=== PATIENT | female | born 1955 | race African-American/Black ===

== ENCOUNTER 2017-09-05 11:50 | Emergency (ER) | payer OTHER ==
[2017-09-05] MEDS ORDERED: Lidocaine 1% PF 5 ML VIAL ONE ×2 (12:19→12:23)
[2017-09-05] MEDS ORDERED: Adacel (T-DAP) 0.5 ML VIAL ONE (12:19)
[2017-09-05] MEDS ORDERED: Bacitracin Zinc 1 Packet ONE (12:19)
== END 2017-09-05 13:15 | disposition home or self-care (01) ==
LOC: ERS 11:50
DX: S61.012A Laceration without foreign body of left thumb without damage to nail, initial encounter (principal); E66.9 Obesity, unspecified; I10 Essential (primary) hypertension; G43.909 Migraine, unspecified, not intractable, without status migrainosus; W26.0XXA Contact with knife, initial encounter
CPT/HCPCS: 64450; 90471; 90715; J2001

== ENCOUNTER 2017-09-09 00:12 | Observation (INO) | payer OTHER ==
[2017-09-09 00:48] LABS: #Basophils 0.1 thou/uL (0.0-0.2); #Eosinphils 0.2 thou/uL (0.0-0.7); #Lymphocytes 2.3 thou/uL (1.20-3.40); #Monocytes 0.4 thou/uL (0.11-0.59); %Basophils 0.7 % (0.0-1.0); %Lymphocytes 33.1 % (21.0-51.0); %Monocytes 5.2 % (0.0-10.0); Hematocrit 44.7 % (36.0-47.0); Mean Platelet Volume 7.9 fL (7.4-10.4); Red Blood Cell (RBC) Count 4.92 mill/uL (4.20-5.40); White Blood Cell (WBC) Count 6.9 thou/uL (4.8-10.8)
[2017-09-09 01:04] LABS: ALT (SGPT) 8 U/L (8-55); AST (SGOT) 12 U/L (5-34); Alkaline Phosphatase 81 U/L (40-150); Anion Gap 18 mmol/L (10-20); BUN (Urea Nitrogen) 15 mg/dL (9.8-20.1); Bilirubin, Total 0.4 mg/dL (0.2-1.2); CK (CPK) 93 U/L (29-168); Calc. Creatinine Clearance 0 mL/min (70-130); Calcium 9.6 mg/dL (7.8-10.44); Carbon Dioxide 23 mmol/L (23-31); Chloride 106 mmol/L (98-107); Estimated GFR-MDRD 77; Globulin 3.8 g/dL (2.4-3.5); Protein, Total 8.1 g/dL (6.0-8.3)
[2017-09-09 01:09] LABS: Troponin I Less than 0.010 ng/mL (< 0.028)
[2017-09-09] MEDS ORDERED: Ondansetron HCl/PF 4 MG/2 ML Vial ONE (02:00)
[2017-09-09 03:11] LABS: Bilirubin Negative (Negative); Blood, Urine Large (Negative); Glucose, Urine (Dipstick) Negative (Negative); Ketone, Urine Negative (Negative); Nitrite Negative (Negative); Protein, Urine (Dipstick) 30 mg/dL (Neg-Trace); Urobilinogen 0.2 mg/dL (0.2-1.0)
[2017-09-09 03:14] LABS: Bacteria/HPF 1+ HPF (None Seen); Hyaline Casts/LPF 0-3 HYALINE CAST LPF (0-3 Hyaline); WBC/HPF 0-3 HPF (0-3)
[2017-09-09 04:05] LABS: Troponin I 0.026 ng/mL (< 0.028)
[2017-09-09] MEDS ORDERED: HYDROcodone/Acetaminophen 5/325 mg Tablet PO PRN ×2 (06:04)
[2017-09-09] MEDS ORDERED: Acetaminophen 325 MG TAB PO PRN (06:04)
[2017-09-09] MEDS ORDERED: Ondansetron HCl/PF 4 MG/2 ML Vial IVP PRN (06:04)
[2017-09-09] MEDS ORDERED: Ondansetron ODT 4 MG TAB SL PRN (06:04)
[2017-09-09 07:12] LABS: Troponin I Less than 0.010 ng/mL (< 0.028)
[2017-09-09 07:18] VITALS: BMI 43.4
[2017-09-09] MEDS ORDERED: PROVENTIL INHALER 6.7 G (200 INHALATIONS) INH PRN (07:51)
[2017-09-09] MEDS ORDERED: Promethazine 25 MG TAB PO PRN (07:52)
[2017-09-09] MEDS ORDERED: hydrALAZINE 20 MG/ML VIAL SLOW IVP PRN (08:05)
[2017-09-09] MEDS: HYDROcodone/Acetaminophen 10/325 mg Tablet PO PRN ×2 (08:11→14:12)
[2017-09-09] MEDS: tiZANidine HCl 4 MG TAB PO SCH ×2 (08:12→14:12)
[2017-09-09] MEDS: ALPRAZolam 0.5 MG TAB PO SCH ×2 (08:12→14:12)
--- NOTE | 2017-09-09 08:39 | RAD ---
CHEST TWO VIEWS: History: Shortness of breath. Comparison: 08-02-13 FINDINGS: Two views chest. Normal cardiac silhouette. The pulmonary vessels and hilum are normal. Costophrenic angles are clear. No consolidation or mass. No pneumothorax or osseous abnormality. IMPRESSION: No acute cardiopulmonary process. POS: [facility]
[2017-09-09] MEDS ORDERED: Lisinopril 20 MG TAB PO SCH (12:30)
--- NOTE | 2017-09-09 13:50 | NM ---
CARDIAC SPECT: CLINICAL HISTORY: 62-year-old black female with chest pain and hypertension. TECHNIQUE: A stress-only myocardial perfusion scan was performed following the intravenous administration of 31 mCi technetium-99m sestamibi. Pharmacologic stress with Lexiscan was monitored and interpreted by Alda Walker. FINDINGS: Homogeneous tracer distribution is seen in the myocardial segments on the post stress images. GATED SPECT LVEF: 70%. WALL MOTION EXAM: Normal. IMPRESSION: Normal post stress myocardial perfusion scan. POS: [facility]
[2017-09-09 15:59] VITALS: BP 150/79; TEMP 98.6
[2017-09-09] MEDS ORDERED: Regadenoson 0.4 MG/5 ML SYRINGE ONE (15:59)
[2017-09-09] MEDS ORDERED: Temazepam 15 MG CAP PO SCH (21:00)
--- NOTE | 2017-09-10 06:15 | HP ---
DATE OF ADMISSION: 09/09/2017 REASON FOR ADMISSION AND CHIEF COMPLAINT: Chest pain. HISTORY OF PRESENT ILLNESS: Ms. Samaniego is a 62-year-old -Maldivian female with past medical hi story of hypertension and chronic pain who came because of chest pain. She states the pain initiall y started in the epigastrium, it goes into the chest, then radiates into the shoulder as well, assoc iated with some shortness of breath and nausea, but no vomiting, no diaphoresis, no dizziness. The patient says the pain was getting worse, so she decided to come to the hospital. In the ER, the pat ient was evaluated and found to have normal cardiac enzymes and EKG. In view of risk factors, the p atient is admitted to rule out myocardial infarction. PAST MEDICAL HISTORY: 1. Hypertension, not on medications. 2. History of small-bowel obstruction. 3. History of COPD. 4. Morbid obesity. PAST SURGICAL HISTORY: Nothing significant. CURRENT MEDICATIONS: Protonix 40 mg daily, Promethazine 25 mg q.6 hours p.r.n., temazepam 30 mg at bedtime p.r.n., Zanaflex 4 mg t.i.d. and Ventolin inhaler q.i.d. p.r.n. 2 puffs. FAMILY HISTORY: Nothing of interest. SOCIAL HISTORY: The patient lives alone. No history of smoking. No history of alcohol intake. REVIEW OF SYSTEMS: Unremarkable except for the chest pain. PHYSICAL EXAMINATION: GENERAL: The patient is alert, awake and oriented x3. VITAL SIGNS: Temperature 98, pulse 110, respirations 20 and blood pressure initially 200/120, came down to 140/100. HEENT: Head is normocephalic and atraumatic. Pupils are equal and reactive. Nasopharynx is pink a nd moist. NECK: Supple. No JVD. LUNGS: Bilateral air entry present. No rales, no rhonchi. HEART: S1 and S2 are regular. ABDOMEN: Soft. No distention, no tenderness. Bowel sounds are present. CENTRAL NERVOUS SYSTEM: No focal deficits. LABORATORY AND X-RAY FINDINGS: CBC shows WBC 6.9, hemoglobin 14, hematocrit 44 and platelets 266. Metabolic panel: Sodium 143, potassium 3.5, chloride 106, CO2 of 23, urea nitrogen 15, creatinine 0 .1, glucose 112, CK-MB 0.9 and troponin I less than 0.01. Chest x-ray negative. EKG shows sinus tachycardia, heart rate 115. No acute ST-T wave changes seen . ASSESSMENT: 1. Chest pain, rule out myocardial infarction. 2. Hypertension, uncontrolled. 3. Morbid obesity. 4. Hyperlipidemia. PLAN: 1. Vital signs q.4 hours. 2. Activity: As tolerated. 3. Allergies: No known drug allergies. 4. Hep-Lock. 5. Troponin I q.8 hours x2. 6. Stress test. 7. Lisinopril 20 mg daily. 8. Continue her home medications. 9. If stress test is negative, the patient will be discharged home.
[2017-09-10] MEDS ORDERED: LINZESS 145 MCG PO SCH (07:30)
[2017-09-10] MEDS ORDERED: Lisinopril 20 MG TAB PO SCH (09:00)
--- NOTE | 2017-09-11 10:16 | DIS ---
DATE OF ADMISSION: 09/09/2017 DATE OF DISCHARGE: 09/09/2017 ADMITTING DIAGNOSES: 1. Chest pain, rule out myocardial infarction. 2. Hypertension, uncontrolled. 3. Morbid obesity. 4. Hyperlipidemia. FINAL DIAGNOSES: 1. Chest pain, no evidence of acute myocardial infarction and negative stress test. 2. Hypertension, uncontrolled, improved. 3. Morbid obesity. 4. Hyperlipidemia. BRIEF SUMMARY OF HOSPITAL COURSE: Ms. Samaniego is a 62-year-old -[place] female admitted [facility] of chest pain and discomfort. The patient has risk factors, admitted to rule out myocardial infarc tion. Serial cardiac enzymes were within normal limits. Her blood pressure was elevated. The patie nt had not been taking her medications. She was restarted on lisinopril after which blood pressure c laura down. The patient underwent a stress test and it was reported as negative for ischemia. In view of improvement, the patient was discharged. PHYSICAL EXAMINATION: GENERAL: At the time of discharge, she was stable. VITAL SIGNS: Stable. LUNGS: Clear. CARDIAC: Heart sounds regular. ABDOMEN: Soft, nontender. Bowel sounds present. DISCHARGE MEDICATIONS: Include temazepam 30 mg at bedtime p.r.n., lisinopril 20 mg daily, also evangelista nue with Xanax t.i.d., Phenergan p.r.n., Protonix 40 mg daily, Ventolin inhaler 2 puffs q.i.d. p.r.n. FOLLOWUP: The patient will come for followup in 2 weeks.
--- NOTE | 2017-09-16 09:00 | STRESS ---
Acquisition Time: 2017-09-09 09:28:18 Total Exercise Time: 00:01:00 Test Indications: CHEST PAIN Medications: Protocol: LEXISCAN Max HR: 118 BPM 74% of Pred: 159 BPM Max BP: 180/096 mmHG Max Work Load: 1.0 METS RESTING ECG: SINUS TACHYCARDIA AT 110 BPM WITH POOR R-WAVE PROGRESSION SYMPTOMS: NONE NORMAL BP RESPONSE ECTOPY: NONE ECG STRESS: NO SIGNIFICANT CHANGES INTERPRETATION: NEGATIVE ECG/AWAIT NUCLEAR IMAGES FOR DEFINITIVE DIAGNOSIS Confirmed by NELA CONKLIN ([id number]) on 09/16/2017 8:59:59 AM Referred By: MD Jim HERNANDEZ Confirmed By:NELA CONKLIN
--- NOTE | 2017-10-25 12:41 | EKG ---
Test Reason : Blood Pressure : / mmHG Vent. Rate : 115 BPM Atrial Rate : 115 BPM P-R Int : 160 ms QRS Dur : 088 ms QT Int : 320 ms P-R-T Axes : 049 -18 062 degrees QTc Int : 442 ms Sinus tachycardia Biatrial enlargement Left ventricular hypertrophy No STEMI Abnormal ECG Confirmed by MARTIN SHRESTHA ([id number]), technical writer and editor DARÍO VALENZUELA ([id number]) on 10/25/2017 12:41:17 PM Referred By: Confirmed By:MARTIN SHRESTHA
== END 2017-09-09 19:12 | disposition home or self-care (01) ==
LOC: ERS 00:12 → 2SW 03:21
PROVIDERS: ADMIT Internal Medicine; ATTEND Internal Medicine
DX: R07.89 Other chest pain (principal); I10 Essential (primary) hypertension; J44.9 Chronic obstructive pulmonary disease, unspecified; E66.01 Morbid (severe) obesity due to excess calories; Z68.41 Body mass index [BMI] 40.0-44.9, adult; Z91.041 Radiographic dye allergy status; Z88.5 Allergy status to narcotic agent; Z88.8 Allergy status to other drugs, medicaments and biological substances; Z79.899 Other long term (current) drug therapy
CPT/HCPCS: 36415; 71020; 78452; 80053; 81003; 81015; 82553; 84484; 85025; 85379; 93005; 93017; 96361; 96374; 96375; A9500; G0378; J0360; J2405; J2785

== ENCOUNTER 2017-10-07 05:47 | Observation (INO) | payer OTHER ==
[2017-10-07] MEDS ORDERED: cloNIDine 0.1 MG TAB ONE ×2 (06:48→11:18)
[2017-10-07 06:55] LABS: #Eosinphils 0.1 thou/uL (0.0-0.7); #Monocytes 0.4 thou/uL (0.11-0.59); #Neutrophils 2.7 thou/uL (1.40-6.50); %Basophils 0.3 % (0.0-1.0); %Eosinophils 2.8 % (0.0-10.0); %Lymphocytes 38.4 % (21.0-51.0); %Monocytes 6.8 % (0.0-10.0); Hematocrit 44.4 % (36.0-47.0); Mean Platelet Volume 8.2 fL (7.4-10.4); Red Blood Cell (RBC) Count 4.92 mill/uL (4.20-5.40); White Blood Cell (WBC) Count 5.2 thou/uL (4.8-10.8)
[2017-10-07 07:13] LABS: ALT (SGPT) 11 U/L (8-55); AST (SGOT) 16 U/L (5-34); Alkaline Phosphatase 84 U/L (40-150); Anion Gap 16 mmol/L (10-20); BUN (Urea Nitrogen) 15 mg/dL (9.8-20.1); Bilirubin, Total 0.5 mg/dL (0.2-1.2); Calc. Creatinine Clearance 0 mL/min (70-130); Calcium 10.3 mg/dL (7.8-10.44); Carbon Dioxide 25 mmol/L (23-31); Chloride 104 mmol/L (98-107); Estimated GFR-MDRD 64; Globulin 4.2 g/dL (2.4-3.5); Protein, Total 8.8 g/dL (6.0-8.3)
[2017-10-07 07:17] LABS: Troponin I 0.011 ng/mL (< 0.028)
--- NOTE | 2017-10-07 07:50 | RAD ---
AP VIEW OF THE CHEST: INDICATION: Chest pain. COMPARISON: Prior exam dated 09/09/17. IMPRESSION: There are low lung volumes. Heart size accentuated by the poor inspiration. No definite confluent a irspace opacity, pleural effusion, or pneumothorax is evident. No acute osseous abnormality is evide nt. COMMENTS: He exam is compared to the prior dated 09/09/17. POS: [facility]
[2017-10-07] MEDS ORDERED: Water For Inject, Bacteriostat 30 ML ONE (08:34)
[2017-10-07] MEDS ORDERED: diphenhydrAMINE 50 MG/ML VIAL ONE (08:34)
[2017-10-07] MEDS ORDERED: methylPREDNISolone Sod Succ/PF 125 MG/2 ML VIAL ONE (08:34)
[2017-10-07] MEDS ORDERED: Mag-Al 1200 mg/1200 mg/30 ML UDCUP ONE (08:34)
[2017-10-07] MEDS ORDERED: Lidocaine Viscous Sol 2% 15 ml UD Cup ONE ×2 (08:34→08:35)
[2017-10-07] MEDS ORDERED: Lisinopril 10 MG TAB ONE (09:24)
--- NOTE | 2017-10-07 10:06 | CT ---
CT HEAD WITHOUT CONTRAST: Technique: Multiple axial tomograms were obtained through the head without IV enhancement. History: Headache. Pain. FINDINGS: The ventricles are of normal size and position. No evidence of hemorrhage or mass. No evidence of inf arct or edema. There may be mild chronic ischemic white matter change present. There is evidence of a n empty sella. Sinuses and mastoids are well aerated. IMPRESSION: No evidence of acute process. POS: [facility]
--- NOTE | 2017-10-07 10:52 | CT ---
CHEST CT ANGIOGRAM ABDOMEN CT ANGIOGRAM: Exams include 3D rendering. HISTORY: A 62-year-old female with chest pain and burning abdominal pain, chest pain, and burning abdominal pa in. Exam was performed with CTA aortic dissection protocol. FINDINGS: No evidence for thoracic aortic aneurysm or dissection. Proximal pulmonary arteries are free of thro mbus. There is evidence for a small hiatal hernia. No evidence of abdominal aortic aneurysm or dissection, there is some mild focal dilatation of the di stal abdominal aorta just above the level of the bifurcation up to 2.4 cm. Celiac, superior mesenter ic, and inferior mesenteric arteries are patent. No significant renal artery stenosis. IMPRESSION: No evidence for aortic aneurysm or dissection. Small hiatal hernia. No evidence for other significa nt acute process. POS: [facility]
[2017-10-07] MEDS ORDERED: Acetaminophen 500 MG TAB ONE ×2 (11:34→13:27)
[2017-10-07] MEDS ORDERED: Nitroglycerin 2% Ointment 1 INCH/1 GM Packet ONE (12:14)
[2017-10-07] MEDS ORDERED: ISOVUE-370 76%-LOCM 1 ML ONE (13:07)
[2017-10-07] MEDS ORDERED: Ondansetron HCl/PF 4 MG/2 ML Vial ONE (13:27)
[2017-10-07] MEDS ORDERED: Labetalol HCl 100 MG/20 ML VIAL ONE (13:27)
[2017-10-07] MEDS ORDERED: ALPRAZolam 0.25 MG TAB ONE (16:18)
[2017-10-07 17:13] LABS: Troponin I Less than 0.010 ng/mL (< 0.028)
[2017-10-07 17:21] VITALS: BMI 43.0
[2017-10-07] MEDS ORDERED: Ondansetron HCl/PF 4 MG/2 ML Vial IVP PRN (17:28)
[2017-10-07] MEDS ORDERED: Ondansetron ODT 4 MG TAB SL PRN (17:28)
[2017-10-07] MEDS ORDERED: hydrALAZINE 20 MG/ML VIAL SLOW IVP PRN (17:29)
[2017-10-07] MEDS ORDERED: Lisinopril 20 MG TAB PO SCH (19:15)
[2017-10-07] MEDS: hydrALAZINE 20 MG/ML VIAL SLOW IVP PRN ×2 (19:59→23:53)
[2017-10-07] MEDS: Promethazine 25 MG TAB PO PRN (19:59)
[2017-10-07 20:00] LABS: Troponin I Less than 0.010 ng/mL (< 0.028)
[2017-10-07] MEDS ORDERED: HYDROcodone/Acetaminophen 10/325 mg Tablet PO PRN ×4 (20:20→23:58)
[2017-10-07] MEDS ORDERED: Promethazine 25 MG TAB PO PRN (21:09)
[2017-10-07] MEDS ORDERED: PROVENTIL INHALER 6.7 G (200 INHALATIONS) INH PRN (21:12)
[2017-10-07] MEDS: ALPRAZolam 0.5 MG TAB PO SCH ×2 (22:04→22:13)
[2017-10-07] MEDS ORDERED: tiZANidine HCl 4 MG TAB PO SCH (23:59)
[2017-10-08] MEDS: HYDROcodone/Acetaminophen 10/325 mg Tablet PO PRN ×3 (00:01→15:24)
[2017-10-08] MEDS ORDERED: hydrALAZINE 20 MG/ML VIAL SLOW IVP PRN (00:06)
[2017-10-08 00:51] LABS: Troponin I Less than 0.010 ng/mL (< 0.028)
--- NOTE | 2017-10-08 01:42 | HP ---
DATE OF ADMISSION: 10/07/2017 REASON FOR ADMISSION AND CHIEF COMPLAINT: Chest pain, abdominal pain, nausea and elevated blood pres sure. HISTORY OF PRESENT ILLNESS: Ms. Samaniego is a 62-year-old -I[place]ic female with past medical his tory of hypertension, morbid obesity, COPD and chronic abdominal pain, came because of elevated blood pressure as well as abdominal pain, nausea as well as chest pain. The patient states it started a f ew days ago and nausea is still persisting. The patient has seen Dr. Edourad in the office and had GI w orkup done and it was normal, and patient states she has been taking Protonix as was prescribed. Esdras arently, the chest pain was sharp in nature, intermittent in the retrosternal area, nonradiating, ass ociated with some shortness of breath and nausea, no dizziness. The patient had a stress test done a month ago, which was unremarkable, so the patient came to the emergency room because of these sympto ms and found to have markedly elevated blood pressure. Her blood pressure was 225/138 in the ER, who was given clonidine couple of doses as well as was given nitro and labetalol as well. Her blood pre ssure still remained high, so she is being admitted for further evaluation and management. The patie nt also received GI cocktail. PAST MEDICAL HISTORY: 1. Hypertension. 2. Morbid obesity. 3. Chronic abdominal pain. 4. History of small-bowel obstruction. 5. COPD. PAST SURGICAL HISTORY: Nothing significant. CURRENT MEDICATIONS: The patient is on Xanax 0.5 mg b.i.d., [place] p.r.n. q.6 hours, Linzess daily, l isinopril 20 mg b.i.d., Protonix 40 mg daily, Phenergan p.r.n., temazepam 30 mg at bedtime p.r.n., ti zanidine 4 mg t.i.d. and Ventolin inhaler p.r.n. ALLERGIES: NKDA. FAMILY HISTORY: Nothing of interest. SOCIAL HISTORY: The patient lives alone. No history of smoking. No history of alcohol intake. REVIEW OF SYSTEMS: Unremarkable except for the above complaints. PHYSICAL EXAMINATION: GENERAL: The patient is alert, awake and oriented x3. VITAL SIGNS: Temperature 98, pulse 86, respirations 20 and blood pressure 180/110. HEENT: Head is normocephalic and atraumatic. Pupils are equal and reactive to light. Nasopharynx i s pale and dry. Hard and soft palate. No lesions seen. SKIN: Skin turgor decreased. NECK: Supple. No JVD. LUNGS: Bilateral air entry present. No rales, no rhonchi. HEART: S1 and S2 regular. ABDOMEN: Soft and mildly tender. No guarding, no rigidity. Bowel sounds are present. RECTAL: Deferred. CENTRAL NERVOUS SYSTEM: No focal deficits. LABORATORY AND X-RAY FINDINGS: CBC showed WBC of 5, hemoglobin 13, hematocrit 44 and platelets 278. Metabolic panel: Sodium 141, potassium 3.6, chloride 104, CO2 of 25, BUN 15, creatinine 1.09 and gl ucose 104. CK-MB 1, troponin I 0.011. Serum lipase 10. EKG shows normal sinus tachycardia with hea rt rate of 101, no acute ST-T wave changes seen. Chest x-ray negative. CT dissection protocol negat tevin. ASSESSMENT: 1. Hypertensive emergency and uncontrolled hypertension. 2. Chest pain, atypical, rule out myocardial infarction. 3. Abdominal pain and nausea. 4. Morbid obesity. 5. History of chronic obstructive pulmonary disease. PLAN: 1. Vital signs q.4 hours. 2. Activity: As tolerated. 3. Allergies: NKDA. 4. Hep-lock. 5. CK-MB and troponin I q.8 hours x2. 6. Diet: Cardiac. 7. Continue home medication. 8. Hydralazine 10 mg IVP q.6 hours p.r.n. for systolic more than 200. 9. Phenergan p.r.n. Most likely, we will add second medication for control of blood pressure.
[2017-10-08] MEDS ORDERED: Morphine 4 MG/ML VIAL ONE (06:23)
[2017-10-08 06:43] LABS: Troponin I Less than 0.010 ng/mL (< 0.028)
[2017-10-08] MEDS ORDERED: Morphine 4 MG/ML VIAL SLOW IVP SCH (06:45)
[2017-10-08] MEDS ORDERED: LINACLOTIDE 145 MCG PO SCH (07:30)
[2017-10-08] MEDS: ALPRAZolam 0.5 MG TAB PO SCH (08:43)
[2017-10-08] MEDS: tiZANidine HCl 4 MG TAB PO SCH ×2 (08:44→15:17)
[2017-10-08] MEDS: Promethazine 25 MG TAB PO PRN (08:44)
[2017-10-08] MEDS ORDERED: Lisinopril 20 MG TAB PO SCH ×2 (09:00)
[2017-10-08] MEDS ORDERED: tiZANidine HCl 4 MG TAB PO SCH (09:00)
[2017-10-08] MEDS ORDERED: NIFEdipine XL 60 MG TAB PO SCH (10:00)
[2017-10-08 11:57] VITALS: TEMP 98.8
[2017-10-08 15:22] VITALS: BP 138/98
[2017-10-08] MEDS ORDERED: Temazepam 15 MG CAP PO SCH (21:00)
[2017-10-09] MEDS ORDERED: NIFEdipine XL 60 MG TAB PO SCH (09:00)
--- NOTE | 2017-10-09 14:47 | DIS ---
DATE OF ADMISSION: 10/07/2017 DATE OF DISCHARGE 10/08/2017 ADMITTING DIAGNOSES: 1. Hypertensive emergency and uncontrolled hypertension and chest pain, atypical, rule out myocardia l infarction. 2. Abdominal pain and nausea. 3. Morbid obesity. FINAL DIAGNOSES: 1. Hypertensive emergency with uncontrolled hypertension, improved. 2. Chest pain. No evidence of acute myocardial infarction. 3. Abdominal pain and nausea, improved. 4. Morbid obesity. BRIEF SUMMARY OF HOSPITAL COURSE: Ms. Samaniego is a 62-year-old female admitted [facility] abdominal pain, nausea, and also the patient was found to have elevated blood pressure as well. The patient did have a sharp chest pain. Serial cardiac enzymes were within normal limits. Her blo od pressure initially was 180/90, but it came down with medications, Procardia-XL after which blood p ressure came down to 138/98. The patient was given Zofran, abdominal pain resolved, the nausea resol yamile with the medication. Patient was able to tolerate diet very well. The patient was discharged. At the time of discharge, she was stable. Lungs clear. Abdomen soft, nontender. Bowel sounds prese nt. DISCHARGE MEDICATIONS: Include tizanidine 4 mg t.i.d., [place] p.r.n., Protonix 40 mg daily, Prometha zine 25 mg q.6h. p.r.n., Xanax 0.5 mg b.i.d., temazepam 1 tablet at bedtime 30 mg, Linzess daily, [place] co p.r.n. Procardia-XL 60 mg daily, lisinopril 20 mg b.i.d. FOLLOWUP: The patient will come for followup in 2 weeks.
--- NOTE | 2017-10-24 13:12 | EKG ---
Test Reason : SOB Blood Pressure : / mmHG Vent. Rate : 101 BPM Atrial Rate : 101 BPM P-R Int : 136 ms QRS Dur : 088 ms QT Int : 338 ms P-R-T Axes : 040 -16 049 degrees QTc Int : 438 ms Sinus tachycardia Voltage criteria for left ventricular hypertrophy Abnormal ECG Confirmed by MARIBELL CHENEY ([id number]), brands editor DARÍO VALENZUELA ([id number]) on 10/24/2017 1:12:41 PM Referred By: PRIYA Confirmed By:MARIBELL CHENEY
== END 2017-10-08 18:28 | disposition home or self-care (01) ==
LOC: ERS 05:47 → 2SW 13:44
PROVIDERS: ADMIT Internal Medicine; ATTEND Internal Medicine
DX: I16.1 Hypertensive emergency (principal); I10 Essential (primary) hypertension; R07.89 Other chest pain; R10.9 Unspecified abdominal pain; R11.0 Nausea; E66.01 Morbid (severe) obesity due to excess calories; J44.9 Chronic obstructive pulmonary disease, unspecified; Z68.43 Body mass index [BMI] 50.0-59.9, adult; Z79.899 Other long term (current) drug therapy; Z88.5 Allergy status to narcotic agent; Z88.8 Allergy status to other drugs, medicaments and biological substances; Z88.6 Allergy status to analgesic agent; Z91.041 Radiographic dye allergy status; Z91.038 Other insect allergy status
CPT/HCPCS: 36415; 70450; 71010; 71275; 80053; 82553; 83690; 84484; 85025; 93005; 94760; 96374; 96375; 96376; A4216; G0378; J0360; J1200; J2270; J2405; J2930

== ENCOUNTER 2017-12-29 15:02 | Inpatient (IN) | payer OTHER ==
[2017-12-29 15:55] LABS: #Lymphocytes 1.5 thou/uL (1.20-3.40); #Monocytes 0.4 thou/uL (0.11-0.59); #Neutrophils 7.1 thou/uL (1.40-6.50); %Eosinophils 0.2 % (0.0-10.0); %Lymphocytes 16.7 % (21.0-51.0); %Monocytes 4.7 % (0.0-10.0); %Neutrophils 78.4 % (42.0-75.0); Hemoglobin 13.8 g/dL (12.0-16.0); Mean Corpuscular HGB CONC 32.1 g/dL (32.0-36.0); Mean Corpuscular Hemoglobin 28.2 pg (27.0-31.0); Mean Corpuscular Volume 87.9 fl (81.0-99.0); Mean Platelet Volume 7.5 fL (7.4-10.4); Platelet Count 314 thou/uL (130-400); RBC Distribution Width 13.3 % (11.5-14.5)
[2017-12-29 16:18] LABS: ALT (SGPT) 14 U/L (8-55); AST (SGOT) 16 U/L (5-34); Albumin 4.8 g/dL (3.4-4.8); Alkaline Phosphatase 81 U/L (40-150); Anion Gap 19 mmol/L (10-20); BUN (Urea Nitrogen) 15 mg/dL (9.8-20.1); Bilirubin, Total 0.4 mg/dL (0.2-1.2); CK (CPK) 92 U/L (29-168); Calc. Creatinine Clearance 0 mL/min (70-130); Calcium 10.6 mg/dL (7.8-10.44); Carbon Dioxide 20 mmol/L (23-31); Chloride 107 mmol/L (98-107); Estimated GFR-MDRD 57; Glucose 114 mg/dL (80-115); Lipase 10 U/L (8-78); Potassium 3.8 mmol/L (3.5-5.1); Protein, Total 8.8 g/dL (6.0-8.3); Sodium 142 mmol/L (136-145)
[2017-12-29 16:22] LABS: CKMB 1.5 ng/mL (0-6.6); Troponin I 0.021 ng/mL (< 0.028)
--- NOTE | 2017-12-29 16:50 | RAD ---
PORTABLE CHEST 1 VIEW: Date: 12/29/17 Time: 1601 hours HISTORY: Chest pain, shortness of breath, nausea, and vomiting. FINDINGS: Comparison made with exam of 10/07/17. The heart size is borderline. There is continued elevation of the right hemidiaphragm. The aorta is t ortuous. No lobar consolidation, pneumothoraces, kendrick pulmonary edema, or pleural effusions are seen . IMPRESSION: No radiographic evidence of acute cardiopulmonary process. POS: [facility]
--- NOTE | 2017-12-29 17:26 | NM ---
VQ SCAN: Indication: Dyspnea. FINDINGS: Ventilation portion of the exam reveals relatively homogeneous radiotracer distribution without signi ficant retention. Perfusion portion of the exam revealed no significant or large perfusion defects. IMPRESSION: Low probability VQ scan. POS: [facility]
[2017-12-29] MEDS ORDERED: HYDROcodone/Acetaminophen 10/325 mg Tablet ONE (17:34)
[2017-12-29] MEDS ORDERED: hydrALAZINE 20 MG/ML VIAL ONE (18:56)
[2017-12-29 19:07] LABS: Troponin I 0.029 ng/mL (< 0.028)
[2017-12-29] MEDS ORDERED: Ondansetron HCl/PF 4 MG/2 ML Vial IVP PRN (20:16)
[2017-12-29] MEDS ORDERED: Ondansetron ODT 4 MG TAB SL PRN (20:16)
[2017-12-29] MEDS ORDERED: PROVENTIL INHALER 6.7 G (200 INHALATIONS) INH PRN (21:29)
[2017-12-29] MEDS ORDERED: Zolpidem Tartrate 5 MG TAB PO SCH (21:30)
[2017-12-29] MEDS ORDERED: ALPRAZolam 1 MG TAB PO SCH (21:30)
[2017-12-29] MEDS ORDERED: hydrALAZINE 25 MG TAB PO SCH (21:30)
[2017-12-29] MEDS ORDERED: Lisinopril 20 MG TAB PO SCH (21:30)
[2017-12-29] MEDS ORDERED: Labetalol 100 MG/20 ML MDV SLOW IVP PRN (21:32)
[2017-12-29] MEDS ORDERED: Ketorolac Tromethamine 30 MG/ML VIAL IVP PRN (21:42)
[2017-12-29] MEDS: Promethazine 25 MG TAB PO PRN (22:06)
[2017-12-29 22:20] LABS: Troponin I 0.022 ng/mL (< 0.028)
[2017-12-29] MEDS: HYDROcodone/Acetaminophen 10/325 mg Tablet PO PRN (22:22)
[2017-12-29 22:59] VITALS: BMI 42.8
[2017-12-30] MEDS: HYDROcodone/Acetaminophen 10/325 mg Tablet PO PRN (05:05)
[2017-12-30] MEDS: Sodium Chloride 0.9% 1,000 ML IV SCH ×2 (05:13→21:09)
[2017-12-30] MEDS ORDERED: NIFEdipine XL 90 MG TAB PO SCH (09:00)
[2017-12-30] MEDS ORDERED: FLU VACC QS2017-18 36 mo. & older 0.5 ML SYRINGE IM ONE (09:00)
[2017-12-30] MEDS: tiZANidine HCl 4 MG TAB PO SCH ×3 (10:36→21:10)
[2017-12-30] MEDS: ALPRAZolam 1 MG TAB PO SCH ×2 (10:37→21:10)
[2017-12-30] MEDS: hydrALAZINE 25 MG TAB PO SCH ×2 (10:37→21:10)
[2017-12-30] MEDS: Lisinopril 20 MG TAB PO SCH ×2 (10:37→21:10)
[2017-12-30] MEDS ORDERED: Zolpidem Tartrate 5 MG TAB PO SCH (21:00)
--- NOTE | 2017-12-31 01:10 | CON ---
DATE OF CONSULTATION: 12/30/2017 GI INPATIENT CONSULTATION NOTE REQUESTING PHYSICIAN: Dr. Anderson. REASON FOR CONSULTATION: Nausea and vomiting. HISTORY OF PRESENT ILLNESS: Renae Samaniego is a very pleasant 62-year-old -[place] woman with a history of constipation, predominant irritable bowel syndrome as well as chronic recurrent na usea and vomiting. She has chronic back pain for which she takes opioid medications as well as migra ine headaches. She is morbidly obese. She sees my GI colleague, Dr. Wilber Edouard on an outpatient bas is. She has had some extensive gastrointestinal workup over the past year in 02/2017. She had a nor mal CT of the abdomen and pelvis with contrast in 04/2017. She had EGD and colonoscopy and this demo nstrated only a 3-cm hiatal hernia and mild sigmoid diverticulosis, but was otherwise normal. She is followed up in our clinic with regularity. She was last seen a couple of months ago by one of our p hymansician assistants. At that time, she was continuing to complain of intermittent episodic nausea, v omiting as well as constipation which is fairly well controlled. A gastric emptying study was ordere d but this has not happened yet. It is actually scheduled for next week. The patient was admitted t o the hospital yesterday with another episode of nausea and vomiting which were fairly acute in onset yesterday and associated with shortness of breath and pain in the chest. This is a fairly typical p resentation for her. She was admitted to rule out myocardial infarction. Troponins have been negati ve. She states that her bowel movements through this time have not changed. She takes Linzess more on a p.r.n. basis than anything and feels that this controlled her constipation well. She says that she has a couple of bad days nearly every month with nausea and vomiting, but really has no symptoms in between the times. Actually today, her symptoms seem to have resolved. She has eaten a hamburger , some chicken, some peppers, had crackers and also soda throughout the day today and has had no furt her nausea, vomiting, or abdominal pain. REVIEW OF SYSTEMS: Full review of systems including constitutional, head, eyes, ears, nose, throat, GI, , cardiovascular, respiratory, musculoskeletal, and neurologic systems is negative except as no shantanu in the HPI. PAST MEDICAL HISTORY: GERD, hiatal hernia, IBS with constipation predominance, osteoarthritis, chron ic back pain, chronic opioid use, hypertension, obesity, anxiety, migraine headaches, hysterectomy. SOCIAL HISTORY: No smoking, alcohol, or drug use. FAMILY HISTORY: Noncontributory. ALLERGIES: ALEVE, COMPAZINE, DARVOCET, GABAPENTIN, IBUPROFEN, IODINE, LYRICA, NAPROXEN, RITALIN, TOR ADOL, TRAMADOL, TRIPROLIDINE and TYLENOL. OUTPATIENT MEDICATIONS: Hydralazine, lisinopril, Procardia, pantoprazole, [place], Zanaflex, albuterol , Xanax and Lunesta. PHYSICAL EXAMINATION: VITAL SIGNS: Temperature 98.7, pulse 95, blood pressure 140/70, 96% oxygen saturation on room air. GENERAL: Morbidly obese, lying in bed comfortably in no distress. MENTAL: Alert and fully oriented, pleasant, conversational. SKIN: No jaundice, no rash visible or palpable. EYES: No scleral icterus. Extraocular movements are intact. ENT: Mucous membranes moist, no oral lesions. LYMPH: No submandibular, supraclavicular lymphadenopathy. THYROID: Nontender to palpation. HEART: Regular rate and rhythm. LUNGS: Clear to auscultation bilaterally. ABDOMEN: Obese, bowel sounds present, soft, nontender to palpation throughout. No masses or organom egaly appreciated. EXTREMITIES: No peripheral edema. VESSELS: Radial pulses 2+ bilaterally. NEUROLOGICAL: Cranial nerves II through XII intact bilaterally. No focal deficits. LABORATORY STUDIES: WBC 9.0, hemoglobin 13.8, platelets 314. Sodium 142, potassium 3.8, BUN 15, cre atinine 1.16. Troponin negative. BNP normal at 97.5. Lipase only 10. LFTs normal with total bilir ubin 0.4, alkaline phosphatase 81, AST 16, ALT 14, albumin 4.8. IMAGING STUDIES: Chest x-ray showed no acute processes. VQ scan showed low probability of pulmonary embolus. ASSESSMENT AND PLAN: 1. Nausea and vomiting, recurrent, resolved today. 2. Chest pain, recurrent, also resolved today. Thankfully, the patient has had great symptomatic improvement over the past day and has been able to tolerate her diet with no difficulties at all. She states this is in keeping with her normal pattern of having a couple of bad days every month. At this time, no further gastrointestinal workup is norma nned, except for the gastric emptying study which has already been set in motion. She will be [place] to get next week, and we will have her follow back up in the GI clinic with either Dr. Edouard or one of our Physician assistants in the next 2-3 weeks. Gastrointestinal will sign off at this time, but please call back with questions or concerns.
--- NOTE | 2017-12-31 06:32 | HP ---
DATE OF ADMISSION: 12/29/2017 CHIEF COMPLAINT: Nausea, vomiting, elevated blood pressure, and chest pain. HISTORY OF PRESENT ILLNESS: Ms. Samaniego is a 62-year-old female with past medical his tory of hypertension, migraine headaches, chronic pain came because of nausea and vomiting going on f or 3-4 days. The patient states she is unable to tolerate anything and unable to keep anything down. The patient says she tried Phenergan and Zofran without much help and came to the office. The pamella ent was found to have markedly elevated blood pressure, as well as intractable nausea and vomiting. In view of that, the patient was sent to the emergency room, where she was evaluated and found to hav e normal cardiac enzymes, but blood pressure was elevated. Her chest pain was sharp in nature in the retrosternal area, nonradiating, not associated with any dizziness. Her blood pressure initially wa s 200/120, so the patient received hydralazine IV and admitted for further evaluation and management. The patient already received aspirin and [place]. PAST MEDICAL HISTORY: 1. Hypertension. 2. Hyperlipidemia. 3. Morbid obesity. 4. History of migraine headaches. 5. History of anxiety disorder. 6. Chronic abdominal pain. 7. History of COPD. PAST SURGICAL HISTORY: Nothing significant. CURRENT MEDICATIONS: The patient is on Xanax 0.5 b.i.d., [place] p.r.n. q.6 hours, lisinopril 20 mg b. i.d., Protonix 40 mg daily, Phenergan p.r.n., Lunesta p.r.n., tizanidine 4 mg t.i.d., Ventolin inhale r p.r.n., hydralazine 50 b.i.d. ALLERGIES: DARVOCET, GABAPENTIN, IBUPROFEN, IODINE, LYRICA, NAPROXEN, RITALIN, TORADOL, TRAMADOL, TY LENOL, and COMPAZINE. FAMILY HISTORY: Nothing contributory. SOCIAL HISTORY: The patient lives alone. No history of smoking. No history of alcohol intake. REVIEW OF SYSTEMS: Cardiovascular: Sharp chest pain. No shortness of breath. Respiratory: No fev er or cough. Gastrointestinal: Had nausea, vomiting, abdominal pain. Genitourinary: No dysuria or hematuria. Central nervous system: Has headache. No dizziness. PHYSICAL EXAMINATION: GENERAL: The patient is alert, awake, oriented x3. VITAL SIGNS: Temperature 99, pulse 96, respiration 20, blood pressure 195/110. HEENT: Head is normocephalic, atraumatic. Pupils equal and reactive to light. Nasopharynx is pale and dry. NECK: Supple. No JVD. LUNGS: Bilateral air entry present. No rales, no rhonchi. HEART: S1, S2 regular. ABDOMEN: Soft, not tender. No distention, no organomegaly. Bowel sounds are present. RECTAL: Deferred. CENTRAL NERVOUS SYSTEM: No focal deficit. LABORATORY DATA AND X-RAY FINDINGS: CBC shows WBC 9, hemoglobin 13.8, hematocrit 43, platelets 314. Metabolic panel: Sodium 142, potassium 3.8, chloride 106, CO2 of 20, urea nitrogen 15, creatinine 0 .1, glucose 114. CK-MB 1.5, troponin 0.021. Chest x-ray was negative. EKG showed sinus tachycardia initially with 120 heart rate, no acute ST-T wave changes seen. V/Q scan low probability. ASSESSMENT: 1. Hypertensive emergency. 2. Chest pain, atypical, rule out myocardial infarction. 3. Intractable nausea, vomiting, and abdominal pain. 4. Morbid obesity. 5. History of migraine headaches. 6. History of anxiety disorder. PLAN: 1. Vital signs q.4 hours. 2. Activity: As tolerated. 3. Allergies: Multiple includes DARVOCET, GABAPENTIN, IBUPROFEN, IODINE, LYRICA, NAPROXEN, RITALIN, TORADOL, TRAMADOL, TYLENOL, and COMPAZINE. 4. Hep-Lock. 5. Labetalol 20 IVP q.6 hours p.r.n. for systolic more than 160. 6. Continue home medications. 7. Procardia XL 90 mg daily. 8. Phenergan p.r.n. 9. Troponin I q.8 hours x2. 10. GI consult.
[2017-12-31] MEDS: Promethazine 25 MG TAB PO PRN (09:58)
[2017-12-31] MEDS: hydrALAZINE 25 MG TAB PO SCH (09:58)
[2017-12-31] MEDS: tiZANidine HCl 4 MG TAB PO SCH (09:59)
[2017-12-31] MEDS: Lisinopril 20 MG TAB PO SCH (09:59)
[2017-12-31] MEDS ORDERED: NIFEdipine XL 60 MG TAB PO SCH (10:00)
[2017-12-31] MEDS: ALPRAZolam 1 MG TAB PO SCH (10:03)
[2017-12-31 15:08] VITALS: BP 132/78; TEMP 98
[2018-01-01] MEDS ORDERED: NIFEdipine XL 60 MG TAB PO SCH (09:00)
== END 2017-12-31 16:49 | disposition home or self-care (01) | DRG 305 ==
LOC: ERS 15:02 → 2NO 17:30
PROVIDERS: ADMIT Internal Medicine; ATTEND Internal Medicine
DX: I16.1 Hypertensive emergency (principal); E66.01 Morbid (severe) obesity due to excess calories; Z68.41 Body mass index [BMI] 40.0-44.9, adult; R07.9 Chest pain, unspecified; E78.5 Hyperlipidemia, unspecified; G43.909 Migraine, unspecified, not intractable, without status migrainosus; F41.9 Anxiety disorder, unspecified; J44.9 Chronic obstructive pulmonary disease, unspecified; R11.2 Nausea with vomiting, unspecified; K21.9 Gastro-esophageal reflux disease without esophagitis; M19.90 Unspecified osteoarthritis, unspecified site
CPT/HCPCS: 36415; 71045; 78582; 80053; 82550; 82553; 83690; 83880; 84484; 85025; 93005; A9540; A9558; J0360

== ENCOUNTER 2018-01-22 07:04 | Emergency (ER) | payer OTHER ==
[2018-01-22] MEDS ORDERED: Metoclopramide HCl 10 MG/2 ML VIAL ONE (07:54)
[2018-01-22] MEDS ORDERED: Metoprolol Tartrate 5 MG/5 ML VIAL ONE (07:54)
[2018-01-22 08:06] LABS: ALT (SGPT) 13 U/L (8-55); AST (SGOT) 14 U/L (5-34); Albumin 4.7 g/dL (3.4-4.8); Alkaline Phosphatase 88 U/L (40-150); Anion Gap 20 mmol/L (10-20); BUN (Urea Nitrogen) Less than 4 mg/dL (9.8-20.1); Bilirubin, Total 0.5 mg/dL (0.2-1.2); Calc. Creatinine Clearance 0 mL/min (70-130); Calcium 10.2 mg/dL (7.8-10.44); Carbon Dioxide 16 mmol/L (23-31); Chloride 107 mmol/L (98-107); Estimated GFR-MDRD 65; Globulin 4.1 g/dL (2.4-3.5); Glucose 107 mg/dL (80-115); Lipase 11 U/L (8-78); Potassium 3.7 mmol/L (3.5-5.1); Protein, Total 8.8 g/dL (6.0-8.3); Sodium 139 mmol/L (136-145)
[2018-01-22 08:21] LABS: #Eosinphils 0.2 thou/uL (0.0-0.7); #Lymphocytes 2.8 thou/uL (1.20-3.40); #Monocytes 0.5 thou/uL (0.11-0.59); #Neutrophils 3.7 thou/uL (1.40-6.50); %Basophils 0.1 % (0.0-1.0); %Eosinophils 2.1 % (0.0-10.0); %Lymphocytes 39.6 % (21.0-51.0); %Monocytes 6.5 % (0.0-10.0); %Neutrophils 51.7 % (42.0-75.0); Hemoglobin 14.5 g/dL (12.0-16.0); Mean Corpuscular Hemoglobin 27.5 pg (27.0-31.0); Mean Corpuscular Volume 88.6 fl (81.0-99.0); Mean Platelet Volume 7.7 fL (7.4-10.4); Platelet Count 337 thou/uL (130-400); RBC Distribution Width 13.2 % (11.5-14.5); Red Blood Cell (RBC) Count 5.27 mill/uL (4.20-5.40); White Blood Cell (WBC) Count 7.2 thou/uL (4.8-10.8)
[2018-01-22 08:33] LABS: CKMB 0.9 ng/mL (0-6.6); Troponin I Less than 0.010 ng/mL (< 0.028)
[2018-01-22] MEDS ORDERED: Morphine 4 MG/ML VIAL ONE (09:06)
[2018-01-22 09:35] LABS: Bilirubin Negative (Negative); Blood, Urine Moderate (Negative); Clarity CLEAR (Clear); Glucose, Urine (Dipstick) Negative (Negative); Leukocyte Negative (Negative); Nitrite Negative (Negative); Protein, Urine (Dipstick) Negative (Neg-Trace); Urobilinogen 0.2 mg/dL (0.2-1.0)
[2018-01-22 09:37] LABS: Bacteria/HPF None Seen HPF (None Seen); Hyaline Casts/LPF 0-3 HYALINE CAST LPF (0-3 Hyaline); Pathc Cast-AUWi Flag 0.14 (0-2.49); RBC/HPF 0-3 HPF (0-3); Squamous Epithelial 0-3 HPF (0-3); WBC/HPF None Seen HPF (0-3)
[2018-01-22] MEDS ORDERED: hydrALAZINE 20 MG/ML VIAL ONE (09:57)
[2018-01-22] MEDS ORDERED: Labetalol HCl 100 MG/20 ML VIAL ONE (10:30)
[2018-01-22] MEDS ORDERED: Promethazine HCl 25 MG/ML VIAL ONE (10:30)
--- NOTE | 2018-02-28 20:03 | EKG ---
Test Reason : VOMITING Blood Pressure : / mmHG Vent. Rate : 122 BPM Atrial Rate : 122 BPM P-R Int : 140 ms QRS Dur : 088 ms QT Int : 310 ms P-R-T Axes : 048 -22 079 degrees QTc Int : 441 ms Sinus tachycardia Right atrial enlargement Left ventricular hypertrophy with repolarization abnormality Abnormal ECG Confirmed by CHANDAN SALAMANCA ([id number]), editorial cartoonist DARÍO VALENZUELA ([id number]) on 02/28/2018 8:03:25 PM Referred By: Confirmed By:CHANDAN SALAMANCA
== END 2018-01-22 12:04 | disposition home or self-care (01) ==
LOC: ERS 07:04
DX: R11.2 Nausea with vomiting, unspecified (principal); R10.9 Unspecified abdominal pain; I10 Essential (primary) hypertension; G43.909 Migraine, unspecified, not intractable, without status migrainosus; E66.9 Obesity, unspecified; F41.9 Anxiety disorder, unspecified
CPT/HCPCS: 36415; 51701; 80053; 81003; 81015; 82553; 83690; 84484; 85025; 93005; 96361; 96365; 96375; A4353; J0360; J2270; J2550; J2765

== ENCOUNTER 2018-04-19 05:53 | Emergency (ER) | payer OTHER ==
--- NOTE | 2018-04-19 07:32 | RAD ---
SINGLE VIEW OF THE CHEST: COMPARISON: 12/29/17. HISTORY: Chest pain and shortness of breath. Dyspnea. FINDINGS: Single view of the chest shows a normal sized cardiomediastinal silhouette. There is no evidence of c onsolidation, mass, or pleural effusion. The bones are unremarkable. IMPRESSION: No evidence of acute cardiopulmonary disease. POS: [facility]
[2018-04-19 07:38] LABS: #Basophils 0.1 thou/uL (0.0-0.2); #Lymphocytes 1.9 thou/uL (1.20-3.40); #Monocytes 0.4 thou/uL (0.11-0.59); #Neutrophils 4.9 thou/uL (1.40-6.50); %Basophils 0.9 % (0.0-1.0); %Eosinophils 0.5 % (0.0-10.0); %Lymphocytes 26.1 % (21.0-51.0); %Monocytes 5.7 % (0.0-10.0); %Neutrophils 66.7 % (42.0-75.0); Hemoglobin 14.6 g/dL (12.0-16.0); Mean Corpuscular HGB CONC 32.5 g/dL (32.0-36.0); Mean Corpuscular Hemoglobin 28.7 pg (27.0-31.0); Mean Corpuscular Volume 88.5 fL (78.0-98.0); Mean Platelet Volume 7.8 fL (7.4-10.4); Platelet Count 333 thou/uL (130-400); RBC Distribution Width 13.6 % (11.5-14.5); Red Blood Cell (RBC) Count 5.07 mill/uL (4.20-5.40); White Blood Cell (WBC) Count 7.3 thou/uL (4.8-10.8)
[2018-04-19 07:48] LABS: ALT (SGPT) 11 U/L (8-55); AST (SGOT) 13 U/L (5-34); Alkaline Phosphatase 84 U/L (40-150); Anion Gap 22 mmol/L (10-20); BUN (Urea Nitrogen) 11 mg/dL (9.8-20.1); Bilirubin, Total 0.3 mg/dL (0.2-1.2); CK (CPK) 61 U/L (29-168); Calc. Creatinine Clearance 0 mL/min (70-130); Calcium 10.4 mg/dL (7.8-10.44); Carbon Dioxide 20 mmol/L (23-31); Chloride 107 mmol/L (98-107); Estimated GFR-MDRD 67; Globulin 4.3 g/dL (2.4-3.5); Glucose 115 mg/dL (80-115); Potassium 3.6 mmol/L (3.5-5.1); Protein, Total 9.3 g/dL (6.0-8.3); Sodium 145 mmol/L (136-145)
[2018-04-19 07:57] LABS: Troponin I Less than 0.010 ng/mL (< 0.028)
[2018-04-19] MEDS ORDERED: Promethazine 25 MG TAB ONE (08:51)
== END 2018-04-19 10:16 | disposition home or self-care (01) ==
LOC: ERS 05:53
DX: I26.99 Other pulmonary embolism without acute cor pulmonale (principal); I10 Essential (primary) hypertension; E66.9 Obesity, unspecified; F41.9 Anxiety disorder, unspecified; G43.909 Migraine, unspecified, not intractable, without status migrainosus; Z79.899 Other long term (current) drug therapy
CPT/HCPCS: 71045; 80053; 82553; 84484; 85025; 93005

== ENCOUNTER 2018-04-27 09:42 | Outpatient (CLI) | payer OTHER | END 2018-04-27 09:43 | disposition home or self-care (01) | LOC: BICRAD 09:42 | PROVIDERS: ATTEND Internal Medicine | DX: I10 Essential (primary) hypertension (principal); M25.9 Joint disorder, unspecified; Z98.890 Other specified postprocedural states ==

== ENCOUNTER 2018-05-01 17:11 | Inpatient (IN) | payer OTHER ==
[2018-05-01 17:56] LABS: #Lymphocytes 1.3 thou/uL (1.20-3.40); #Monocytes 0.4 thou/uL (0.11-0.59); #Neutrophils 5.6 thou/uL (1.40-6.50); %Basophils 0.3 % (0.0-1.0); %Eosinophils 0.3 % (0.0-10.0); %Lymphocytes 17.6 % (21.0-51.0); %Neutrophils 76.8 % (42.0-75.0); Hemoglobin 12.2 g/dL (12.0-16.0); Mean Corpuscular HGB CONC 31.6 g/dL (32.0-36.0); Mean Corpuscular Hemoglobin 28.2 pg (27.0-31.0); Mean Corpuscular Volume 89.4 fL (78.0-98.0); Mean Platelet Volume 7.3 fL (7.4-10.4); Platelet Count 401 thou/uL (130-400); RBC Distribution Width 13.3 % (11.5-14.5); Red Blood Cell (RBC) Count 4.33 mill/uL (4.20-5.40); White Blood Cell (WBC) Count 7.3 thou/uL (4.8-10.8)
[2018-05-01] MEDS ORDERED: Diazepam 5 MG TAB ONE ×2 (18:02→18:33)
[2018-05-01 18:20] LABS: PTT 26.2 SEC (22.9-36.1); Prothrombin Time 12.8 SEC (12.0-14.7)
[2018-05-01 18:23] LABS: Troponin I Less than 0.010 ng/mL (< 0.028)
[2018-05-01 18:23] LABS: ALT (SGPT) 8 U/L (8-55); AST (SGOT) 11 U/L (5-34); Albumin 4.6 g/dL (3.4-4.8); Alkaline Phosphatase 81 U/L (40-150); Anion Gap 17 mmol/L (10-20); BUN (Urea Nitrogen) 16 mg/dL (9.8-20.1); Bilirubin, Total 0.3 mg/dL (0.2-1.2); CK (CPK) 79 U/L (29-168); Calc. Creatinine Clearance 0 mL/min (70-130); Calcium 10.3 mg/dL (7.8-10.44); Carbon Dioxide 20 mmol/L (23-31); Chloride 105 mmol/L (98-107); Estimated GFR-MDRD 76; Globulin 3.6 g/dL (2.4-3.5); Glucose 141 mg/dL (80-115); Lipase 8 U/L (8-78); Magnesium 1.8 mg/dL (1.6-2.6); Potassium 3.9 mmol/L (3.5-5.1); Protein, Total 8.2 g/dL (6.0-8.3); Sodium 138 mmol/L (136-145)
--- NOTE | 2018-05-01 19:00 | RAD ---
SINGLE VIEW OF THE CHEST: 05/01/18 COMPARISON: 04/19/18 HISTORY: Left sided chest pain. FINDINGS: Single view of the chest shows a normal sized cardiomediastinal silhouette. There is no evidence of c onsolidation, mass, or pleural effusion. The bones are unremarkable. IMPRESSION: No evidence of acute cardiopulmonary disease. POS: [facility]
[2018-05-01 20:12] LABS: Bilirubin Negative (Negative); Blood, Urine Small (Negative); Clarity CLEAR (Clear); Glucose, Urine (Dipstick) Negative (Negative); Leukocyte Negative (Negative); Nitrite Negative (Negative); Protein, Urine (Dipstick) Negative (Neg-Trace); Specific Gravity, Urine 1.008 (1.002-1.036); Urobilinogen 0.2 mg/dL (0.2-1.0)
[2018-05-01 20:17] LABS: Bacteria/HPF Rare-Few HPF (None Seen); Hyaline Casts/LPF 0-3 HYALINE CAST LPF (0-3 Hyaline); Pathc Cast-AUWi Flag 0.14 (0-2.49); RBC/HPF 0-3 HPF (0-3); Squamous Epithelial 0-3 HPF (0-3); WBC/HPF 0-3 HPF (0-3)
[2018-05-01] MEDS ORDERED: diphenhydrAMINE 50 MG/ML VIAL ONE (20:19)
[2018-05-01] MEDS ORDERED: methylPREDNISolone Sod Succ/PF 125 MG/2 ML VIAL ONE (20:20)
[2018-05-01] MEDS ORDERED: Labetalol HCl 100 MG/20 ML VIAL ONE (22:06)
[2018-05-01] MEDS ORDERED: Enoxaparin Sodium 30 MG/0.3 ML SYRINGE ONE (22:52)
[2018-05-01] MEDS ORDERED: Nitroglycerin 2% Ointment 1 INCH/1 GM Packet ONE (22:52)
[2018-05-01] MEDS ORDERED: Enoxaparin Sodium 100 MG/ML SYRINGE ONE (22:52)
[2018-05-01 23:29] LABS: Troponin I 0.011 ng/mL (< 0.028)
[2018-05-01] MEDS ORDERED: Labetalol HCl 100 MG/20 ML VIAL SLOW IVP PRN (23:44)
[2018-05-01] MEDS ORDERED: Sodium Chloride 0.45% 1,000 ML IV SCH (23:45)
[2018-05-01] MEDS ORDERED: Ondansetron HCl/PF 4 MG/2 ML Vial IVP PRN (23:46)
[2018-05-01] MEDS ORDERED: Ondansetron ODT 4 MG TAB SL PRN (23:46)
[2018-05-01 23:49] VITALS: BMI 43.3
[2018-05-02] MEDS ORDERED: NIFEdipine XL 90 MG TAB PO SCH (01:30)
[2018-05-02] MEDS ORDERED: hydrALAZINE 25 MG TAB PO SCH (01:30)
[2018-05-02] MEDS ORDERED: Labetalol HCl 100 MG/20 ML VIAL SLOW IVP PRN (01:35)
[2018-05-02 02:04] LABS: Troponin I 0.015 ng/mL (< 0.028)
[2018-05-02] MEDS: HYDROcodone/Acetaminophen 10/325 mg Tablet PO PRN ×2 (04:53→15:57)
[2018-05-02] MEDS: tiZANidine HCl 4 MG TAB PO SCH ×3 (08:56→20:49)
[2018-05-02] MEDS: Metoclopramide HCl 10 MG TAB PO SCH ×3 (08:57→18:14)
[2018-05-02] MEDS: Lisinopril 20 MG TAB PO SCH (08:57)
[2018-05-02] MEDS: hydrALAZINE 25 MG TAB PO SCH ×2 (08:58→20:48)
[2018-05-02] MEDS: ALPRAZolam 0.5 MG TAB PO SCH ×2 (08:58→20:49)
[2018-05-02] MEDS: Apixaban 2.5 MG TAB PO SCH ×2 (08:59→20:47)
--- NOTE | 2018-05-02 18:02 | RAD ---
THREE VIEWS LEFT SHOULDER: 05/02/18 COMPARISON: Chest x-ray 05/01/18. HISTORY: Left shoulder pain. FINDINGS: Three views of the left shoulder shows no evidence of acute fracture or dislocation. No significant d egenerative changes are seen. The visualized left thorax is unremarkable. IMPRESSION: Unremarkable exam. POS: [facility]
[2018-05-02] MEDS ORDERED: Zolpidem Tartrate 5 MG TAB PO SCH (21:00)
--- NOTE | 2018-05-03 01:44 | HP ---
DATE OF ADMISSION: 05/01/2018 REASON FOR ADMISSION AND CHIEF COMPLAINT: Elevated blood pressure, left shoulder pain, chest wall pa in. HISTORY OF PRESENT ILLNESS: Ms. Samaniego is a 62-year-old female with past medical his tory of hypertension, recent pulmonary embolism, came because of the pain in the left shoulder area. Patient was sent in the office with left shoulder pain, had an x-ray done which was unremarkable. Gaby lilly continued to have a left shoulder pain and chest wall pain, came to the emergency room. She h as some nausea, vomiting and vomited a couple of times. In the ER, patient was found to have markedl y elevated blood pressure, it was 208/115. Patient received labetalol 20 IVP as well as morphine. Gaby lilly also received Valium for anxiety. She is admitted for further evaluation and management. PAST MEDICAL HISTORY: 1. Hypertension. 2. Hyperlipidemia. 3. History of migraine headaches. 4. Anxiety disorder. 5. Chronic abdominal pain. 6. History of chronic obstructive pulmonary disease. 7. History of pulmonary embolism, on Eliquis. PAST SURGICAL HISTORY: Nothing significant. CURRENT MEDICATIONS: Patient is on Xanax 0.5 b.i.d., [place] p.r.n., lisinopril 20 mg two tablets juanjose y, Protonix 40 mg daily, tizanidine 4 mg t.i.d., hydralazine 100 mg b.i.d., nifedipine ER 90 mg daily , Reglan 5 mg t.i.d., Ambien p.r.n. ALLERGIES: Multiple include DARVOCET, GABAPENTIN, IBUPROFEN, IODINE, LYRICA, NAPROXEN, RITALIN, ANDRE DOL, TRAMADOL, TYLENOL, COMPAZINE. FAMILY HISTORY: Nothing of interest. SOCIAL HISTORY: Patient lives alone. No history of smoking. No history of alcohol intake. REVIEW OF SYSTEMS: Cardiovascular: She has sharp chest pain and shortness of breath. Respiratory: No fever or cough. Gastrointestinal: Has nausea, vomiting, and abdominal discomfort. Central nervous system: Has headache, no dizziness. PHYSICAL EXAMINATION: GENERAL: The patient is alert, awake, oriented x3. VITAL SIGNS: Temperature 98, pulse 102, respirations 20, blood pressure 204/111. HEENT: Head is normocephalic, atraumatic. Pupils are equal and reactive to light. Nasopharynx is p milvia and dry. Hard and soft palate, no lesions seen. SKIN: Skin turgor decreased. NECK: Supple. No JVD. LUNGS: Bilateral air entry present. No rales, no rhonchi. CARDIAC: S1, S2 regular. ABDOMEN: Soft. No distention, no tenderness. Normal bowel sounds present. RECTAL: Deferred. CENTRAL NERVOUS SYSTEM: No focal deficit. Left shoulder area is tender. No swelling. Range of mov ements are decreased. LABORATORY AND X-RAY FINDINGS: CBC shows WBC 7.3, hemoglobin 12, hematocrit 38, platelets 401,000. Metabolic panel: Sodium 138, potassium 3.9, chloride 105, CO2 of 20, urea nitrogen 16, creatinine 0. 9, glucose 140. CK-MB 2, troponin I less than 0.010. Prothrombin time 12, INR 1. Urinalysis negati ve. Chest x-ray negative. EKG shows sinus tachycardia with heart rate of 120. No acute ST-T wave c hanges seen. ASSESSMENT: 1. Hypertensive emergency. 2. Chest wall pain and left shoulder pain. 3. Nausea and vomiting. 4. History of pulmonary embolism. 5. History of migraine headaches. 6. Anxiety disorder. 7. Chronic abdominal pain. PLAN: 1. Vital signs q.4 hours. 2. Activity: As tolerated. 3. Allergies: Multiple. 4. Hep-Lock 5. Diet: Cardiac. 6. Continue home medication. 7. Labetalol 20 IVP q.6 hours. 8. Troponin I q.8 hours x2. 9. Morphine p.r.n.
[2018-05-03] MEDS: HYDROcodone/Acetaminophen 10/325 mg Tablet PO PRN (03:47)
[2018-05-03] MEDS: Metoclopramide HCl 10 MG TAB PO SCH (08:15)
[2018-05-03] MEDS: Apixaban 2.5 MG TAB PO SCH (08:16)
[2018-05-03] MEDS: tiZANidine HCl 4 MG TAB PO SCH (08:16)
[2018-05-03] MEDS: Lisinopril 20 MG TAB PO SCH (08:16)
[2018-05-03] MEDS: ALPRAZolam 0.5 MG TAB PO SCH (08:17)
[2018-05-03] MEDS: hydrALAZINE 25 MG TAB PO SCH (08:17)
[2018-05-03 08:18] VITALS: BP 181/97
[2018-05-03] MEDS ORDERED: NIFEdipine XL 90 MG TAB PO SCH (09:00)
[2018-05-03 09:21] VITALS: TEMP 98
== END 2018-05-03 12:42 | disposition home or self-care (01) | DRG 305 ==
LOC: ERS 17:11 → 2NO 22:27
PROVIDERS: ADMIT Internal Medicine; ATTEND Internal Medicine
DX: I16.1 Hypertensive emergency (principal); Z68.41 Body mass index [BMI] 40.0-44.9, adult; I10 Essential (primary) hypertension; F41.9 Anxiety disorder, unspecified; E66.9 Obesity, unspecified; M25.512 Pain in left shoulder; E78.5 Hyperlipidemia, unspecified; J44.9 Chronic obstructive pulmonary disease, unspecified; G89.29 Other chronic pain; R10.9 Unspecified abdominal pain; R11.2 Nausea with vomiting, unspecified; Z87.39 Personal history of other diseases of the musculoskeletal system and connective tissue; Z86.69 Personal history of other diseases of the nervous system and sense organs; Z86.711 Personal history of pulmonary embolism; Z88.6 Allergy status to analgesic agent; Z91.041 Radiographic dye allergy status; Z88.5 Allergy status to narcotic agent; Z91.048 Other nonmedicinal substance allergy status; Z91.09 Other allergy status, other than to drugs and biological substances; Z90.710 Acquired absence of both cervix and uterus; Z79.899 Other long term (current) drug therapy; Z79.01 Long term (current) use of anticoagulants
CPT/HCPCS: 36415; 71045; 80053; 81003; 81015; 82553; 83690; 83735; 83880; 84484; 85025; 85379; 85610; 85730; 93005; 94760; 96361; 96372; 96374; 96375; J1200; J1650; J2270; J2405; J2930

== ENCOUNTER 2018-05-11 17:37 | Emergency (ER) | payer OTHER ==
[2018-05-11] MEDS ORDERED: Ondansetron HCl/PF 4 MG/2 ML Vial ONE (18:01)
[2018-05-11] MEDS ORDERED: Meropenem 1 GM in Sodium Chloride 0.9% 100 ML IVPB SCH (18:30)
[2018-05-11 18:43] LABS: #Lymphocytes 1.6 thou/uL (1.20-3.40); #Monocytes 0.5 thou/uL (0.11-0.59); #Neutrophils 5.9 thou/uL (1.40-6.50); %Basophils 0.4 % (0.0-1.0); %Eosinophils 0.4 % (0.0-10.0); %Lymphocytes 19.9 % (21.0-51.0); %Monocytes 6.1 % (0.0-10.0); %Neutrophils 73.2 % (42.0-75.0); Mean Corpuscular HGB CONC 32.9 g/dL (32.0-36.0); Mean Corpuscular Hemoglobin 29.1 pg (27.0-31.0); Mean Corpuscular Volume 88.2 fL (78.0-98.0); Mean Platelet Volume 7.3 fL (7.4-10.4); Platelet Count 364 thou/uL (130-400); RBC Distribution Width 13.8 % (11.5-14.5); Red Blood Cell (RBC) Count 4.48 mill/uL (4.20-5.40)
[2018-05-11 19:03] LABS: ALT (SGPT) 15 U/L (8-55); AST (SGOT) 16 U/L (5-34); Albumin 4.9 g/dL (3.4-4.8); Alkaline Phosphatase 84 U/L (40-150); Anion Gap 18 mmol/L (10-20); BUN (Urea Nitrogen) 16 mg/dL (9.8-20.1); Bilirubin, Total 0.4 mg/dL (0.2-1.2); Calc. Creatinine Clearance 0 mL/min (70-130); Calcium 10.7 mg/dL (7.8-10.44); Carbon Dioxide 21 mmol/L (23-31); Chloride 108 mmol/L (98-107); Estimated GFR-MDRD 59; Globulin 3.5 g/dL (2.4-3.5); Glucose 102 mg/dL (80-115); Potassium 4.2 mmol/L (3.5-5.1); Protein, Total 8.4 g/dL (6.0-8.3); Sodium 143 mmol/L (136-145)
[2018-05-11 19:07] LABS: Troponin I Less than 0.010 ng/mL (< 0.028)
[2018-05-11] MEDS ORDERED: diphenhydrAMINE 50 MG/ML VIAL ONE (19:33)
[2018-05-11] MEDS ORDERED: methylPREDNISolone Sod Succ/PF 125 MG/2 ML VIAL ONE (19:33)
--- NOTE | 2018-05-11 19:33 | RAD ---
PORTABLE AP CHEST X-RAY: 05/11/2018 HISTORY: Chest pain, tender to touch. Abdominal pain in all four quadrants. Left arm pain. COMPARISON: 05/01/2018 FINDINGS: The cardiac silhouette and pulmonary vasculature are within normal limits for the portable technique of the study. The thoracic aorta is ectatic and partially calcified. the lungs are clear. There saavedra s been no interval change from the prior exam. IMPRESSION: No acute cardiopulmonary process. POS: [facility]
[2018-05-11] MEDS ORDERED: Labetalol HCl 100 MG/20 ML VIAL ONE (19:34)
[2018-05-11] MEDS ORDERED: Famotidine 20 MG TAB PO SCH (20:00)
[2018-05-11] MEDS ORDERED: Famotidine/PF 20 mg/2ml Vial SLOW IVP SCH (20:00)
[2018-05-11 22:03] LABS: Bilirubin Negative (Negative); Blood, Urine Trace (Negative); Clarity CLEAR (Clear); Glucose, Urine (Dipstick) Negative (Negative); Leukocyte Negative (Negative); Nitrite Negative (Negative); Protein, Urine (Dipstick) Trace mg/dL (Neg-Trace); Specific Gravity, Urine 1.013 (1.002-1.036); Urobilinogen 0.2 mg/dL (0.2-1.0); pH, Urine 7.5 (5.0-9.0)
[2018-05-11 22:06] LABS: Bacteria/HPF None Seen HPF (None Seen); Hyaline Casts/LPF 0-3 HYALINE CAST LPF (0-3 Hyaline); Pathc Cast-AUWi Flag 0.58 (0-2.49); Squamous Epithelial 0-3 HPF (0-3); WBC/HPF None Seen HPF (0-3)
--- NOTE | 2018-05-11 22:47 | ULT ---
BILATERAL LOWER EXTREMITY VENOUS ULTRASOUND: COMPARISON: Bilateral lower extremity pain and edema. TECHNIQUE: Multiplanar gonzalez-scale and color Doppler images were obtained in a bilateral lower extremity venous u ltrasound. Spectral analysis of the Doppler waveforms was performed. FINDINGS: The bilateral common femoral veins, profunda femoral veins, superficial femoral veins, and popliteal veins are normal in appearance, without visible thrombus. These vessels demonstrate normal compressi on, flow, and augmentation. The posterior tibial veins and greater saphenous veins are also patent. IMPRESSION: No evidence of deep venous thrombosis. POS: [facility]
--- NOTE | 2018-05-11 23:18 | ULT ---
LEFT UPPER EXTREMITY VENOUS DOPPLER WITH SPECTRAL ANALYSIS AND COLOR-FLOW EVALUATION: 05/11/2018 HISTORY: Left upper extremity pain. FINDINGS: There is normal lumen compressibility and flow in the left internal jugular vein. There is normal fl ow in the left subclavian and left axillary veins. The left axillary vein is not well seen on gonzalez-s parmjit imaging. There is normal lumen compressibility and flow seen within the left brachial vein. No rmal flow is seen within the left radial vein. The left ulnar vein is not well seen, but there is no rmal flow in the left ulnar vein. There is normal lumen compressibility and flow seen within the left upper extremity basilic and cepha lic veins. IMPRESSION: No evidence of a deep venous thrombosis involving the visualized deep venous structures of the left u pper extremity; however, the left axillary vein is not well visualized on gonzalez-scale imaging, which d oes limit evaluation for nonocclusive deep venous thrombosis at this level, but there is normal flow present. POS: [facility]
[2018-05-11] MEDS ORDERED: cloNIDine 0.1 MG TAB ONE (23:59)
[2018-05-11] MEDS ORDERED: Promethazine HCl 25 MG SUPP ONE (23:59)
[2018-05-12] MEDS ORDERED: Promethazine HCl 25 MG/ML VIAL ONE
[2018-05-12] MEDS ORDERED: Morphine 4 MG/ML VIAL ONE (00:02)
== END 2018-05-12 01:46 | disposition home or self-care (01) ==
LOC: ERS 17:37
DX: G89.4 Chronic pain syndrome (principal); I10 Essential (primary) hypertension; G43.909 Migraine, unspecified, not intractable, without status migrainosus; E66.9 Obesity, unspecified; K21.9 Gastro-esophageal reflux disease without esophagitis; F41.9 Anxiety disorder, unspecified; Z79.899 Other long term (current) drug therapy; Z86.711 Personal history of pulmonary embolism
CPT/HCPCS: 36415; 71045; 71275; 80053; 81003; 81015; 83605; 83880; 84484; 85025; 87040; 93005; 93970; 96365; 96372; 96375; J1200; J2185; J2270; J2405; J2550; J2930; J7050; S0028

== ENCOUNTER 2018-07-01 08:54 | Emergency (ER) | payer OTHER ==
[2018-07-01] MEDS ORDERED: diphenhydrAMINE 50 MG/ML VIAL ONE (09:55)
[2018-07-01] MEDS ORDERED: Metoclopramide HCl 10 MG/2 ML VIAL ONE (09:55)
[2018-07-01] MEDS ORDERED: cloNIDine 0.1 MG TAB ONE (09:55)
[2018-07-01 10:22] LABS: #Lymphocytes 1.4 thou/uL (1.20-3.40); #Monocytes 0.5 thou/uL (0.11-0.59); #Neutrophils 5.9 thou/uL (1.40-6.50); %Basophils 0.3 % (0.0-1.0); %Eosinophils 0.6 % (0.0-10.0); %Monocytes 5.7 % (0.0-10.0); %Neutrophils 75.4 % (42.0-75.0); Mean Corpuscular HGB CONC 31.6 g/dL (32.0-36.0); Mean Corpuscular Hemoglobin 28.2 pg (27.0-31.0); Mean Corpuscular Volume 89.3 fL (78.0-98.0); Mean Platelet Volume 7.9 fL (7.4-10.4); Platelet Count 403 thou/uL (130-400); RBC Distribution Width 13.2 % (11.5-14.5); Red Blood Cell (RBC) Count 4.59 mill/uL (4.20-5.40); White Blood Cell (WBC) Count 7.9 thou/uL (4.8-10.8)
[2018-07-01 10:28] LABS: INR-International Normal Ratio 1.1; PTT 27.9 SEC (22.9-36.1); Prothrombin Time 14.2 SEC (12.0-14.7)
[2018-07-01 10:40] LABS: ALT (SGPT) 13 U/L (8-55); AST (SGOT) 14 U/L (5-34); Albumin 4.5 g/dL (3.4-4.8); Alkaline Phosphatase 89 U/L (40-150); Anion Gap 16 mmol/L (10-20); BUN (Urea Nitrogen) 17 mg/dL (9.8-20.1); Bilirubin, Total 0.2 mg/dL (0.2-1.2); Calc. Creatinine Clearance 0 mL/min (70-130); Calcium 9.9 mg/dL (7.8-10.44); Carbon Dioxide 23 mmol/L (23-31); Chloride 106 mmol/L (98-107); Estimated GFR-MDRD 68; Globulin 3.8 g/dL (2.4-3.5); Glucose 122 mg/dL (80-115); Potassium 3.9 mmol/L (3.5-5.1); Protein, Total 8.3 g/dL (6.0-8.3); Sodium 141 mmol/L (136-145)
--- NOTE | 2018-07-01 11:51 | CT ---
CT OF BRAIN PERFORMED WITHOUT CONTRAST ENHANCEMENT: Date: 07/01/18 HISTORY: Headache. FINDINGS: The ventricular and cisternal system is within normal limits. There is some decreased attenuation of the periventricular white matter. Changes are similar to the prior examination. They are more posteri moises oriented. More in the posterior frontoparietal region, but not in a typical appearance of an acu te hypertensive encephalopathy, and patient's demographics are not typical for PRESS, though I favor this as more likely on the basis of chronic white matter change. The mastoid air cells are clear. Vis ualized sinuses show minimal ethmoid air cell mucosal change. IMPRESSION: Some decreased attenuation of the periventricular white matter, slightly more posterior in location, but still felt to be on the basis of some chronic white matter age-related changes, less likely relat ed to a hypertensive encephalopathy. If there is any reason to suspect PRESS in this patient, MRI wou ld be helpful in assessment. POS: [facility]
[2018-07-01] MEDS ORDERED: Labetalol HCl 100 MG/20 ML VIAL ONE (12:45)
== END 2018-07-01 13:45 | disposition home or self-care (01) ==
LOC: ERS 08:54
DX: I16.9 Hypertensive crisis, unspecified (principal); M79.662 Pain in left lower leg; M79.661 Pain in right lower leg; G43.909 Migraine, unspecified, not intractable, without status migrainosus; K52.9 Noninfective gastroenteritis and colitis, unspecified; E78.5 Hyperlipidemia, unspecified; E66.01 Morbid (severe) obesity due to excess calories; F41.9 Anxiety disorder, unspecified; Z79.899 Other long term (current) drug therapy; Z86.711 Personal history of pulmonary embolism
CPT/HCPCS: 36415; 70450; 80053; 85025; 85610; 85730; 96361; 96374; 96375; J1200; J2765

== ENCOUNTER 2018-08-12 09:33 | Emergency (ER) | payer OTHER ==
[2018-08-12] MEDS ORDERED: cloNIDine 0.1 MG TAB ONE ×2 (10:32→11:46)
[2018-08-12] MEDS ORDERED: Nitroglycerin 0.4 MG TAB (25 Tab Bottle) ONE (10:32)
[2018-08-12] MEDS ORDERED: Ondansetron ODT 4 MG TAB ONE (10:32)
--- NOTE | 2018-08-12 10:59 | RAD ---
CHEST 1 VIEW: Date: 08/12/18 INDICATION: Chest pain. COMPARISON: Prior exam dated 05/11/18. FINDINGS: Lungs are clear. Cardiomediastinal silhouette is within normal limits. The examination does not appea r appreciably changed from the comparison study. IMPRESSION: No acute cardiopulmonary process. POS: [facility]
[2018-08-12 11:40] LABS: #Lymphocytes 1.4 thou/uL (1.20-3.40); #Monocytes 0.5 thou/uL (0.11-0.59); #Neutrophils 6.5 thou/uL (1.40-6.50); %Basophils 0.4 % (0.0-1.0); %Eosinophils 0.4 % (0.0-10.0); %Lymphocytes 16.7 % (21.0-51.0); %Monocytes 5.5 % (0.0-10.0); Hemoglobin 13.5 g/dL (12.0-16.0); Mean Corpuscular HGB CONC 30.4 g/dL (32.0-36.0); Mean Corpuscular Volume 88.6 fL (78.0-98.0); Mean Platelet Volume 7.6 fL (7.4-10.4); Platelet Count 383 thou/uL (130-400); RBC Distribution Width 13.6 % (11.5-14.5); Red Blood Cell (RBC) Count 5.02 mill/uL (4.20-5.40); White Blood Cell (WBC) Count 8.4 thou/uL (4.8-10.8)
[2018-08-12] MEDS ORDERED: Labetalol HCl 100 MG/20 ML VIAL ONE (11:40)
[2018-08-12 11:41] LABS: INR-International Normal Ratio 1.2; PTT 28.6 SEC (22.9-36.1); Prothrombin Time 15.5 SEC (12.0-14.7)
[2018-08-12] MEDS ORDERED: Ondansetron HCl/PF 4 MG/2 ML Vial ONE (11:58)
[2018-08-12 12:05] LABS: Troponin I Less than 0.010 ng/mL (< 0.028)
[2018-08-12 12:16] LABS: AST (SGOT) 28 U/L (5-34); Albumin 4.8 g/dL (3.4-4.8); BUN (Urea Nitrogen) 18 mg/dL (9.8-20.1); Bilirubin, Total 0.5 mg/dL (0.2-1.2); Calc. Creatinine Clearance 0 mL/min (70-130); Calcium 10.9 mg/dL (7.8-10.44); Carbon Dioxide 14 mmol/L (23-31); Estimated GFR-MDRD 60; Globulin 3.9 g/dL (2.4-3.5); Glucose 110 mg/dL (80-115); Protein, Total 8.7 g/dL (6.0-8.3)
[2018-08-12 12:29] LABS: ALT (SGPT) 16 U/L (8-55); Alkaline Phosphatase 88 U/L (40-150); Anion Gap 18 mmol/L (10-20); Chloride 108 mmol/L (98-107); Potassium 4.1 mmol/L (3.5-5.1); Sodium 142 mmol/L (136-145)
[2018-08-12] MEDS ORDERED: Morphine 4 MG/ML VIAL ONE (13:17)
[2018-08-12 15:02] LABS: Troponin I Less than 0.010 ng/mL (< 0.028)
== END 2018-08-12 15:40 | disposition home or self-care (01) ==
LOC: ERS 09:33
DX: R07.89 Other chest pain (principal); I10 Essential (primary) hypertension; K21.9 Gastro-esophageal reflux disease without esophagitis; G43.909 Migraine, unspecified, not intractable, without status migrainosus; F41.9 Anxiety disorder, unspecified; Z86.711 Personal history of pulmonary embolism; Z79.899 Other long term (current) drug therapy
CPT/HCPCS: 36415; 71045; 80053; 84484; 85025; 85610; 85730; 93005; 96374; 96375; J2270; J2405; Q0162

== ENCOUNTER 2018-12-16 14:29 | Emergency (ER) | payer OTHER ==
[2018-12-16 15:21] LABS: #Lymphocytes 1.2 thou/uL (1.20-3.40); #Monocytes 0.2 thou/uL (0.11-0.59); #Neutrophils 5.4 thou/uL (1.40-6.50); %Basophils 0.5 % (0.0-1.0); %Eosinophils 0.3 % (0.0-10.0); %Lymphocytes 17.5 % (21.0-51.0); %Monocytes 3.5 % (0.0-10.0); %Neutrophils 78.2 % (42.0-75.0); Hemoglobin 13.5 g/dL (12.0-16.0); Mean Corpuscular HGB CONC 30.7 g/dL (32.0-36.0); Mean Corpuscular Hemoglobin 28.2 pg (27.0-31.0); Mean Corpuscular Volume 92.1 fL (78.0-98.0); Mean Platelet Volume 7.9 fL (7.4-10.4); Platelet Count 463 thou/uL (130-400); Red Blood Cell (RBC) Count 4.76 mill/uL (4.20-5.40); White Blood Cell (WBC) Count 6.8 thou/uL (4.8-10.8)
--- NOTE | 2018-12-16 15:24 | RAD ---
PORTABLE CHEST: Date: 12-16-18 Provided Clinical History: Dyspnea. FINDINGS: Comparison 08-12-18. Evaluation is limited by patient body habitus. The lungs are hypoinflated, accentuated pulmonary bron chovascular markings. No definite evidence for lobar consolidation, large effusion or pneumothorax. IMPRESSION: Limited exam. POS: [facility]
[2018-12-16 15:44] LABS: ALT (SGPT) 9 U/L (8-55); AST (SGOT) 16 U/L (5-34); Albumin 4.5 g/dL (3.4-4.8); Alkaline Phosphatase 83 U/L (40-150); Anion Gap 21 mmol/L (10-20); BUN (Urea Nitrogen) 17 mg/dL (9.8-20.1); Bilirubin, Total 0.3 mg/dL (0.2-1.2); Calc. Creatinine Clearance 0 mL/min (70-130); Calcium 10.2 mg/dL (7.8-10.44); Carbon Dioxide 16 mmol/L (23-31); Chloride 103 mmol/L (98-107); Estimated GFR-MDRD 46; Globulin 3.9 g/dL (2.4-3.5); Glucose 124 mg/dL (80-115); Lipase 155 U/L (8-78); Potassium 4.2 mmol/L (3.5-5.1); Protein, Total 8.4 g/dL (6.0-8.3); Sodium 136 mmol/L (136-145)
--- NOTE | 2018-12-16 16:05 | CT ---
CT CHEST AND ABDOMEN AND PELVIS WITHOUT CONTRAST: 12/16/2018 PROVIDED CLINICAL HISTORY: Epigastric pain. FINDINGS: The heart, pericardium, and great vessels are suboptimally evaluated in the absence of IV contrast ma terial. Minimal vascular calcification, including coronary calcium, is seen. The lungs are free of significant opacity. There is no pleural fluid or pneumothorax apparent. The airway appears patent and of normal caliber. Evaluation for thoracic lymph node enlargement is limited in the absence of I V contrast material, without gross evidence for such. There is a mild hiatal hernia noted. There is a somewhat mass-like area of altered CT density presen t within the herniated portion of the stomach, cranial to the diaphragm. This could reflect redundan t mucosal folds but is incompletely characterized on the basis of this study. The solid abdominal organs are suboptimally evaluated in the absence of IV contrast material but demo nstrate an unremarkable unenhanced CT appearance. There is no evidence for bowel obstruction. There is no free fluid or free air apparent. No focal inflammatory fat stranding is seen. There is ectasia of the distal abdominal aorta. Scattered vascular calcifications are seen. The osseous structures demonstrate no concerning lytic or blastic lesions. IMPRESSION: 1. Hiatal hernia with an unusual appearance to the herniated portion of the stomach. Consideration correlation with esophagram. 2. Evaluation of the vasculature is limited due to lack of intravenous contrast material. Vascular calcifications are seen. POS: [facility]
== END 2018-12-16 16:10 | disposition home or self-care (01) ==
LOC: ERS 14:29
DX: K44.9 Diaphragmatic hernia without obstruction or gangrene (principal); K21.9 Gastro-esophageal reflux disease without esophagitis; Z86.711 Personal history of pulmonary embolism; I10 Essential (primary) hypertension; G43.909 Migraine, unspecified, not intractable, without status migrainosus; E66.9 Obesity, unspecified; F41.9 Anxiety disorder, unspecified; Z79.899 Other long term (current) drug therapy
CPT/HCPCS: 36415; 71045; 71250; 74177; 80053; 83690; 85025; 93005; 94760; J3490

== ENCOUNTER 2019-04-10 10:53 | Emergency (ER) | payer OTHER ==
[2019-04-10 12:11] LABS: #Basophils 0.1 thou/uL (0.0-0.2); #Eosinphils 0.1 thou/uL (0.0-0.7); #Lymphocytes 2.4 thou/uL (1.20-3.40); #Monocytes 0.4 thou/uL (0.11-0.59); #Neutrophils 1.9 thou/uL (1.40-6.50); %Basophils 1.3 % (0.0-1.0); %Lymphocytes 49.6 % (21.0-51.0); %Monocytes 7.3 % (0.0-10.0); %Neutrophils 39.8 % (42.0-75.0); Hemoglobin 12.8 g/dL (12.0-16.0); Mean Corpuscular HGB CONC 31.7 g/dL (32.0-36.0); Mean Corpuscular Hemoglobin 28.3 pg (27.0-31.0); Mean Corpuscular Volume 89.2 fL (78.0-98.0); Mean Platelet Volume 8.6 fL (7.4-10.4); Platelet Count 362 thou/uL (130-400); RBC Distribution Width 13.9 % (11.5-14.5); Red Blood Cell (RBC) Count 4.53 mill/uL (4.20-5.40); White Blood Cell (WBC) Count 4.8 thou/uL (4.8-10.8)
[2019-04-10 12:31] LABS: ALT (SGPT) 11 U/L (8-55); AST (SGOT) 13 U/L (5-34); Albumin 4.4 g/dL (3.4-4.8); Alkaline Phosphatase 77 U/L (40-150); Anion Gap 16 mmol/L (10-20); BUN (Urea Nitrogen) 16 mg/dL (9.8-20.1); Bilirubin, Total 0.4 mg/dL (0.2-1.2); Calc. Creatinine Clearance 0 mL/min (70-130); Calcium 10.2 mg/dL (7.8-10.44); Carbon Dioxide 19 mmol/L (23-31); Chloride 108 mmol/L (98-107); Estimated GFR-MDRD 53; Globulin 3.5 g/dL (2.4-3.5); Glucose 96 mg/dL (80-115); Potassium 3.3 mmol/L (3.5-5.1); Protein, Total 7.9 g/dL (6.0-8.3); Sodium 140 mmol/L (136-145)
--- NOTE | 2019-04-10 12:34 | RAD ---
PORTABLE CHEST 1 VIEW: DATE: 04/10/2019. TIME: 11:15 a.m. HISTORY: Nausea, vomiting, fever, UTI. FINDINGS: Comparison is made with the exam of 12/16/2018. The heart size is normal. The aorta is tortuous. No focal areas of consolidation, pneumothoraces, o r pleural effusions are seen. IMPRESSION: No radiographic evidence of acute cardiopulmonary process. POS: [facility]
[2019-04-10 13:04] LABS: Bilirubin Negative (Negative); Blood, Urine Negative (Negative); Clarity CLEAR (Clear); Glucose, Urine (Dipstick) Negative (Negative); Leukocyte Negative (Negative); Nitrite Negative (Negative); Protein, Urine (Dipstick) Negative (Neg-Trace); Specific Gravity, Urine 1.004 (1.002-1.036); Urobilinogen 0.2 mg/dL (0.2-1.0); pH, Urine 5.5 (5.0-9.0)
[2019-04-10] MEDS ORDERED: Ondansetron ODT 4 MG TAB ONE (13:36)
[2019-04-10] MEDS ORDERED: ALPRAZolam 0.5 MG TAB ONE (13:36)
== END 2019-04-10 15:33 | disposition home or self-care (01) ==
LOC: ERS 10:53
DX: R10.9 Unspecified abdominal pain (principal); R10.815 Periumbilic abdominal tenderness; K21.9 Gastro-esophageal reflux disease without esophagitis; G43.909 Migraine, unspecified, not intractable, without status migrainosus; E66.9 Obesity, unspecified; F41.9 Anxiety disorder, unspecified; Z79.891 Long term (current) use of opiate analgesic; Z79.899 Other long term (current) drug therapy; Z86.711 Personal history of pulmonary embolism
CPT/HCPCS: 36415; 51701; 71045; 80053; 81003; 83605; 85025; 87040; 87086; 93005; A4353; Q0162

== ENCOUNTER 2019-07-05 14:29 | Inpatient (IN) | payer OTHER ==
[~2019-07-05 14:29] MED LIST: ISOVUE-370 76%-LOCM 1 ML ONE
[2019-07-05] MEDS ORDERED: Morphine 4 MG/ML VIAL ONE ×3 (15:26→17:21)
[2019-07-05 15:33] LABS: #Basophils 0.1 thou/uL (0.0-0.2); #Lymphocytes 1.5 thou/uL (1.20-3.40); #Monocytes 0.3 thou/uL (0.11-0.59); #Neutrophils 4.9 thou/uL (1.40-6.50); %Basophils 0.8 % (0.0-1.0); %Eosinophils 0.1 % (0.0-10.0); %Lymphocytes 21.7 % (21.0-51.0); %Monocytes 4.1 % (0.0-10.0); %Neutrophils 73.2 % (42.0-75.0); Mean Corpuscular HGB CONC 32.8 g/dL (32.0-36.0); Mean Corpuscular Hemoglobin 28.6 pg (27.0-31.0); Mean Corpuscular Volume 87.2 fL (78.0-98.0); Mean Platelet Volume 8.8 fL (7.4-10.4); Platelet Count 314 thou/uL (130-400); RBC Distribution Width 13.7 % (11.5-14.5); Red Blood Cell (RBC) Count 4.91 mill/uL (4.20-5.40); White Blood Cell (WBC) Count 6.7 thou/uL (4.8-10.8)
[2019-07-05] MEDS ORDERED: diphenhydrAMINE 50 MG/ML VIAL ONE (15:54)
[2019-07-05] MEDS ORDERED: Famotidine/PF 20 mg/2ml Vial ONE (15:54)
[2019-07-05] MEDS ORDERED: methylPREDNISolone Sod Succ/PF 125 MG/2 ML VIAL ONE (15:54)
[2019-07-05 15:57] LABS: ALT (SGPT) 9 U/L (8-55); AST (SGOT) 12 U/L (5-34); Albumin 4.8 g/dL (3.4-4.8); Alkaline Phosphatase 91 U/L (40-150); Anion Gap 20 mmol/L (10-20); BUN (Urea Nitrogen) 12 mg/dL (9.8-20.1); Bilirubin, Total 0.4 mg/dL (0.2-1.2); Calc. Creatinine Clearance 0 mL/min (70-130); Calcium 10.5 mg/dL (7.8-10.44); Carbon Dioxide 18 mmol/L (23-31); Chloride 107 mmol/L (98-107); Estimated GFR-MDRD 52; Globulin 3.8 g/dL (2.4-3.5); Glucose 118 mg/dL (80-115); Potassium 3.7 mmol/L (3.5-5.1); Protein, Total 8.6 g/dL (6.0-8.3); Sodium 141 mmol/L (136-145)
[2019-07-05] MEDS ORDERED: Promethazine HCl 25 MG/ML VIAL ONE ×2 (16:23→17:21)
--- NOTE | 2019-07-05 16:51 | RAD ---
Exam: Chest one view HISTORY:Chest pain Comparison: 04/10/2019 FINDINGS: Cardiac silhouette: Normal Aorta: Unremarkable Pulmonary vessels: Normal Costophrenic angles: Clear LUNGS: Diminished lung volumes likely due to poor inspiratory effort. Patchy interstitial opacities l ikely representing areas of atelectasis. Pneumothorax: None Osseous abnormalities: None IMPRESSION: 1. Diminished lung volumes, likely due to poor inspiratory effort. Patchy interstitial opacities like ly representing atelectasis. 2. Recommend repeat 2 view chest radiograph with better inspiration.
--- NOTE | 2019-07-05 17:19 | CT ---
CT angiogram thorax with contrast CT angiogram abdomen with contrast: HISTORY: 63-year-old female with hypertension presents with upper abdominal pain, and unequal blood pressures between right and left arms. TECHNIQUE: IV injection of iodinated contrast. Arterial bolus chasing technique. Scan acquisition from top of aortic arch to iliac crests. 3-D MIP reconstructions. FINDINGS: There is no aortic aneurysm, dissection, or rupture. Ectasia of distal abdominal aorta to 2.3 cm. Ect aretha of ascending aorta. Thoracic and lumbar vertebral body heights are maintained. No pulmonary edema, consolidation, pleural effusion, or pneumothorax. No mediastinal or hilar lymphadenopathy. Her niation of 10-20% of the stomach into the thoracic cavity. Within the limitations of an arterial phase-only scan, no major pathology is identified involving johnathan er, pancreas, adrenals, spleen, or the visualized upper portions of the large intestine and small intestine. No hydronephrosis or pyelonephritis. 1.8 cm cyst at left renal upper pole. No hydronephros is bilaterally. No free fluid in the upper abdominal cavity. No retroperitoneal hematoma. IMPRESSION: 1. No aortic dissection, aneurysm, or rupture. 2. Small to moderate-sized hiatal hernia.
[2019-07-05] MEDS ORDERED: Labetalol HCl 100 MG/20 ML VIAL ONE (17:40)
[2019-07-05] MEDS ORDERED: Fentanyl 100 MCG/2 ML VIAL ONE (18:47)
[2019-07-05 19:07] LABS: Bacteria/HPF None Seen HPF (None Seen); Bilirubin Negative (Negative); Blood, Urine 1+ (Negative); Clarity Clear (Clear); Glucose, Urine (Dipstick) Normal (Negative); Leukocyte Negative Leu/uL (Negative); Nitrite Negative (Negative); Protein, Urine (Dipstick) 30 mg/dL (Neg-Trace); Squamous Epithelial 0-3 HPF (0-3); Urobilinogen Normal mg/dL (Less than 2); WBC/HPF 0-3 HPF (0-3)
--- NOTE | 2019-07-05 19:23 | ULT ---
GALLBLADDER ULTRASOUND: Date: 07/05/19 HISTORY: Right upper quadrant pain. COMPARISON: 10/03/13. TECHNIQUE: Utilizing a multihertz transducer, sonographic imaging of the right upper quadrant is performed in th e longitudinal and transverse plane. FINDINGS: Pancreas is obscured by bowel gas. Increased echogenicity of the liver may be due to hepatic steatosis or hepatocellular disease. Subseq uent evaluation for hepatic masses and intrahepatic biliary dilatation is limited. Right hepatic lobe measures 15.4 cm. No sonographic evidence of cholelithiasis, gallbladder wall thickening, or pericholecystic fluid. Neg ative Zhu's sign. Main portal vein is patent. Appropriate direction of flow. Common bile duct diameter is 0.4 cm. Right kidney: No hydronephrosis. Right kidney has a normal cortical echotexture measuring 9.0 cm in maximum dimension. IMPRESSION: 1. No sonographic evidence of cholelithiasis or cholecystitis. 2. Limited evaluation due to body habitus and bowel gas. 3. Increased echogenicity of liver may be due to hepatic steatosis or hepatocellular disease. Limite d evaluation for hepatic masses and intrahepatic biliary dilatation. Correlation made with CT dissect ion protocol dated 07/05/19 does not demonstrate any obvious hepatic masses. Refer to that separate r eport for further detail. POS: [facility]
--- NOTE | 2019-07-05 19:33 | CT ---
CT ABDOMEN WITHOUT CONTRAST: CT PELVIS WITHOUT CONTRAST: HISTORY: Evaluation for obstructive uropathy versus appendicitis. COMPARISON: None. CORRELATION: Dissection protocol CT from 07/05/2019. Gallbladder ultrasound from 07/05/2019. FINDINGS: ABDOMEN: The lung bases are clear. Normal heart size. A small hiatal hernia is noted. There is appropriate enhancement of the solid organs secondary to recent contrast administration. No gastrohepatic, retrocrural or periportal lymphadenopathy. No mesenteric mass, lymphadenopathy, free air or free fluid. Atherosclerosis of the aorta is noted. There is hypodensity in the left renal cortex, compatible with a cyst, measuring 1.4 cm. There is sy mmetric excretion into a decompressed intrarenal and extrarenal collecting system. No evidence of ob structive uropathy. Limited evaluation of the alimentary canal due to lack of oral contrast. Gastric mucosal and duodenu m are unremarkable. Multiple normal caliber small bowel loops. The ileocecal junction is unremarkab le. An appendix is not appreciated. [id number], no inflammation at the cecal apex. There does appear to be mild mucosal thickening involving the cecum and proximal ascending colon. The possibili ty of an early colitis cannot be excluded. The remainder of the colon is unremarkable. PELVIS: Contrast is noted in the dependent portion of the urinary bladder. No pelvic mass, lymphade nopathy, free air, or free fluid. No lytic or blastic lesion in the osseous structures. IMPRESSION: 1. Mild mucosal thickening involving the right hemicolon. Correlate for early colitis. No evidence of obstruction. 2. Appendix is not appreciated. [id number], no inflammatory changes at the apex of the cecum. 3. Bilaterally, no obstructive uropathy. POS: [facility]
[2019-07-05] MEDS ORDERED: Lorazepam 2 MG/ML VIAL ONE (20:03)
[2019-07-05] MEDS ORDERED: Piperacillin/Tazobactam 4.5 GM VIAL ONE (20:03)
[2019-07-05 20:30] LABS: Lactic Acid 2.1 mmol/L (0.5-2.2)
[2019-07-05] MEDS ORDERED: hydrALAZINE 20 MG/ML VIAL ONE ×2 (20:53→21:37)
[2019-07-05] MEDS ORDERED: Ondansetron PF 4 MG/2 ML Vial ONE (23:09)
[2019-07-05] MEDS ORDERED: Acetaminophen 1,000 MG in Premix Bag 1 BAG IVPB SCH (23:15)
[2019-07-06] MEDS ORDERED: hydrALAZINE 20 MG/ML VIAL SLOW IVP PRN ×2 (01:01→19:42)
[2019-07-06] MEDS ORDERED: Promethazine HCl 25 MG/ML VIAL SLOW IVP PRN (01:50)
[2019-07-06 03:24] VITALS: BMI 42.2
[2019-07-06] MEDS ORDERED: Morphine 4 MG/ML VIAL SLOW IVP SCH (04:15)
[2019-07-06] MEDS ORDERED: Labetalol HCl 100 MG/20 ML VIAL SLOW IVP PRN (08:45)
[2019-07-06] MEDS ORDERED: Acetaminophen/Codeine 30-300mg Tablet PO SCH (09:00)
[2019-07-06] MEDS ORDERED: Apixaban 5 MG TAB PO SCH (09:00)
[2019-07-06] MEDS ORDERED: hydrALAZINE 25 MG TAB PO SCH ×2 (09:00→17:30)
[2019-07-06] MEDS: tiZANidine HCl 4 MG TAB PO SCH ×3 (09:07→21:17)
[2019-07-06] MEDS: Lisinopril 20 MG TAB PO SCH (09:07)
[2019-07-06] MEDS: NIFEdipine XL 90 MG TAB PO SCH (09:07)
[2019-07-06] MEDS: Metoclopramide HCl 10 MG TAB PO SCH ×3 (09:13→21:17)
[2019-07-06] MEDS ORDERED: ALPRAZolam 0.5 MG TAB PO SCH (10:45)
[2019-07-06] MEDS: metroNIDAZOLE 500 MG in Premix Bag 1 BAG IVPB SCH ×2 (10:56→17:13)
[2019-07-06] MEDS: HYDROcodone/Acetaminophen 10/325 mg Tablet PO PRN ×2 (10:57→17:14)
[2019-07-06 11:58] LABS: Hemoglobin 11.2 g/dL (12.0-16.0); Platelet Count 238 thou/uL (130-400)
[2019-07-06] MEDS ORDERED: Zolpidem Tartrate 5 MG TAB PO SCH (21:00)
[2019-07-06] MEDS: ALPRAZolam 0.5 MG TAB PO SCH (21:17)
[2019-07-06] MEDS: Metoprolol Tartrate 50 MG TAB PO SCH (21:17)
[2019-07-06] MEDS: hydrALAZINE 25 MG TAB PO SCH (21:18)
[2019-07-07] MEDS: metroNIDAZOLE 500 MG in Premix Bag 1 BAG IVPB SCH ×3 (00:54→17:14)
--- NOTE | 2019-07-07 07:35 | HP ---
CHIEF COMPLAINT: Abdominal pain. HISTORY OF PRESENT ILLNESS: Ms. Samaniego is a 63-year-old female with past medical history of hypertension, chronic abdominal pain, anxiety disorder, came because of abdominal pain, was getting worse. The patient is followed with GI and also the surgeons. The patient states that the pain is mainly in the upper abdomen, also in the lower abdomen as well. She has some nausea and vomited few times. No fever. The patient claimed she has been taking all her medications and called the EMS, who found her blood pressure was very high around 260/150. The pain has diffuse abdominal pain, sharp in nature. No fever. The patient was evaluated in the ER, found to have possible colitis. The patient received a dose of Zosyn. The patient was found to have markedly elevated blood pressure of 220/160. The patient received labetalol as well as hydralazine, given morphine for the pain, received Zofran as well. The patient is admitted for further evaluation and management. PAST MEDICAL HISTORY: 1. Hypertension. 2. Morbid obesity. 3. Chronic abdominal pain. 4. History of pulmonary embolism, was on Eliquis. 5. Anxiety disorder. 6. History of migraine headaches. 7. Hyperlipidemia. 8. COPD. PAST SURGICAL HISTORY: Nothing significant. CURRENT MEDICATIONS: The patient is on, 1. Xanax 0.5 mg b.i.d. 2. Ambien 10 mg at bedtime. 3. Protonix 40 mg daily. 4. Hydralazine 50 b.i.d. 5. Reglan 5 mg t.i.d. The patient is not taking her nifedipine ER. She says somebody told her to stop that. ALLERGIES: MULTIPLE INCLUDE DARVOCET, GABAPENTIN, IBUPROFEN, IODINE, LYRICA, NAPROXEN, RITALIN, TORADOL, TRAMADOL, TYLENOL, COMPAZINE. FAMILY HISTORY: Nothing contributory. SOCIAL HISTORY: The patient lives alone. No history of smoking. No history of alcohol. REVIEW OF SYSTEMS: CARDIOVASCULAR: No chest pain. No shortness of breath. RESPIRATORY: No fever or cough. GASTROINTESTINAL: She has abdominal pain, nausea, vomiting. CENTRAL NERVOUS SYSTEM: She has headache. No dizziness. PHYSICAL EXAMINATION: GENERAL: The patient is alert, awake, oriented x3. VITAL SIGNS: Temperature 98, pulse 108, respiratory rate 20, and blood pressure 180/100. HEENT: Head is normocephalic and atraumatic. Pupils are equal and reactive. Nasopharynx is pale and dry. Hard and soft palate, no lesions. SKIN: Turgor decreased. NECK: Supple. No JVD. LUNGS: Bilateral air entry. No rales, no rhonchi. HEART: S1 and S2, regular. ABDOMEN: Soft, diffusely tender. No guarding. No rigidity. Bowel sounds present. RECTAL: Deferred. CENTRAL NERVOUS SYSTEM: No focal deficit. LABORATORY DATA: CBC shows WBC 6.7, hemoglobin 14, hematocrit 42, and platelets 314. Metabolic panel; sodium 141, potassium 3.7, chloride 107, CO2 of 18, BUN 12, creatinine 1.2, and glucose 118. Lactic acid level 3.8. Urinalysis negative. CT of the abdomen revealed possible mild colitis in the cecum as well as ascending colon. Abdominal ultrasound; no cholelithiasis, no cholecystitis. CT dissection protocol showed no aortic dissection, showed mild hiatal hernia. EKG showed sinus tachycardia, no acute ST-T changes seen. Chest x-ray negative. ASSESSMENT: 1. Hypertensive emergency. 2. Abdominal pain with nausea and vomiting. 3. Possible colitis. 4. Chronic pain. 5. Anxiety disorder. 6. Headaches, migraine. 7. Morbid obesity. PLAN: 1. Vital signs q.4 hours. 2. Activity as tolerated. 3. Allergies, multiple. 4. Diet, heart healthy. 5. Hep-Lock. 6. Levaquin 750 IV piggyback daily, Flagyl 500 mg IV piggyback q.8 hours, hydralazine 10 mg IVP q.6 p.r.n. for the systolic more than 180. 7. We will start all her home medications. We home medications. 8. GI consult. Job ID: [id number]
[2019-07-07] MEDS: ALPRAZolam 0.5 MG TAB PO SCH ×2 (08:51→20:17)
[2019-07-07] MEDS: HYDROcodone/Acetaminophen 10/325 mg Tablet PO PRN ×2 (08:51→18:27)
[2019-07-07] MEDS: NIFEdipine XL 90 MG TAB PO SCH (08:52)
[2019-07-07] MEDS: tiZANidine HCl 4 MG TAB PO SCH ×3 (08:52→20:18)
[2019-07-07] MEDS: Metoclopramide HCl 10 MG TAB PO SCH ×3 (08:53→20:18)
[2019-07-07] MEDS: Lisinopril 20 MG TAB PO SCH (08:53)
[2019-07-07] MEDS: Metoprolol Tartrate 50 MG TAB PO SCH ×2 (08:54→20:18)
[2019-07-07] MEDS: hydrALAZINE 25 MG TAB PO SCH ×4 (08:57→20:17)
--- NOTE | 2019-07-07 09:26 | CON ---
DATE OF CONSULTATION: 07/06/2019 REASON FOR CONSULT: Chronic abdominal pain, some abnormalities on the colon on the left side on the CAT scan from ER. HISTORY OF PRESENT ILLNESS: Ms. Samaniego is a 63-year-old female, who came to the emergency room secondary to hypertensive urgency. She has also had chronic abdominal pain for years and had a CAT scan without contrast in the ER that showed some possible thickening of the descending colon. Previously, she has seen Dr. Edouard for several years through our office. Upper and lower endoscopies and imaging studies over the years. It seems that she has been diagnosed with functional bowel disorder. She does have history of reflux with previous fundoplication. She has a lot of gas and bloating by her report. Her last upper and lower endoscopy were in 2016, which showed mild peptic duodenitis. No evidence of celiac disease. Her EGD and colonoscopy were normal that was in April of 2017. After that she was seen by me in the hospital at [facility] in 2018 with nausea, vomiting, abdominal pain. She had a gastric emptying scan at that admission, which was normal. More recently, she was seen at our office in November of this year for abdominal pain and hiatal hernia, was placed on dicyclomine and Linzess for chronic constipation, abdominal pain, and functional disorder. Presently, she states her stomach feels about the same as it always does. She states she again confirms that she came to the hospital secondary to high blood pressure. She has had no melena, hematochezia, or hematemesis. She states that she does not eat well and she feels like she gets full early. Her weight here is 302 pounds in our office when she was last seen 317 on 12/22/2018 and 306 on 03/2017. Reviewing her records, she has had CAT scans here and ultrasounds almost every year. CAT scans of the abdomen and pelvis on 11/2014, 04/2015, 06/2015, 02/2017, 09/2017, 11/2018, which were notable for hiatal hernia and this admission 07/05/2019 which was notable for 1.4 cm cyst in the left renal cortex. Mild mucosal thickening involving the cecum and proximal ascending colon "possibility of an early colitis cannot be excluded." The patient has had no diarrhea, hematemesis, melena, or hematochezia. In reviewing on the phone with her, it does not seem she came to the hospital for abdominal pain and actually in reviewing the ER note, it confirms that she called EMS with blood pressure that was elevated and they left. She refused transfer to the ER. She called them back as her blood pressure was 260/151, so subsequently she has been admitted for hypertension. REVIEW OF SYSTEMS: Negative for fever, chills, rashes, myalgias, or arthralgias. Denies starting new medication. Denies any drug use. PAST HISTORY: Reflux, hiatal hernia with previous fundoplication, IBS, constipation osteoarthritis, chronic back pain, chronic opioid use, hypertension, obesity, anxiety, migraine headaches, hysterectomy. SOCIAL HISTORY: No smoking, alcohol, drugs, or tobacco. FAMILY HISTORY: Noncontributory. ALLERGIES: ALEVE, COMPAZINE, DARVOCET, GABAPENTIN, IBUPROFEN, IODINE, LYRICA, NAPROXEN, RITALIN, TORADOL, TRAMADOL, , AND TYLENOL. OUTPATIENT MEDICATIONS: 1. Hydralazine. 2. Lisinopril. 3. Proscar. 4. Pantopraxole. 5. Jarales. 6. Zanaflex. 7. Albuterol. 8. Xanax. 9. Lunesta and more recently she tried some Bentyl without much help in symptoms. PRESENT MEDICATIONS: 1. Xanax. 2. Hydralazine. 3. Labetalol. 4. Levofloxacin. 5. Metoclopramide p.r.n. 6. Flagyl. 7. Protonix. 8. Zolpidem. PHYSICAL EXAMINATION: VITAL SIGNS: Temperature 98, pulse 98-107, blood pressure 193/91. LUNGS: Clear. HEART: Regular rate and rhythm without clicks or murmurs. ABDOMEN: Soft and nontender without hepatosplenomegaly. There is no rebound. There is no guarding. EXTREMITIES: Reveal no clubbing, cyanosis, or edema. LABORATORY STUDIES: White count 6.7, hemoglobin was 14 on admission with hydration 12. Her baseline hemoglobin in the 12-13. Platelets are 314. Differential normal, metabolic profile normal with BUN of 12, creatinine 1.27. Liver function test normal. Troponin is normal. Lipase normal. Urinalysis normal. Drug screen not done. ASSESSMENT: 1. Admitted for hypertensive urgency. This seems to be improved. 2. Chronic abdominal pain, irritable bowel syndrome. This can be managed in the outpatient setting with Linzess or other laxative based irritable bowel syndrome medications. 3. Vague changes on CAT scan that the radiologist says could indicate "possible mild early colitis unconvincing." She has no symptoms of colitis. No pain specifically in that area and no evidence of elevated inflammatory markers. I would not treat her with antibiotics based only on vague CT appearance. We will follow along with you. Job ID: [id number]
--- NOTE | 2019-07-07 19:43 | PRG ---
DATE OF SERVICE: 07/07/2019 SUBJECTIVE: Ms. Samaniego is without pain today. She feels much better. Her blood pressure has been running much better. OBJECTIVE: VITAL SIGNS: Temperature 97, pulse 75, and blood pressure 121/63. LUNGS: Clear. HEART: Regular rate and rhythm without clicks or murmurs. ABDOMEN: Soft and nontender. There is no rebound. There is no guarding. LABORATORY DATA: Hemoglobin is 11.2 down from 14. There are no signs of bleeding. ASSESSMENT: 1. Long history of irritable bowel syndrome, improved. 2. Admitted with hypertensive urgency, improved. 3. CAT scan with the radiologist indicating there was very mild thickening in the ascending colon. This could represent "possible mild early colitis." The patient has had no symptoms of colitis; however, I do not think they ever had colitis. RECOMMENDATIONS: 1. The patient will be discharged home to follow up with us in a couple of weeks ago with regard to IBS. 2. Agree with change in management of blood pressure medicines. 3. If the patient re-presented in short-term with hypertensive urgency, again I would recommend getting a urine drug screen in the emergency room. Job ID: [id number]
[2019-07-08] MEDS: metroNIDAZOLE 500 MG in Premix Bag 1 BAG IVPB SCH (01:46)
[2019-07-08] MEDS: HYDROcodone/Acetaminophen 10/325 mg Tablet PO PRN (03:39)
[2019-07-08] MEDS ORDERED: HYDROcodone/Acetaminophen 10/325 mg Tablet PO PRN (07:00)
[2019-07-08 07:05] VITALS: BP 137/88; TEMP 98.2
[2019-07-08] MEDS: hydrALAZINE 25 MG TAB PO SCH (08:35)
[2019-07-08] MEDS: Metoprolol Tartrate 50 MG TAB PO SCH (08:35)
[2019-07-08] MEDS: Metoclopramide HCl 10 MG TAB PO SCH (08:35)
[2019-07-08] MEDS: tiZANidine HCl 4 MG TAB PO SCH (08:35)
[2019-07-08] MEDS: ALPRAZolam 0.5 MG TAB PO SCH (08:35)
[2019-07-08] MEDS: NIFEdipine XL 90 MG TAB PO SCH (08:35)
[2019-07-08] MEDS ORDERED: diphenhydrAMINE 25 MG CAP PO SCH (09:00)
[2019-07-08 09:33] LABS: Hemoglobin 13.1 g/dL (12.0-16.0); Platelet Count 292 thou/uL (130-400)
== END 2019-07-08 11:03 | disposition home or self-care (01) | DRG 305 ==
LOC: ERS 14:29 → 2NO 07-06 00:54
PROVIDERS: ADMIT Internal Medicine; ATTEND Internal Medicine
DX: I16.1 Hypertensive emergency (principal); E87.2 Acidosis; Z68.41 Body mass index [BMI] 40.0-44.9, adult; I10 Essential (primary) hypertension; F41.9 Anxiety disorder, unspecified; E66.01 Morbid (severe) obesity due to excess calories; Z86.711 Personal history of pulmonary embolism; E78.5 Hyperlipidemia, unspecified; J44.9 Chronic obstructive pulmonary disease, unspecified; G89.29 Other chronic pain; G43.909 Migraine, unspecified, not intractable, without status migrainosus; K58.9 Irritable bowel syndrome, unspecified; K21.9 Gastro-esophageal reflux disease without esophagitis; M19.90 Unspecified osteoarthritis, unspecified site; M54.9 Dorsalgia, unspecified; F11.90 Opioid use, unspecified, uncomplicated; Z86.718 Personal history of other venous thrombosis and embolism; Z91.81 History of falling
CPT/HCPCS: 36415; 51701; 71045; 74176; 76705; 80053; 81003; 81015; 83605; 83690; 84484; 85014; 85018; 85025; 85049; 86850; 86900; 86901; 93005; 96361; 96365; 96375; 96376; J0131; J0360; J1200; J1956; J2060; J2270; J2405; J2543; J2550; J2930; J3010; J8597; Q0163; Q9966; S0028

== ENCOUNTER 2019-07-20 21:08 | Emergency (ER) | payer OTHER ==
--- NOTE | 2019-07-20 23:07 | RAD ---
Exam:3 views left foot HISTORY: Pain. COMPARISON: None FINDINGS: Lisfranc alignment is maintained. Mild degenerative change of the first metatarsal phalange al joint space. No fracture. No cortical irregularity. No periosteal reaction Mild degenerative change in the talonavicular space. IMPRESSION: 1. No fracture. 2. Mild degenerative changes as described above.
== END 2019-07-20 23:24 | disposition home or self-care (01) ==
LOC: ERS 21:08
DX: M79.672 Pain in left foot (principal); I10 Essential (primary) hypertension; F41.9 Anxiety disorder, unspecified; Z79.899 Other long term (current) drug therapy

== ENCOUNTER 2019-07-26 23:35 | Emergency (ER) | payer OTHER ==
[2019-07-27] MEDS ORDERED: diphenhydrAMINE 50 MG/ML VIAL ONE (00:06)
[2019-07-27] MEDS ORDERED: Metoclopramide HCl 10 MG/2 ML VIAL ONE (00:06)
[2019-07-27 00:24] LABS: #Eosinphils 0.2 thou/uL (0.0-0.7); #Lymphocytes 1.9 thou/uL (1.20-3.40); #Monocytes 0.5 thou/uL (0.11-0.59); #Neutrophils 6.4 thou/uL (1.40-6.50); %Basophils 0.4 % (0.0-1.0); %Eosinophils 2.7 % (0.0-10.0); %Neutrophils 70.9 % (42.0-75.0); Hemoglobin 13.3 g/dL (12.0-16.0); Mean Corpuscular HGB CONC 32.3 g/dL (32.0-36.0); Mean Corpuscular Hemoglobin 28.3 pg (27.0-31.0); Mean Corpuscular Volume 87.7 fL (78.0-98.0); Mean Platelet Volume 7.9 fL (7.4-10.4); Platelet Count 358 thou/uL (130-400); RBC Distribution Width 13.5 % (11.5-14.5); Red Blood Cell (RBC) Count 4.69 mill/uL (4.20-5.40)
[2019-07-27 00:48] LABS: ALT (SGPT) 9 U/L (8-55); AST (SGOT) 19 U/L (5-34); Albumin 4.5 g/dL (3.4-4.8); Alkaline Phosphatase 90 U/L (40-110); Anion Gap 18 mmol/L (10-20); BUN (Urea Nitrogen) 8 mg/dL (9.8-20.1); Bilirubin, Total 0.2 mg/dL (0.2-1.2); Calc. Creatinine Clearance 0 mL/min (70-130); Calcium 10.2 mg/dL (7.8-10.44); Carbon Dioxide 23 mmol/L (23-31); Chloride 103 mmol/L (98-107); Estimated GFR-MDRD 70; Globulin 4.2 g/dL (2.4-3.5); Glucose 120 mg/dL (80-115); Potassium 4.5 mmol/L (3.5-5.1); Protein, Total 8.7 g/dL (6.0-8.3); Sodium 139 mmol/L (136-145)
[2019-07-27] MEDS ORDERED: Magnesium 2 GM/50 ML BAG (IN WATER) ONE (01:24)
[2019-07-27 02:11] LABS: Bacteria/HPF None Seen HPF (None Seen); Bilirubin Negative (Negative); Blood, Urine 1+ (Negative); Clarity Clear (Clear); Glucose, Urine (Dipstick) Normal (Negative); Leukocyte Negative Leu/uL (Negative); Nitrite Negative (Negative); Protein, Urine (Dipstick) 10 mg/dL (Neg-Trace); Squamous Epithelial 0-3 HPF (0-3); Urobilinogen Normal mg/dL (Less than 2); WBC/HPF 0-3 HPF (0-3)
== END 2019-07-27 02:51 | disposition home or self-care (01) ==
LOC: ERS 23:35
DX: G43.909 Migraine, unspecified, not intractable, without status migrainosus (principal); K21.9 Gastro-esophageal reflux disease without esophagitis; Z86.711 Personal history of pulmonary embolism; I10 Essential (primary) hypertension; E66.9 Obesity, unspecified; F41.9 Anxiety disorder, unspecified; Z79.899 Other long term (current) drug therapy
CPT/HCPCS: 80053; 81003; 81015; 85025; 96365; 96367; 96375; J1200; J2765; J3475

== ENCOUNTER 2019-08-12 01:11 | Emergency (ER) | payer OTHER ==
[2019-08-12] MEDS ORDERED: Morphine 10 MG/ML VIAL ONE (01:40)
[2019-08-12] MEDS ORDERED: Lorazepam 1 MG TAB ONE (01:40)
[2019-08-12] MEDS ORDERED: Ondansetron ODT 8 MG TAB ONE (01:47)
[2019-08-12 03:18] LABS: #Basophils 0.1 thou/uL (0.0-0.2); #Lymphocytes 2.1 thou/uL (1.20-3.40); #Monocytes 0.5 thou/uL (0.11-0.59); #Neutrophils 6.7 thou/uL (1.40-6.50); %Basophils 0.9 % (0.0-1.0); %Eosinophils 0.5 % (0.0-10.0); %Lymphocytes 21.9 % (21.0-51.0); %Monocytes 5.6 % (0.0-10.0); %Neutrophils 71.2 % (42.0-75.0); Mean Corpuscular HGB CONC 32.6 g/dL (32.0-36.0); Mean Corpuscular Hemoglobin 28.4 pg (27.0-31.0); Mean Platelet Volume 8.1 fL (7.4-10.4); Platelet Count 398 thou/uL (130-400); RBC Distribution Width 13.9 % (11.5-14.5); Red Blood Cell (RBC) Count 4.94 mill/uL (4.20-5.40); White Blood Cell (WBC) Count 9.4 thou/uL (4.8-10.8)
[2019-08-12 03:44] LABS: ALT (SGPT) 8 U/L (8-55); AST (SGOT) 12 U/L (5-34); Albumin 4.9 g/dL (3.4-4.8); Alkaline Phosphatase 97 U/L (40-110); Anion Gap 20 mmol/L (10-20); BUN (Urea Nitrogen) 12 mg/dL (9.8-20.1); Bilirubin, Total 0.4 mg/dL (0.2-1.2); Calc. Creatinine Clearance 0 mL/min (70-130); Calcium 10.8 mg/dL (7.8-10.44); Carbon Dioxide 19 mmol/L (23-31); Chloride 104 mmol/L (98-107); Estimated GFR-MDRD 53; Globulin 4.1 g/dL (2.4-3.5); Glucose 109 mg/dL (80-115); Potassium 3.6 mmol/L (3.5-5.1); Sodium 139 mmol/L (136-145)
== END 2019-08-12 04:31 | disposition home or self-care (01) ==
LOC: ERS 01:11
DX: R10.31 Right lower quadrant pain (principal); K21.9 Gastro-esophageal reflux disease without esophagitis; I10 Essential (primary) hypertension; F41.9 Anxiety disorder, unspecified; G43.909 Migraine, unspecified, not intractable, without status migrainosus; E66.9 Obesity, unspecified; Z86.711 Personal history of pulmonary embolism; Z79.891 Long term (current) use of opiate analgesic; Z79.899 Other long term (current) drug therapy; W01.198A Fall on same level from slipping, tripping and stumbling with subsequent striking against other object, initial encounter
CPT/HCPCS: 80053; 85025; 96372; 99284; J2270

== ENCOUNTER 2019-09-28 10:01 | Inpatient (IN) | payer OTHER ==
[2019-09-28 10:54] LABS: #Eosinphils 0.1 thou/uL (0.0-0.7); #Lymphocytes 1.4 thou/uL (1.20-3.40); #Monocytes 0.5 thou/uL (0.11-0.59); #Neutrophils 7.8 thou/uL (1.40-6.50); %Basophils 0.1 % (0.0-1.0); %Eosinophils 0.6 % (0.0-10.0); %Lymphocytes 14.6 % (21.0-51.0); %Monocytes 5.3 % (0.0-10.0); %Neutrophils 79.4 % (42.0-75.0); Hemoglobin 12.3 g/dL (12.0-16.0); Mean Corpuscular Hemoglobin 26.9 pg (27.0-31.0); Mean Corpuscular Volume 86.9 fL (78.0-98.0); Mean Platelet Volume 8.4 fL (7.4-10.4); Platelet Count 323 thou/uL (130-400); RBC Distribution Width 13.9 % (11.5-14.5); Red Blood Cell (RBC) Count 4.55 mill/uL (4.20-5.40); White Blood Cell (WBC) Count 9.9 thou/uL (4.8-10.8)
[2019-09-28 11:17] LABS: ALT (SGPT) 11 U/L (8-55); AST (SGOT) 19 U/L (5-34); Albumin 4.1 g/dL (3.4-4.8); Alkaline Phosphatase 95 U/L (40-110); Anion Gap 16 mmol/L (10-20); BUN (Urea Nitrogen) 14 mg/dL (9.8-20.1); Bilirubin, Total 0.3 mg/dL (0.2-1.2); Calc. Creatinine Clearance 0 mL/min (70-130); Carbon Dioxide 21 mmol/L (23-31); Chloride 108 mmol/L (98-107); Estimated GFR-MDRD 55; Globulin 3.8 g/dL (2.4-3.5); Glucose 137 mg/dL (80-115); Lipase 8 U/L (8-78); Potassium 4.8 mmol/L (3.5-5.1); Protein, Total 7.9 g/dL (6.0-8.3); Sodium 140 mmol/L (136-145)
[2019-09-28] MEDS ORDERED: Morphine 4 MG/ML VIAL ONE ×3 (11:31→12:31)
--- NOTE | 2019-09-28 12:59 | CT ---
CT Stone Protocol: 09/28/2019 12:27 PM HISTORY: Back pain and right lower quadrant abdominal pain. Painful urination. COMPARISON: 05/10/2015 TECHNIQUE: Multiple contiguous axial images were obtained and a CT of the abdomen and pelvis without IV contrast . Coronal and sagittal reformats were performed. FINDINGS: This examination is limited for the evaluation of solid organs and vascular structures due to the lac k of intravenous contrast. This exam is also limited secondary to streak artifact from the patient's right side touching the CT gantry. Lower Chest: within normal limits. Abdomen: Liver: within normal limits. Bile Ducts: Normal caliber. Gallbladder: No calcified gallstones. Normal caliber wall. Pancreas: within normal limits. Spleen: within normal limits. Adrenals: within normal limits. Kidneys: within normal limits. Pelvis: Reproductive Organs: Status post hysterectomy. Ureters: within normal limits. Bladder: within normal limits. Bowel: Normal caliber. A few scattered diverticula are seen in the colon. Mesenteric Lymph Nodes: No enlarged mesenteric lymph nodes. Peritoneum: No ascites or free air, no fluid collection. Vessels: Normal caliber aorta with atherosclerotic calcifications seen. Retroperitoneum: within normal limits. Abdominal Wall: within normal limits. Bones: Degenerative changes in the spine. IMPRESSION: 1. No evidence of acute intraabdominal or pelvic abnormality. 2. Diverticulosis
[2019-09-28] MEDS ORDERED: HYDROmorphone 0.5 MG/0.5 ML SYRINGE ONE ×2 (14:33→15:02)
[2019-09-28] MEDS ORDERED: cefTRIAXone\\ROCEPHIN 2 GM VIAL ONE (15:11)
[2019-09-28 15:55] LABS: Bacteria/HPF None Seen HPF (None Seen); Bilirubin Negative (Negative); Blood, Urine 2+ (Negative); Clarity Clear (Clear); Glucose, Urine (Dipstick) Normal (Negative); Leukocyte Negative Leu/uL (Negative); Nitrite Negative (Negative); Protein, Urine (Dipstick) 50 mg/dL (Neg-Trace); Squamous Epithelial 0-3 HPF (0-3); WBC/HPF 0-3 HPF (0-3)
[2019-09-28] MEDS ORDERED: Diazepam 10 MG/2 ML SYRINGE ONE (16:32)
[2019-09-28] MEDS ORDERED: Labetalol HCl 100 MG/20 ML VIAL ONE (17:12)
[2019-09-28] MEDS ORDERED: hydrALAZINE 20 MG/ML VIAL ONE (17:57)
[2019-09-28] MEDS ORDERED: NIFEdipine XL 30 MG TAB ONE (18:12)
[2019-09-28] MEDS ORDERED: hydrALAZINE 20 MG/ML VIAL SLOW IVP PRN (18:25)
[2019-09-28] MEDS ORDERED: ALPRAZolam 0.5 MG TAB PO PRN (18:26)
[2019-09-28] MEDS ORDERED: NIFEdipine XL 90 MG TAB PO SCH (18:30)
[2019-09-28 18:33] LABS: Amphetamine Not Detected (NotDetected); Barbiturates Screen Not Detected (NotDetected); Benzodiazepine Screen Detected (NotDetected); Cocaine Metabolite Screen Not Detected (NotDetected); Medtox Control Line Valid? VALID (VALID); Medtox Reader # READER 4; Methadone Not Detected (NotDetected); Methamphetamine Not Detected (NotDetected); Opiate Screen Detected (NotDetected); Oxycodone Screen Not Detected (NotDetected); Phencyclidine (PCP) Not Detected (NotDetected); THC/Cannabinoid Screen Not Detected (NotDetected); Tricyclic Screen Not Detected (NotDetected)
[2019-09-28] MEDS: tiZANidine HCl 4 MG TAB PO SCH (20:43)
[2019-09-28] MEDS: Sodium Chloride 0.45% 1,000 ML IV SCH (20:44)
[2019-09-28] MEDS: hydrALAZINE 25 MG TAB PO SCH (20:44)
[2019-09-28] MEDS: Metoprolol Tartrate 50 MG TAB PO SCH (20:45)
[2019-09-28] MEDS: Metoclopramide HCl 10 MG TAB PO SCH (20:45)
[2019-09-28 21:16] LABS: Lactic Acid 3.1 mmol/L (0.5-2.2)
[2019-09-28] MEDS: Morphine 4 MG/ML VIAL SLOW IVP PRN (21:53)
[2019-09-28 22:09] VITALS: BMI 43.9
[2019-09-29] MEDS: Morphine 4 MG/ML VIAL SLOW IVP PRN (02:19)
[2019-09-29] MEDS: Pantoprazole 40 MG VIAL IVP SCH ×2 (09:55→13:00)
[2019-09-29] MEDS: tiZANidine HCl 4 MG TAB PO SCH ×4 (09:55→21:16)
[2019-09-29] MEDS: NIFEdipine XL 90 MG TAB PO SCH ×2 (09:55→12:59)
[2019-09-29] MEDS: Metoprolol Tartrate 50 MG TAB PO SCH ×3 (09:55→21:17)
[2019-09-29] MEDS: Metoclopramide HCl 10 MG TAB PO SCH ×4 (09:55→21:17)
[2019-09-29] MEDS: hydrALAZINE 25 MG TAB PO SCH ×4 (09:55→21:16)
[2019-09-29] MEDS: Sodium Chloride 0.45% 1,000 ML IV SCH ×4 (11:15→21:38)
--- NOTE | 2019-09-29 11:41 | HP ---
CHIEF COMPLAINT: Abdominal pain. HISTORY OF PRESENT ILLNESS: Ms. Samaniego is a 64-year-old female with past medical history of morbid obesity, hypertension, chronic pain, anxiety disorder, came because of abdominal pain started about 2 days ago. The patient states the pain is all over the abdomen, pain initially starts in the right flank and goes to the left flank. Severity of pain is 10/10. Does not have any nausea or vomiting. No fever. No chest pain. No shortness of breath. The patient came to the ER because of the unresolving abdominal pain. In the ER, the patient was evaluated and found to have acute and severe abdominal pain. Underwent CT scan of the abdomen which was unremarkable. The patient was also found to have markedly elevated blood pressure. The initial blood pressure was more than 200 systolic, like 238/120. The patient received a lot of medications in the ER. She was given morphine initially 4 mg followed by another 4 and then 8 mg because of persistent pain. Then, the patient also received Dilaudid 1 mg because of pain not relieved after 2 hours. She received labetalol 20 mg ivp and received Valium also. Received a liter of bolus of half-normal saline. The patient is still in the abdominal pain right now. PAST MEDICAL HISTORY: 1. Chronic abdominal pain, evaluated by Gastroenterology in the past multiple times. 2. Hypertension. 3. Morbid obesity. 4. Anxiety disorder. 5. Insomnia. 6. History of migraine headaches. 7. Hyperlipidemia. 8. COPD. PAST SURGICAL HISTORY: Nothing significant. CURRENT MEDICATIONS: The patient possibly takin. Metoprolol 50 b.i.d. 2. Procardia XL 90 mg daily. 3. Hydralazine 50 b.i.d. 4. Penfield 10/325 q.i.d. 5. Xanax 0.5 b.i.d. 6. Ambien 10 mg at bedtime p.r.n. 7. Tizanidine 4 mg t.i.d. p.r.n. 8. Reglan 5 mg t.i.d. ALLERGIES: MULTIPLE, WHICH INCLUDE ASPIRIN, COMPAZINE, DARVOCET, GABAPENTIN, IBUPROFEN, IODINE CONTAINING DRINKS, LYRICA, RITALIN, NAPROXEN, TORADOL, TRAMADOL, TRAZODONE, FAMILY HISTORY: Nothing contributory. SOCIAL HISTORY: The patient lives alone. No history of smoking. No history of alcohol. REVIEW OF SYSTEMS: CARDIOVASCULAR: No chest pain or shortness of breath. RESPIRATORY: No fever or cough. GASTROINTESTINAL: Abdominal pain, nausea, vomiting. CENTRAL NERVOUS SYSTEM: No headache. No dizziness. PHYSICAL EXAMINATION: GENERAL: The patient is alert, awake, and oriented x2. VITAL SIGNS: Temperature 98, pulse 90, respiratory rate 20, blood pressure stable around 200/110. HEENT: Head is normocephalic, atraumatic. Pupils are equal and reactive. Nasopharynx is pale and dry. NECK: Supple. No JVD. LUNGS: Bilateral air entry present. No rales, no rhonchi. HEART: S1 and S2 regular. ABDOMEN: Obese, diffusely tender. No guarding. No rigidity. Bowel sounds present. RECTAL: Deferred. CENTRAL NERVOUS SYSTEM: No focal deficits. LABORATORY DATA: CBC shows WBC 10.8, hemoglobin 12, and hematocrit 37, and platelets 323. Metabolic panel; sodium 140, potassium 4.8, chloride 108, CO2 of 21, BUN 14, creatinine 1.1, glucose 137. Serum lipase 8. Amylase not done. Urinalysis negative. CT scan of the abdomen and pelvis reported as no evidence of acute abdominal or pelvic abnormality; showed some diverticulosis. EKG shows sinus tachycardia with heart rate of 126. No acute ST-T changes seen. ASSESSMENT: 1. Severe abdominal pain. 2. Hypertensive emergency. 3. Morbid obesity. 4. Chronic abdominal pain. 5. Anxiety disorder. 6. Chronic pain. 7. Insomnia. 8. History of migraine headaches. PLAN: 1. Vital signs q.4 hours. 2. Activity as tolerated. 3. Allergies, multiple. 4. IV fluids, half normal at 80 mL/h. 5. Hydralazine 25 mg IVP q.6 hours p.r.n. 6. Continue home medications. 7. Morphine 4 mg IVP q.6 hours. 8. Protonix 40 mg IV piggyback daily. 9. GI consult. 10. we will give nifedipine ER, which is her home medication 90 mg p.o. now and we will keep the diet n.p.o. except medications. We will obtain an x-ray tomorrow. Job ID: [id number] [facility]
[2019-09-29 15:47] LABS: Base Excess (BEa) 1.5 mEq/L (-2.0 to +3.0); CO2 Tension 40.6 mmHg (35.0-45.0); Calcium, Ionized 1.19 mmol/L (1.12-1.30); Carboxyhemoglobin (COHb) 1.1 gm% (0.0-3.0); Hemoglobin (Hb) 11.3 g/dL (12.0-16.0); O2 Tension (PaO2) 67.2 mmHg (> 80.0); Potassium - ABG Lab 3.84 mmol/L (3.70-5.30); pH, Arterial 7.43 (7.35-7.45)
[2019-09-29 15:48] LABS: Puncture Site LRA
[2019-09-29 20:00] VITALS: BP 124/63; TEMP 98.2
--- NOTE | 2019-09-30 02:49 | CON ---
DATE OF CONSULTATION: 09/29/2019 REASON FOR CONSULTATION: Abdominal pain. HISTORY OF PRESENT ILLNESS: Ms. Samaniego is a 64-year-old female, who is well known to me. She has had chronic recurrent abdominal pain that deemed to be functional in nature as extensive prior evaluation was all unremarkable. She has had multiple imaging studies including CTs and ultrasounds, all of which were unremarkable. Last year, she had an unremarkable nuclear gastric emptying scan at [facility]. The patient presented to the hospital yesterday with a 3-day history of progressive abdominal pain that favors more on the right than the left. The pain is described as sharp and stabbing and unrelenting. She did not have any nausea or vomiting. She denies having any fever or chills. She does have fairly regular bowel movement on Linzess. There is no reported hematochezia, rectal bleeding, or melena. The pain became unbearable, which prompted ER evaluation. Abdominal pelvic CT performed was unremarkable. All the lab parameters were normal. She was admitted because of the pain and elevated blood pressure. She has been receiving morphine overnight. Currently, she denies having any pain at all. PAST MEDICAL HISTORY: 1. Hypertension. 2. Hyperlipidemia. 3. Chronic obstructive pulmonary disease. 4. Irritable bowel syndrome. 5. Chronic abdominal pain with negative GI evaluation. 6. Anxiety disorder. 7. Obesity. 8. GE reflux disease. 9. History of fundoplication. 10. Status post hysterectomy. ALLERGIES: MULTIPLE, SEE CHART. MEDICATIONS: At home include; 1. Tizanidine. 2. Alprazolam. 3. Hydralazine. 4. Pantoprazole. 5. Nifedipine. 6. Metoprolol. 7. Metoclopramide. 8. Ambien. 9. Linzess. SOCIAL HISTORY: The patient has no tobacco and denies any alcohol usage. FAMILY HISTORY: Negative for any known GI problem, liver disease, or GI malignancy. REVIEW OF SYSTEMS: Ten-point review of systems did not show any other symptoms or complaints. No other pertinent positives or negatives. PHYSICAL EXAMINATION: VITAL SIGNS: Temperature is 98.2, blood pressure 124/63, pulse of 69. GENERAL: She is alert, lying in bed without any distress. HEENT: Exam shows anicteric sclerae. Oropharynx clear. NECK: Supple. CV: Exam shows normal S1, S2. Regular rate and rhythm. CHEST: Shows breath sounds. ABDOMEN: Very protuberant, but soft. No distention. No tympany. Organomegaly are difficult to assess secondary to size. SKIN: Inspection of skin front and back did not show any rash or changes of shingles. EXTREMITIES: Shows no edema. LABORATORY DATA: WBCs 9.9, hemoglobin 12.3, and platelet count 323. Electrolytes within normal range. Creatinine 1.19. Lactic acid 4.1. LFTs are normal. Lipase of 8. Abdominal pelvic CT performed yesterday showed normal liver, gallbladder, pancreas, spleen, and kidneys, and normal CT appearance of small bowel and colon. ASSESSMENT: Chronic recurrent abdominal pain of unknown etiology. She has had multiple CTs and ultrasounds in the past. This year alone, she has had three CTs of the abdomen and pelvis. Functional bowel disease is suspected. Her current pain is localized more to the right, which raises outside possibility for acalculous gallbladder disease, which has never been fully evaluated before. RECOMMENDATIONS: 1. HIDA scan with CCK stimulation. 2. Hold off morphine as the patient is pain-free at the present time. 3. We will follow, further recommendation to follow pending above findings. Job ID: [id number]
--- NOTE | 2019-09-30 12:29 | PQF ---
CLINICAL DOCUMENTATION IMPROVEMENT CLARIFICATION FORM: ICD-10 Updated PLEASE DO AN ADDENDUM TO THE PROGRESS NOTE WITH ANY DOCUMENTATION UPDATES OR ADDITIONS AND CARRY THROUGH TO DC SUMMARY. THANK YOU. DATE: 09/30/19 ATTN: DR. HERNANDEZ Please exercise your independent, professional judgment in responding to the clarification form. Clinical indicators are provided on the bottom of this form for your review Please check appropriate box(es): [ ] Sepsis due to: (Pna, UTI, gangrenous gall bladder, etc.) [ ] SIRS due to non-infectious process (please specify etiology) [ ] with organ dysfunction [ ] without organ dysfunction [ ] Localized infection without sepsis [ y] Other diagnosis abdominal pain [ ] Unable to determine In addition, please specify: Present on Admission (POA): [ y ] Yes [ ] No [ ] Unable to determine For continuity of documentation, please document condition throughout progress notes and discharge summary. Thank You. 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 All Rights Reserved DENYS [email or web address] Office: [phone] [facility]ITAL[facility]
== END 2019-09-29 22:49 | disposition left against medical advice (07) | DRG 392 ==
LOC: ERS 10:01 → 2NO 20:15
PROVIDERS: ADMIT Internal Medicine; ATTEND Internal Medicine
DX: R10.9 Unspecified abdominal pain (principal); I16.1 Hypertensive emergency; Z68.41 Body mass index [BMI] 40.0-44.9, adult; E66.01 Morbid (severe) obesity due to excess calories; I10 Essential (primary) hypertension; G89.29 Other chronic pain; F32.9 Major depressive disorder, single episode, unspecified; G47.00 Insomnia, unspecified; G43.909 Migraine, unspecified, not intractable, without status migrainosus; E78.5 Hyperlipidemia, unspecified; J44.9 Chronic obstructive pulmonary disease, unspecified; F41.9 Anxiety disorder, unspecified; K58.9 Irritable bowel syndrome, unspecified; K21.9 Gastro-esophageal reflux disease without esophagitis; Z79.899 Other long term (current) drug therapy; Z88.8 Allergy status to other drugs, medicaments and biological substances; Z88.5 Allergy status to narcotic agent; Z90.710 Acquired absence of both cervix and uterus; Z86.711 Personal history of pulmonary embolism; Z53.29 Procedure and treatment not carried out because of patient's decision for other reasons; Z88.6 Allergy status to analgesic agent
CPT/HCPCS: 36415; 36416; 51701; 74176; 80053; 80306; 81003; 81015; 82805; 83605; 83690; 85025; 87040; 87086; 93005; 96361; 96365; 96366; 96367; 96372; 96375; A4353; C9113; J0360; J0696; J1170; J2270; J3360; J3370

== ENCOUNTER 2020-03-10 14:48 | Emergency (ER) | payer OTHER ==
--- NOTE | 2020-03-10 15:52 | RAD ---
LEFT ELBOW: 03/10/20 Four views. HISTORY: Pain and swelling. No evidence of fracture identified. There is no obvious joint effusion. I cannot exclude slight elev ation of the anterior fat pad. There is soft tissue prominence seen posteriorly over the olecranon to suggest olecranon bursitis. IMPRESSION: No acute osseous abnormality identified. Soft tissue prominence over the olecranon suggests olecranon bursitis. POS: CARYW
== END 2020-03-10 16:23 | disposition home or self-care (01) ==
LOC: ERS 14:48
DX: M70.22 Olecranon bursitis, left elbow (principal); K21.9 Gastro-esophageal reflux disease without esophagitis; G43.909 Migraine, unspecified, not intractable, without status migrainosus; E66.9 Obesity, unspecified; F41.9 Anxiety disorder, unspecified; Z86.711 Personal history of pulmonary embolism; Z79.899 Other long term (current) drug therapy

== ENCOUNTER 2020-05-05 09:18 | Inpatient (IN) | payer OTHER ==
[2020-05-05] MEDS ORDERED: Morphine 4 MG/ML VIAL ONE ×3 (09:39→14:44)
[2020-05-05] MEDS ORDERED: Metoclopramide HCl 10 MG/2 ML VIAL ONE (09:42)
[2020-05-05] MEDS ORDERED: Cefepime 2 GM VIAL ONE (09:42)
[2020-05-05 09:58] LABS: #Lymphocytes 1.2 thou/uL (1.20-3.40); #Monocytes 0.4 thou/uL (0.11-0.59); #Neutrophils 7.7 thou/uL (1.40-6.50); %Basophils 0.2 % (0.0-1.0); %Eosinophils 0.1 % (0.0-10.0); %Lymphocytes 12.4 % (21.0-51.0); %Monocytes 4.1 % (0.0-10.0); %Neutrophils 83.3 % (42.0-75.0); Hemoglobin 13.4 g/dL (12.0-16.0); Mean Corpuscular HGB CONC 31.9 g/dL (32.0-36.0); Mean Corpuscular Hemoglobin 28.7 pg (27.0-31.0); Mean Corpuscular Volume 89.8 fL (78.0-98.0); Mean Platelet Volume 8.2 fL (7.4-10.4); Platelet Count 400 thou/uL (130-400); RBC Distribution Width 13.8 % (11.5-14.5); Red Blood Cell (RBC) Count 4.68 mill/uL (4.20-5.40); White Blood Cell (WBC) Count 9.3 thou/uL (4.8-10.8)
--- NOTE | 2020-05-05 10:01 | RAD ---
RADIOGRAPH CHEST 1 VIEW: DATE: 05/05/2020 HISTORY: 64-year-old female with right-sided chest pain FINDINGS: Limited study because of shallow inspiration. There is no consolidation, pulmonary edema, or pneumoth orax. The lateral costophrenic angles are not effaced. IMPRESSION: No acute pulmonary findings.
[2020-05-05 10:02] LABS: BHCG - Serum Negative (NEGATIVE); Pregs Control Background? CLEAR/WHITE (CLR/WHITE); Pregs Control Bar Appear? YES (CONTROL BAR)
[2020-05-05 10:21] LABS: ALT (SGPT) 13 U/L (8-55); AST (SGOT) 12 U/L (5-34); Albumin 4.7 g/dL (3.4-4.8); Alkaline Phosphatase 96 U/L (40-110); Anion Gap 19 mmol/L (10-20); BUN (Urea Nitrogen) 8 mg/dL (9.8-20.1); Bilirubin, Total 0.4 mg/dL (0.2-1.2); Calc. Creatinine Clearance 0 mL/min (70-130); Calcium 10.5 mg/dL (7.8-10.44); Carbon Dioxide 23 mmol/L (23-31); Chloride 105 mmol/L (98-107); Estimated GFR-MDRD 50; Globulin 3.9 g/dL (2.4-3.5); Glucose 126 mg/dL (80-115); Potassium 3.3 mmol/L (3.5-5.1); Protein, Total 8.6 g/dL (6.0-8.3); Sodium 144 mmol/L (136-145)
[2020-05-05] MEDS ORDERED: Labetalol HCl 100 MG/20 ML VIAL ONE ×2 (10:35→11:01)
[2020-05-05] MEDS ORDERED: Nitroglycerin 2% Ointment 1 INCH/1 GM Packet ONE (10:36)
[2020-05-05 10:42] LABS: CKMB 1.7 ng/mL (0-6.6)
[2020-05-05 10:54] LABS: Bilirubin 1+ (Negative); Blood, Urine 2+ (Negative); Clarity Turbid (Clear); Glucose, Urine (Dipstick) Normal (Negative); Ketone, Urine 40 mg/dL (Negative); Leukocyte Negative Leu/uL (Negative); Nitrite Negative (Negative); Protein, Urine (Dipstick) 200 mg/dL (Neg-Trace); Specific Gravity, Urine 1.035 (1.002-1.036); Squamous Epithelial 0-3 HPF (0-3); Urobilinogen 3 mg/dL (Less than 2); WBC/HPF 0-3 HPF (0-3); pH, Urine 5.5 (5.0-9.0)
[2020-05-05 11:10] LABS: Bacteria/HPF None Seen HPF (None Seen)
--- NOTE | 2020-05-05 11:34 | CT ---
CT ABDOMEN AND PELVIS WITHOUT IV CONTRAST: Date: 05/05/2020 INDICATION: Right lower quadrant abdominal pain. Surgical history includes appendectomy and hysterectomy. Comparison made to CT abdomen and pelvis dated 09/28/2019. FINDINGS: Lung bases clear. Liver, spleen, and pancreas are unremarkable. There is a moderate sized fixed sliding diaphragmatic hernia. Adrenal glands appear normal. Kidneys unremarkable. Small cystic lesion in the anterior left renal cortex is stable. No hydronephro sis or urinary calculus. Small bowel loops are normal caliber. Colon unremarkable by CT. Aorta normal caliber. There is an abnormal soft tissue in the periaortic region to the left of the aorta in the upper abdom en just inferior to the left renal vein which measures approximately 2.0 cm AP dimension x 4.0 cm cradle slide maker niocaudal dimension. This soft tissue mass density has enlarged slightly since 09/28/2019. No other evidence of mass or adenopathy. Images through the pelvis are unremarkable. Urinary bladder is contracted. The osseous structures are unremarkable. Degenerative changes in the lumbar spine, prominent at L5-S1 . IMPRESSION: Soft tissue mass density in the retroperitoneum to the left of the aorta suggesting adenopathy. This is not amenable to CT directed biopsy. Recommend clinical correlation and close follow-up. MRI and/or PET scanning may be of benefit to further assess this lesion. POS: CALEB
[2020-05-05] MEDS ORDERED: Lorazepam 2 MG/ML VIAL ONE (12:06)
[2020-05-05] MEDS ORDERED: Potassium Chloride 20 MEQ TAB ONE (12:49)
[2020-05-05 13:12] LABS: Lactic Acid 2.1 mmol/L (0.5-2.2)
[2020-05-05] MEDS ORDERED: niCARdipine 20MG In NaCl 20 MG/200 ML BAG ONE ×2 (13:19→15:26)
[2020-05-05 14:12] LABS: Troponin I 0.027 ng/mL (< 0.028)
[2020-05-05] MEDS ORDERED: Morphine 4 MG/ML VIAL SLOW IVP SCH (16:00)
[2020-05-05 17:57] VITALS: BMI 36.5
[2020-05-05] MEDS ORDERED: Ondansetron PF 4 MG/2 ML Vial IVP PRN ×2 (18:21→18:31)
[2020-05-05] MEDS ORDERED: Acetaminophen 325 MG TAB PO PRN (18:21)
[2020-05-05] MEDS ORDERED: Sodium Chloride 0.9% 1,000 ML IV SCH (18:21)
[2020-05-05] MEDS ORDERED: Ondansetron ODT 4 MG TAB SL PRN (18:21)
[2020-05-05] MEDS ORDERED: Ondansetron ODT 4 MG TAB PO PRN (18:31)
[2020-05-05] MEDS ORDERED: Metoprolol Tartrate 5 MG/5 ML VIAL IVP PRN (18:31)
[2020-05-05] MEDS ORDERED: Acetaminophen 500 MG TAB PO PRN (18:31)
[2020-05-05] MEDS ORDERED: cloNIDine 0.1 MG TAB PO PRN (18:31)
[2020-05-05] MEDS ORDERED: Electrolyte Replacement Protoc 1 EACH EACH FS ONE (18:33)
[2020-05-05 18:51] LABS: Troponin I 0.029 ng/mL (< 0.028)
[2020-05-05] MEDS ORDERED: cloNIDine 0.3mg/24 Hour PATCH TD SCH (19:00)
[2020-05-05] MEDS ORDERED: Electrolyte Replacement Protocol FS PRN (19:00)
[2020-05-05] MEDS: niCARdipine 25 MG in Sodium Chloride 0.9% 250 ML 240 ML IVPB SCH ×2 (19:19→22:00)
[2020-05-05] MEDS ORDERED: Potassium Chloride 20 MEQ TAB PO SCH (19:45)
[2020-05-05] MEDS: Sodium Chloride 0.9% 1,000 ML IV SCH (20:22)
[2020-05-05] MEDS: hydrALAZINE 25 MG TAB PO SCH (20:23)
[2020-05-05] MEDS: cefTRIAXone\\ROCEPHIN 2 GM in Sodium Chloride 0.9% 100 ML IVPB SCH (20:23)
[2020-05-05] MEDS: Metoprolol Tartrate 50 MG TAB PO SCH (20:26)
[2020-05-05] MEDS: tiZANidine HCl 4 MG TAB PO SCH (20:26)
[2020-05-05] MEDS: Morphine 4 MG/ML VIAL SLOW IVP PRN (20:26)
[2020-05-05] MEDS: ALPRAZolam 0.5 MG TAB PO SCH (20:26)
[2020-05-05] MEDS ORDERED: Cefepime 2 GM in Sodium Chloride 0.9% 100 ML IVPB SCH (21:00)
[2020-05-05] MEDS ORDERED: Famotidine 20 MG TAB PO SCH (21:00)
--- NOTE | 2020-05-05 22:55 | HP ---
[facility] [place] [place]. CHIEF COMPLAINT: Abdominal pain with nausea. HISTORY OF PRESENT ILLNESS: This is a 64-year-old female, who presents to [facility] Emergency Department with a 3 to 4 day history of increasing right upper and right lower quadrant abdominal pain with associated nausea, as well as dysuria. The patient states the symptoms began approximately 3 days prior to this evaluation with cramping in her lower abdomen with radiation into the back and pelvic area. The patient admits to frequency of urination with burning sensation and discoloration to the urine. The patient admits to prior history of urinary tract infection, but no recurrent or frequent urinary tract infections. The patient initially complained of 10/10 abdominal pain in the emergency room but denied direct trauma injury, diarrhea or constipation. The patient denied any travel history, family members with similar symptoms or direct trauma or surgical intervention. The patient states she continued to take her prescription pain medication including Tylenol No.4 without relief of her symptoms. In the emergency room, the patient underwent general evaluation and was noted with hypertensive urgency with blood pressures in the 218/140s. The patient was given multiple antihypertensives including initiation of a Cardene infusion with IV labetalol and transdermal nitroglycerin. The patient was also meeting sepsis criteria with elevated lactic acid level and tachycardia. The patient received general sepsis protocol including IV fluid administration in addition to vancomycin 2 g IV piggyback with cefepime 2 g x1 dose. The patient also received morphine sulfate, Reglan, and lorazepam. The patient was transferred to the Critical Care Unit for further evaluation. PAST MEDICAL HISTORY: 1. Hypertension with history of hypertensive urgency/emergency. 2. Gastroesophageal reflux disease. 3. History of pulmonary embolus. 4. Radiculopathy due to disk herniation. 5. Hypertension. 6. Migraine headaches. 7. Morbid obesity. PAST SURGICAL HISTORY: 1. Status post appendectomy. 2. Status post bone spur removal of bilateral feet and ankles. 3. Status post left shoulder repair. 4. Status post excision of lipoma. 5. Status post right shoulder repair. CURRENT MEDICATIONS: 1. Alprazolam 0.5 mg p.o. b.i.d. 2. Hydralazine 50 mg p.o. t.i.d. 3. Protonix 40 mg p.o. daily. 4. Tizanidine 4 mg p.o. t.i.d. 5. Metoprolol tartrate 50 mg p.o. b.i.d. 6. Nifedipine extended release 90 mg p.o. daily. ALLERGIES: 1. IODINE, PROCHLORPERAZINE. 2. NAPROXEN. 3. ASPIRIN. 4. GABAPENTIN. 5. METHYLPHENIDATE. 6. TORADOL. 7. TRAMADOL. 8. TRAZODONE. FAMILY HISTORY: Positive for hypertension and diabetes mellitus. SOCIAL HISTORY: [facility] in the [facility]. No current alcohol, tobacco, or illicit drug use. REVIEW OF SYSTEMS: CONSTITUTIONAL: Negative for weight loss or gain, ability to conduct usual activities. SKIN: Negative for rash, itching. EYES: Negative for double vision, pain. ENT/MOUTH: Negative for nose bleeding, neck stiffness, pain, tenderness. CARDIOVASCULAR: Negative for palpitations, dyspnea on exertion, orthopnea. RESPIRATORY: Negative for shortness of breath, wheezing, cough, hemoptysis, fever or night sweats. GASTROINTESTINAL: Negative for poor appetite, abdominal pain, heartburn, nausea, vomiting, constipation, or diarrhea. GENITOURINARY: Negative for urgency, frequency, dysuria, nocturia. MUSCULOSKELETAL: Negative for pain, swelling. NEUROLOGIC/PSYCHIATRIC: Negative for anxiety, depression. ALLERGY/IMMUNOLOGIC: Negative for skin rash, bleeding tendency. Otherwise negative except as stated per HPI. PHYSICAL EXAMINATION: VITAL SIGNS: Blood pressure 188/140, pulse 106, respiratory rate 18, temperature 98.3 degrees Fahrenheit, O2 saturation 94% on room air. GENERAL APPEARANCE: This is a 64-year-old female, agitated, in moderate distress. HEENT: Pupils are equal, round, reactive to light and accommodation. Extraocular muscles are intact. Bilateral conjunctival injection. Nares are patent. OP is clear. Teeth in fair repair. NECK: Supple. No cervical adenopathy. No thyromegaly. No carotid bruits. No JVD appreciated. Cervical spine with full active and passive range of motion. No meningeal signs noted. CHEST: Diminished breath sounds in the bases bilaterally. CARDIOVASCULAR: S1, S2 with tachycardia. No murmur, rub, or gallop appreciated. ABDOMEN: Obese with mild tenderness to palpation in the right upper and right lower quadrant. Positive suprapubic tenderness appreciated. Bowel sounds positive in all 4 quadrants. No palpable mass. No rebound or guarding appreciated. Positive CVA tenderness bilaterally. EXTREMITIES: Warm and dry with fair turgor. No clubbing, cyanosis, or asymmetric edema appreciated. Pulses palpable distally at the dorsalis pedis, posterior tibial, and popliteal arteries bilaterally. Capillary refill less than 2 seconds. NEUROLOGIC: Cranial nerves 2 through 12 are grossly intact. No focal or lateralizing signs appreciated. PERTINENT LABORATORY AND X-RAY FINDINGS: Sodium 144, potassium 3.3, chloride 105, CO2 of 23, BUN 8, creatinine 1.30, estimated GFR 50, glucose 126, lactic acid level ranged between 2.1 to 3.1, calcium 10.5. LFTs within normal limits. Troponin I ranged between 0.027 to 0.038. Serum beta-hCG negative, 05/05/2020. CBC showed a white blood cell count of 9.3, hemoglobin 13.4, hematocrit 42, platelet count 400 with 83% neutrophils. Urinalysis positive for protein, ketones, blood with 7 to 10 rbc's per high-power field and 0 to 3 wbc's per high-powered field. 2+ amorphous crystals with 11 to [address] of the abdomen and pelvis dated 05/05/2020, showed soft tissue mass density in the retroperitoneal region of the left near the aorta suggestive of adenopathy. Portable chest x-ray dated 05/05/2020, showed no acute cardiopulmonary process. Telemetry monitoring shows sinus tachycardia with heart rates in the 110s. ASSESSMENT AND PLAN: 1. Hypertensive urgency. The patient will be admitted to the Critical Care Unit. We will continue Cardene infusion, titrating to clinical response. Add clonidine 0.3 mg transdermally q.7 days. Add metoprolol 5 mg IV push q.4 hours p.r.n. systolic over 170. Confirm home blood pressure regimen. Consider echocardiogram evaluation. The patient's presentation consistent with noncompliance. 2. Severe sepsis secondary to urinary tract infection. We will continue general sepsis protocol. Continue IV fluids with normal saline. Continue Rocephin 2 g IV daily with additional vancomycin 1 g IV q.12 hours. Blood and urine cultures pending. Continue to monitor for clinical response. Serial lactic acid level per protocol. 3. Acute kidney injury on chronic kidney disease stage 2 to 3. Avoid nephrotoxic agents and limit contrast exposure. Repeat creatinine in the a.m. 4. Hypokalemia. We will provide potassium supplementation with CCU, electrolyte replacement protocol. 5. Urinary tract infection. We will continue Rocephin 2 g IV q.24 hours with additional vancomycin 1 g IV q.12 hours. Await final urine culture results. 6. Anxiety disorder. Resume alprazolam 0.5 mg p.o. b.i.d. 7. Prophylaxis. SCDs while in bed. Pepcid 20 mg p.o. b.i.d. 8. Code status is full. Surrogate medical decision maker is Regina Joiner. Job ID: [id number]
[2020-05-05] MEDS: Labetalol HCl 100 MG/20 ML VIAL SLOW IVP PRN (23:35)
[2020-05-06] MEDS: Morphine 4 MG/ML VIAL SLOW IVP PRN ×5 (00:55→20:58)
[2020-05-06 03:57] LABS: Anion Gap 14 mmol/L (10-20); BUN (Urea Nitrogen) 7 mg/dL (9.8-20.1); Calc. Creatinine Clearance 121 mL/min (70-130); Calcium 9.4 mg/dL (7.8-10.44); Carbon Dioxide 25 mmol/L (23-31); Chloride 106 mmol/L (98-107); Estimated GFR-MDRD 78; Glucose 123 mg/dL (80-115); Sodium 141 mmol/L (136-145)
[2020-05-06] MEDS: Labetalol HCl 100 MG/20 ML VIAL SLOW IVP PRN (04:00)
[2020-05-06 04:02] LABS: Band 6 % (5-11); Eosinophils 1 % (0-10); Hemoglobin 12.3 g/dL (12.0-16.0); Lymphocytes 13 % (21-51); MDiff Complete? YES; Mean Corpuscular HGB CONC 32.3 g/dL (32.0-36.0); Mean Corpuscular Hemoglobin 29.1 pg (27.0-31.0); Mean Corpuscular Volume 90.2 fL (78.0-98.0); Monocytes 5 % (0-10); Neutrophil 75 % (42-75); Platelet Count 333 thou/uL (130-400); Platelet Morphology Comment Appears Adequate; Red Blood Cell (RBC) Count 4.22 mill/uL (4.20-5.40); White Blood Cell (WBC) Count 10.2 thou/uL (4.8-10.8)
[2020-05-06] MEDS ORDERED: niCARdipine 25 MG in Sodium Chloride 0.9% 250 ML 240 ML IVPB SCH (05:15)
[2020-05-06] MEDS: NIFEdipine XL 90 MG TAB PO SCH (07:46)
[2020-05-06] MEDS: hydrALAZINE 25 MG TAB PO SCH ×3 (07:47→20:53)
[2020-05-06] MEDS: Metoprolol Tartrate 50 MG TAB PO SCH ×2 (07:47→22:38)
[2020-05-06] MEDS: tiZANidine HCl 4 MG TAB PO SCH ×3 (07:47→20:55)
[2020-05-06] MEDS: ALPRAZolam 0.5 MG TAB PO SCH ×2 (07:48→20:52)
--- NOTE | 2020-05-06 12:16 | PDOC.HOSPP ---
- Subjective Encounter Date: 05/06/20 Encounter Time: 10:30 Subjective: pt doing well. she is off the cardene gtt. home BP meds doses uptitrated. Cr better. monitor w.. SBP in 90s. - Objective Vital Signs & Weight: Vital Signs (12 hours) Temp Pulse Resp BP Pulse Ox 05/06/20 11:00 98.3 F 05/06/20 10:00 98.3 F 05/06/20 09:00 98.3 F 05/06/20 08:00 98.3 F 05/06/20 07:47 89 189/99 H 05/06/20 07:46 98 189/99 H 05/06/20 07:13 96 05/06/20 07:00 98.3 F 67 21 H 92 L 05/06/20 04:00 98.5 F 110 H 191/101 H 05/06/20 03:12 97 Weight Weight 262 lb 2.074 oz Most Recent Monitor Data Heart Rate from ECG 68 NIBP 108/68 NIBP BP-Mean 81 Respiration from ECG 24 SpO2 91 I&O: 05/05/20 05/06/20 05/07/20 06:59 06:59 06:59 Intake Total 1890 Output Total 1300 Balance 590 Result Diagrams: 05/06/20 02:20 05/06/20 02:20 Hospitalist ROS - Medication Medications: Active Medications Generic Name Dose Route Start Last Admin Trade Name Freq PRN Reason Stop Dose Admin Acetaminophen 1,000 mg 05/05/20 18:31 05/06/20 03:56 Tylenol PO 1,000 mg Q6H PRN Administration Mild Pain (1-3) Alprazolam 0.5 mg 05/05/20 21:00 05/06/20 07:48 Xanax PO 0.5 mg BID ERI Administration Ceftriaxone Sodium 2 gm/ 100 mls @ 200 mls/hr 05/05/20 20:00 05/05/20 20:23 Sodium Chloride IVPB 100 mls 2000 ERI Administration Sodium Chloride 1,000 mls @ 50 mls/hr 05/05/20 18:31 05/05/20 20:22 Normal Saline 0.9% IV 1,000 mls .Q20H ERI Administration Nicardipine HCl 25 mg/ Sodium 250 mls @ 0 mls/hr 05/06/20 05:15 05/06/20 06: 31 Chloride IVPB 250 mls INF ERI Administration Protocol Titrate Labetalol HCl 20 mg 05/05/20 18:31 05/06/20 04:00 Normodyne SLOW IVP 20 mg Q4H PRN Administration SBP > 180 and HR >/= 70 Metoprolol Tartrate 5 mg 05/05/20 18:31 05/06/20 06:00 Lopressor IVP 5 mg Q4H PRN Administration SBP Greater Than 170 Morphine Sulfate 4 mg 05/05/20 15:48 05/06/20 11:04 Morphine SLOW IVP 4 mg Q4H PRN Administration Moderate to Severe Pain (6-10) Nifedipine 90 mg 05/06/20 09:00 05/06/20 07:46 Procardia Xl PO 90 mg DAILY ERI Administration Pantoprazole Sodium 40 mg 05/06/20 09:00 05/06/20 07:47 Protonix PO 40 mg DAILY ERI Administration Sodium Chloride 10 ml 05/06/20 09:00 05/06/20 08:03 Flush - Normal Saline IVF 10 ml Q12HR ERI Administration Tizanidine HCl 4 mg 05/05/20 21:00 05/06/20 07:47 Zanaflex PO 4 mg TID ERI Administration - Exam General Appearance: NAD, awake alert Eye: PERRL ENT: normocephalic atraumatic Neck: supple Heart: RRR, normal peripheral pulses Respiratory: CTAB, normal chest expansion Gastrointestinal: soft, normal bowel sounds Neurological: no focal deficits Psychiatric: A&O x 3 Hosp A/P - Plan HTN urgency -off cardene gtt -up titrated hydralazine and coreg sepsis w.. UTI -bl and urine carla - neg so far - on vanc + ctx - willw keven off IV abx if carla neg x 48hrs abn troponin, due to demand ischemic -no aggressive cardiac intervention MARIZOL on cKd2 --improved. ok to transfer to [facility] bed on , if she is stable. Lovenox Full code.
--- NOTE | 2020-05-06 12:18 | CON ---
DATE OF CONSULTATION: 05/06/2020 REASON FOR CONSULTATION: Hypertensive emergency. HISTORY OF PRESENT ILLNESS: A 64-year-old who presented with abdominal pain and dysuria yesterday. She was found to have a grossly elevated blood pressure. She was started on nicardipine drip, which has been weaned off this morning. She says her abdominal pain is better but she still feels nauseated. PAST MEDICAL HISTORY: 1. Hypertension. 2. Gastroesophageal reflux. 3. Pulmonary embolism. 4. Radiculopathy. 5. Hypertension. 6. Migraine headaches. 7. Obesity. PAST SURGICAL HISTORY: Appendectomy, bilateral feet and ankle surgery, shoulder repair, lipoma excision, and right shoulder surgery. MEDICATIONS: Prior to admission, 1. Alprazolam. 2. Hydralazine. 3. Protonix. 4. Tizanidine. 5. Metoprolol. 6. Nifedipine. ALLERGIES: IODINE, NAPROXEN, ASPIRIN, GABAPENTIN, METHYLPHENIDATE, TORADOL, TRAMADOL, TRAZODONE. FAMILY MEDICAL HISTORY: Remarkable for hypertension and diabetes. SOCIAL HISTORY: Nonsmoker. Does not consume alcohol. Does not use illicit drugs. REVIEW OF SYSTEMS: Remarkable for nausea, some vomiting, dysuria. No fever, chills, shortness of breath, or chest pain. PHYSICAL EXAMINATION: VITAL SIGNS: Her temperature is 98.3, pulse 87, blood pressure 194/149, and O2 saturation 97%. GENERAL: This patient is awake, alert, and in no acute distress. HEENT: Unremarkable. NECK: No adenopathy or JVD or bruits. LUNGS: Clear without wheezing or rhonchi. CARDIAC: S1 and S2 regular. ABDOMEN: Obese, soft, nontender to palpation. EXTREMITIES: No clubbing, cyanosis, or edema. LABORATORY DATA: Sodium 141, potassium 4, chloride 106, CO2 of 25, BUN 7, creatinine 0.8, glucose 123. White blood count 10, hematocrit 38, and platelet count 333, 76% neutrophils, 6% bands. Urinalysis today showed some casts, but white blood cell count was not appreciably high. IMAGING STUDIES: Chest x-ray, no mass, effusion, or infiltrate. Abdominal CT has some abdominal adenopathy with recommended further workup by the radiologist. ASSESSMENT: 1. Hypertensive emergency, which seems to have improved to the point where the patient has been weaned off the drip. 2. Question of urinary tract infection. PLAN: The patient can probably be moved out to the floor since she has been weaned off nicardipine drip. Treatment urinary tract infection per Internal Medicine. No further recs at this time. Job ID: [id number]
[2020-05-06] MEDS: Vancomycin HCl 1.75 GM in Sodium Chloride 0.9% 500 ML IVPB SCH (12:28)
[2020-05-06] MEDS: Sodium Chloride 0.9% 1,000 ML IV SCH (18:32)
[2020-05-06] MEDS: cefTRIAXone\\ROCEPHIN 2 GM in Sodium Chloride 0.9% 100 ML IVPB SCH (20:52)
[2020-05-06] MEDS: Enoxaparin Sodium 40 MG/0.4 ML SYRINGE SC SCH (20:54)
[2020-05-06] MEDS ORDERED: Vancomycin 1 GM in Premix Bag 1 BAG IVPB SCH (21:00)
[2020-05-07] MEDS: Vancomycin HCl 1.75 GM in Sodium Chloride 0.9% 500 ML IVPB SCH ×2 (01:00→11:42)
[2020-05-07] MEDS: Morphine 4 MG/ML VIAL SLOW IVP PRN ×4 (03:31→22:46)
[2020-05-07] MEDS: ALPRAZolam 0.5 MG TAB PO SCH (08:06)
[2020-05-07] MEDS: hydrALAZINE 25 MG TAB PO SCH ×4 (08:07→20:45)
[2020-05-07] MEDS: Metoprolol Tartrate 50 MG TAB PO SCH (08:09)
[2020-05-07] MEDS: tiZANidine HCl 4 MG TAB PO SCH ×3 (08:10→20:45)
[2020-05-07] MEDS: NIFEdipine XL 90 MG TAB PO SCH (08:10)
[2020-05-07] MEDS ORDERED: Magnesium 2 GM/50 ML 2 GM in Premix Bag 1 BAG IVPB SCH (12:15)
--- NOTE | 2020-05-07 13:31 | ULT ---
ULTRASOUND ABDOMEN LIMITED: (RIGHT UPPER QUADRANT) DATE: 05/07/2020 HISTORY: 64-year-old female with right upper quadrant abdominal pain FINDINGS: Gallbladder:Normal wall thickness. No excessive luminal distention, gallstones, sludge, or pericholec ystic fluid. Common duct: 8 mm. Liver:Normal size and echogenicity Pancreas:Left two thirds obscured by shadowing from bowel gas. Right kidney:No hydronephrosis. IMPRESSION: Common duct apparently dilated to 8 mm caliber.
--- NOTE | 2020-05-07 13:51 | PDOC.HOSPP ---
- Subjective Encounter Date: 05/07/20 Encounter Time: 09:50 Subjective: pt looks quite lethargic, says that she will try to eat more. BP on the low side. Ct abd reviewed. - Objective Vital Signs & Weight: Vital Signs (12 hours) Temp Pulse Resp BP BP BP Pulse Ox 05/07/20 11:24 97.6 F 64 16 101/57 L 94 L 05/07/20 09:53 68 98/63 05/07/20 08:10 103 H 125/82 05/07/20 08:07 103 H 125/82 05/07/20 08:02 98.3 F 103 H 16 125/82 94 L 05/07/20 08:00 99 05/07/20 03:49 97.5 F L 82 18 126/82 96 Weight Admit Weight 262 lb Weight 262 lb 2.074 oz Most Recent Monitor Data Heart Rate from ECG 85 NIBP 134/85 NIBP BP-Mean 101 Respiration from ECG 22 SpO2 92 I&O: 05/06/20 05/07/20 05/08/20 06:59 06:59 06:59 Intake Total 1890 1500 Output Total 1300 300 Balance 590 1200 Result Diagrams: 05/06/20 02:20 05/06/20 02:20 Hospitalist ROS - Medication Medications: Active Medications Generic Name Dose Route Start Last Admin Trade Name Freq PRN Reason Stop Dose Admin Acetaminophen 1,000 mg 05/05/20 18:31 05/06/20 03:56 Tylenol PO 1,000 mg Q6H PRN Administration Mild Pain (1-3) Alprazolam 0.5 mg 05/05/20 21:00 05/07/20 08:06 Xanax PO 0.5 mg BID ERI Administration Enoxaparin Sodium 40 mg 05/06/20 21:00 05/06/20 20:54 Lovenox SC 40 mg 2100 ERI Administration Hydralazine HCl 75 mg 05/06/20 15:00 05/07/20 08:07 Apresoline PO 75 mg TID ERI Administration Ceftriaxone Sodium 2 gm/ 100 mls @ 200 mls/hr 05/05/20 20:00 05/06/20 20:52 Sodium Chloride IVPB 100 mls 2000 ERI Administration Sodium Chloride 1,000 mls @ 50 mls/hr 05/05/20 18:31 05/06/20 18:32 Normal Saline 0.9% IV 1,000 mls .Q20H ERI Administration Nicardipine HCl 25 mg/ Sodium 250 mls @ 0 mls/hr 05/06/20 05:15 05/06/20 06: 31 Chloride IVPB 250 mls INF ERI Administration Protocol Titrate Vancomycin HCl 1.75 gm/ Sodium 500 mls @ 250 mls/hr 05/06/20 12:00 05/07/20 11:42 Chloride IVPB 500 mls 1200,2359 ERI Administration Labetalol HCl 20 mg 05/05/20 18:31 05/06/20 04:00 Normodyne SLOW IVP 20 mg Q4H PRN Administration SBP > 180 and HR >/= 70 Metoprolol Tartrate 5 mg 05/05/20 18:31 05/06/20 06:00 Lopressor IVP 5 mg Q4H PRN Administration SBP Greater Than 170 Metoprolol Tartrate 75 mg 05/06/20 21:00 05/07/20 08:09 Lopressor PO 75 mg BID ERI Administration Morphine Sulfate 4 mg 05/05/20 15:48 05/07/20 08:11 Morphine SLOW IVP 4 mg Q4H PRN Administration Moderate to Severe Pain (6-10) Nifedipine 90 mg 05/06/20 09:00 05/07/20 08:10 Procardia Xl PO 90 mg DAILY ERI Administration Pantoprazole Sodium 40 mg 05/06/20 09:00 05/07/20 08:10 Protonix PO 40 mg DAILY ERI Administration Sodium Chloride 10 ml 05/06/20 09:00 05/07/20 08:11 Flush - Normal Saline IVF 10 ml Q12HR ERI Administration Tizanidine HCl 4 mg 05/05/20 21:00 05/07/20 08:10 Zanaflex PO 4 mg TID ERI Administration - Exam General Appearance: ill appearing Eye: PERRL ENT: normocephalic atraumatic Neck: supple Heart: RRR Respiratory: CTAB, normal chest expansion Gastrointestinal: soft, normal bowel sounds Neurological: no focal deficits Psychiatric: A&O x 3 Hosp A/P - Plan HTN urgency -off cardene gtt -up titrated hydralazine and coreg---------------> now BP on the low side. sepsis w.. UTI -bl and urine carla - neg so far - on vanc + ctx - will w keven off IV abx if carla neg x 48hrs abn troponin, due to demand ischemic -no aggressive cardiac intervention MARIZOL on cKd2 --improved. Lovenox Full code. 12th -downtitrate xanax - down titrated BP meds except procardia Infra-renal periaortic soft tissue mass --getting MRI tomorrow [ordered] - Gen Sux will evaluate her after MRI reviewed RUQ discomfort - US neg for abn.. opther than CBD dilation of 8mm.
[2020-05-07] MEDS: Sodium Chloride 0.9% 1,000 ML IV SCH ×2 (13:54→20:42)
[2020-05-07] MEDS: cefTRIAXone\\ROCEPHIN 2 GM in Sodium Chloride 0.9% 100 ML IVPB SCH (20:44)
[2020-05-07] MEDS: Enoxaparin Sodium 40 MG/0.4 ML SYRINGE SC SCH (20:45)
[2020-05-07] MEDS: Metoprolol Tartrate 25 MG TAB PO SCH (20:48)
[2020-05-07] MEDS: ALPRAZolam 0.5 MG TAB PO PRN (20:55)
[2020-05-08 00:22] LABS: Vancomycin, Trough 53.4 ug/mL
[2020-05-08] MEDS: Vancomycin HCl 1.75 GM in Sodium Chloride 0.9% 500 ML IVPB SCH (02:14)
[2020-05-08] MEDS: Morphine 4 MG/ML VIAL SLOW IVP PRN ×4 (05:33→19:14)
[2020-05-08] MEDS: tiZANidine HCl 4 MG TAB PO SCH ×3 (09:02→21:09)
[2020-05-08] MEDS: NIFEdipine XL 90 MG TAB PO SCH (09:02)
[2020-05-08] MEDS: hydrALAZINE 25 MG TAB PO SCH ×3 (09:03→21:09)
[2020-05-08] MEDS: Metoprolol Tartrate 25 MG TAB PO SCH ×2 (09:03→21:09)
[2020-05-08] MEDS: ALPRAZolam 0.5 MG TAB PO PRN ×2 (09:05→21:12)
--- NOTE | 2020-05-08 12:02 | MRI ---
MRI ABDOMEN WITH AND WITHOUT CONTRAST: Date: 05/08/2020 HISTORY: Concern for soft tissue mass along the left retroperitoneum. COMPARISON: Reference made to CT exam dated 05/05/[address] FINDINGS: No significant pleural effusion. No marrow infiltrative process. No intrahepatic or extrahepatic bili brenda dilatation. There is no cholelithiasis appreciated. No dilated loops of bowel in the abdomen. Corresponding to the area of abnormality in the recent CT e xam is a partially collapsed loop of bowel. No left-sided retroperitoneal mass. Simple cyst superior pole left kidney. There is abnormal filling defect within the inferior vena cava throughout all phases of postcontrast imaging extending from the renal veins to the right common aury ac vein, highly suggestive of a nonocclusive thrombus. Of note, this exam was centered on the region of interest around the left kidney and not a typical ex am which covers the upper abdomen. The visualized hepatic parenchyma is normal. IMPRESSION: 1. Corresponding to the abnormality seen on the recent CT exam is a collapsed loop of bowel which gi ves the appearance of a mass, although there is no left retroperitoneal mass. 2. Filling defect in inferior vena cava from the renal veins through the right common iliac vein out of field of view, a nonocclusive thrombus. 3. Simple cyst of the left kidney. 4. No intrahepatic or extrahepatic biliary dilatation. Nurse Dupont was notified of findings via telephone at 1025 hours. CODE CR. POS: [facility]
--- NOTE | 2020-05-08 12:27 | PDOC.GSPN ---
Surgery Progress Note: Subj - Subjective Narrative: Patient with a periaortic mass which has increased in size since September 2019. Due to its location near the left renal vein and the aorta this would require advanced laparoscopic skills to biopsy. An open biopsy would require a large laparotomy and medial visceral rotation which would be very morbid in this morbidly obese woman. If biopsy is indeed necessary we would recommend referral to a tertiary care center to a laparoscopic specialist. Signing off. Surgery Progress Note: Obj - Vital signs Vital signs: Vital Signs - Most Recent Temp Pulse Resp BP Pulse Ox 97.8 F 65 16 139/73 96 05/08/20 11:58 05/08/20 11:58 05/08/20 11:58 05/08/20 11:58 05/08/20 11:58 Surgery Progress Note: Results - Labs Result Diagrams: 05/06/20 02:20 05/06/20 02:20
--- NOTE | 2020-05-08 12:37 | PDOC.HOSPP ---
- Subjective Encounter Date: 05/08/20 Encounter Time: 10:20 Subjective: pt sitting in the bed. no issues. explained US and MRI findings. - Objective Vital Signs & Weight: Vital Signs (12 hours) Temp Pulse Resp BP Pulse Ox 05/08/20 11:58 97.8 F 65 16 139/73 96 05/08/20 09:03 99 05/08/20 09:02 99 05/08/20 04:02 98.4 F 99 23 H 170/101 H 96 05/08/20 03:41 94 L Weight Admit Weight 262 lb Weight 262 lb 2.074 oz Most Recent Monitor Data Heart Rate from ECG 85 NIBP 134/85 NIBP BP-Mean 101 Respiration from ECG 22 SpO2 92 I&O: 05/07/20 05/08/20 05/09/20 06:59 06:59 06:59 Intake Total 1500 1320 Output Total 300 550 Balance 1200 770 Result Diagrams: 05/06/20 02:20 05/06/20 02:20 Hospitalist ROS - Medication Medications: Active Medications Generic Name Dose Route Start Last Admin Trade Name Freq PRN Reason Stop Dose Admin Acetaminophen 1,000 mg 05/05/20 18:31 05/06/20 03:56 Tylenol PO 1,000 mg Q6H PRN Administration Mild Pain (1-3) Alprazolam 0.25 mg 05/07/20 13:54 05/08/20 09:05 Xanax PO 0.25 mg BID PRN Administration Anxiety Enoxaparin Sodium 40 mg 05/06/20 21:00 05/07/20 20:45 Lovenox SC 40 mg 2100 ERI Administration Hydralazine HCl 25 mg 05/07/20 15:00 05/08/20 09:03 Apresoline PO 25 mg TID ERI Administration Ceftriaxone Sodium 2 gm/ 100 mls @ 200 mls/hr 05/05/20 20:00 05/07/20 20:44 Sodium Chloride IVPB 100 mls 2000 ERI Administration Sodium Chloride 1,000 mls @ 50 mls/hr 05/05/20 18:31 05/07/20 20:42 Normal Saline 0.9% IV 1,000 mls .Q20H ERI Administration Labetalol HCl 20 mg 05/05/20 18:31 05/06/20 04:00 Normodyne SLOW IVP 20 mg Q4H PRN Administration SBP > 180 and HR >/= 70 Metoprolol Tartrate 5 mg 05/05/20 18:31 05/06/20 06:00 Lopressor IVP 5 mg Q4H PRN Administration SBP Greater Than 170 Metoprolol Tartrate 25 mg 05/07/20 21:00 05/08/20 09:03 Lopressor PO 25 mg BID ERI Administration Morphine Sulfate 4 mg 05/05/20 15:48 05/08/20 10:15 Morphine SLOW IVP 4 mg Q4H PRN Administration Moderate to Severe Pain (6-10) Nifedipine 90 mg 05/08/20 09:00 05/08/20 09:02 Procardia Xl PO 90 mg DAILY ERI Administration Pantoprazole Sodium 40 mg 05/06/20 09:00 05/08/20 09:02 Protonix PO 40 mg DAILY ERI Administration Sodium Chloride 10 ml 05/06/20 09:00 05/08/20 09:17 Flush - Normal Saline IVF Not Given Q12HR ERI Tizanidine HCl 4 mg 05/05/20 21:00 05/08/20 09:02 Zanaflex PO 4 mg TID ERI Administration - Exam General Appearance: NAD, awake alert Eye: PERRL ENT: normocephalic atraumatic Neck: supple Heart: RRR Respiratory: CTAB, normal chest expansion Gastrointestinal: soft, normal bowel sounds Neurological: no focal deficits Psychiatric: A&O x 3 Hosp A/P - Plan HTN urgency -off cardene gtt -up titrated hydralazine and coreg---------------> now BP on the low side. sepsis w.. UTI -bl and urine carla - neg so far - on vanc + ctx - will w keven off IV abx if carla neg x 48hrs abn troponin, due to demand ischemic -no aggressive cardiac intervention MARIZOL on cKd2 --improved. Lovenox Full code. 12th -downtitrate xanax - down titrated BP meds except procardia Infra-renal periaortic soft tissue mass --getting MRI tomorrow [ordered] - Gen Sux will evaluate her after MRI reviewed RUQ discomfort - US neg for abn.. opther than CBD dilation of 8mm. 13th Talk to Gen sux and initially thought was this infra renal mass needs to be looked into by high level care at [facility] by laporascopic specialist. MRI states that it is just a bowel loop and no retroperitoneal mass. --can be pursed by [facility] as outpt Non-occulusive thrombus in IVC --for now i started full dose lovenox --will get input from haem. UTI - now PO keflex - carla neg.
[2020-05-08] MEDS ORDERED: Magnevist 469MG/ML 20 ML VIAL ONE (15:12)
--- NOTE | 2020-05-08 17:51 | CON ---
DATE OF CONSULTATION: REASON FOR CONSULT: Nonocclusive thrombus. HISTORY OF PRESENT ILLNESS: Ms. Samaniego is a 64-year-old, morbidly obese female, who presented to the emergency room with right upper and right lower quadrant abdominal pain. She was having nausea and dysuria. She was found to be in hypertensive urgency with blood pressures in the 200s/140s. She was started on a Cardene drip and over the next 24 hours, her blood pressure improved. She continued to have abdominal discomfort and underwent an abdominal and pelvis CT, which showed abnormal soft tissue in the periaortic region to the left of the aorta in the upper abdomen, measures 2.4 cm. She underwent an abdominal ultrasound, which is essentially normal. She then underwent an abdominal MRI. It showed that the soft tissue mass was actually collapsed loop of bowel. However, there was a filling deficit in the inferior vena cava from the renal veins through the right common iliac vein and it was nonocclusive. The patient has a history of pulmonary emboli in 2018, diagnosed at the [facility]. She took Eliquis for a year. She denies any hypercoagulable workup. No family history of thrombus. She has had a hysterectomy in the past with no issues. She is resting comfortably at this time. PAST MEDICAL HISTORY: 1. Hypertension with hypertensive urgency. 2. History of pulmonary embolism, unprovoked. 3. Gastroesophageal reflux disease. 4. Migraines. 5. Morbid obesity. 6. Chronic back pain. PAST SURGICAL HISTORY: 1. Appendectomy. 2. Bone spur removal. 3. Shoulder repair. 4. Lipoma removal. ALLERGIES: TO IODINE, COMPAZINE, ASPIRIN, GABAPENTIN, METHYLPHENIDATE, TORADOL, TRAMADOL, TRAZODONE. HOME MEDICATIONS: 1. Alprazolam. 2. Hydralazine. 3. Protonix. 4. Zanaflex. 5. Lopressor. 6. Nifedipine ER. FAMILY HISTORY: No family history of clotting. SOCIAL HISTORY: , lives with her in [place]. No alcohol, tobacco , or illicit drug use. Uses a wheelchair for ambulation. REVIEW OF SYSTEMS: A 10-point review of systems is negative. PHYSICAL EXAMINATION: VITAL SIGNS: Temperature is 97.8, pulse is 65, respiratory rate 16, BP is 139/ 73. She is 96% on room air. GENERAL: Morbidly obese female, in no acute distress. HEENT: Normocephalic and atraumatic. Pupils are equal and reactive to light. NECK: Supple. CV: Regular rate and rhythm. LUNGS: Clear anterior. ABDOMEN: Obese, nontender. EXTREMITIES: No clubbing or cyanosis. PERTINENT LABORATORY DATA AND X-RAY: WBC is 10.2, hemoglobin 12.3, hematocrit 38.1, platelet count is 333, 75% neutrophils, 13% lymphocytes. PT is 15.5, INR is 1.2 , and PTT is 28.6. Sodium 141, potassium 4, chloride is 106, CO2 is 25, BUN is 7, creatinine 0.89, calcium is 9.4, bilirubin is 0.4, AST is 12, ALT is 13, alkaline phosphatase is 98, serum total protein is 8.6, albumin 4.2, globulin 3.9. Radiology per HPI. ASSESSMENT: 1. 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 2. Morbid obesity. DISCUSSION: The patient has had an unprovoked pulmonary emboli in the past with no additional workup. She did take Eliquis for one year with no issues. She now has a nonocclusive thrombus of the inferior vena cava, though she has had no instrumentation, no recent illness, she is morbidly obese with a sedentary lifestyle. We will run a hypercoagulation panel prior to her discharge. Recommend resuming Eliquis. I did explain to her that she would be on this long-term if not lifelong, given her that this is her second unprovoked thrombus. I did update her sister, Regina, and I have discussed this with Dr. Meng. We will follow up with her in the office regarding her hypercoagulable panel. Thank you for the consult. Job ID: [id number] [facility]
[2020-05-08] MEDS ORDERED: Enoxaparin Sodium 120 MG/0.8 ML SYRINGE SC SCH (21:00)
[2020-05-08] MEDS: Cephalexin 250 MG CAP PO SCH (21:08)
[2020-05-08 22:34] LABS: Prothrombin Time 12.8 sec (12.0-14.7)
[2020-05-08 22:35] LABS: PTT 26.5 sec (22.9-36.1)
[2020-05-08 22:37] LABS: D-Dimer Test 1.03 *mcg/mL (0.27-0.43)
[2020-05-08 22:41] LABS: Vancomycin, Random 37.5 ug/mL (See Comment)
[2020-05-08] MEDS ORDERED: Vancomycin 1 GM in Premix Bag 1 BAG IVPB SCH (23:59)
[2020-05-09] MEDS: Sodium Chloride 0.9% 1,000 ML IV SCH (02:31)
[2020-05-09] MEDS: NIFEdipine XL 90 MG TAB PO SCH (08:14)
[2020-05-09] MEDS: Cephalexin 250 MG CAP PO SCH (08:14)
[2020-05-09] MEDS: Metoprolol Tartrate 25 MG TAB PO SCH (08:14)
[2020-05-09] MEDS: tiZANidine HCl 4 MG TAB PO SCH (08:14)
[2020-05-09] MEDS: hydrALAZINE 25 MG TAB PO SCH (08:14)
[2020-05-09] MEDS: ALPRAZolam 0.5 MG TAB PO PRN (08:18)
[2020-05-09 11:30] VITALS: BP 134/79; TEMP 98.5
--- NOTE | 2020-05-09 13:49 | DIS ---
DATE OF ADMISSION: 05/05/2020 DATE OF DISCHARGE: 05/09/2020 DISCHARGE DIAGNOSES: 1. Hypertensive urgency. 2. Sepsis with urinary tract infection and cultures are negative. 3. Abnormal troponin due to demand ischemia with type 2 metabolic mismatch, acute kidney injury with on chronic kidney disease, stage 2, improved. 4. Infrarenal periaortic soft tissue mass, which is questionable and MRI ruled out, stating this is probably bowel mass. 5. New diagnosis of inferior vena cava nonocclusive thrombus. 6. History of pulmonary embolism in 2018 and completed anticoagulant course with Eliquis for one year. 7. Migraine headache. 8. Morbid obesity. 9. Gastroesophageal reflux disease. 10. Radiculopathy due to disk herniation. DISCHARGE MEDICATIONS: 1. Eliquis 5 mg twice a day. 2. Keflex 500 mg twice a day for four more days to complete it. Other medications are her previous home regimen including; 1. Nifedipine 90 mg daily. 2. Lopressor 50 mg twice a day. 3. Hydralazine 50 mg three times a day. 4. Tizanidine 4 mg three times a day. 5. Protonix 40 mg daily. PHYSICAL EXAMINATION: VITAL SIGNS: On the day of discharge; temperature 98.5, pulse 88, blood pressure 134/79, saturating 98% on room air. GENERAL: The patient is alert, oriented, sitting in the chair. She is very calm, anxious to go home. I have explained about the retroperitoneal mass and then if needed, further need to follow with PCP in including CT scan in 3 to 6 months' time. The patient expressed her understanding. I also talked to Oncology, Dr. Sainz and it appears that they will also follow up in the clinic during her next followup appointment. CARDIOVASCULAR: Regular rate and rhythm without murmurs, rubs, or gallops. LUNGS: Clear to auscultation bilaterally without wheezing, rales, or rhonchi. ABDOMEN: Soft, nontender, nondistended. Good bowel sounds. EXTREMITIES: Without pitting edema. CONSULTS: Oncology consult with Dr. Sainz as well as Amy, and Neurology consult. HOSPITAL COURSE: This is a 64-year-old obese female, admitted with hypertensive urgency in the critical care unit and started on Cardene drip and resumed home blood pressure medications. Her pressure improved. She had sepsis secondary to urinary tract infection. Followed the sepsis protocol. Cultures negative. Switched to Keflex, to complete the course for 7 days. She had acute kidney injury probably related to dehydration/sepsis and that is resolved with hydration. Her electrolytes replaced. Because of her right upper quadrant discomfort, we did the scan, ultrasound is negative other than 8 mm common bile duct dilation. Followed the CT of abdomen and pelvis which was done during the ER evaluation and it showed left infrarenal mass that was concerning for adenopathy and occult malignancy. So, the General Surgery consulted. Dr. Cesar mentioned that this needs to be evaluated at high level care. This mass seems to be increased in size since September 2019. Due to its location near the left renal vein and aorta, this needs advanced laparoscopy skills to biopsy, including large laparotomy, which could be very complicated given morbid obesity. So she recommended referral to tertiary center for laparoscopic specialist. We did abdominal MRI to further delineate this mass and this happen to be partially collapsed loops of bowel in that location without any retroperitoneal mass per MRI. I addressed this with oncologist and they will follow up in the clinic. Coincidentally, we also found a nonocclusive thrombus in the IVC from the renal vein through the right common iliac vein. The patient does have a history of pulmonary embolism diagnosed in 2018. It is unfortunate she stopped her Eliquis a year ago. It needs to be restarted and I emphasized to the patient that she needs to be an anticoagulant for rest of the life. The patient expressed her understanding and she will follow up with Dr. Sainz in the clinic in 2 to 3 weeks' time. The patient is stable to be discharged home. DISCHARGE INSTRUCTIONS: Activity as tolerated. Regular diet. Follow up with PCP in 1 week. Follow up with Dr. Sainz in 2 to 3 weeks. Request per primary care physician regarding the left infrarenal periaortic mass. It seems to have a conflict information based on the imaging studies of CT as well as MRI. It has been decided that this may not be a mass, but bowel loops in the adjacent area. However, I recommend that followup CT scan in three months and necessary action if needed at that time. I also request Dr. Sainz to address this matter. They will look into it during the clinic visit. Discharge time took over 35 minutes. Job ID: [id number] [facility]
[2020-05-10 12:41] LABS: Protein C Activity 123 % (78-152)
[2020-05-10 13:00] LABS: HEX PHOS LA Tube 1 40.6 SEC; HEX PHOS LA Tube 2 37.6 SEC
[2020-05-10 16:42] LABS: Cardiolipin IgA Ab 1.4 APL-U/mL (<14 Negative); Cardiolipin IgG Ab Less than 0.5 GPL-U/mL (<10 Negative); Cardiolipin IgM Ab 8.5 MPL-U/mL (<10 Negative); EliA APS New Method **** NEW METHOD ****
[2020-05-12] MEDS ORDERED: cloNIDine 0.3mg/24 Hour PATCH TD SCH (09:00)
== END 2020-05-09 12:19 | disposition home or self-care (01) | DRG 871 ==
LOC: ERS 09:18 → ERHOLD 13:49 → CCU 17:31 → 2NO 05-06 17:16
PROVIDERS: ADMIT Family Medicine; ATTEND Family Medicine
DX: A41.9 Sepsis, unspecified organism (principal); I82.220 Acute embolism and thrombosis of inferior vena cava; N39.0 Urinary tract infection, site not specified; I24.8 Other forms of acute ischemic heart disease; N17.9 Acute kidney failure, unspecified; Z68.41 Body mass index [BMI] 40.0-44.9, adult; N18.2 Chronic kidney disease, stage 2 (mild); K63.89 Other specified diseases of intestine; G43.909 Migraine, unspecified, not intractable, without status migrainosus; E66.01 Morbid (severe) obesity due to excess calories; K21.9 Gastro-esophageal reflux disease without esophagitis; I16.0 Hypertensive urgency; E86.0 Dehydration; R65.20 Severe sepsis without septic shock; I12.9 Hypertensive chronic kidney disease with stage 1 through stage 4 chronic kidney disease, or unspecified chronic kidney disease; M51.9 Unspecified thoracic, thoracolumbar and lumbosacral intervertebral disc disorder; F41.9 Anxiety disorder, unspecified; E87.6 Hypokalemia; Z86.711 Personal history of pulmonary embolism; Z88.8 Allergy status to other drugs, medicaments and biological substances; Z90.49 Acquired absence of other specified parts of digestive tract; Z79.899 Other long term (current) drug therapy; Z88.5 Allergy status to narcotic agent; Z88.6 Allergy status to analgesic agent; Z91.041 Radiographic dye allergy status
CPT/HCPCS: 36415; 71045; 74176; 74183; 76705; 80048; 80053; 80202; 81003; 81015; 81240; 81241; 82553; 83090; 83605; 83735; 84443; 84484; 84703; 85007; 85025; 85027; 85240; 85300; 85303; 85305; 85307; 85379; 85598; 85610; 85730; 86147; 87040; 87086; 93005; A9579; J0692; J0696; J1650; J2060; J2270; J2765; J3370; J3475; J3490; J7030; J7050

== ENCOUNTER 2020-07-03 10:46 | Observation (INO) | payer OTHER ==
[2020-07-03] MEDS ORDERED: Fentanyl 100 MCG/2 ML VIAL ONE (11:10)
[2020-07-03] MEDS ORDERED: Mag-Al 1200 mg/1200 mg/30 ML UDCUP ONE (11:11)
[2020-07-03] MEDS ORDERED: Aspirin Chewable 81 MG TAB ONE (11:11)
[2020-07-03] MEDS ORDERED: Lidocaine Viscous Sol 2% 15 ml UD Cup ONE (11:11)
--- NOTE | 2020-07-03 11:17 | RAD ---
XR Chest 1 View Portable HISTORY: Chest pain COMPARISON: 06/03/2020 FINDINGS: The heart size is normal. The lungs are without focal areas of consolidation, pneumothorax or pleural effusions. IMPRESSION: No radiographic evidence of acute cardiopulmonary process.
[2020-07-03 11:18] LABS: #Lymphocytes 1.7 thou/uL (1.20-3.40); #Monocytes 0.2 thou/uL (0.11-0.59); #Neutrophils 5.7 thou/uL (1.40-6.50); %Basophils 0.3 % (0.0-1.0); %Eosinophils 0.4 % (0.0-10.0); %Monocytes 2.9 % (0.0-10.0); %Neutrophils 74.4 % (42.0-75.0); Hemoglobin 12.3 g/dL (12.0-16.0); Mean Corpuscular HGB CONC 31.6 g/dL (32.0-36.0); Mean Corpuscular Volume 91.8 fL (78.0-98.0); Mean Platelet Volume 8.5 fL (7.4-10.4); Platelet Count 415 thou/uL (130-400); RBC Distribution Width 13.6 % (11.5-14.5); Red Blood Cell (RBC) Count 4.25 mill/uL (4.20-5.40); White Blood Cell (WBC) Count 7.6 thou/uL (4.8-10.8)
[2020-07-03 11:39] LABS: ALT (SGPT) 9 U/L (8-55); AST (SGOT) 12 U/L (5-34); Albumin 4.5 g/dL (3.4-4.8); Alkaline Phosphatase 75 U/L (40-110); Anion Gap 22 mmol/L (10-20); BUN (Urea Nitrogen) 13 mg/dL (9.8-20.1); Bilirubin, Total 0.4 mg/dL (0.2-1.2); Calc. Creatinine Clearance 0 mL/min (70-130); Calcium 10.1 mg/dL (7.8-10.44); Carbon Dioxide 19 mmol/L (23-31); Chloride 106 mmol/L (98-107); Estimated GFR-MDRD 49; Globulin 3.6 g/dL (2.4-3.5); Glucose 147 mg/dL (80-115); Lipase 13 U/L (8-78); Potassium 3.5 mmol/L (3.5-5.1); Protein, Total 8.1 g/dL (6.0-8.3); Sodium 143 mmol/L (136-145)
[2020-07-03] MEDS ORDERED: Lorazepam 2 MG/ML VIAL ONE (11:45)
[2020-07-03] MEDS ORDERED: methylPREDNISolone Sod Succ/PF 125 MG/2 ML VIAL ONE (12:03)
[2020-07-03] MEDS ORDERED: Famotidine/PF 20 mg/2ml Vial ONE (12:03)
[2020-07-03] MEDS ORDERED: diphenhydrAMINE 50 MG/ML VIAL ONE (12:03)
--- NOTE | 2020-07-03 13:11 | CT ---
CTA CHEST WITH IV CONTRAST AND 3D POSTPROCESSING CTA ABDOMEN WITH IV CONTRAST AND 3D POSTPROCESSING: HISTORY: Chest pain radiating to the abdomen. COMPARISON: 06/03/2020. FINDINGS: There is good opacification of the thoracoabdominal aorta without evidence of aneurysmal dissection. No pleural or pericardial effusions are seen. No pneumothoraces, lobar consolidation, lung masses, o r nodules are seen. The 2 cm left renal cyst is stable. The liver, spleen, pancreas, adrenal glands, and right kidney ar e unremarkable. No calcified gallstones are seen. No free air, free fluid, or lymphadenopathy is se en in the abdomen. The small bowel loops are not abnormally dilated. A hiatal hernia is again seen. There are degenerative changes in the spine. IMPRESSION: Stable exam since 07/05/2019. No CT evidence of aortic dissection. POS: OFF
[2020-07-03] MEDS ORDERED: Pantoprazole 40 MG VIAL ONE (13:45)
[2020-07-03] MEDS ORDERED: Nitroglycerin 0.4 MG TAB (25 Tab Bottle) PO PRN (14:25)
[2020-07-03] MEDS ORDERED: Iopamidol 370 76% 100 ML VIAL ONE (14:31)
--- NOTE | 2020-07-03 14:32 | PDOC.HHP ---
Hospitalist HPI - History of Present Illness Chest pain History of Present Illness: Patient is a pleasant 64-year-old lady who was seen in the emergency room on July 03, 2020. She reports that she started having chest pain since last night. She describes it as retrosternal, radiating to her abdomen, sharp, currently 8 out of 10, not accompanied by shortness of breath, cough or fever. She is unable to recall any aggravating or relieving factors. She denies any nausea. She denies any vomiting. In the emergency room, she was also found to be in hypertensive urgency. Her blood pressure improved after administration of nitroglycerin and Nitropaste. She refused aspirin because of allergy to aspirin. CT aortogram was unremarkable. She has been referred to hospitalist service for admission to the hospital to evaluate for cardiac etiology of chest pain. ED Course: BP: 192/108, Pulse: 80, Resp: 22 CRY, O2 sat: 99 on (Room Air), Time: 07/03/2020 13:54. Hospitalist ROS - Review of Systems Constitutional: denies: fever, chills, sweats, weakness, malaise Respiratory: denies: cough, shortness of breath, SOB with excertion, pleuritic pain Cardiovascular: reports: chest pain. denies: palpitations, orthopnea, paroxysmal noc. dyspnea, edema, light headedness Gastrointestinal: reports: abdominal pain. denies: nausea, vomiting, diarrhea, constipation, melena, hematochezia Skin: denies: rash, lesions, jl, bruising Neurological: denies: weakness, numbness, incoordination, change in speech, confusion, seizures All other systems reviewed; all pertinent +/- noted in HPI/Subj - Medication Medications: Allergies: Aleve, Aspirin (Tartrazine Only), Compazine, Darvocet-N 100, gabapentin, ibuprofen, Iodine Containing Drugs, Latuda, Lyrica, metoprolol tartrate, naproxen, NIFEdipine, Ritalin, Toradol, traMADol, traZODone, Triprolidine-C Cuurent medications: NIFEdipine capsule : Strength - 10 mg : ORAL Patient Dose: 60 mg.unknown dose. metoprolol tartrate oral TABLET : Strength - 25 mg : ORAL Patient Dose: 50 2 times a day (before meals). hydrALAZINE injection solution : Strength - 20 mg/mL : INJECTION Patient Dose: 100 mg 2 times a day (before meals).unknown dose. Eliquis tablet : Strength - 5 mg : ORAL Patient Dose: 5 mg Oral once a day. acetaminophen-codeine 300 mg-30 mg : Strength - TABLET : ORAL Patient Dose: 1-2 tab(s) Oral every 8 hours PRN. dicyclomine oral 10 mg : Strength - capsule : ORAL Patient Dose: 1 tab(s) Oral every 6 hours PRN. Hospitalist History - Past Medical History Source: patient, old records Cardiac: reports: HTN Pulmonary: reports: pulmonary embolism [employer]: reports: Migraine Gastrointestinal: reports: GERD - Past Surgical History Past Surgical History: reports: Appendectomy, Hysterectomy, Other (Bilateral foot surgery, left shoulder surgery x2, fatty tumor removal from the back, right shoulder surgery) - Family History Family History: reports: cardiac disorder - Social History Smoking Status: Never smoker Alcohol: reports: None Drugs: reports: none - Exam General - other findings: Obese Eye: anicteric sclera ENT: moist mucosa Neck: supple, symmetric, no thyromegaly, no lymphadenopathy Heart: RRR, no gallops, no rubs, normal peripheral pulses Respiratory: CTAB, no wheezes, no rales, no ronchi Gastrointestinal: soft, non-tender, normal bowel sounds, distended Neurological: cranial nerve grossly intact, normal sensation to touch, no weakness, no focal deficits Musculoskeletal: no muscle wasting Psychiatric: normal affect, normal behavior, A&O x 3 Hospitalist Results - Labs Result Diagrams: 07/03/20 10:50 07/03/20 10:50 Lab results: WBC 7.6 thou/uL (4.8-10.8) 07/03/20 10:50 Hgb 12.3 g/dL (12.0-16.0) 07/03/20 10:50 Hct 39.0 % (36.0-47.0) 07/03/20 10:50 MCV 91.8 fL (78.0-98.0) 07/03/20 10:50 Plt Count 415 thou/uL (130-400) H 07/03/20 10:50 Neutrophils % 74.4 % (42.0-75.0) 07/03/20 10:50 Sodium 143 mmol/L (136-145) 07/03/20 10:50 Potassium 3.5 mmol/L (3.5-5.1) 07/03/20 10:50 Chloride 106 mmol/L (98-107) 07/03/20 10:50 Carbon Dioxide 19 mmol/L (23-31) L 07/03/20 10:50 BUN 13 mg/dL (9.8-20.1) 07/03/20 10:50 Creatinine 1.32 mg/dL (0.6-1.1) H 07/03/20 10:50 Glucose 147 mg/dL (80-115) H 07/03/20 10:50 Calcium 10.1 mg/dL (7.8-10.44) 07/03/20 10:50 Total Bilirubin 0.4 mg/dL (0.2-1.2) 07/03/20 10:50 AST 12 U/L (5-34) 07/03/20 10:50 ALT 9 U/L (8-55) 07/03/20 10:50 Alkaline Phosphatase 75 U/L (40-110) 07/03/20 10:50 Troponin I 0.021 ng/mL (< 0.028) 07/03/20 10:50 Serum Total Protein 8.1 g/dL (6.0-8.3) 07/03/20 10:50 Albumin 4.5 g/dL (3.4-4.8) 07/03/20 10:50 Lipase 13 U/L (8-78) 07/03/20 10:50 - EKG Interpretation EKG: EKG was reviewed by me and shows normal sinus rhythm, no ST changes to suggest an acute coronary syndrome - Radiology Interpretation Chest x-ray Status: image reviewed by me Additional Comment: XR Chest 1 View Portable HISTORY: Chest pain COMPARISON: 06/03/2020 FINDINGS: The heart size is normal. The lungs are without focal areas of consolidation, pneumothorax or pleural effusions. IMPRESSION: No radiographic evidence of acute cardiopulmonary process. Other Additional Comment: CTA CHEST WITH IV CONTRAST AND 3D POSTPROCESSING CTA ABDOMEN WITH IV CONTRAST AND 3D POSTPROCESSING: HISTORY: Chest pain radiating to the abdomen. COMPARISON: 06/03/2020. FINDINGS: There is good opacification of the thoracoabdominal aorta without evidence of aneurysmal dissection. No pleural or pericardial effusions are seen. No pneumothoraces, lobar consolidation, lung masses, o r nodules are seen. The 2 cm left renal cyst is stable. The liver, spleen, pancreas, adrenal glands , and right kidney ar e unremarkable. No calcified gallstones are seen. No free air, free fluid, or lymphadenopathy is se en in the abdomen. The small bowel loops are not abnormally dilated. A hiatal hernia is again seen. There are degenerative changes in the spine. IMPRESSION: Stable exam since 07/05/2019. No CT evidence of aortic dissection. Hospitalist H&P A/P - Problem (1) Chest pain Code(s): R07.9 - CHEST PAIN, UNSPECIFIED Status: Acute (2) Hypertensive urgency Code(s): I16.0 - HYPERTENSIVE URGENCY Status: Acute (3) Gastroesophageal reflux disease Code(s): K21.9 - GASTRO-ESOPHAGEAL REFLUX DISEASE WITHOUT ESOPHAGITIS Status: Chronic (4) Hypertension Code(s): I10 - ESSENTIAL (PRIMARY) HYPERTENSION Status: Chronic (5) Pulmonary embolism Code(s): I26.99 - OTHER PULMONARY EMBOLISM WITHOUT ACUTE COR PULMONALE Status : Chronic - Plan Plan: Monitor on telemetry, trend troponin. Check stress test. Trial GI cocktail. Add PRN IV hydralazine, monitor vital signs and titrate antihypertensives as needed. Estimated length of stay: 1 midnight Level of risk: High Level of complexity: High Primary care provider: Barbara barriga in [place]
[2020-07-03] MEDS ORDERED: Lidocaine 2% Viscous Solution 10 ML, Aluminum & Magnesium Hydroxide 30 ML SSW SCH (14:45)
[2020-07-03] MEDS ORDERED: Ondansetron PF 4 MG/2 ML Vial ONE (14:50)
[2020-07-03] MEDS ORDERED: Nitroglycerin 2% Ointment 1 INCH/1 GM Packet ONE (15:36)
[2020-07-03 15:54] LABS: Troponin I 0.027 ng/mL (< 0.028)
[2020-07-03] MEDS: hydrALAZINE 20 MG/ML VIAL SLOW IVP PRN (17:13)
[2020-07-03 17:16] VITALS: BMI 38.9
[2020-07-03] MEDS: Acetaminophen/Codeine 30-300mg Tablet PO PRN (17:50)
[2020-07-03 20:09] LABS: Troponin I 0.018 ng/mL (< 0.028)
[2020-07-03] MEDS: Metoprolol Tartrate 50 MG TAB PO SCH (21:19)
[2020-07-03] MEDS: Apixaban 5 MG TAB PO SCH (21:19)
[2020-07-03] MEDS ORDERED: tiZANidine HCl 4 MG TAB PO SCH (21:45)
[2020-07-03] MEDS ORDERED: ALPRAZolam 0.5 MG TAB PO SCH (21:45)
[2020-07-04] MEDS: Acetaminophen/Codeine 30-300mg Tablet PO PRN (03:18)
[2020-07-04] MEDS: hydrALAZINE 20 MG/ML VIAL SLOW IVP PRN (05:10)
[2020-07-04] MEDS: Apixaban 5 MG TAB PO SCH (08:06)
[2020-07-04] MEDS: Metoprolol Tartrate 50 MG TAB PO SCH (08:52)
[2020-07-04] MEDS ORDERED: tiZANidine HCl 4 MG TAB PO SCH (09:00)
[2020-07-04] MEDS ORDERED: ALPRAZolam 0.5 MG TAB PO SCH (09:00)
[2020-07-04] MEDS ORDERED: NIFEdipine XL 90 MG TAB PO SCH (09:00)
[2020-07-04 11:24] VITALS: BP 202/93; TEMP 98.1
[2020-07-04 11:47] LABS: SARS-CoV-2 MS2 Positive; SARS-CoV-2 N Gene Negative; SARS-CoV-2 S Gene Negative; SARS-CoV-2 by NAA Not Detected (NotDetected); SARS-CoV-2 orf1ab Negative
[2020-07-04] MEDS ORDERED: hydrALAZINE 25 MG TAB PO SCH ×2 (12:00→21:00)
--- NOTE | 2020-07-05 02:10 | DIS ---
DATE OF ADMISSION: 07/03/2020 DATE OF DISCHARGE: 07/04/2020 PRIMARY CARE PROVIDER: Fernando Fishman in [place]. The patient left against medical advice on July 04, 2020. HOSPITAL COURSE: Ms. Samaniego is a pleasant 64-year-old lady, who was admitted to [facility] on July 03, 2020 for chest pain. Please refer to my hospitalist's history and physical note dated July 03, 2020 for further details. She was supposed to have a stress test to risk stratify for coronary artery disease. However, the patient did not wish to have the stress test and she left against medical advice on July 04, 2020. Job ID: [id number]
== END 2020-07-04 13:29 | disposition left against medical advice (07) ==
LOC: ERS 10:46 → 2SW 14:38
PROVIDERS: ADMIT Internal Medicine; ATTEND Internal Medicine
DX: I16.0 Hypertensive urgency (principal); K21.9 Gastro-esophageal reflux disease without esophagitis; I26.99 Other pulmonary embolism without acute cor pulmonale; E66.9 Obesity, unspecified; Z68.38 Body mass index [BMI] 38.0-38.9, adult; Z53.29 Procedure and treatment not carried out because of patient's decision for other reasons; Z79.01 Long term (current) use of anticoagulants; Z79.82 Long term (current) use of aspirin; Z79.899 Other long term (current) drug therapy; Z88.5 Allergy status to narcotic agent; Z88.6 Allergy status to analgesic agent; Z88.8 Allergy status to other drugs, medicaments and biological substances; Z91.041 Radiographic dye allergy status; Z20.828 Contact with and (suspected) exposure to other viral communicable diseases
CPT/HCPCS: 36415; 71045; 71275; 72191; 74175; 80053; 83690; 84484; 85025; 87635; 93005; 94760; 96374; 96375; 99406; C9113; G0378; J0360; J1200; J2060; J2405; J2930; J3010; Q9967; S0028; U0003

== ENCOUNTER 2020-07-16 09:59 | Emergency (ER) | payer OTHER ==
[2020-07-16] MEDS ORDERED: Morphine 4 MG/ML VIAL ONE (12:57)
== END 2020-07-16 13:59 | disposition home or self-care (01) ==
LOC: ERS 09:59
DX: M79.7 Fibromyalgia (principal); I10 Essential (primary) hypertension; K21.9 Gastro-esophageal reflux disease without esophagitis; G43.909 Migraine, unspecified, not intractable, without status migrainosus; E66.9 Obesity, unspecified; Z79.01 Long term (current) use of anticoagulants; Z79.899 Other long term (current) drug therapy
CPT/HCPCS: 96372; 99283; J2270

== ENCOUNTER 2020-09-26 15:58 | Emergency (ER) | payer OTHER | END 2020-09-26 18:43 | disposition left against medical advice (07) | LOC: ERS 15:58 | DX: Z53.21 Procedure and treatment not carried out due to patient leaving prior to being seen by health care provider (principal) ==

== ENCOUNTER 2020-10-02 17:11 | Emergency (ER) | payer OTHER ==
[2020-10-02 18:18] LABS: #Lymphocytes 1.4 thou/uL (1.20-3.40); #Monocytes 0.6 thou/uL (0.11-0.59); #Neutrophils 6.6 thou/uL (1.40-6.50); %Basophils 0.2 % (0.0-1.0); %Eosinophils 0.2 % (0.0-10.0); %Lymphocytes 15.9 % (21.0-51.0); %Neutrophils 76.7 % (42.0-75.0); Hemoglobin 12.6 g/dL (12.0-16.0); Mean Corpuscular HGB CONC 30.8 g/dL (32.0-36.0); Mean Corpuscular Hemoglobin 26.9 pg (27.0-31.0); Mean Corpuscular Volume 87.2 fL (78.0-98.0); Mean Platelet Volume 8.3 fL (7.4-10.4); Platelet Count 342 thou/uL (130-400); RBC Distribution Width 13.4 % (11.5-14.5); Red Blood Cell (RBC) Count 4.67 mill/uL (4.20-5.40); White Blood Cell (WBC) Count 8.6 thou/uL (4.8-10.8)
[2020-10-02 18:41] LABS: ALT (SGPT) 8 U/L (8-55); AST (SGOT) 11 U/L (5-34); Albumin 4.3 g/dL (3.4-4.8); Alkaline Phosphatase 65 U/L (40-110); Anion Gap 17 mmol/L (10-20); BUN (Urea Nitrogen) 16 mg/dL (9.8-20.1); Bilirubin, Total 0.3 mg/dL (0.2-1.2); Calc. Creatinine Clearance 0 mL/min (70-130); Carbon Dioxide 24 mmol/L (23-31); Chloride 108 mmol/L (98-107); Globulin 3.6 g/dL (2.4-3.5); Glucose 126 mg/dL (80-115); Lipase 16 U/L (8-78); Potassium 3.1 mmol/L (3.5-5.1); Protein, Total 7.9 g/dL (6.0-8.3); Sodium 146 mmol/L (136-145)
[2020-10-02] MEDS ORDERED: hydrALAZINE 25 MG TAB ONE (19:29)
[2020-10-02] MEDS ORDERED: Potassium Chloride 20 MEQ TAB ONE (19:29)
[2020-10-02] MEDS ORDERED: Metoprolol Tartrate 50 MG TAB ONE (19:29)
[2020-10-02 20:22] LABS: Squamous Epithelial 0-3 HPF (0-3)
[2020-10-02 20:24] LABS: Bilirubin Small (Negative); Blood, Urine Moderate (Negative); Glucose, Urine (Dipstick) Negative (Negative); Ketone, Urine Trace mg/dL (Negative); Leukocyte Negative (Negative); Nitrite Negative (Negative); Protein, Urine (Dipstick) 100 mg/dL (Neg-Trace); Urobilinogen 0.2 mg/dL (Less than 2); pH, Urine 5.5 (5.0-9.0)
[2020-10-02 20:25] LABS: Clarity Clear (Clear)
[2020-10-02 20:26] LABS: Bacteria/HPF 1+ HPF (None Seen)
--- NOTE | 2020-10-02 21:06 | CT ---
CT Stone Protocol History: Abdominal pain Comparison: CT June 2020 Findings: Lung bases are clear. No nephroureterolithiasis or hydroureteronephrosis. No secondary evid ence of a recently passed stone. Hypodensity superior pole left kidney has not grown. Mild pancreatic atrophy. Noncontrast evaluation of the liver, spleen, gallbladder are unremarkable. N o dilated loops of large or small bowel. No free intraperitoneal gas or fluid. There is debris within a second portion duodenum diverticulum. 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 Impression: 1. No nephroureterolithiasis or hydroureteronephrosis. No secondary evidence of a recently passed sto ne. 2. Moderate paraesophageal hernia. 3. No acute inflammatory process within the abdomen or pelvis.
== END 2020-10-02 21:38 | disposition home or self-care (01) ==
LOC: ERS 17:11
DX: R10.31 Right lower quadrant pain (principal); I10 Essential (primary) hypertension; E78.00 Pure hypercholesterolemia, unspecified; Z79.01 Long term (current) use of anticoagulants; Z79.899 Other long term (current) drug therapy
CPT/HCPCS: 36415; 51701; 74176; 80053; 81003; 81015; 83690; 85025

== ENCOUNTER 2020-10-23 02:20 | Observation (INO) | payer OTHER ==
[2020-10-23] MEDS ORDERED: Ondansetron PF 4 MG/2 ML Vial ONE ×2 (03:35→11:52)
[2020-10-23] MEDS ORDERED: Morphine 4 MG/ML VIAL ONE ×2 (03:35→06:34)
[2020-10-23 03:43] LABS: #Lymphocytes 1.2 thou/uL (1.20-3.40); #Monocytes 0.5 thou/uL (0.11-0.59); #Neutrophils 9.3 thou/uL (1.40-6.50); %Basophils 0.1 % (0.0-1.0); %Eosinophils 0.1 % (0.0-10.0); %Lymphocytes 10.5 % (21.0-51.0); %Monocytes 4.6 % (0.0-10.0); %Neutrophils 84.7 % (42.0-75.0); Hemoglobin 12.6 g/dL (12.0-16.0); Mean Corpuscular HGB CONC 31.7 g/dL (32.0-36.0); Mean Corpuscular Hemoglobin 27.3 pg (27.0-31.0); Mean Corpuscular Volume 86.1 fL (78.0-98.0); Mean Platelet Volume 8.9 fL (7.4-10.4); Platelet Count 358 thou/uL (130-400); RBC Distribution Width 14.2 % (11.5-14.5); Red Blood Cell (RBC) Count 4.61 mill/uL (4.20-5.40); White Blood Cell (WBC) Count 10.9 thou/uL (4.8-10.8)
[2020-10-23 04:05] LABS: ALT (SGPT) 26 U/L (8-55); AST (SGOT) 19 U/L (5-34); Albumin 4.3 g/dL (3.4-4.8); Alkaline Phosphatase 91 U/L (40-110); Anion Gap 19 mmol/L (10-20); BUN (Urea Nitrogen) 12 mg/dL (9.8-20.1); Bilirubin, Total 0.4 mg/dL (0.2-1.2); Calc. Creatinine Clearance 0 mL/min (70-130); Calcium 9.7 mg/dL (7.8-10.44); Carbon Dioxide 22 mmol/L (23-31); Chloride 105 mmol/L (98-107); Globulin 3.8 g/dL (2.4-3.5); Glucose 128 mg/dL (80-115); Lipase 8 U/L (8-78); Potassium 3.5 mmol/L (3.5-5.1); Protein, Total 8.1 g/dL (6.0-8.3); Sodium 142 mmol/L (136-145)
[2020-10-23 04:26] LABS: CKMB 1.3 ng/mL (0-6.6)
[2020-10-23] MEDS ORDERED: hydrALAZINE 20 MG/ML VIAL ONE ×2 (04:28→11:52)
[2020-10-23] MEDS ORDERED: Lorazepam 2 MG/ML VIAL ONE ×3 (04:28→12:14)
[2020-10-23 05:49] LABS: Bilirubin Negative (Negative); Blood, Urine Small (Negative); Glucose, Urine (Dipstick) Negative (Negative); Ketone, Urine 15 mg/dL (Negative); Leukocyte Negative (Negative); Nitrite Negative (Negative); Protein, Urine (Dipstick) 100 mg/dL (Neg-Trace); Urobilinogen 0.2 mg/dL (Less than 2); pH, Urine 7.5 (5.0-9.0)
[2020-10-23 06:07] LABS: Clarity Clear (Clear)
[2020-10-23 06:13] LABS: Bacteria/HPF None Seen HPF (None Seen); Squamous Epithelial 0-3 HPF (0-3); WBC/HPF 0-3 HPF (0-3)
--- NOTE | 2020-10-23 07:46 | RAD ---
EXAM: Single view of the chest HISTORY: Hypertension and abdominal pain COMPARISON: 07/03/2020 FINDINGS: Single view of the chest shows a mildly enlarged but stable cardiomediastinal silhouette. S ubtle opacities in the lung bases may represent atelectasis or infiltrates. No acute osseous abnormality. IMPRESSION: Bibasilar atelectasis versus infiltrates.
[2020-10-23] MEDS ORDERED: Metoclopramide HCl 10 MG/2 ML VIAL IVP SCH (08:00)
--- NOTE | 2020-10-23 08:42 | RAD ---
Abdomen one view HISTORY: Abdomen pain. COMPARISON: 10/02/2020. FINDINGS: Stomach is distended with gas. Gas is present throughout the small and large bowel and with in the colon. Normal distribution. IMPRESSION : Gaseous distention of the stomach. No evidence of bowel obstruction.
[2020-10-23 08:46] LABS: Troponin I 0.031 ng/mL (< 0.028)
[2020-10-23 09:20] LABS: Cocaine Metabolite Screen Not Detected (NotDetected); Medtox Reader # READER 1; Phencyclidine (PCP) Not Detected (NotDetected); THC/Cannabinoid Screen Not Detected (NotDetected)
[2020-10-23 09:21] LABS: Amphetamine Not Detected (NotDetected); Barbiturates Screen Not Detected (NotDetected); Benzodiazepine Screen Not Detected (NotDetected); Medtox Control Line Valid? VALID (VALID); Methadone Not Detected (NotDetected); Methamphetamine Not Detected (NotDetected); Opiate Screen Detected (NotDetected); Oxycodone Screen Not Detected (NotDetected); Tricyclic Screen Not Detected (NotDetected)
[2020-10-23] MEDS ORDERED: Nitroglycerin 0.4 MG TAB (25 Tab Bottle) SL SCH (10:15)
[2020-10-23] MEDS ORDERED: Nitroglycerin 0.4 MG TAB 1 EACH ONE (10:29)
[2020-10-23] MEDS ORDERED: Simethicone Chewable 80 MG TAB PO SCH (10:30)
[2020-10-23] MEDS ORDERED: ALPRAZolam 0.25 MG TAB ONE (11:23)
[2020-10-23] MEDS ORDERED: Metoprolol Tartrate 50 MG TAB ONE (11:24)
[2020-10-23] MEDS ORDERED: Metoclopramide HCl 10 MG/2 ML VIAL ONE (11:24)
[2020-10-23] MEDS ORDERED: Pantoprazole 40 MG VIAL ONE (11:24)
[2020-10-23] MEDS ORDERED: hydrALAZINE 25 MG TAB ONE (11:24)
[2020-10-23] MEDS ORDERED: Morphine 2 MG/ML VIAL ONE (11:51)
[2020-10-23] MEDS ORDERED: Lorazepam 2 MG/ML VIAL SLOW IVP SCH (12:00)
[2020-10-23] MEDS ORDERED: Ondansetron PF 4 MG/2 ML Vial IVP PRN (12:01)
[2020-10-23] MEDS: Metoprolol Tartrate 50 MG TAB PO SCH ×2 (12:01→21:26)
[2020-10-23] MEDS: NIFEdipine XL 90 MG TAB PO SCH (12:01)
[2020-10-23] MEDS: Pantoprazole 40 MG VIAL IVP SCH (12:01)
[2020-10-23] MEDS: Apixaban 5 MG TAB PO SCH ×2 (12:01→21:26)
[2020-10-23] MEDS: hydrALAZINE 25 MG TAB PO SCH ×2 (12:06→21:27)
[2020-10-23] MEDS: ALPRAZolam 0.5 MG TAB PO SCH ×2 (12:06→21:26)
[2020-10-23] MEDS: Sodium Chloride 0.9% 1,000 ML IV SCH (12:11)
[2020-10-23] MEDS ORDERED: Promethazine HCl 12.5 MG in Sodium Chloride 0.9% 50 ML IVPB SCH (12:15)
[2020-10-23] MEDS ORDERED: hydrALAZINE 20 MG/ML VIAL SLOW IVP SCH (12:45)
[2020-10-23 13:07] LABS: Troponin I 0.026 ng/mL (< 0.028)
[2020-10-23] MEDS ORDERED: cloNIDine 0.1 MG TAB ONE (13:55)
[2020-10-23] MEDS: cloNIDine 0.1 MG TAB PO PRN ×2 (13:58→17:19)
[2020-10-23 14:03] LABS: SARS-CoV-2 MS2 Positive; SARS-CoV-2 N Gene Negative; SARS-CoV-2 S Gene Negative; SARS-CoV-2 by NAA Not Detected (NotDetected); SARS-CoV-2 orf1ab Negative
[2020-10-23 15:49] VITALS: BMI 40.3
[2020-10-23] MEDS: Metoclopramide HCl 10 MG/2 ML VIAL IVP SCH ×2 (16:03→22:00)
--- NOTE | 2020-10-23 18:40 | HP ---
CHIEF COMPLAINT: Abdominal pain, nausea, and vomiting. HISTORY OF PRESENT ILLNESS: The patient is a 65-year-old female with a past medical history of fibromyalgia and hypercholesterolemia, who comes into the hospital with complaints of abdominal pain, nausea, and vomiting starting Friday. The patient actually stated that she fell. She had a mechanical fall on Friday night, started having abdominal pain and left-sided lower extremity and back pain. She states that she has been throwing up for the past few days; however, then when I talked with her more in detail, she says that she has been throwing up for months and months. She states that she initially was 320 pounds and now she is 280 pounds. She states that she did not seek any help. Denies any fevers or chills or any night sweats. The patient has been in the ER multiple times. Her last CT was done on 10/02/2020, which just indicated paraesophageal hernia. The patient denies any chest tightness. She just states that she has pain from her belly all the way up to around her vaginal area. She denies any diarrhea. She states that she has not been able to take her medications. PAST MEDICAL HISTORY: She has a history of hypercholesterolemia. She has a history of PE. She has a history of hypertension, migraines, GERD, and fibromyalgia. PAST SURGICAL HISTORY: She has had appendectomy, hysterectomy, bilateral foot surgery, left shoulder surgery, fatty tumor removed in the back, and right shoulder surgery. FAMILY HISTORY: History of heart disease. SOCIAL HISTORY: Denies any alcohol use, drug use, or smoking history. She is a full code. REVIEW OF SYSTEMS: All negative except for the ones mentioned in the HPI. ALLERGIES: SHE IS ALLERGIC TO SEVERAL MEDICATIONS INCLUDING ALEVE, ASPIRIN, COMPAZINE, DARVOCET, GABAPENTIN, IBUPROFEN, IODINE CONTAINING DRUGS, LATUDA, LYRICA, METOPROLOL, NAPROXEN, NIFEDIPINE, RITALIN, TORADOL, TRAMADOL, TRAZODONE, AND TRIPROLIDINE-C. MEDICATIONS: She is on; 1. Nifedipine 60 mg daily. 2. Metoprolol 50 mg twice a day. 3. Hydralazine 200 mg twice a day. 4. Eliquis 5 mg twice a day. 5. Tylenol No. 4 as needed. 6. Xanax as needed. PHYSICAL EXAMINATION: VITAL SIGNS: As of the following; temperature of 98.8, heart rate of 86, oxygen saturations 95% on room air, respirations 18, and blood pressure 188/87. GENERAL: She is awake, alert, and oriented x3. Appear in distress for her abdomen area. CV: S1 and S2 present. No murmurs, rubs, or gallops. LUNGS: Clear to auscultation. No rhonchi or wheezes noted. ABDOMEN: Soft. Bowel sounds are present x2. The pain upon palpation all over the abdominal area on light touch and deep touch. LOWER EXTREMITIES: 1 to 2+ lower extremity edema. NEUROLOGIC: Neurovascular, no focal deficits noted. SKIN: No cuts, lesions, or bruises noted. LABORATORY DATA: WBCs of 10.9, hemoglobin of 12.6, hematocrit of 39.7, and platelets of 358. Chemistry; sodium of 142, potassium of 3.5, BUN of 12, and creatinine of 1.09. Troponin is mildly elevated at 0.030 and 0.031 and then the next one was 0.026, and CK-MB was 1.3. The patient had an abdominal x-ray, which indicated significant gas noted in her stomach. No evidence of bowel obstruction. ASSESSMENT AND PLAN: The patient is a 65-year-old female, who presents to the hospital with abdominal pain, nausea, and vomiting. 1. Abdominal pain, nausea, and vomiting. Unclear etiology at this time. She has significant gas in her abdomen. She has been belching. I will start her on some Reglan. She does not appear to be a diabetic; however, we will check a hemoglobin A1c. She did not run out of her medications. Last time she has been here, she did run out of her medications. However, she states that she tried to take her medications; however, she threw them up. I will also start her on a PPI. Most likely, she will require an esophagogastroduodenoscopy, but that could be done as an outpatient. Nothing urgent or emergent. We will start her on some gentle fluids, clear liquid diet, and advance as tolerated. Her abdominal pain could also be from the fall that she had. We will check a CK on her. 2. Mildly elevated troponin. This could be secondary from the nausea and vomiting. She has not had a stress test. We will get maybe an echocardiogram in the morning. She denies any chest pain or chest pressure. We will continue her home medications. 3. History of pulmonary embolism. We will continue her home medications. 4. Deep venous thrombosis prophylaxis. The patient is already on Eliquis. We will continue that. Job ID: [id number]
[2020-10-23] MEDS ORDERED: Sodium Chloride 0.9% 10 ML ONE (21:14)
[2020-10-24] MEDS: Sodium Chloride 0.9% 1,000 ML IV SCH ×2 (04:53→08:29)
[2020-10-24] MEDS ORDERED: Acetaminophen 325 MG TAB PO PRN (05:09)
[2020-10-24] MEDS: cloNIDine 0.1 MG TAB PO PRN (05:31)
[2020-10-24 05:49] LABS: #Lymphocytes 1.9 thou/uL (1.20-3.40); #Monocytes 1.2 thou/uL (0.11-0.59); #Neutrophils 7.4 thou/uL (1.40-6.50); %Basophils 0.1 % (0.0-1.0); %Eosinophils 0.4 % (0.0-10.0); %Lymphocytes 18.1 % (21.0-51.0); %Monocytes 11.2 % (0.0-10.0); %Neutrophils 70.2 % (42.0-75.0); Hemoglobin 13.8 g/dL (12.0-16.0); Mean Corpuscular Hemoglobin 28.1 pg (27.0-31.0); Mean Corpuscular Volume 87.7 fL (78.0-98.0); Mean Platelet Volume 8.6 fL (7.4-10.4); Platelet Count 256 thou/uL (130-400); RBC Distribution Width 14.4 % (11.5-14.5); Red Blood Cell (RBC) Count 4.94 mill/uL (4.20-5.40); White Blood Cell (WBC) Count 10.5 thou/uL (4.8-10.8)
[2020-10-24 06:03] LABS: ALT (SGPT) 16 U/L (8-55); AST (SGOT) 18 U/L (5-34); Albumin 3.9 g/dL (3.4-4.8); Alkaline Phosphatase 83 U/L (40-110); Anion Gap 17 mmol/L (10-20); BUN (Urea Nitrogen) 16 mg/dL (9.8-20.1); Bilirubin, Total 0.5 mg/dL (0.2-1.2); CK (CPK) 99 U/L (29-168); Calc. Creatinine Clearance 87 mL/min (70-130); Calcium 9.2 mg/dL (7.8-10.44); Carbon Dioxide 21 mmol/L (23-31); Chloride 105 mmol/L (98-107); Globulin 3.5 g/dL (2.4-3.5); Glucose 116 mg/dL (80-115); Magnesium 1.9 mg/dL (1.6-2.6); Potassium 3.6 mmol/L (3.5-5.1); Protein, Total 7.4 g/dL (6.0-8.3); Sodium 139 mmol/L (136-145)
[2020-10-24] MEDS: Metoclopramide HCl 10 MG/2 ML VIAL IVP SCH (07:37)
[2020-10-24] MEDS: ALPRAZolam 0.5 MG TAB PO SCH (08:28)
[2020-10-24] MEDS: hydrALAZINE 25 MG TAB PO SCH (08:28)
[2020-10-24] MEDS: NIFEdipine XL 90 MG TAB PO SCH (08:29)
[2020-10-24] MEDS: Apixaban 5 MG TAB PO SCH (08:29)
[2020-10-24] MEDS: Metoprolol Tartrate 50 MG TAB PO SCH (08:29)
[2020-10-24] MEDS: Pantoprazole 40 MG VIAL IVP SCH (08:29)
[2020-10-24 09:38] VITALS: BP 177/88; TEMP 98.9
--- NOTE | 2020-10-24 13:20 | DIS ---
DATE OF ADMISSION: 10/23/2020 DATE OF DISCHARGE: 10/24/2020 PRIMARY CARE PHYSICIAN: Fernando Fishman. REASON FOR ADMISSION: Abdominal pain, nausea and vomiting. DIAGNOSES AT DISCHARGE: 1. Abdominal pain with nausea and vomiting, improved. 2. Mildly elevated troponin. 3. History of pulmonary embolism, on Eliquis. 4. Hypercholesterolemia. 5. Hypertension. 6. Migraines. 7. Gastroesophageal reflux disease. 8. Fibromyalgia. PROCEDURES: None. CONSULTATIONS: None. SUMMARY OF HOSPITAL COURSE: See H and P for details of admission. The patient was feeling better on the second hospital day before the doctor was able to get there. She demanded to go against medical advice. On-call doctor was informed and stated that the patient should be warned that she could have a major medical issue or even if she leaves without seeing the doctor. The patient demanded to leave anyway and so her central line was removed and she left after signing the AMA paperwork. Job ID: [id number]
--- NOTE | 2020-10-28 14:16 | EKG ---
Test Reason : Blood Pressure : / mmHG Vent. Rate : 074 BPM Atrial Rate : 074 BPM P-R Int : 146 ms QRS Dur : 090 ms QT Int : 420 ms P-R-T Axes : 038 -17 043 degrees QTc Int : 466 ms Normal sinus rhythm Possible Left atrial enlargement Left ventricular hypertrophy with repolarization abnormality Abnormal ECG Confirmed by CHANDAN SALAMANCA ([id number]), loan expeditor LAZARUS MATHEWS ([id number]) on 10/28/2020 2:16:30 PM Referred By: Confirmed By:CHANDAN SALAMANCA
== END 2020-10-24 11:30 | disposition left against medical advice (07) ==
LOC: ERS 02:20 → ERHOLD 05:41 → 2NO 15:16
PROVIDERS: ADMIT Internal Medicine; ATTEND Internal Medicine
DX: R10.9 Unspecified abdominal pain (principal); R11.2 Nausea with vomiting, unspecified; R77.8 Other specified abnormalities of plasma proteins; E78.00 Pure hypercholesterolemia, unspecified; I10 Essential (primary) hypertension; G43.909 Migraine, unspecified, not intractable, without status migrainosus; K21.9 Gastro-esophageal reflux disease without esophagitis; M79.7 Fibromyalgia; K44.9 Diaphragmatic hernia without obstruction or gangrene; Z53.29 Procedure and treatment not carried out because of patient's decision for other reasons; Z79.01 Long term (current) use of anticoagulants; Z79.899 Other long term (current) drug therapy; Z86.711 Personal history of pulmonary embolism; Z88.5 Allergy status to narcotic agent; Z88.6 Allergy status to analgesic agent; Z88.8 Allergy status to other drugs, medicaments and biological substances; Z20.828 Contact with and (suspected) exposure to other viral communicable diseases
CPT/HCPCS: 36415; 36556; 71045; 74018; 80053; 80306; 81003; 81015; 82550; 82553; 83690; 83735; 84484; 85025; 87635; 93005; 94760; 96372; 96374; 96375; 96376; C9113; G0378; J0360; J0500; J2060; J2270; J2405; J2765; U0003

== ENCOUNTER 2020-12-17 15:16 | Inpatient (IN) | payer OTHER ==
[~2020-12-17 15:16] MED LIST changes: -ISOVUE-370 76%-LOCM 1 ML ONE; +Iopamidol-370 76% 500 ML 1 ML ONE
[2020-12-17 15:54] LABS: #Lymphocytes 0.9 thou/uL (1.20-3.40); #Monocytes 0.2 thou/uL (0.11-0.59); #Neutrophils 8.1 thou/uL (1.40-6.50); %Basophils 0.1 % (0.0-1.0); %Eosinophils 0.2 % (0.0-10.0); %Lymphocytes 9.7 % (21.0-51.0); %Monocytes 2.3 % (0.0-10.0); %Neutrophils 87.7 % (42.0-75.0); Hemoglobin 13.3 g/dL (12.0-16.0); Mean Corpuscular HGB CONC 30.7 g/dL (32.0-36.0); Mean Corpuscular Hemoglobin 26.6 pg (27.0-31.0); Mean Corpuscular Volume 86.8 fL (78.0-98.0); Platelet Count 252 thou/uL (130-400); RBC Distribution Width 14.4 % (11.5-14.5); Red Blood Cell (RBC) Count 4.99 mill/uL (4.20-5.40); White Blood Cell (WBC) Count 9.2 thou/uL (4.8-10.8)
[2020-12-17] MEDS ORDERED: Morphine 4 MG/ML VIAL ONE ×2 (15:56→17:01)
[2020-12-17] MEDS ORDERED: Ondansetron PF 4 MG/2 ML Vial ONE (15:57)
[2020-12-17 16:29] LABS: CKMB 2.8 ng/mL (0-6.6)
[2020-12-17] MEDS ORDERED: Famotidine/PF 20 mg/2ml Vial ONE ×2 (17:01→19:39)
[2020-12-17 17:35] LABS: ALT (SGPT) 7 U/L (8-55); AST (SGOT) 13 U/L (5-34); Albumin 4.7 g/dL (3.4-4.8); Alkaline Phosphatase 73 U/L (40-110); Anion Gap 27 mmol/L (10-20); BUN (Urea Nitrogen) 15 mg/dL (9.8-20.1); Bilirubin, Total 0.3 mg/dL (0.2-1.2); Calc. Creatinine Clearance 0 mL/min (70-130); Calcium 10.1 mg/dL (7.8-10.44); Carbon Dioxide 14 mmol/L (23-31); Chloride 110 mmol/L (98-107); Globulin 3.9 g/dL (2.4-3.5); Glucose 158 mg/dL (80-115); Lipase 23 U/L (8-78); Potassium 3.7 mmol/L (3.5-5.1); Protein, Total 8.6 g/dL (5.8-8.1); Sodium 147 mmol/L (136-145)
[2020-12-17 19:03] LABS: Acetaminophen Less than 6.0 mcg/mL (10.0-30.0); Alcohol Less than 10 mg/dL (Less than 10); Salicylate Less than 8.0 mg/dL (15.0-30.0)
[2020-12-17] MEDS ORDERED: Cefepime 2 GM VIAL ONE (19:39)
[2020-12-17] MEDS ORDERED: methylPREDNISolone Sod Succ/PF 125 MG/2 ML VIAL ONE (19:39)
[2020-12-17] MEDS ORDERED: diphenhydrAMINE 50 MG/ML VIAL ONE (19:39)
[2020-12-17] MEDS ORDERED: Vancomycin 1.5 GRAM/300 ML BAG 1.5 GM in Premix Bag 1 BAG IVPB SCH (20:45)
[2020-12-17 21:37] LABS: Lactic Acid 3.5 mmol/L (0.5-2.2)
--- NOTE | 2020-12-17 21:49 | CT ---
CT angiogram chest: 12/17/2020 COMPARISON: None HISTORY: Chest pain TECHNIQUE: Axial CT imaging at 2.5 mm intervals through the chest with IV contrast using CT angiogram protocol. Coronal and sagittal 3-D reformatted imaging obtained. FINDINGS: No lymphadenopathy seen in the chest. There is a small/moderate sized hiatal hernia. Imaged upper abdomen demonstrates stranding of the fat adjacent to bilateral adrenal glands and the u pper poles of bilateral kidneys, better assessed on dedicated CT of the abdomen and pelvis. No pleural, pericardial, or mediastinal fluid. Motion artifact, body habitus, and timing of the contr ast bolus limited assessment for pulmonary arterial embolism. No obvious central pulmonary arterial embolism is seen involving the pulmonary arterial trunk or either main pulmonary artery. Distal pulmo nary arterial branches are suboptimally assessed. There is no pneumothorax evident on either side. The lung parenchyma demonstrates no acute abnormalit y. No endobronchial lesion is seen. There is no acute osseous abnormality. IMPRESSION: No evidence for central pulmonary arterial embolism.
--- NOTE | 2020-12-17 21:56 | CT ---
CT abdomen and pelvis: 12/17/2020 COMPARISON: 07/03/2020 HISTORY: Pain all over TECHNIQUE: Axial CT imaging at 5 mm intervals from the lung bases through the pubic symphysis with IV contrast. Coronal and sagittal reformatted imaging obtained. FINDINGS: The imaged lung bases demonstrate no acute findings. No free intraperitoneal air is seen. The gallbladder is mildly distended, a stable finding. The liver and spleen appear grossly unremarkab le. There is a small/moderate fluid-filled hiatal hernia with a configuration suggesting possible prior Donald fundoplication. Clinical correlation required. There is mild stranding of the fat superior to the upper pole of the left kidney and adjacent to the left adrenal gland. There is also stranding of the fat adjacent to the right adrenal gland and superior pole of the right kidney. This stranding is nonspecific and new when compared to the prior e xam. There is no discrete pancreatic abnormality appreciated. There is a cyst in the upper pole of the left kidney. Limited assessment of the bowel demonstrates no evidence for obstruction. The stomach is moderately d istended and filled with gas and small volume fluid. The vascular structures of the abdomen/pelvis appear patent. There is no evidence for aneurysm or dis section of the abdominal aorta. The abdominal aorta appears stable when compared to the prior examination. No pelvic, retroperitoneal, or mesenteric lymphadenopathy is noted. Review of the osseous structures demonstrates multilevel lower lumbar spine facet hypertrophy. There is no worrisome lytic or blastic bone lesion. Prominent degenerative changes are noted at the L5-S1 level. IMPRESSION: Nonspecific mild fat stranding adjacent to bilateral adrenal glands and the upper pole of bilateral kidneys. Findings may signify nonspecific inflammatory change. Laboratory assessment is advised with regard to the kidneys, adrenal glands and the pancreas to exclude inflammatory change in volving these organs.. No evidence for small bowel obstruction, free intraperitoneal air, or abscess formation. Multiple chronic findings as detailed above.
[2020-12-17] MEDS ORDERED: Lorazepam 2 MG/ML VIAL ONE (23:10)
[2020-12-17] MEDS ORDERED: hydrALAZINE 20 MG/ML VIAL ONE (23:12)
[2020-12-17 23:49] LABS: Troponin I 0.118 ng/mL (< 0.028)
[2020-12-18] MEDS ORDERED: hydrALAZINE 20 MG/ML VIAL SLOW IVP PRN ×2 (00:14→02:42)
--- NOTE | 2020-12-18 00:14 | PDOC.EVN ---
Event Note - Event Note Event Note: Initially received checkout from Dr. Jung for admission. Upon further review pt is seen by [facility] in [place] and most recently discharged from hospital in 2019. I discussed with [facility], Dr. Li. Will place hydralazine order to help with HTN urgency - this was discussed with Dr. Li.
[2020-12-18] MEDS ORDERED: hydrALAZINE 20 MG/ML VIAL SLOW IVP SCH (00:15)
[2020-12-18] MEDS ORDERED: Metoclopramide HCl 10 MG/2 ML VIAL ONE (01:43)
[2020-12-18] MEDS ORDERED: HYDROmorphone 0.5 MG/0.5 ML SYRINGE ONE (02:07)
[2020-12-18] MEDS ORDERED: Pantoprazole 40 MG VIAL ONE (02:08)
[2020-12-18] MEDS ORDERED: Labetalol HCl 100 MG/20 ML VIAL ONE (02:08)
[2020-12-18] MEDS ORDERED: Acetaminophen 325 MG TAB PO PRN (02:45)
--- NOTE | 2020-12-18 02:51 | PDOC.HHP ---
Hospitalist HPI Abdominal pain History of Present Illness: 65-year-old female with past medical history of morbid obesity, hypertension, hyperlipidemia, GERD, fibromyalgia, pulmonary embolism on chronic anticoagulation with Eliquis, recurrent poorly controlled blood pressure despite 3 medications presented because of abdominal pain onset since 1 day pain is more around the epigastric area radiating towards the back. She is also complaining of generalized body aches. She admits to bilateral flank pain also. She admits to headache with intermittent nausea and vomiting at home. On arrival in the ED patient continued to escalate to 10 out of 10 and no relief significantly by IV morphine. CT abdomen scan of the abdomen shows bilateral stranding of superior pole of the kidneys as well as adrenal glands. 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 She denies any fever or chills. She denies any dysuria or polyuria. She she has stated to be in severe pain during interview limiting her response to questions. She was also noted with marked elevated blood pressure with systolic of 216/146. Allergies/Adverse Reactions: Allergy/AdvReac Type Severity Reaction Status Date / Time iodine Allergy Intermediate Hives Verified 01/14/20 13:31 prochlorperazine edisylate Allergy Intermediate Rash Verified 01/14/20 13:31 [From Compazine] naproxen sodium [From Aleve] Allergy Mild Verified 01/14/20 13:31 aspirin Allergy STOMACH Verified 01/14/20 13:31 DISTRESS gabapentin Allergy Verified 01/14/20 13:31 ketorolac [From Toradol] Allergy Hives Verified 01/14/20 13:31 methylphenidate Allergy Verified 01/14/20 13:31 [From Ritalin] prochlorperazine Allergy Verified 01/14/20 13:31 tramadol Allergy Verified 01/14/20 13:31 prochlorperazine maleate AdvReac Severe Rash Verified 01/14/20 13:31 [From Compazine] propoxyphene napsylate AdvReac Intermediate Emesis Verified 01/14/20 13:31 [From Darvocet-N 100] pregabalin [From Lyrica] AdvReac Unknown Verified 01/14/20 13:31 IPV DYE Allergy Severe Hives Uncoded 01/14/20 13:31 Home Medications: Medication Instructions Recorded Confirmed Type tiZANidine HCl [Zanaflex] 4 mg PO TID 05/15/13 10/23/20 History Pantoprazole [Protonix] 40 mg PO DAILY 07/19/15 10/23/20 History ALPRAZolam 0.5 tab PO BID 05/14/17 10/23/20 History hydrALAZINE HCl [Hydralazine HCl] 200 mg PO BID 12/29/17 10/23/20 History Apixaban [Eliquis] 5 mg PO BID 30 Days #60 tablet 05/09/20 10/23/20 Rx Acetaminophen With Codeine 1 tab PO Q8HR 10/23/20 10/23/20 History [Tylenol with Codeine #3] Metoprolol Tartrate 100 mg PO BID 10/23/20 10/23/20 History Past History: PMHx: Hypertension Fibromyalgia GERD Hyperlipidemia PSHx: Bilateral shoulder surgeries Appendectomy Hysterectomy Foot surgery FHx: No history of CAD or CVA Social: Lifelong non-smoker, no history of alcohol or illicit drug use Hospitalist HPI ROS All other systems reviewed; all pertinent +/- noted in HPI/Subj Hospitalist Exam Vitals: Vital Signs (12 hours) Pulse BP 12/18/20 00:40 105 H 195/121 H General Appearance: NAD, awake alert General - other findings: In moderate pain distress, obese middle-aged female Eye: PERRL, anicteric sclera ENT: normocephalic atraumatic, no oropharyngeal lesions, dry oral mucosa Neck: supple, symmetric, no JVD Heart: RRR, no murmur Respiratory: CTAB, no wheezes, no rales Gastrointestinal: soft, no palpable masses, no guarding, tender to palpation (More over epigastric region but appears to be generalized) Extremities: no cyanosis, no clubbing Skin: normal turgor, no lesions Neurological: cranial nerve grossly intact, no focal deficits, no new deficit Musculoskeletal: normal tone, normal strength Psychiatric: normal affect, normal behavior, A&O x 3 Hospitalist Results Result Diagrams: 12/17/20 15:43 12/17/20 15:43 Lab results: Laboratory Last Values WBC 9.2 thou/uL (4.8-10.8) 12/17/20 15:43 RBC 4.99 mill/uL (4.20-5.40) 12/17/20 15:43 Hgb 13.3 g/dL (12.0-16.0) 12/17/20 15:43 Hct 43.3 % (36.0-47.0) 12/17/20 15:43 MCV 86.8 fL (78.0-98.0) 12/17/20 15:43 MCH 26.6 pg (27.0-31.0) L 12/17/20 15:43 MCHC 30.7 g/dL (32.0-36.0) L 12/17/20 15:43 RDW 14.4 % (11.5-14.5) 12/17/20 15:43 Plt Count 252 thou/uL (130-400) 12/17/20 15:43 MPV 9.0 fL (7.4-10.4) 12/17/20 15:43 Neutrophils % 87.7 % (42.0-75.0) H 12/17/20 15:43 Lymphocytes % 9.7 % (21.0-51.0) L 12/17/20 15:43 Monocytes % 2.3 % (0.0-10.0) 12/17/20 15:43 Eosinophils % 0.2 % (0.0-10.0) 12/17/20 15:43 Basophils % 0.1 % (0.0-1.0) 12/17/20 15:43 Neutrophils # 8.1 thou/uL (1.40-6.50) H 12/17/20 15:43 Lymphocytes # 0.9 thou/uL (1.20-3.40) L 12/17/20 15:43 Monocytes # 0.2 thou/uL (0.11-0.59) 12/17/20 15:43 Eosinophils # 0.0 thou/uL (0.0-0.7) 12/17/20 15:43 Basophils # 0.0 thou/uL (0.0-0.2) 12/17/20 15:43 Sodium 147 mmol/L (136-145) H 12/17/20 15:43 Potassium 3.7 mmol/L (3.5-5.1) 12/17/20 15:43 Chloride 110 mmol/L (98-107) H 12/17/20 15:43 Carbon Dioxide 14 mmol/L (23-31) L 12/17/20 15:43 Anion Gap 27 mmol/L (10-20) H 12/17/20 15:43 BUN 15 mg/dL (9.8-20.1) 12/17/20 15:43 Creatinine 1.15 mg/dL (0.6-1.1) H 12/17/20 15:43 Estimated GFR (MDRD) 57 12/17/20 15:43 Glucose 158 mg/dL (80-115) H 12/17/20 15:43 Lactic Acid 3.5 mmol/L (0.5-2.2) H 12/17/20 21:11 Calcium 10.1 mg/dL (7.8-10.44) 12/17/20 15:43 Total Bilirubin 0.3 mg/dL (0.2-1.2) 12/17/20 15:43 AST 13 U/L (5-34) 12/17/20 15:43 ALT 7 U/L (8-55) L 12/17/20 15:43 Alkaline Phosphatase 73 U/L (40-110) 12/17/20 15:43 CK-MB (CK-2) 2.8 ng/mL (0-6.6) 12/17/20 15:43 Troponin I 0.118 ng/mL (< 0.028) H 12/17/20 23:15 Serum Total Protein 8.6 g/dL (5.8-8.1) H 12/17/20 15:43 Albumin 4.7 g/dL (3.4-4.8) 12/17/20 15:43 Globulin 3.9 g/dL (2.4-3.5) H 12/17/20 15:43 Albumin/Globulin Ratio 1.2 g/dL (1.2-2.2) 12/17/20 15:43 Lipase 23 U/L (8-78) 12/17/20 15:43 Salicylates Less than 8.0 mg/dL (15.0-30.0) L 12/17/20 18:36 Acetaminophen Less than 6.0 mcg/mL (10.0-30.0) L 12/17/20 18:36 Plasma Alcohol Less than 10 mg/dL (Less than 10) 12/17/20 18:36 B-Hydroxybutyrate 0.48 mmol/L (0.02-0.27) H 12/17/20 18:36 CT scan - abdomen Additional Comments: CT images reviewedbilateral superior pole perinephric stranding involving ad renal glands Hospitalist H&P A/P (1) Abdominal pain Code(s): R10.9 - UNSPECIFIED ABDOMINAL PAIN Status: Acute (2) Hypertensive urgency Code(s): I16.0 - HYPERTENSIVE URGENCY Status: Acute (3) Gastroesophageal reflux disease Code(s): K21.9 - GASTRO-ESOPHAGEAL REFLUX DISEASE WITHOUT ESOPHAGITIS Status: Chronic (4) Hypertension Code(s): I10 - ESSENTIAL (PRIMARY) HYPERTENSION Status: Chronic (5) Pulmonary embolism Code(s): I26.99 - OTHER PULMONARY EMBOLISM WITHOUT ACUTE COR PULMONALE Status: Chronic Plan: #Abdominal pain with nausea and vomitingmay be due to bilateral pyelonephritis versus gastroenteritis Absence of diarrhea noted We will start empiric antibiotics with IV Levaquin Obtain urinalysis as well as urine culture Obtain blood culture x2 Start adequate pain regimen next Gentle IV fluid #Hypernatremiahypotonic fluid advised, follow with lactated Ringer's #Acute kidney injurymild elevation of creatinine to 1.15 with severe metabolic acidosis Start lactated Ringer's and follow Monitor potassium level Obtain renal consult #Metabolic acidosisincreasing lactic acid noted Reduce sodium bicarb and start p.o. bicarb twice daily now May be due to GI etiology #Hypertensive urgencywith dose labetalol since elevated heart rate Start labetalol 200 3 times daily since poorly controlled home blood pressure meds Hold metoprolol Continue nifedipine/hydralazine If persistent nausea vomiting, continue clonidine patch Follow with renal evaluation DVT prophylaxison Jagjit Advance directivefull code
[2020-12-18 02:53] LABS: Bilirubin Negative (Negative); Blood, Urine 2+ (Negative); Clarity Clear (Clear); Glucose, Urine (Dipstick) 30 mg/dL (Negative); Ketone, Urine Trace mg/dL (Negative); Leukocyte Negative Leu/uL (Negative); Nitrite Negative (Negative); Protein, Urine (Dipstick) 100 mg/dL (Neg-Trace); Specific Gravity, Urine 1.048 (1.002-1.036); Squamous Epithelial 0-3 HPF (0-3); Urobilinogen Normal mg/dL (Less than 2); WBC/HPF None Seen HPF (0-3); pH, Urine 5.5 (5.0-9.0)
[2020-12-18 02:54] LABS: Bacteria/HPF 1+ HPF (None Seen)
[2020-12-18] MEDS ORDERED: NIFEdipine XL 60 MG TAB PO SCH (03:00)
[2020-12-18] MEDS ORDERED: HYDROmorphone 0.5 MG/0.5 ML SYRINGE SLOW IVP SCH (03:00)
[2020-12-18] MEDS ORDERED: Labetalol HCl 100 MG/20 ML VIAL SLOW IVP SCH (03:00)
[2020-12-18 03:08] LABS: Amphetamine Not Detected (NotDetected); Barbiturates Screen Not Detected (NotDetected); Benzodiazepine Screen Detected (NotDetected); Cocaine Metabolite Screen Not Detected (NotDetected); Medtox Control Line Valid? VALID (VALID); Medtox Reader # READER 4; Methadone Not Detected (NotDetected); Methamphetamine Not Detected (NotDetected); Opiate Screen Detected (NotDetected); Oxycodone Screen Not Detected (NotDetected); Phencyclidine (PCP) Not Detected (NotDetected); THC/Cannabinoid Screen Not Detected (NotDetected); Tricyclic Screen Not Detected (NotDetected)
[2020-12-18 03:08] LABS: Troponin I 0.128 ng/mL (< 0.028)
[2020-12-18 03:15] LABS: ALT (SGPT) 7 U/L (8-55); AST (SGOT) 21 U/L (5-34); Albumin 4.5 g/dL (3.4-4.8); Alkaline Phosphatase 70 U/L (40-110); Anion Gap 20 mmol/L (10-20); BUN (Urea Nitrogen) 16 mg/dL (9.8-20.1); Bilirubin, Total 0.3 mg/dL (0.2-1.2); CRP (Inflammatory) Less than 0.50 mg/dL (= or < 0.5); Calc. Creatinine Clearance 0 mL/min (70-130); Calcium 9.8 mg/dL (7.8-10.44); Carbon Dioxide 16 mmol/L (23-31); Chloride 110 mmol/L (98-107); Globulin 3.8 g/dL (2.4-3.5); Glucose 183 mg/dL (80-115); Potassium 3.9 mmol/L (3.5-5.1); Protein, Total 8.3 g/dL (5.8-8.1); Sodium 142 mmol/L (136-145)
[2020-12-18] MEDS ORDERED: Sodium Bicarbonate 75 MEQ in Dextrose 5% in Water 1,000 ML IV SCH (03:30)
[2020-12-18 03:41] LABS: Hemoglobin 12.9 g/dL (12.0-16.0); Lymphocytes 4 % (21-51); MDiff Complete? YES; Mean Corpuscular HGB CONC 31.5 g/dL (32.0-36.0); Mean Corpuscular Volume 85.8 fL (78.0-98.0); Mean Platelet Volume 8.3 fL (7.4-10.4); Neutrophil 96 % (42-75); Platelet Count 363 thou/uL (130-400); Platelet Morphology Comment Appears Adequate; RBC Distribution Width 14.6 % (11.5-14.5); White Blood Cell (WBC) Count 9.8 thou/uL (4.8-10.8)
[2020-12-18] MEDS ORDERED: Levofloxacin 500 mg/D5W 100 ml Premix Bag ONE (03:46)
[2020-12-18 05:08] LABS: SARS-CoV-2 PCR by NAA Not Detected (NotDetected)
[2020-12-18] MEDS: HYDROcodone/Acetaminophen 10/325 mg Tablet PO PRN ×3 (06:10→20:58)
[2020-12-18] MEDS ORDERED: hydrALAZINE 20 MG/ML VIAL ONE (06:12)
[2020-12-18] MEDS ORDERED: HYDROcodone/Acetaminophen 10/325 mg Tablet ONE ×3 (06:12→21:00)
[2020-12-18] MEDS: hydrALAZINE 25 MG TAB PO SCH ×2 (09:42→20:55)
[2020-12-18] MEDS: Labetalol 100 MG TAB PO SCH ×3 (09:43→20:56)
[2020-12-18] MEDS: Apixaban 5 MG TAB PO SCH ×2 (09:50→20:55)
[2020-12-18] MEDS: Sodium Bicarbonate Tab 325 MG TAB PO SCH ×3 (09:51→20:57)
[2020-12-18] MEDS ORDERED: Labetalol HCl 100 MG/20 ML VIAL SLOW IVP PRN (09:56)
[2020-12-18] MEDS ORDERED: Minoxidil 10 MG TAB PO SCH (10:00)
[2020-12-18] MEDS ORDERED: ALPRAZolam 0.25 MG TAB ONE ×2 (10:37→21:00)
[2020-12-18] MEDS ORDERED: Famotidine 20 MG TAB ONE ×2 (10:38→21:00)
[2020-12-18] MEDS ORDERED: Vancomycin 1 GM/200 ML BAG ONE ×2 (10:38→21:00)
[2020-12-18] MEDS: Famotidine 20 MG TAB PO SCH ×2 (10:39→20:59)
[2020-12-18] MEDS: ALPRAZolam 0.5 MG TAB PO SCH ×2 (10:39→20:58)
[2020-12-18] MEDS: Vancomycin 1 GM in Premix Bag 1 BAG IVPB SCH ×2 (10:40→20:59)
--- NOTE | 2020-12-18 11:30 | CON ---
DATE OF CONSULTATION: CONSULTING PHYSICIAN: Gabby Camarena MD REQUESTING PHYSICIAN: Sandra Li MD REASON FOR CONSULTATION: Hypertensive urgency. IMPRESSION: 1. Hypertensive urgency/multidrug-resistant hypertension. 2. Obesity. 3. Abdominal pain, varicose, somewhat concerning for aortic dissection. 4. Nonspecific adrenal inflammatory changes. PLAN: 1. We will aim to streamline this patient's antihypertensive medications. The patient already on multiple, up to 3, antihypertensive regimens without much of any control. At this point, the patient will benefit from diuretics to augment antihypertensive effect of blood pressure medications. Having been exposed to contrast, we will hold off on diuretics until the next 24 hours. 2. The presentation of the abdominal pain with the patient describing the pain running along the mid abdomen and going down to the leg, somewhat concerning for dissecting lower abdominal aortic aneurysm. 3. Renally dose all medications. 4. We will strongly recommend discontinuation of IV fluid after current contrast prophylaxis. 5. Metabolic sodium bicarbonate supplementation for metabolic acidosis. 6. We will monitor the urinalysis that showed evidence of hematuria or proteinuria. This may be in keeping with kidney disease versus other potential nephritis. 7. Further management will be dependent on the clinical course. HISTORY OF PRESENT ILLNESS: This 65-year-old female patient with a history of hypertension, on three antihypertensive medications but still not optimally controlled, presented here with abdominal pain which she describes as in the middle of the abdomen and seems to be going down to the thigh. The patient did undergo CT angio of the chest, abdomen and pelvis with no clear-cut significant finding except some nonspecific inflammatory changes around the adrenal area. The patient on presentation was noted with a systolic blood pressure of 216 and diastolic of 146. As a result of this, decision has been taken to involve Renal in the management of this case. PAST MEDICAL HISTORY: Significant for morbid obesity, hypertension, dyslipidemia, reflux, fibromyalgia, pulmonary embolism on chronic anticoagulation. MEDICATIONS: Reviewed and as documented on [email or web address]. ALLERGIES: IODINE, PROCHLORPERAZINE, NAPROXEN, ASPIRIN, NEURONTIN, TORADOL, RITALIN, TRAMADOL, AND LYRICA. FAMILY HISTORY: No family history of kidney disease. SOCIAL HISTORY: No alcohol. No tobacco. No illicit drug use. REVIEW OF SYSTEMS: As documented in the body of the history. PHYSICAL EXAMINATION: GENERAL: The patient is noted in physical distress coming from abdominal pain. VITAL SIGNS: Systolic blood pressure of about 229, heart rate of 103. HEENT: Unremarkable. CARDIOVASCULAR SYSTEM: First and second heart sounds were heard. RESPIRATORY SYSTEM: Clear to auscultation. DIGESTIVE SYSTEM: Tender abdomen. EXTREMITIES: No peripheral edema. SKIN: No new gross rash. LYMPHATICS: No peripheral lymphadenopathy. LABORATORY DATA: Laboratory investigation showed a creatinine of 1.14 with bicarb of 14, BUN of 15. In summary, 65-year-old female patient with severe abdominal pain, hypertensive urgency somewhat concerning the integrity of the abdominal aorta. Thank you for this consultation. We will follow with you. Job ID: [id number]
--- NOTE | 2020-12-18 16:32 | PDOC.EVN ---
Event Note - Event Note Event Note: Patient seen and examined in the emergency room. Patient does remain in some amount of discomfort. Uncertain how much of this is her chronic fibromyalgia since a lot of it is in her back and legs which is typical for her, however, she reports the abdominal pain is new. CT scans reviewed and no evidence for aortic dissection or other acute process. Patient did have something of a acidosis in her blood work which may be causing some of her symptoms. Currently on antibiotics though no evidence of significant infection thus far. Appreciate Dr. Pierre's help with this patient. If abdominal symptoms persist may need to ask GI for assistance.
[2020-12-19] MEDS ORDERED: tiZANidine HCl 4 MG TAB PO SCH (02:30)
[2020-12-19 07:56] VITALS: BMI 40.1
--- NOTE | 2020-12-19 08:53 | PDOC.HOSPP ---
- Subjective Encounter Date: 12/19/20 Encounter Time: 11:30 Subjective: Patient reports that her abdominal pain is much improved today. However, after getting her blood pressure medicines this morning her blood pressure started to drop. He was 140 systolic and now it is down in the 70s to 80s systolic. Patient felt a little bit weak and lightheaded earlier but is feeling better right now. Nursing is currently trying to get an IV line and to give a fluid bolus. Patient denies any chest pain or trouble breathing. No confusion. No other symptoms besides her chronic back and lower extremity pain. - Objective Vital Signs & Weight: Vital Signs (12 hours) Temp Pulse Resp BP BP Pulse Ox 12/19/20 07:50 98.1 F 82 18 145/88 H 97 12/19/20 03:40 98.2 F 87 20 148/98 H 95 12/19/20 01:55 98.7 F 95 18 164/98 H 96 12/18/20 20:56 88 170/124 H 12/18/20 20:55 80 170/124 H Weight Weight 288 lb Result Diagrams: 12/18/20 03:09 12/19/20 11:32 Hospitalist ROS - Review of Systems Constitutional: reports: weakness. denies: fever, chills Respiratory: denies: cough, shortness of breath Cardiovascular: denies: chest pain, palpitations Gastrointestinal: denies: nausea, vomiting, abdominal pain Musculoskeletal: reports: back pain, leg pain Neurological: denies: change in speech, confusion, seizures - Medication Medications: Active Medications Generic Name Dose Route Start Last Admin Trade Name Freq PRN Reason Stop Dose Admin Hydrocodone Bitart/Acetaminophen 1 tab 12/18/20 02:45 12/18/20 20:58 Hydrocodone/Acetaminophen 10/325 Mg Tablet PO 1 tab Q4H PRN Administration Moderate Pain (4-6) Alprazolam 0.25 mg 12/18/20 09:00 12/18/20 20:58 Alprazolam 0.5 Mg Tab PO 0.25 mg BID ERI Administration Apixaban 5 mg 12/18/20 09:00 12/18/20 20:55 Apixaban 5 Mg Tab PO 5 mg BID ERI Administration Famotidine 20 mg 12/18/20 09:00 12/18/20 20:59 Famotidine 20 Mg Tab PO 20 mg BID ERI Administration Hydralazine HCl 10 mg 12/18/20 02:42 12/18/20 06:11 Hydralazine 20 Mg/Ml Vial SLOW IVP 10 mg Q4H PRN Administration Blood Pressure Hydralazine HCl 200 mg 12/18/20 09:00 12/18/20 20:55 Hydralazine 25 Mg Tab PO 200 mg BID ERI Administration Levofloxacin 500 mg/ Device 100 mls @ 100 mls/hr 12/18/20 03:00 12/19/20 03:36 IVPB 100 mls Q24HR ERI Administration Vancomycin HCl 1 gm/ Device 200 mls @ 200 mls/hr 12/18/20 09:00 12/18/20 20:59 IVPB 200 mls Q12HR ERI Administration Labetalol HCl 200 mg 12/18/20 09:00 12/18/20 20:56 Labetalol 100 Mg Tab PO 200 mg TID ERI Administration Pantoprazole Sodium 40 mg 12/18/20 09:00 12/18/20 10:39 Pantoprazole 40 Mg Tab PO 40 mg DAILY ERI Administration Sodium Bicarbonate 650 mg 12/18/20 09:00 12/18/20 20:57 Sodium Bicarbonate Tab 325 Mg Tab PO 650 mg TID ERI Administration Hospitalist Exam Vitals: Vital Signs (12 hours) Temp Pulse Resp BP BP Pulse Ox 12/19/20 07:50 98.1 F 82 18 145/88 H 97 12/19/20 03:40 98.2 F 87 20 148/98 H 95 12/19/20 01:55 98.7 F 95 18 164/98 H 96 12/18/20 20:56 88 170/124 H 12/18/20 20:55 80 170/124 H Weight Weight 288 lb General Appearance: NAD, awake alert General - other findings: Obese ENT: moist mucosa Heart: RRR, no murmur, no gallops, no rubs Heart - other findings: Radial pulses are palpable although a little weak Respiratory: CTAB, no wheezes, no rales, no ronchi Gastrointestinal: soft, non-tender, non-distended, normal bowel sounds Extremities: no edema Psychiatric: normal affect, normal behavior, A&O x 3 Hosp A/P - Plan #Abdominal pain with nausea and vomiting UA negative for UTI. CTA abd negative for aortic dissection Absence of diarrhea noted Can d/c antibiotics once her blood pressure normalizes again. Gentle IV fluid Appears to be improving so may not need to get GI involved after all. #Hypotension Likely secondary to overmedication with labetalol. Will discontinue labetalol. Will hold other blood pressure medications for now. We will have an IV put in and give 1 L normal saline bolus. If they are unable to get an IV then I will asked Dr. Perez to put in a central line. I suspect once her blood pressure medicines get out of her system that this will resolve and she will be hypertensive again. Then will need to slowly reintroduce blood pressure medications. #Hypernatremiahypotonic fluid advised, follow with lactated Ringer's, rechecking this AM #Acute kidney injurymild elevation of creatinine to 1.15 with severe metabolic acidosis Start lactated Ringer's and follow Monitor potassium level Appreciate Dr. Pierre's assistance #Metabolic acidosisincreasing lactic acid noted Reduce sodium bicarb and start p.o. bicarb twice daily now Uncertain etiology of the lactic acidosis. #Hypertensive urgency Markedly improved with medication adjustment, now hypotensive from overcorrection #GERD PPI #Hx Pulmonary Embolism Continuing Eliquis DVT prophylaxison Eliquis
[2020-12-19] MEDS ORDERED: NIFEdipine XL 60 MG TAB PO SCH (09:00)
[2020-12-19] MEDS ORDERED: Minoxidil 10 MG TAB PO SCH (09:00)
[2020-12-19] MEDS ORDERED: FLU VACC QS2020-21(6MOS UP)/PF 60 MCG/0.5 ML SYRINGE IM ONE (09:00)
[2020-12-19] MEDS: ALPRAZolam 0.5 MG TAB PO SCH ×2 (09:32→22:22)
[2020-12-19] MEDS: Apixaban 5 MG TAB PO SCH ×2 (09:33→22:22)
[2020-12-19] MEDS: hydrALAZINE 25 MG TAB PO SCH (09:33)
[2020-12-19] MEDS: Labetalol 100 MG TAB PO SCH (09:33)
[2020-12-19] MEDS: Vancomycin 1 GM in Premix Bag 1 BAG IVPB SCH ×2 (09:34→22:26)
[2020-12-19] MEDS: Sodium Bicarbonate Tab 325 MG TAB PO SCH ×3 (09:34→22:21)
[2020-12-19] MEDS: HYDROcodone/Acetaminophen 10/325 mg Tablet PO PRN (10:14)
[2020-12-19] MEDS: Ondansetron PF 4 MG/2 ML Vial IVP PRN (11:00)
[2020-12-19] MEDS ORDERED: Sodium Chloride 0.9% 1,000 ML IV SCH ×2 (11:45→15:30)
[2020-12-19 11:58] LABS: Lactic Acid 2.6 mmol/L (0.5-2.2)
[2020-12-19 12:00] LABS: Vancomycin, Trough 28.4 ug/mL
[2020-12-19 14:16] LABS: Anion Gap 15 mmol/L (10-20); BUN (Urea Nitrogen) 27 mg/dL (9.8-20.1); Calc. Creatinine Clearance 46 mL/min (70-130); Calcium 9.1 mg/dL (7.8-10.44); Carbon Dioxide 21 mmol/L (23-31); Chloride 105 mmol/L (98-107); Glucose 143 mg/dL (80-115); Potassium 3.8 mmol/L (3.5-5.1); Sodium 137 mmol/L (136-145)
--- NOTE | 2020-12-19 15:19 | RAD ---
Exam: Chest one view HISTORY:Central line placement Comparison: 10/23/2020 FINDINGS: Lines and tubes: Left-sided subclavian vascular catheter with the distal projecting over the expected region of the superior vena cava. Cardiac silhouette: Normal Aorta: Unremarkable Pulmonary vessels: Normal Costophrenic angles: Clear LUNGS: No masses or consolidation. Pneumothorax: None Osseous abnormalities: None IMPRESSION: Left-sided vascular catheter as above. No pneumothorax.
[2020-12-19] MEDS: Sodium Chloride 0.9% 1,000 ML IV SCH (16:54)
[2020-12-19] MEDS ORDERED: Calcium Carbonate 500 MG ChewTAB PO PRN (17:00)
--- NOTE | 2020-12-19 17:21 | PRG ---
DATE OF SERVICE: 12/19/2020 SUBJECTIVE: The patient was seen and examined, noted with the following vital signs. OBJECTIVE: VITAL SIGNS: Afebrile, temperature 98.1, pulse of 82 to 103 with blood pressure . HEENT: Unremarkable. CARDIOVASCULAR SYSTEM: First and second heart sounds were heard. RESPIRATORY SYSTEM: Clear to auscultation. DIGESTIVE SYSTEM: Revealed a benign abdomen. EXTREMITIES: No peripheral edema. SKIN: No new gross rash. LABORATORY INVESTIGATION: Showed a creatinine of up to 2.53, with BUN of 27, lactic acid of 2.6. IMPRESSION: 1. Acute on chronic kidney disease. This is possibly related to contrast exposure. However, with improvement in the hemodynamics of this patient as evidenced by lower blood pressure, could account for this elevation in creatinine. 2. Metabolic acidosis, improved. 3. Hypertensive urgency. The huge response to antihypertensive medication raises the question of medication compliance. PLAN: 1. We will aggressively deescalate antihypertensive medication in this patient as the introduction on minoxidil may have drastically improved the hemodynamics of this patient. Therefore, we will cut the minoxidil down to 5 mg. Discontinue nifedipine, discontinue hydralazine. I will retain this patient on a much lower dose of labetalol to simplify this patient's antihypertensive medications so as to increase the compliance possibility in this patient. 2. Continue to monitor the renal function for potential worsening of contrast nephropathy. 3. Further management to be dependent on the clinical course. Job ID: [id number]
[2020-12-20] MEDS: Labetalol 100 MG TAB PO SCH ×2 (00:20→09:54)
[2020-12-20] MEDS ORDERED: traZODone HCl 50 MG TAB PO SCH (03:15)
[2020-12-20] MEDS ORDERED: Acetaminophen 500 MG TAB PO SCH (03:15)
[2020-12-20] MEDS: Sodium Chloride 0.9% 1,000 ML IV SCH ×3 (03:39→21:37)
[2020-12-20 04:50] LABS: #Monocytes 0.6 thou/uL (0.11-0.59); %Basophils 0.1 % (0.0-1.0); %Eosinophils 0.2 % (0.0-10.0); %Monocytes 7.3 % (0.0-10.0); %Neutrophils 80.4 % (42.0-75.0); Hemoglobin 9.9 g/dL (12.0-16.0); Mean Corpuscular HGB CONC 32.5 g/dL (32.0-36.0); Mean Corpuscular Hemoglobin 27.7 pg (27.0-31.0); Mean Corpuscular Volume 85.3 fL (78.0-98.0); Mean Platelet Volume 8.2 fL (7.4-10.4); Platelet Count 266 thou/uL (130-400); RBC Distribution Width 14.5 % (11.5-14.5); Red Blood Cell (RBC) Count 3.56 mill/uL (4.20-5.40); White Blood Cell (WBC) Count 8.7 thou/uL (4.8-10.8)
[2020-12-20 05:05] LABS: Anion Gap 14 mmol/L (10-20); BUN (Urea Nitrogen) 31 mg/dL (9.8-20.1); Calc. Creatinine Clearance 45 mL/min (70-130); Calcium 8.5 mg/dL (7.8-10.44); Carbon Dioxide 22 mmol/L (23-31); Chloride 103 mmol/L (98-107); Glucose 111 mg/dL (80-115); Potassium 3.6 mmol/L (3.5-5.1); Sodium 135 mmol/L (136-145)
[2020-12-20] MEDS ORDERED: Hyoscyamine Sulfate 0.125 MG/5 ML UDCUP PO PRN (07:20)
[2020-12-20] MEDS ORDERED: Lidocaine 2% Viscous Solution 10 ML, Aluminum & Magnesium Hydroxide 30 ML SSW SCH (07:30)
[2020-12-20] MEDS: ALPRAZolam 0.5 MG TAB PO SCH ×2 (07:49→21:29)
[2020-12-20] MEDS: Sodium Bicarbonate Tab 325 MG TAB PO SCH ×3 (07:49→21:28)
--- NOTE | 2020-12-20 08:23 | PDOC.HOSPP ---
- Subjective Encounter Date: 12/20/20 Encounter Time: 09:30 Subjective: Patient with severe lower abdominal cramping pain radiating down into her especially right thigh. She reports no bowel movements but has not really been eating since coming to the hospital. She does report that she had a normal bowel movement 2 days ago at home. No evidence of bleeding from her bottom or her bladder. No nausea or vomiting this morning. Her blood pressure is low normal this morning without having given any blood pressure medicines. She has been given a GI cocktail and a dose of Levsin without improvement in her pain. Currently is getting a dose of morphine. - Objective Vital Signs & Weight: Vital Signs (12 hours) Temp Pulse Resp BP Pulse Ox 12/20/20 07:45 99.5 F 121 H 16 108/52 L 95 12/20/20 04:00 98.3 F 102 H 20 98/69 97 12/20/20 00:20 112 H 12/20/20 00:00 97.8 F 110 H 20 99/64 96 Weight Weight 288 lb Result Diagrams: 12/20/20 04:21 12/20/20 04:21 Additional Labs: Accuchecks 12/19/20 11:38 POC Glucose 140 H Hospitalist ROS - Review of Systems Constitutional: denies: fever, chills Respiratory: denies: cough, shortness of breath Cardiovascular: denies: chest pain, palpitations Gastrointestinal: reports: abdominal pain. denies: nausea, vomiting, diarrhea, constipation Genitourinary: denies: dysuria, hematuria - Medication Medications: Active Medications Generic Name Dose Route Start Last Admin Trade Name Freq PRN Reason Stop Dose Admin Hydrocodone Bitart/Acetaminophen 1 tab 12/18/20 02:45 12/19/20 10:14 Hydrocodone/Acetaminophen 10/325 Mg Tablet PO 1 tab Q4H PRN Administration Moderate Pain (4-6) Alprazolam 0.25 mg 12/18/20 09:00 12/20/20 07:49 Alprazolam 0.5 Mg Tab PO 0.25 mg BID ERI Administration Apixaban 5 mg 12/18/20 09:00 12/19/20 22:22 Apixaban 5 Mg Tab PO 5 mg BID ERI Administration Calcium Carbonate 1,000 mg 12/19/20 17:00 12/19/20 17:36 Calcium Carbonate 500 Mg Chewtab PO 1,000 mg DAILYPRN PRN Administration Heartburn or Indigestion Hydralazine HCl 10 mg 12/18/20 02:42 12/18/20 06:11 Hydralazine 20 Mg/Ml Vial SLOW IVP 10 mg Q4H PRN Administration Blood Pressure Vancomycin HCl 1 gm/ Device 200 mls @ 200 mls/hr 12/18/20 09:00 12/19/20 22:26 IVPB 200 mls Q12HR ERI Administration Sodium Chloride 1,000 mls @ 100 mls/hr 12/19/20 16:45 12/20/20 03:39 Normal Saline 0.9% IV 1,000 mls .Q10H ERI Administration Labetalol HCl 100 mg 12/19/20 21:00 12/20/20 00:20 Labetalol 100 Mg Tab PO Not Given BID ERI Ondansetron HCl 4 mg 12/18/20 02:45 12/19/20 11:00 Ondansetron Pf 4 Mg/2 Ml Vial IVP 4 mg Q6H PRN Administration Nausea/Vomiting Pantoprazole Sodium 40 mg 12/19/20 21:00 12/20/20 07:49 Pantoprazole 40 Mg Tab PO 40 mg BID ERI Administration Sodium Bicarbonate 650 mg 12/18/20 09:00 12/20/20 07:49 Sodium Bicarbonate Tab 325 Mg Tab PO 650 mg TID ERI Administration Sodium Chloride 10 ml 12/20/20 09:00 12/20/20 07:50 Flush - Normal Saline 10 Ml Syringe IVF 10 ml Q12HR ERI Administration Hospitalist Exam Vitals: Vital Signs (12 hours) Temp Pulse Resp BP Pulse Ox 12/20/20 07:45 99.5 F 121 H 16 108/52 L 95 12/20/20 04:00 98.3 F 102 H 20 98/69 97 12/20/20 00:20 112 H 12/20/20 00:00 97.8 F 110 H 20 99/64 96 Weight Weight 288 lb General Appearance: awake alert General - other findings: In moderate distress from pain ENT: moist mucosa Heart: RRR, no murmur, no gallops, no rubs Respiratory: CTAB, no wheezes, no rales, no ronchi Gastrointestinal: soft (Obese), non-distended, normal bowel sounds, no palpable masses, no hepatomegaly, no splenomegaly, no guarding, no rigidity, tender to palpation (Especially in the suprapubic area) Extremities: no edema Musculoskeletal: normal tone, normal strength, no muscle wasting Psychiatric: normal affect, normal behavior, A&O x 3 Hosp A/P - Plan #Abdominal pain with nausea and vomiting UA negative for UTI. CTA abd negative for aortic dissection Absence of diarrhea noted Can d/c antibiotics once her blood pressure normalizes again. Gentle IV fluid Pain severely worse overnight, more lower abdomen now. Will ask GI to see. #Hypotension Likely secondary to overmedication with labetalol. Will discontinue labetalol. Will hold other blood pressure medications for now. Improved this AM. Dr. Pierre adjusting meds. Hopefully renal function will improve with better blood pressure. #Hypernatremiaresolved #Acute kidney injurymild elevation of creatinine to 1.15 with severe metabolic acidosis Start lactated Ringer's and follow Monitor potassium level Appreciate Dr. Pierre's assistance #Metabolic acidosisincreasing lactic acid noted Improving with bicarbonate. #Hypertensive urgency Markedly improved with medication adjustment, now hypotensive from overcorrection, suspicious about patient's medication compliance at home. #GERD PPI #Hx Pulmonary Embolism Continuing Eliquis DVT prophylaxison Eliquis, did have a drop in hemoglobin but was bolused 2 L of fluid yesterday. Will monitor H&H closely for any further drops.
--- NOTE | 2020-12-20 08:31 | OP ---
DATE OF PROCEDURE: 12/19/2020 PREOPERATIVE DIAGNOSES: Poor IV access; morbid obesity, 40 BMI; abdominal pain; gastroesophageal reflux disease; pulmonary embolism, on anticoagulation. POSTOPERATIVE DIAGNOSES: Poor IV access; morbid obesity, 40 BMI; abdominal pain; gastroesophageal reflux disease; pulmonary embolism, on anticoagulation. PROCEDURE PERFORMED: Left subclavian vein triple-lumen catheter. ANESTHESIA: 1% Xylocaine. DESCRIPTION OF PROCEDURE: With the patient at bedside, left paraclavicular area was prepared with ChloraPrep and draped in routine fashion. Local anesthetic 1% Xylocaine was infiltrated in the skin and subcutaneous tissue about the operative site. Infraclavicular approach used to cannulate the subclavian vein. J-wire threaded, trocar catheter removed. Seldinger technique used to place the triple-lumen catheter. The J-wire removed. Catheter secured with 3-0 silk suture and each port aspirated blood, flushed with saline solution. Sterile dressing applied. Job ID: [id number]
[2020-12-20 09:43] LABS: Vancomycin, Trough 35.3 ug/mL
[2020-12-20] MEDS: Morphine 2 MG/ML VIAL SLOW IVP PRN ×2 (09:48→13:37)
[2020-12-20] MEDS: Apixaban 5 MG TAB PO SCH ×2 (09:53→21:29)
[2020-12-20] MEDS: Vancomycin 1 GM in Premix Bag 1 BAG IVPB SCH (09:55)
[2020-12-20] MEDS: Minoxidil 2.5 MG TAB PO SCH (09:55)
[2020-12-20] MEDS ORDERED: Vancomycin 1 GM in Premix Bag 1 BAG IVPB SCH (10:00)
[2020-12-20 12:11] LABS: Hemoglobin 9.8 g/dL (12.0-16.0)
--- NOTE | 2020-12-20 15:16 | PRG ---
DATE OF SERVICE: 12/20/2020 SUBJECTIVE: The patient noted with the following vital signs. OBJECTIVE: VITAL SIGNS: Afebrile, temperature 99.5, pulse 108, respiratory rate of 17, O2 saturations of 94%, blood pressure 110/52. HEENT: Unremarkable. CARDIOVASCULAR SYSTEM: First and second heart sounds were heard. RESPIRATORY SYSTEM: Clear to auscultation. DIGESTIVE SYSTEM: Revealed some abdominal cramping. LABORATORY INVESTIGATION: Showed a creatinine of 2.6, BUN of 31. Hemoglobin 9.9. IMPRESSION: 1. Acute kidney injury, likely hemodynamically mediated plus or minus contrast nephropathy. 2. Hypertensive urgency, now much improved, tending towards hypotension. 3. Abdominal pain, query cause. PLAN: 1. The patient's blood pressure has been significantly deescalated and we will be holding the main blood pressure medication until she hemodynamically improves very well. 2. Gentle hydration. Job ID: [id number]
[2020-12-20] MEDS ORDERED: Mineral Oil ENEMA PR SCH (16:45)
[2020-12-20] MEDS ORDERED: tiZANidine HCl 4 MG TAB PO SCH (21:00)
[2020-12-20] MEDS: Polyethylene Glycol 3350 17 GM Packet PO SCH (21:29)
--- NOTE | 2020-12-21 01:28 | CON ---
DATE OF CONSULTATION: 12/20/2020 REASON FOR CONSULTATION: Right lower quadrant abdominal pain. CONSULTING PROVIDER: Arcadio Castaneda MD HISTORY OF PRESENT ILLNESS: The patient is a 65-year-old female with past medical history of morbid obesity, hypertension, hyperlipidemia, GERD, fibromyalgia, and pulmonary embolism, currently on Eliquis, presenting with complaints of abdominal pain. Upon conferring with the patient, she states that she has been having this right lower quadrant abdominal pain that has been present since September of 2020, located in the suprapubic/right lower quadrant characterized as a cramping type sensation, will radiate to the right upper and lower extremity and reach a severity of 10/10. The pain is worse with twisting movements, standing for prolonged periods of time, ambulation, and eating greasy food; better with administration of Zanaflex, Xanax, and pain medications during this hospitalization. Prior to being admitted to the hospital, she states that she would have approximately one solid to semi-solid bowel movement 2-3 times per week, characterized as a [place] 2-4 stool consistency with no significant difficulty with defecation, although she endorsed increased pain with initiation of defecation. With this pain going on since September of last year, she states that it acutely worsened over the weekend that prompted her to seek healthcare assistance at the [facility], for which she was ultimately admitted to the hospital. Since that time, she has been noted to have a mild lactic acidosis with no clear etiology at this time. She did endorse some increased nausea and vomiting with the sudden increase of abdominal pain, but has not experienced any nausea or vomiting over the last few days. Currently, she denies any fevers, chills, hematemesis, melena, hematochezia, dysphagia, odynophagia, or diarrhea. REVIEW OF SYSTEMS: A 10-category review of systems was obtained with all responses negative except for the pertinent positives as listed in HPI. PAST MEDICAL HISTORY: As per HPI. PAST SURGICAL HISTORY: Bilateral shoulder surgeries, appendectomy, hysterectomy, and foot surgery. FAMILY HISTORY: Denies any GI malignancies. SOCIAL HISTORY: Denies any tobacco, alcohol, or illicit drug use. OUTPATIENT MEDICATIONS: Reviewed. ALLERGIES: NUMEROUS ALLERGIES INCLUDING IODINE, PROCHLORPERAZINE, NAPROXEN, ASPIRIN, GABAPENTIN, KETOROLAC, METHYLPHENIDATE, TRAMADOL, PROPOXYPHENE, PREGABALIN, AND CONTRAST DYE. PHYSICAL EXAMINATION: VITAL SIGNS: Temperature 99.2, pulse 107, blood pressure 115/57, respiratory rate 22, and saturating 94% on room air. GENERAL: The patient was lying in bed, in no acute distress. Alert and oriented x4. HEENT: Normocephalic and atraumatic. NECK: Supple. No JVD or scleral icterus noted. CARDIOVASCULAR: Tachycardic rate, but regular rhythm. A 3/6 systolic murmur was best heard at the left lower sternal border. RESPIRATORY: Clear to auscultation bilaterally. ABDOMEN: Hypoactive bowel sounds. Soft, protuberant abdomen secondary to morbid obesity. Tenderness to palpation in the right upper quadrant, periumbilical, and right lower quadrant. EXTREMITIES: Palpation of the right groin, right thigh, and right gasca exhibited increased pain that was not present on the left lower extremity. No cyanosis, clubbing, or edema. LABORATORY DATA: CBC with a white blood cell count of 8.7, hemoglobin 9.9, hematocrit 30.4, platelets 266. Chemistry with a sodium of 135, potassium 3.6, chloride 103, CO2 of 22, BUN 31, creatinine 2.6, glucose 111, lipase 23. Urinalysis yielded increased blood with 1+ bacteria. IMAGING DATA: A CT scan of the abdomen/pelvis was obtained on December 17, 2020, which showed a small hiatal hernia in addition to surgical change consistent with a possible Donald fundoplication. Fat stranding was seen in the upper pole of the left kidney, right kidney, and right adrenal gland, concerning for possible infection. Limited assessment of the bowel demonstrated no evidence of obstruction. There was no evidence of pelvic, retroperitoneal, or mesenteric lymphadenopathy nor was any evidence of free intraperitoneal air or abscess formation. ASSESSMENT AND PLAN: The patient is a 65-year-old female with past medical history of morbid obesity, hypertension, hyperlipidemia, GERD, fibromyalgia, and pulmonary embolism, currently on anticoagulation with Eliquis, presenting with right lower quadrant abdominal pain and right lower extremity pain. Right lower quadrant abdominal pain: The patient is presenting with chronic history of right lower quadrant abdominal pain characterized primarily as a cramping type sensation that has been present since September 2020, but exhibiting worsening over the last 4-5 days. Upon review of the patient, she states that this pain is worse with twisting movements, standing, and walking and when coupled with increased pain with manipulation of the right lower extremity, lends itself more to a musculoskeletal etiology. However, she has very infrequent bowel movements and given the character of the pain and worsening of the pain with eating greasy foods, chronic constipation could be potentially generating this pain as well. However, upon review of the patient's labs on admission, she did have a significant left shift with PMN predominance, concerning for an inflammatory versus infectious process as well as an elevated lactic acid, concerning for an intraabdominal process. However, imaging at this time is not consistent with any particular abnormality and the patient's labs have been improving since admission with only conservative management. At this time, the etiology of her right lower quadrant pain is unclear with the differential including chronic constipation, musculoskeletal origin with referral of pain into the right lower extremity, impingement of a spinal nerve with radiation into the right lower abdomen and right lower extremity. Infectious etiology (unlikely to be GI in origin and no evidence of stranding or abscess on CT). RECOMMENDATIONS: 1. Would place the patient on an aggressive bowel regimen to assist with her constipation in order to alleviate her abdominal pain including a mineral oil enema tonight in addition to MiraLAX b.i.d. Would consider administration of magnesium citrate if not experiencing bowel movement within the next 24 hours. 2. Pain control per primary team, but would attempt to avoid narcotics as they can worsen constipation. 3. Would consider a musculoskeletal origin of her abdominal pain. Would even consider an MRI for further evaluation if the patient's body habitus is minimal to being placed in the scanner. 4. With an increased creatinine, would consider possible nephrolithiasis as an origin of her abdominal pain. We will continue to follow peripherally. Please call with any questions. Job ID: [id number]
[2020-12-21 04:25] LABS: #Lymphocytes 1.2 thou/uL (1.20-3.40); #Monocytes 0.6 thou/uL (0.11-0.59); %Basophils 0.3 % (0.0-1.0); %Eosinophils 0.5 % (0.0-10.0); %Lymphocytes 17.9 % (21.0-51.0); %Monocytes 8.9 % (0.0-10.0); %Neutrophils 72.4 % (42.0-75.0); Hemoglobin 10.3 g/dL (12.0-16.0); Mean Corpuscular HGB CONC 31.3 g/dL (32.0-36.0); Mean Corpuscular Volume 86.4 fL (78.0-98.0); Mean Platelet Volume 8.2 fL (7.4-10.4); Platelet Count 271 thou/uL (130-400); RBC Distribution Width 14.4 % (11.5-14.5); Red Blood Cell (RBC) Count 3.82 mill/uL (4.20-5.40); White Blood Cell (WBC) Count 6.8 thou/uL (4.8-10.8)
[2020-12-21 05:06] LABS: Anion Gap 13 mmol/L (10-20); BUN (Urea Nitrogen) 24 mg/dL (9.8-20.1); Calc. Creatinine Clearance 92 mL/min (70-130); Calcium 8.8 mg/dL (7.8-10.44); Carbon Dioxide 23 mmol/L (23-31); Chloride 108 mmol/L (98-107); Glucose 99 mg/dL (80-115); Potassium 3.6 mmol/L (3.5-5.1); Sodium 140 mmol/L (136-145)
--- NOTE | 2020-12-21 08:30 | PDOC.HOSPP ---
- Subjective Encounter Date: 12/21/20 Encounter Time: 10:50 Subjective: Patient feeling remarkably better today. All of her abdominal pain has resolved since she restarted Zanaflex last night. Thinking back patient remembers stopping her Zanaflex a few days before she got sick. She did not think about that that that might be the cause. She had been on it for some time. Patient would like to go home today. She has been ambulating with a walker as normal at home. - Objective Vital Signs & Weight: Vital Signs (12 hours) Temp Pulse Resp BP Pulse Ox 12/21/20 07:38 97.2 F L 71 14 137/68 96 12/21/20 04:00 98.5 F 98 20 149/76 H 95 12/21/20 00:00 97.9 F 76 20 116/63 97 Weight Weight 288 lb I&O: 12/20/20 12/21/20 12/22/20 06:59 06:59 06:59 Intake Total 2580 Output Total 1500 Balance 1080 Result Diagrams: 12/21/20 04:17 12/21/20 04:17 Hospitalist ROS - Review of Systems Constitutional: denies: fever, chills Respiratory: denies: cough, shortness of breath Cardiovascular: denies: chest pain, palpitations Gastrointestinal: denies: nausea, vomiting, abdominal pain, diarrhea, constipation - Medication Medications: Active Medications Generic Name Dose Route Start Last Admin Trade Name Freq PRN Reason Stop Dose Admin Hydrocodone Bitart/Acetaminophen 1 tab 12/18/20 02:45 12/19/20 10:14 Hydrocodone/Acetaminophen 10/325 Mg Tablet PO 1 tab Q4H PRN Administration Moderate Pain (4-6) Alprazolam 0.25 mg 12/18/20 09:00 12/20/20 21:29 Alprazolam 0.5 Mg Tab PO 0.25 mg BID ERI Administration Apixaban 5 mg 12/18/20 09:00 12/20/20 21:29 Apixaban 5 Mg Tab PO 5 mg BID ERI Administration Calcium Carbonate 1,000 mg 12/19/20 17:00 12/19/20 17:36 Calcium Carbonate 500 Mg Chewtab PO 1,000 mg DAILYPRN PRN Administration Heartburn or Indigestion Hydralazine HCl 10 mg 12/18/20 02:42 12/18/20 06:11 Hydralazine 20 Mg/Ml Vial SLOW IVP 10 mg Q4H PRN Administration Blood Pressure Hyoscyamine Sulfate 0.125 mg 12/20/20 07:20 12/20/20 09:25 Hyoscyamine Sulfate 0.125 Mg/5 Ml Udcup PO 0.125 mg Q4H PRN Administration Abdominal pain Sodium Chloride 1,000 mls @ 100 mls/hr 12/19/20 16:45 12/20/20 21:37 Normal Saline 0.9% IV 1,000 mls .Q10H ERI Administration Minoxidil 5 mg 12/20/20 09:00 12/20/20 09:55 Minoxidil 2.5 Mg Tab PO Not Given DAILY ERI Morphine Sulfate 2 mg 12/18/20 02:47 12/20/20 13:37 Morphine 2 Mg/Ml Vial SLOW IVP 2 mg Q4H PRN Administration Pain Ondansetron HCl 4 mg 12/18/20 02:45 12/19/20 11:00 Ondansetron Pf 4 Mg/2 Ml Vial IVP 4 mg Q6H PRN Administration Nausea/Vomiting Pantoprazole Sodium 40 mg 12/19/20 21:00 12/20/20 21:29 Pantoprazole 40 Mg Tab PO 40 mg BID ERI Administration Polyethylene Glycol 17 gm 12/20/20 21:00 12/20/20 21:29 Polyethylene Glycol 3350 17 Gm Packet PO 17 gm BID ERI Administration Sodium Bicarbonate 650 mg 12/18/20 09:00 12/20/20 21:28 Sodium Bicarbonate Tab 325 Mg Tab PO 650 mg TID ERI Administration Sodium Chloride 10 ml 12/20/20 09:00 12/20/20 21:40 Flush - Normal Saline 10 Ml Syringe IVF 10 ml Q12HR ERI Administration Hospitalist Exam Vitals: Vital Signs (12 hours) Temp Pulse Resp BP Pulse Ox 12/21/20 07:38 97.2 F L 71 14 137/68 96 12/21/20 04:00 98.5 F 98 20 149/76 H 95 12/21/20 00:00 97.9 F 76 20 116/63 97 Weight Weight 288 lb General Appearance: NAD, awake alert ENT: moist mucosa Heart: RRR, no murmur, no gallops, no rubs Respiratory: CTAB, no wheezes, no rales, no ronchi Gastrointestinal: soft, non-tender, non-distended, normal bowel sounds Psychiatric: normal affect, normal behavior, A&O x 3 Hosp A/P - Plan #Abdominal pain with nausea and vomiting Completely resolved with resumption of Zanaflex. I believe that she was actually having a withdrawal syndrome from Zanaflex. #Hypotension Resolved. #Hypernatremiaresolved #Acute kidney injury normalizing again after bump from hypotension Appreciate Dr. Pierre's assistance #Metabolic acidosisincreasing lactic acid noted Improving with bicarbonate. #Hypertensive urgency Blood pressure now completely controlled with just a single dose of minoxidil 5 mg daily. I did discuss this with Dr. Pierre and given her blood pressure lability previously and good response to this currently we will just keep her on minoxidil and stop her other blood pressure medicines. He will see her in his clinic in 2 to 3 weeks and and discuss continuation of this medicine versus switching to another 1. #GERD PPI #Hx Pulmonary Embolism Continuing Eliquis DVT prophylaxison Eliquis, H/H stable after dilution from fluids. Disposition: Home with home health for physical therapy.
[2020-12-21] MEDS: Ondansetron PF 4 MG/2 ML Vial IVP PRN (08:38)
[2020-12-21] MEDS: ALPRAZolam 0.5 MG TAB PO SCH (08:39)
[2020-12-21] MEDS: Minoxidil 2.5 MG TAB PO SCH (08:39)
[2020-12-21] MEDS: Apixaban 5 MG TAB PO SCH (08:40)
[2020-12-21] MEDS: Polyethylene Glycol 3350 17 GM Packet PO SCH (08:51)
[2020-12-21] MEDS ORDERED: tiZANidine HCl 4 MG TAB PO SCH (09:00)
[2020-12-21 10:53] LABS: Vancomycin, Random 18.7 ug/mL (See Comment)
--- NOTE | 2020-12-21 11:05 | PDOC.DS.DS ---
Provider Date of Admission: 12/18/20 02:45 Date of Discharge: 12/21/20 Admitting Provider: Cathy Saxena MD Consultations: Gastroentrology (Dr. Ramirez), Nephrology (Dr. Pierre) Primary Care Physician: [facility] Course Hospital Course: This is a 65-year-old -[place] female with a history of chronic pain who came in with worsening abdominal pain some nausea and vomiting and labile blood pressures with severe hypertensive emergency. She also had some elevation of her creatinine. Patient had negative CTs in the ER for aortic dissection or other intra-abdominal abnormalities. She had blood pressure medications and antibiotics started. Her cultures came back negative and so inbox were discontinued. With introduction of blood pressure medications her blood pressure came abnormal and then dropped hypotensive. This caused an increase in her creatinine as well. Patient had of a central venous line placed and to liquid given to get her blood pressure up and all blood pressure medicines were stopped. Eventually Dr. Pierre gave only minoxidil 5 mg daily and her blood pressures were well controlled. Patient had continued severe abdominal pain moving down to the lower abdomen during her hospitalization. She had had some mildly elevated lactic acid as well and so Dr. Ramirez with GI was consulted. He determined that she was unlikely to have ischemic colitis or other etiology but did start her on some laxatives for constipation. During her hospitalization patient remembered that she used to be on Zanaflex which she had stopped 2 to 3 days before her symptoms began. We reintroduced her Zanaflex and all of her new abdominal symptoms stopped. It is likely that she was having withdrawal syndrome. Patient was doing well without abdominal pain, nausea, vomiting and was ambulating well with a walker which she uses at home the day of discharge. She was eager to be go home and we are discharging her home to follow-up with Dr. Pierre as an outpatient. Pertinent Studies: CT abdomen and pelvis: 12/17/2020 COMPARISON: 07/03/2020 HISTORY: Pain all over TECHNIQUE: Axial CT imaging at 5 mm intervals from the lung bases through the pubic symphysis with IV contrast. Coronal and sagittal reformatted imaging obtained. FINDINGS: The imaged lung bases demonstrate no acute findings. No free intraperitoneal air is seen. The gallbladder is mildly distended, a stable finding. The liver and spleen appear grossly unremarkable. There is a small/moderate fluid-filled hiatal hernia with a configuration suggesting possible prior Donald fundoplication. Clinical correlation required. There is mild stranding of the fat superior to the upper pole of the left kidney and adjacent to the left adrenal gland. There is also stranding of the fat adjacent to the right adrenal gland and superior pole of the right kidney. This stranding is nonspecific and new when compared to the prior exam. There is no discrete pancreatic abnormality appreciated. There is a cyst in the upper pole of the left kidney. Limited assessment of the bowel demonstrates no evidence for obstruction. The stomach is moderately distended and filled with gas and small volume fluid. The vascular structures of the abdomen/pelvis appear patent. There is no evidence for aneurysm or dissection of the abdominal aorta. The abdominal aorta appears stable when compared to the prior examination. No pelvic, retroperitoneal, or mesenteric lymphadenopathy is noted. Review of the osseous structures demonstrates multilevel lower lumbar spine facet hypertrophy. There is no worrisome lytic or blastic bone lesion. Prominent degenerative changes are noted at the L5-S1 level. IMPRESSION: Nonspecific mild fat stranding adjacent to bilateral adrenal glands and the upper pole of bilateral kidneys. Findings may signify nonspecific inflammatory change. Laboratory assessment is advised with regard to the kidneys, adrenal glands and the pancreas to exclude inflammatory change involving these organs.. No evidence for small bowel obstruction, free intraperitoneal air, or abscess formation. Multiple chronic findings as detailed above. CT angiogram chest: 12/17/2020 COMPARISON: None HISTORY: Chest pain TECHNIQUE: Axial CT imaging at 2.5 mm intervals through the chest with IV contrast using CT angiogram protocol. Coronal and sagittal 3-D reformatted imaging obtained. FINDINGS: No lymphadenopathy seen in the chest. There is a small/moderate sized hiatal hernia. Imaged upper abdomen demonstrates stranding of the fat adjacent to bilateral adrenal glands and the upper poles of bilateral kidneys, better assessed on dedicated CT of the abdomen and pelvis. No pleural, pericardial, or mediastinal fluid. Motion artifact, body habitus, and timing of the contrast bolus limited assessment for pulmonary arterial embolism. No obvious central pulmonary arterial embolism is seen involving the pulmonary arterial trunk or either main pulmonary artery. Distal pulmonary arterial branches are suboptimally assessed. There is no pneumothorax evident on either side. The lung parenchyma demonstrates no acute abnormality. No endobronchial lesion is seen. There is no acute osseous abnormality. IMPRESSION: No evidence for central pulmonary arterial embolism. Procedures: Left subclavian triple-lumen catheter placed by Dr. Perez Resuscitation Status: 12/18/20 02:45 Resuscitation Status Routine Resuscitation Status: FULL: Full Resuscitation Lab Results: 12/21/20 04:17 12/21/20 04:17 Abnormal Lab Results - Last 48 hrs 12/19/20 11:32: Carbon Dioxide 21 L, BUN 27 H, Creatinine 2.53 H 12/19/20 11:32: Lactic Acid 2.6 H 12/20/20 04:21: Sodium 135 L, Carbon Dioxide 22 L, BUN 31 H, Creatinine 2.60 H 12/20/20 04:21: RBC 3.56 L, Hgb 9.9 L, Hct 30.4 L, Neutrophils % 80.4 H, Lymphocytes % 12.0 L, Neutrophils # 7.0 H, Lymphocytes # 1.0 L, Monocytes # 0.6 H 12/20/20 08:26: Vancomycin Trough 35.3 H* 12/20/20 11:47: Hgb 9.8 L, Hct 31.3 L 12/21/20 04:17: Chloride 108 H, BUN 24 H, Creatinine 1.28 H 12/21/20 04:17: RBC 3.82 L, Hgb 10.3 L, Hct 33.0 L, MCHC 31.3 L, Lymphocytes % 17.9 L, Monocytes # 0.6 H Microbiology - Entire Visit 12/18/20 03:09 Venous blood - Left Hand Blood Culture - Preliminary NO GROWTH AT 48 HOURS 12/18/20 03:09 Venous blood - Right Hand Blood Culture - Preliminary NO GROWTH AT 48 HOURS Vitals: Vital Signs (12 hours) Temp Pulse Resp BP Pulse Ox 12/21/20 07:38 97.2 F L 71 14 137/68 96 12/21/20 04:00 98.5 F 98 20 149/76 H 95 12/21/20 00:00 97.9 F 76 20 116/63 97 Weight Weight 288 lb Physical Exam: The patient was seen and examined on the day of discharge. Problem Assessment: #Abdominal pain with nausea and vomiting due to Zanaflex withdrawal. #Hypotension Resolved. #Hypernatremia Resolved. #Acute kidney injury #Metabolic acidosis I #Hypertensive urgency resolved #GERD #Hx Pulmonary Embolism Plan of Treatment: Patient will be discharged on just minoxidil and to continue her Zanaflex at home. She is to follow-up with Dr. Pierre in 2 to 3 weeks. Time Spent in discharge related activities (mins): 32 Plan Prescriptions: Minoxidil 5 mg PO DAILY #60 tab Home Medications: Medication Instructions Recorded Confirmed Type tiZANidine HCl [Zanaflex] 8 mg PO TID 05/15/13 12/19/20 History ALPRAZolam 0.5 tab PO BID 05/14/17 12/18/20 History Apixaban [Eliquis] 5 mg PO BID 30 Days #60 tablet 05/09/20 12/18/20 Rx Acetaminophen With Codeine 1 tab PO Q6HR 12/18/20 12/18/20 History [Acetaminophen/Codeine #4] Minoxidil 5 mg PO DAILY #60 tab 12/21/20 Rx Allergies: iodine Allergy (Intermediate, Verified 12/19/20 02:51) Hives prochlorperazine edisylate [From Compazine] Allergy (Intermediate, Verified 01/14/20 13:31) Rash breaks her out and makes her sick naproxen sodium [From Aleve] Allergy (Mild, Verified 01/14/20 13:31) makes her heart beat too fast aspirin Allergy (Verified 01/14/20 13:31) STOMACH DISTRESS gabapentin Allergy (Verified 01/14/20 13:31) ketorolac [From Toradol] Allergy (Verified 01/14/20 13:31) Hives methylphenidate [From Ritalin] Allergy (Verified 01/14/20 13:31) prochlorperazine Allergy (Verified 01/14/20 13:31) tramadol Allergy (Verified 01/14/20 13:31) prochlorperazine maleate [From Compazine] Adverse Reaction (Severe, Verified 01/14/20 13:31) Rash breaks her out and makes her sick propoxyphene napsylate [From Darvocet-N 100] Adverse Reaction (Intermediate, Verified 01/14/20 13:31) Emesis makes her vomit pregabalin [From Lyrica] Adverse Reaction (Unknown, Verified 01/14/20 13:31) it makes her see things IPV DYE Allergy (Severe, Uncoded 01/14/20 13:31) Hives makes her vomit and gives her hives Activity:: Activity as Tolerated Nourishment:: Heart Healthy Diet, Low Sodium Diet Therapies:: Home Health, Physical Therapy Equipment/Supplies:: Walker (Has a rolling walker at home) IV Therapy:: Not Applicable Referrals: [facility] [Primary Care Provider] - Gabby Camarena MD [Active] - 2-3 Weeks Disposition: HOME HEALTH Quality CORE MEASURES:: N/A
[2020-12-21] MEDS: Sodium Chloride 0.9% 1,000 ML IV SCH (11:22)
[2020-12-21 11:42] VITALS: BP 136/71; TEMP 98.3
== END 2020-12-21 13:09 | disposition home or self-care (01) | DRG 897 ==
LOC: ERS 15:16 → ERHOLD 23:13 → OBSVTOIN 12-18 02:45 → 2NO 12-19 01:58
PROVIDERS: ADMIT Student in an Organized Health Care Education/Training Program; ATTEND Emergency Medicine
PROC: 02HV33Z Insertion of Infusion Device into Superior Vena Cava, Percutaneous Approach (ICD-10-PCS; principal; 2020-12-19)
DX: F19.239 Other psychoactive substance dependence with withdrawal, unspecified (principal); E87.0 Hyperosmolality and hypernatremia; N17.9 Acute kidney failure, unspecified; E87.2 Acidosis; Z68.41 Body mass index [BMI] 40.0-44.9, adult; I27.82 Chronic pulmonary embolism; I16.0 Hypertensive urgency; E66.01 Morbid (severe) obesity due to excess calories; E78.5 Hyperlipidemia, unspecified; K21.9 Gastro-esophageal reflux disease without esophagitis; I95.2 Hypotension due to drugs; T44.8X5A Adverse effect of centrally-acting and adrenergic-neuron-blocking agents, initial encounter; Y92.239 Unspecified place in hospital as the place of occurrence of the external cause; I10 Essential (primary) hypertension; M79.7 Fibromyalgia; E78.00 Pure hypercholesterolemia, unspecified; Z90.710 Acquired absence of both cervix and uterus; Z98.890 Other specified postprocedural states; Z88.8 Allergy status to other drugs, medicaments and biological substances; Z88.6 Allergy status to analgesic agent; Z91.041 Radiographic dye allergy status; Z90.49 Acquired absence of other specified parts of digestive tract; Z79.899 Other long term (current) drug therapy; Z79.01 Long term (current) use of anticoagulants; Z20.822 Contact with and (suspected) exposure to COVID-19
CPT/HCPCS: 36415; 36416; 71045; 71275; 74177; 80048; 80053; 80202; 80306; 80307; 81003; 81015; 82010; 82553; 83605; 83690; 84484; 85007; 85025; 85027; 86140; 87040; 87635; 93005; 94760; 96365; 96366; 96367; 96372; 96375; 96376; C9113; G0378; J0360; J0500; J0692; J1170; J1200; J1956; J2060; J2270; J2405; J2765; J2930; J3370; J7070; Q9967; S0028; U0003; U0005

== ENCOUNTER 2021-01-15 23:51 | Emergency (ER) | payer OTHER ==
[2021-01-16] MEDS ORDERED: Morphine 10 MG/ML VIAL ONE (01:51)
== END 2021-01-16 01:55 | disposition home or self-care (01) ==
LOC: ERS 23:51
DX: M79.7 Fibromyalgia (principal); G89.29 Other chronic pain; I10 Essential (primary) hypertension; E78.00 Pure hypercholesterolemia, unspecified
CPT/HCPCS: 96372; 99283; J2270

== ENCOUNTER 2021-02-17 04:08 | Emergency (ER) | payer OTHER ==
[2021-02-17] MEDS ORDERED: Ondansetron PF 4 MG/2 ML Vial ONE (04:24)
[2021-02-17] MEDS ORDERED: Ondansetron ODT 4 MG TAB ONE (04:47)
[2021-02-17] MEDS ORDERED: Haloperidol Lactate 5 MG/ML VIAL ONE (05:40)
[2021-02-17 05:43] LABS: #Eosinphils 0.1 thou/uL (0.0-0.7); #Lymphocytes 1.3 thou/uL (1.20-3.40); #Monocytes 0.7 thou/uL (0.11-0.59); #Neutrophils 4.7 thou/uL (1.40-6.50); %Basophils 0.4 % (0.0-1.0); %Eosinophils 1.1 % (0.0-10.0); %Lymphocytes 18.6 % (21.0-51.0); %Monocytes 10.3 % (0.0-10.0); %Neutrophils 69.6 % (42.0-75.0); Hemoglobin 11.9 g/dL (12.0-16.0); Mean Corpuscular HGB CONC 32.1 g/dL (32.0-36.0); Mean Corpuscular Hemoglobin 26.9 pg (27.0-31.0); Mean Corpuscular Volume 83.8 fL (78.0-98.0); Mean Platelet Volume 9.6 fL (7.4-10.4); Platelet Count 280 thou/uL (130-400); RBC Distribution Width 15.2 % (11.5-14.5); White Blood Cell (WBC) Count 6.8 thou/uL (4.8-10.8)
[2021-02-17 05:57] LABS: ALT (SGPT) 12 U/L (8-55); AST (SGOT) 21 U/L (5-34); Albumin 4.2 g/dL (3.4-4.8); Alkaline Phosphatase 82 U/L (40-110); Anion Gap 17 mmol/L (10-20); BUN (Urea Nitrogen) 14 mg/dL (9.8-20.1); Bilirubin, Total 0.4 mg/dL (0.2-1.2); Calc. Creatinine Clearance 0 mL/min (70-130); Calcium 10.1 mg/dL (7.8-10.44); Carbon Dioxide 19 mmol/L (23-31); Chloride 110 mmol/L (98-107); Globulin 3.5 g/dL (2.4-3.5); Glucose 133 mg/dL (80-115); Lipase 9 U/L (8-78); Potassium 4.7 mmol/L (3.5-5.1); Protein, Total 7.7 g/dL (5.8-8.1); Sodium 141 mmol/L (136-145)
[2021-02-17 06:21] LABS: Bacteria/HPF None Seen HPF (None Seen); Bilirubin Negative (Negative); Blood, Urine 2+ (Negative); Clarity Clear (Clear); Glucose, Urine (Dipstick) Normal (Negative); Ketone, Urine Negative (Negative); Leukocyte Negative Leu/uL (Negative); Nitrite Negative (Negative); Protein, Urine (Dipstick) 30 mg/dL (Neg-Trace); Squamous Epithelial 0-3 HPF (0-3); Urobilinogen Normal mg/dL (Less than 2); WBC/HPF 0-3 HPF (0-3); pH, Urine 5.5 (5.0-9.0)
== END 2021-02-17 07:20 | disposition home or self-care (01) ==
LOC: ERS 04:08
DX: G89.29 Other chronic pain (principal); R10.84 Generalized abdominal pain; I10 Essential (primary) hypertension; E78.00 Pure hypercholesterolemia, unspecified; M79.7 Fibromyalgia
CPT/HCPCS: 36415; 80053; 81003; 81015; 83690; 85025; 87086; 93005; 96372; J0500; J1630; J2405; Q0162

== ENCOUNTER 2021-03-26 01:42 | Emergency (ER) | payer OTHER ==
[2021-03-26] MEDS ORDERED: diphenhydrAMINE 50 MG/ML VIAL ONE (02:41)
[2021-03-26] MEDS ORDERED: Famotidine/PF 20 mg/2ml Vial ONE (02:42)
[2021-03-26] MEDS ORDERED: methylPREDNISolone Sod Succ 40 MG VIAL ONE (02:42)
[2021-03-26 03:28] LABS: #Eosinphils 0.1 thou/uL (0.0-0.7); #Lymphocytes 1.6 thou/uL (1.20-3.40); #Monocytes 0.4 thou/uL (0.11-0.59); #Neutrophils 5.4 thou/uL (1.40-6.50); %Basophils 0.6 % (0.0-1.0); %Eosinophils 1.3 % (0.0-10.0); %Lymphocytes 21.3 % (21.0-51.0); %Monocytes 5.4 % (0.0-10.0); %Neutrophils 71.4 % (42.0-75.0); Hemoglobin 13.8 g/dL (12.0-16.0); Mean Corpuscular HGB CONC 32.7 g/dL (32.0-36.0); Mean Corpuscular Hemoglobin 27.2 pg (27.0-31.0); Mean Corpuscular Volume 83.3 fL (78.0-98.0); Mean Platelet Volume 8.7 fL (7.4-10.4); Platelet Count 378 thou/uL (130-400); RBC Distribution Width 15.6 % (11.5-14.5); Red Blood Cell (RBC) Count 5.06 mill/uL (4.20-5.40); White Blood Cell (WBC) Count 7.6 thou/uL (4.8-10.8)
[2021-03-26 03:50] LABS: ALT (SGPT) 9 U/L (8-55); AST (SGOT) 19 U/L (5-34); Albumin 4.8 g/dL (3.4-4.8); Alkaline Phosphatase 84 U/L (40-110); Anion Gap 16 mmol/L (10-20); BUN (Urea Nitrogen) 12 mg/dL (9.8-20.1); Bilirubin, Total 0.4 mg/dL (0.2-1.2); Calc. Creatinine Clearance 0 mL/min (70-130); Calcium 10.6 mg/dL (7.8-10.44); Carbon Dioxide 25 mmol/L (23-31); Chloride 105 mmol/L (98-107); Globulin 4.1 g/dL (2.4-3.5); Glucose 128 mg/dL (80-115); Lipase 11 U/L (8-78); Potassium 3.7 mmol/L (3.5-5.1); Protein, Total 8.9 g/dL (5.8-8.1); Sodium 142 mmol/L (136-145)
[2021-03-26] MEDS ORDERED: Promethazine HCl 25 MG/ML VIAL ONE (06:02)
[2021-03-26] MEDS ORDERED: Morphine 4 MG/ML VIAL ONE (06:02)
== END 2021-03-26 06:30 | disposition home or self-care (01) ==
LOC: ERS 01:42
DX: R10.32 Left lower quadrant pain (principal); R11.2 Nausea with vomiting, unspecified; I10 Essential (primary) hypertension; E78.00 Pure hypercholesterolemia, unspecified; R21 Rash and other nonspecific skin eruption; Z87.19 Personal history of other diseases of the digestive system
CPT/HCPCS: 71045; 74176; 80053; 83690; 84484; 85025; 93005; 96372; 96374; 96375; J1200; J2270; J2550; J2920; S0028

== ENCOUNTER 2021-06-18 04:31 | Emergency (ER) | payer OTHER ==
[2021-06-18] MEDS ORDERED: Ondansetron PF 4 MG/2 ML Vial ONE (05:29)
[2021-06-18 07:02] LABS: #Lymphocytes 0.7 thou/uL (1.20-3.40); #Monocytes 0.2 thou/uL (0.11-0.59); #Neutrophils 9.7 thou/uL (1.40-6.50); %Basophils 0.1 % (0.0-1.0); %Eosinophils 0.2 % (0.0-10.0); %Lymphocytes 6.8 % (21.0-51.0); %Monocytes 1.8 % (0.0-10.0); %Neutrophils 91.1 % (42.0-75.0); Hemoglobin 13.3 g/dL (12.0-16.0); Mean Corpuscular HGB CONC 31.5 g/dL (32.0-36.0); Mean Corpuscular Hemoglobin 27.7 pg (27.0-31.0); Mean Corpuscular Volume 87.9 fL (78.0-98.0); Mean Platelet Volume 8.7 fL (7.4-10.4); Platelet Count 356 thou/uL (130-400); RBC Distribution Width 15.1 % (11.5-14.5); White Blood Cell (WBC) Count 10.7 thou/uL (4.8-10.8)
[2021-06-18 07:19] LABS: ALT (SGPT) 11 U/L (8-55); AST (SGOT) 19 U/L (5-34); Albumin 4.7 g/dL (3.4-4.8); Alkaline Phosphatase 77 U/L (40-110); Anion Gap 19 mmol/L (10-20); BUN (Urea Nitrogen) 16 mg/dL (9.8-20.1); Bilirubin, Total 0.4 mg/dL (0.2-1.2); Calc. Creatinine Clearance 0 mL/min (70-130); Calcium 10.6 mg/dL (7.8-10.44); Carbon Dioxide 19 mmol/L (23-31); Chloride 107 mmol/L (98-107); Globulin 4.1 g/dL (2.4-3.5); Glucose 145 mg/dL (80-115); Lipase 17 U/L (8-78); Potassium 3.5 mmol/L (3.5-5.1); Protein, Total 8.8 g/dL (5.8-8.1); Sodium 141 mmol/L (136-145)
== END 2021-06-18 08:26 | disposition home or self-care (01) ==
LOC: ERS 04:31
DX: K59.00 Constipation, unspecified (principal); R10.13 Epigastric pain; I10 Essential (primary) hypertension; E78.00 Pure hypercholesterolemia, unspecified
CPT/HCPCS: 36415; 74022; 80053; 83690; 85025; 96372; J0500; J2405

== ENCOUNTER 2021-08-24 01:56 | Emergency (ER) | payer OTHER ==
[2021-08-24 03:10] LABS: #Lymphocytes 1.4 thou/uL (1.20-3.40); #Monocytes 0.4 thou/uL (0.11-0.59); #Neutrophils 5.7 thou/uL (1.40-6.50); %Basophils 0.6 % (0.0-1.0); %Eosinophils 0.6 % (0.0-10.0); %Lymphocytes 18.4 % (21.0-51.0); %Monocytes 5.7 % (0.0-10.0); %Neutrophils 74.8 % (42.0-75.0); Hemoglobin 13.8 g/dL (12.0-16.0); Mean Corpuscular HGB CONC 32.5 g/dL (32.0-36.0); Mean Corpuscular Hemoglobin 28.3 pg (27.0-31.0); Mean Platelet Volume 9.6 fL (7.4-10.4); Platelet Count 299 thou/uL (130-400); RBC Distribution Width 14.2 % (11.5-14.5); Red Blood Cell (RBC) Count 4.86 mill/uL (4.20-5.40); White Blood Cell (WBC) Count 7.6 thou/uL (4.8-10.8)
[2021-08-24 03:18] LABS: Bilirubin Negative (Negative); Blood, Urine 3+ (Negative); Clarity Clear (Clear); Glucose, Urine (Dipstick) Normal (Negative); Ketone, Urine Trace mg/dL (Negative); Leukocyte Negative Leu/uL (Negative); Nitrite Negative (Negative); Protein, Urine (Dipstick) 100 mg/dL (Neg-Trace); Specific Gravity, Urine 1.016 (1.002-1.036); Urobilinogen Normal mg/dL (Less than 2); pH, Urine 5.5 (5.0-9.0)
[2021-08-24 03:26] LABS: Squamous Epithelial 0-3 HPF (0-3)
[2021-08-24 03:34] LABS: ALT (SGPT) 13 U/L (8-55); AST (SGOT) 16 U/L (5-34); Albumin 4.5 g/dL (3.4-4.8); Alkaline Phosphatase 71 U/L (40-110); Anion Gap 16 mmol/L (10-20); BUN (Urea Nitrogen) 10 mg/dL (9.8-20.1); Bilirubin, Total 0.5 mg/dL (0.2-1.2); Calc. Creatinine Clearance 0 mL/min (70-130); Calcium 10.4 mg/dL (7.8-10.44); Carbon Dioxide 23 mmol/L (23-31); Chloride 106 mmol/L (98-107); Globulin 3.7 g/dL (2.4-3.5); Glucose 118 mg/dL (80-115); Lipase 8 U/L (8-78); Potassium 3.6 mmol/L (3.5-5.1); Protein, Total 8.2 g/dL (5.8-8.1); Sodium 141 mmol/L (136-145)
== END 2021-08-24 04:20 | disposition home or self-care (01) ==
LOC: ERS 01:56
DX: R10.30 Lower abdominal pain, unspecified (principal); G89.29 Other chronic pain; I10 Essential (primary) hypertension; E78.00 Pure hypercholesterolemia, unspecified; M79.7 Fibromyalgia
CPT/HCPCS: 36415; 80053; 81003; 81015; 83690; 85025; 93005; 96372; J0500

== ENCOUNTER 2021-09-07 06:19 | Emergency (ER) | payer OTHER ==
[2021-09-07] MEDS ORDERED: Ondansetron PF 4 MG/2 ML Vial ONE (07:12)
[2021-09-07] MEDS ORDERED: Mag-Al 1200 mg/1200 mg/30 ML UDCUP ONE (07:12)
[2021-09-07] MEDS ORDERED: Lidocaine Viscous Sol 2% 15 ml UD Cup ONE (07:12)
[2021-09-07 08:36] LABS: Bacteria/HPF 1+ HPF (None Seen); Bilirubin Negative (Negative); Blood, Urine 2+ (Negative); Clarity Clear (Clear); Glucose, Urine (Dipstick) 70 mg/dL (Negative); Ketone, Urine 10 mg/dL (Negative); Leukocyte Negative Leu/uL (Negative); Nitrite Negative (Negative); Protein, Urine (Dipstick) 600 mg/dL (Neg-Trace); RBC/HPF 21-50 HPF (0-3); Specific Gravity, Urine 1.015 (1.002-1.036); Squamous Epithelial None Seen HPF (0-3); Urobilinogen Normal mg/dL (Less than 2); WBC/HPF 0-3 HPF (0-3); pH, Urine 7.5 (5.0-9.0)
[2021-09-07 08:51] LABS: #Lymphocytes 0.8 thou/uL (1.20-3.40); #Monocytes 0.3 thou/uL (0.11-0.59); #Neutrophils 7.4 thou/uL (1.40-6.50); %Basophils 0.1 % (0.0-1.0); %Eosinophils 0.2 % (0.0-10.0); %Lymphocytes 9.6 % (21.0-51.0); %Monocytes 3.1 % (0.0-10.0); Hemoglobin 15.3 g/dL (12.0-16.0); Mean Corpuscular HGB CONC 32.1 g/dL (32.0-36.0); Mean Corpuscular Hemoglobin 28.1 pg (27.0-31.0); Mean Corpuscular Volume 87.5 fL (78.0-98.0); Platelet Count 295 thou/uL (130-400); RBC Distribution Width 14.2 % (11.5-14.5); Red Blood Cell (RBC) Count 5.43 mill/uL (4.20-5.40); White Blood Cell (WBC) Count 8.5 thou/uL (4.8-10.8)
[2021-09-07] MEDS ORDERED: Morphine 4 MG/ML VIAL ONE (08:58)
[2021-09-07 09:14] LABS: ALT (SGPT) 15 U/L (8-55); AST (SGOT) 21 U/L (5-34); Albumin 5.1 g/dL (3.4-4.8); Alkaline Phosphatase 79 U/L (40-110); Anion Gap 23 mmol/L (10-20); BUN (Urea Nitrogen) 9 mg/dL (9.8-20.1); Bilirubin, Total 0.5 mg/dL (0.2-1.2); Calc. Creatinine Clearance 0 mL/min (70-130); Calcium 10.9 mg/dL (7.8-10.44); Carbon Dioxide 19 mmol/L (23-31); Chloride 106 mmol/L (98-107); Glucose 126 mg/dL (80-115); Lipase 9 U/L (8-78); Potassium 3.7 mmol/L (3.5-5.1); Protein, Total 9.1 g/dL (5.8-8.1); Sodium 144 mmol/L (136-145)
== END 2021-09-07 11:00 | disposition home or self-care (01) ==
LOC: ERS 06:19
DX: R10.84 Generalized abdominal pain (principal); G89.29 Other chronic pain; R11.0 Nausea; I10 Essential (primary) hypertension; E78.00 Pure hypercholesterolemia, unspecified
CPT/HCPCS: 36415; 74176; 80053; 81015; 83690; 85025; 96372; J0500; J2270; J2405

== ENCOUNTER 2022-02-18 23:44 | Emergency (ER) | payer OTHER ==
[2022-02-19] MEDS ORDERED: cloNIDine 0.1 MG TAB ONE ×2 (00:14→01:23)
[2022-02-19 00:46] LABS: #Eosinphils 0.1 thou/uL (0.0-0.7); #Lymphocytes 1.6 thou/uL (1.20-3.40); #Monocytes 0.5 thou/uL (0.11-0.59); #Neutrophils 2.7 thou/uL (1.40-6.50); %Basophils 0.9 % (0.0-1.0); %Eosinophils 2.4 % (0.0-10.0); %Lymphocytes 32.7 % (21.0-51.0); %Monocytes 9.8 % (0.0-10.0); %Neutrophils 54.2 % (42.0-75.0); Hemoglobin 13.8 g/dL (12.0-16.0); Mean Corpuscular HGB CONC 31.7 g/dL (32.0-36.0); Mean Corpuscular Hemoglobin 28.4 pg (27.0-31.0); Mean Corpuscular Volume 89.7 fL (78.0-98.0); Mean Platelet Volume 8.6 fL (7.4-10.4); Platelet Count 285 thou/uL (130-400); RBC Distribution Width 13.4 % (11.5-14.5); Red Blood Cell (RBC) Count 4.84 mill/uL (4.20-5.40)
[2022-02-19 00:49] LABS: Anion Gap 16 mmol/L (10-20); BUN (Urea Nitrogen) 17 mg/dL (9.8-20.1); Calc. Creatinine Clearance 0 mL/min (70-130); Calcium 10.2 mg/dL (7.8-10.44); Carbon Dioxide 25 mmol/L (23-31); Chloride 102 mmol/L (98-107); Glucose 114 mg/dL (80-115); Potassium 3.8 mmol/L (3.5-5.1); Sodium 139 mmol/L (136-145)
[2022-02-19 01:04] LABS: Bilirubin Negative (Negative); Blood, Urine 1+ (Negative); Clarity Clear (Clear); Glucose, Urine (Dipstick) Normal (Negative); Ketone, Urine Negative (Negative); Leukocyte Negative Leu/uL (Negative); Nitrite Negative (Negative); Protein, Urine (Dipstick) 50 mg/dL (Neg-Trace); Specific Gravity, Urine 1.019 (1.002-1.036); Squamous Epithelial None Seen HPF (0-3); Urobilinogen Normal mg/dL (Less than 2); WBC/HPF 0-3 HPF (0-3)
[2022-02-19 01:05] LABS: Bacteria/HPF Rare-Few HPF (None Seen)
== END 2022-02-19 02:18 | disposition home or self-care (01) ==
LOC: ERS 23:44
DX: M25.551 Pain in right hip (principal); G89.29 Other chronic pain; I10 Essential (primary) hypertension; E78.00 Pure hypercholesterolemia, unspecified; M79.7 Fibromyalgia; Z79.01 Long term (current) use of anticoagulants; Z79.899 Other long term (current) drug therapy
CPT/HCPCS: 36415; 71045; 80048; 81003; 81015; 84484; 85025; 93005; 94760

== ENCOUNTER 2022-04-01 06:58 | Emergency (ER) | payer OTHER | END 2022-04-01 08:27 | disposition home or self-care (01) | LOC: ERS 06:58 | DX: M25.551 Pain in right hip (principal); R51.9 Headache, unspecified; I10 Essential (primary) hypertension; E78.00 Pure hypercholesterolemia, unspecified; M79.7 Fibromyalgia; Z87.19 Personal history of other diseases of the digestive system | CPT/HCPCS: 72170 ==

== ENCOUNTER 2022-06-10 13:20 | Emergency (ER) | payer OTHER ==
[2022-06-10 14:55] LABS: #Eosinphils 0.3 thou/uL (0.0-0.7); #Monocytes 0.6 thou/uL (0.11-0.59); #Neutrophils 6.1 thou/uL (1.40-6.50); %Basophils 0.3 % (0.0-1.0); %Eosinophils 2.9 % (0.0-10.0); %Neutrophils 67.8 % (42.0-75.0); Hemoglobin 14.4 g/dL (12.0-16.0); Mean Corpuscular HGB CONC 30.6 g/dL (32.0-36.0); Mean Corpuscular Hemoglobin 27.2 pg (27.0-31.0); Mean Corpuscular Volume 88.9 fL (78.0-98.0); Mean Platelet Volume 9.1 fL (7.4-10.4); Platelet Count 241 thou/uL (130-400); RBC Distribution Width 14.5 % (11.5-14.5); White Blood Cell (WBC) Count 9.1 thou/uL (4.8-10.8)
[2022-06-10 15:15] LABS: ALT (SGPT) 17 U/L (8-55); AST (SGOT) 26 U/L (5-34); Albumin 3.8 g/dL (3.4-4.8); Alkaline Phosphatase 99 U/L (40-110); Anion Gap 18 mmol/L (10-20); BUN (Urea Nitrogen) 17 mg/dL (9.8-20.1); Bilirubin, Total 0.4 mg/dL (0.2-1.2); Calc. Creatinine Clearance 0 mL/min (70-130); Calcium 9.8 mg/dL (7.8-10.44); Carbon Dioxide 21 mmol/L (23-31); Chloride 101 mmol/L (98-107); Estimated GFR 40; Globulin 4.3 g/dL (2.4-3.5); Glucose 125 mg/dL (80-115); Potassium 4.2 mmol/L (3.5-5.1); Protein, Total 8.1 g/dL (5.8-8.1); Sodium 136 mmol/L (136-145)
== END 2022-06-10 15:50 | disposition home or self-care (01) ==
LOC: ERS 13:20
DX: R53.1 Weakness (principal); K08.89 Other specified disorders of teeth and supporting structures; I10 Essential (primary) hypertension; W19.XXXA Unspecified fall, initial encounter
CPT/HCPCS: 36415; 71045; 80053; 83880; 85025; 93005

== ENCOUNTER 2022-06-25 18:20 | Inpatient (IN) | payer OTHER, MEDICAID ==
[2022-06-25] MEDS ORDERED: Famotidine/PF 20 mg/2ml Vial ONE ×2 (18:48→18:59)
[2022-06-25] MEDS ORDERED: methylPREDNISolone Sod Succ 40 MG VIAL ONE (18:48)
[2022-06-25] MEDS ORDERED: diphenhydrAMINE 50 MG/ML VIAL ONE ×2 (18:48→21:43)
[2022-06-25 18:55] LABS: #Lymphocytes 1.2 thou/uL (1.20-3.40); #Monocytes 0.2 thou/uL (0.11-0.59); #Neutrophils 5.8 thou/uL (1.40-6.50); %Basophils 0.2 % (0.0-1.0); %Eosinophils 0.2 % (0.0-10.0); %Monocytes 3.3 % (0.0-10.0); %Neutrophils 79.3 % (42.0-75.0); Mean Corpuscular HGB CONC 31.9 g/dL (32.0-36.0); Mean Corpuscular Hemoglobin 28.1 pg (27.0-31.0); Mean Platelet Volume 8.6 fL (7.4-10.4); Platelet Count 440 thou/uL (130-400); Red Blood Cell (RBC) Count 4.99 mill/uL (4.20-5.40); White Blood Cell (WBC) Count 7.3 thou/uL (4.8-10.8)
[2022-06-25 19:15] LABS: ALT (SGPT) 10 U/L (8-55); AST (SGOT) 15 U/L (5-34); Albumin 4.6 g/dL (3.4-4.8); Alkaline Phosphatase 82 U/L (40-110); Anion Gap 20 mmol/L (10-20); BUN (Urea Nitrogen) 13 mg/dL (9.8-20.1); Bilirubin, Total 0.4 mg/dL (0.2-1.2); Calc. Creatinine Clearance 0 mL/min (70-130); Calcium 10.6 mg/dL (7.8-10.44); Carbon Dioxide 22 mmol/L (23-31); Chloride 104 mmol/L (98-107); Estimated GFR 47; Globulin 4.2 g/dL (2.4-3.5); Glucose 152 mg/dL (80-115); Lipase 17 U/L (8-78); Potassium 3.6 mmol/L (3.5-5.1); Protein, Total 8.8 g/dL (5.8-8.1); Sodium 142 mmol/L (136-145)
[2022-06-25] MEDS ORDERED: Midazolam HCl 2 mg/2 ml Vial ONE (19:48)
[2022-06-25 20:43] LABS: PTT 26.2 sec (22.9-36.1); Prothrombin Time 13.6 sec (12.0-14.7)
[2022-06-25 20:56] LABS: Acetaminophen Less than 10.0 mcg/mL (10.0-30.0); Alcohol Less than 10 mg/dL (Less than 10); Magnesium 1.7 mg/dL (1.6-2.6); Salicylate Less than 8.0 mg/dL (15.0-30.0)
[2022-06-25] MEDS ORDERED: Haloperidol Lactate 5 MG/ML VIAL ONE (21:36)
[2022-06-25] MEDS ORDERED: Morphine 4 MG/ML VIAL ONE (22:20)
[2022-06-25] MEDS ORDERED: Pantoprazole 40 MG VIAL ONE (22:20)
[2022-06-25 22:43] LABS: Bacteria/HPF None Seen HPF (None Seen); Bilirubin Negative (Negative); Blood, Urine 2+ (Negative); Clarity Clear (Clear); Glucose, Urine (Dipstick) Normal (Negative); Ketone, Urine 10 mg/dL (Negative); Leukocyte Negative Leu/uL (Negative); Nitrite Negative (Negative); Protein, Urine (Dipstick) 50 mg/dL (Neg-Trace); Specific Gravity, Urine 1.039 (1.002-1.036); Squamous Epithelial 0-3 HPF (0-3); Urobilinogen Normal mg/dL (Less than 2); WBC/HPF 0-3 HPF (0-3)
[2022-06-25 22:45] LABS: Amphetamine Not Detected (NotDetected); Barbiturates Screen Not Detected (NotDetected); Benzodiazepine Screen Detected (NotDetected); Cocaine Metabolite Screen Not Detected (NotDetected); Methadone Not Detected (NotDetected); Methamphetamine Not Detected (NotDetected); Opiate Screen Detected (NotDetected); Oxycodone Screen Not Detected (NotDetected); Phencyclidine (PCP) Not Detected (NotDetected); THC/Cannabinoid Screen Not Detected (NotDetected); Tricyclic Screen Not Detected (NotDetected)
[2022-06-25] MEDS ORDERED: Acetaminophen 650 MG Suppository PR PRN (22:45)
[2022-06-25] MEDS ORDERED: Ondansetron ODT 4 MG TAB PO PRN (22:45)
[2022-06-25 23:09] LABS: SARS-CoV-2 NAA Rapid Test Not Detected (NotDetected)
[2022-06-25] MEDS ORDERED: Lidocaine 2% Viscous Solution 20 ML, Aluminum & Magnesium Hydroxide 30 ML, Donnatal Eli... SSW SCH (23:30)
[2022-06-25 23:56] LABS: Lactic Acid 3.2 mmol/L (0.5-2.2)
[2022-06-25] MEDS ORDERED: Labetalol HCl 100 MG/20 ML VIAL SLOW IVP PRN (23:58)
[2022-06-26] MEDS: Morphine 4 MG/ML VIAL SLOW IVP PRN ×4 (00:01→12:20)
[2022-06-26] MEDS: Acetaminophen 325 MG TAB PO PRN ×3 (00:05→12:20)
[2022-06-26] MEDS: tiZANidine HCl 4 MG TAB PO PRN ×4 (00:06→21:53)
[2022-06-26] MEDS ORDERED: Amlodipine 10 MG TAB PO SCH (00:15)
[2022-06-26] MEDS ORDERED: Hydrochlorothiazide 25 MG TAB PO SCH ×3 (00:15→10:00)
[2022-06-26] MEDS ORDERED: Electrolyte Replacement Protocol 1 EACH FS PRN (00:30)
[2022-06-26] MEDS ORDERED: hydrALAZINE 20 MG/ML VIAL ONE (00:37)
[2022-06-26] MEDS ORDERED: Labetalol HCl 100 MG/20 ML VIAL SLOW IVP SCH (00:45)
[2022-06-26] MEDS: hydrALAZINE 20 MG/ML VIAL SLOW IVP PRN ×3 (00:50→05:29)
[2022-06-26 00:57] VITALS: BMI 38.4
[2022-06-26] MEDS ORDERED: cloNIDine 0.1 MG TAB PO PRN ×2 (02:09→02:32)
[2022-06-26] MEDS ORDERED: Nitroglycerin 50 MG/250 ML BOT 250 ML IVPB SCH (02:15)
[2022-06-26] MEDS: Labetalol HCl 100 MG/20 ML VIAL SLOW IVP PRN ×7 (02:28→17:03)
[2022-06-26] MEDS ORDERED: Nitroglycerin 50 MG/250 ML BOT 250 ML ONE (02:35)
[2022-06-26] MEDS: Nitroglycerin 50 MG/250 ML BOT 250 ML IVPB SCH ×2 (03:01→10:43)
[2022-06-26] MEDS: Midazolam HCl 2 mg/2 ml Vial SLOW IVP PRN (03:41)
[2022-06-26 04:32] LABS: Hemoglobin A1c 5.7 % (4.0-6.0)
[2022-06-26 04:34] LABS: #Lymphocytes 0.8 thou/uL (1.20-3.40); #Monocytes 0.1 thou/uL (0.11-0.59); #Neutrophils 7.8 thou/uL (1.40-6.50); %Basophils 0.3 % (0.0-1.0); %Eosinophils 0.2 % (0.0-10.0); %Lymphocytes 9.2 % (21.0-51.0); %Monocytes 1.4 % (0.0-10.0); %Neutrophils 88.9 % (42.0-75.0); Hemoglobin 13.5 g/dL (12.0-16.0); Mean Corpuscular HGB CONC 32.8 g/dL (32.0-36.0); Mean Corpuscular Hemoglobin 28.9 pg (27.0-31.0); Mean Corpuscular Volume 88.3 fL (78.0-98.0); Mean Platelet Volume 8.9 fL (7.4-10.4); Platelet Count 393 thou/uL (130-400); Red Blood Cell (RBC) Count 4.66 mill/uL (4.20-5.40); White Blood Cell (WBC) Count 8.7 thou/uL (4.8-10.8)
[2022-06-26 04:45] LABS: Anion Gap 19 mmol/L (10-20); BUN (Urea Nitrogen) 12 mg/dL (9.8-20.1); Calc. Creatinine Clearance 96 mL/min (70-130); Calcium 9.9 mg/dL (7.8-10.44); Carbon Dioxide 20 mmol/L (23-31); Chloride 102 mmol/L (98-107); Estimated GFR 53; Glucose 168 mg/dL (80-115); Potassium 3.6 mmol/L (3.5-5.1); Sodium 137 mmol/L (136-145)
[2022-06-26] MEDS ORDERED: Midazolam HCl 2 mg/2 ml Vial SLOW IVP SCH (04:45)
[2022-06-26] MEDS ORDERED: Midazolam HCl 2 mg/2 ml Vial ONE (04:53)
[2022-06-26] MEDS: Ondansetron PF 4 MG/2 ML Vial IVP PRN (05:29)
[2022-06-26] MEDS: Pantoprazole 40 MG VIAL IVP SCH ×2 (07:17→21:50)
[2022-06-26] MEDS: Amlodipine 10 MG TAB PO SCH (07:33)
[2022-06-26] MEDS ORDERED: Magnesium 2 GM/50 ML(in water) 2 GM in Premix Bag 1 BAG IVPB SCH (08:00)
[2022-06-26] MEDS ORDERED: Lisinopril 20 MG TAB PO SCH (10:00)
[2022-06-26] MEDS ORDERED: Electrolyte Replacement Protocol 1 EACH FS SCH (16:45)
[2022-06-26] MEDS: Acetaminophen/Codeine 30-300mg Tablet PO PRN (21:50)
[2022-06-26] MEDS: ALPRAZolam 0.5 MG TAB PO PRN (21:50)
[2022-06-27] MEDS: Midazolam HCl 2 mg/2 ml Vial SLOW IVP PRN (00:51)
[2022-06-27] MEDS: Acetaminophen/Codeine 30-300mg Tablet PO PRN ×4 (01:50→18:30)
[2022-06-27] MEDS ORDERED: Morphine 4 MG/ML VIAL SLOW IVP PRN (02:05)
[2022-06-27] MEDS ORDERED: tiZANidine HCl 4 MG TAB PO SCH (02:45)
[2022-06-27] MEDS ORDERED: Magnesium 2 GM/50 ML(in water) 2 GM in Premix Bag 1 BAG IVPB SCH (08:00)
[2022-06-27] MEDS: Pantoprazole 40 MG VIAL IVP SCH (08:18)
[2022-06-27] MEDS: Lisinopril 20 MG TAB PO SCH (08:19)
[2022-06-27] MEDS: Amlodipine 10 MG TAB PO SCH (08:20)
[2022-06-27] MEDS: tiZANidine HCl 4 MG TAB PO PRN ×2 (08:31→18:30)
[2022-06-27] MEDS ORDERED: Hydrochlorothiazide 25 MG TAB PO SCH (09:00)
[2022-06-27 09:19] LABS: #Lymphocytes 1.5 thou/uL (1.20-3.40); #Monocytes 0.6 thou/uL (0.11-0.59); #Neutrophils 7.6 thou/uL (1.40-6.50); %Basophils 0.2 % (0.0-1.0); %Eosinophils 0.5 % (0.0-10.0); %Lymphocytes 15.7 % (21.0-51.0); %Monocytes 6.1 % (0.0-10.0); %Neutrophils 77.6 % (42.0-75.0); Hemoglobin 13.5 g/dL (12.0-16.0); Mean Corpuscular HGB CONC 30.1 g/dL (32.0-36.0); Mean Corpuscular Hemoglobin 27.5 pg (27.0-31.0); Mean Corpuscular Volume 91.3 fL (78.0-98.0); Mean Platelet Volume 8.8 fL (7.4-10.4); Platelet Count 281 thou/uL (130-400); RBC Distribution Width 15.3 % (11.5-14.5); Red Blood Cell (RBC) Count 4.92 mill/uL (4.20-5.40); White Blood Cell (WBC) Count 9.8 thou/uL (4.8-10.8)
[2022-06-27 09:25] LABS: Lactic Acid 2.2 mmol/L (0.5-2.2)
[2022-06-27 09:32] LABS: ALT (SGPT) 9 U/L (8-55); AST (SGOT) 18 U/L (5-34); Albumin 4.1 g/dL (3.4-4.8); Alkaline Phosphatase 75 U/L (40-110); Anion Gap 19 mmol/L (10-20); BUN (Urea Nitrogen) 18 mg/dL (9.8-20.1); Bilirubin, Total 0.7 mg/dL (0.2-1.2); Calc. Creatinine Clearance 80 mL/min (70-130); Calcium 9.8 mg/dL (7.8-10.44); Carbon Dioxide 19 mmol/L (23-31); Chloride 99 mmol/L (98-107); Estimated GFR 42; Globulin 3.7 g/dL (2.4-3.5); Glucose 108 mg/dL (80-115); Magnesium 2.3 mg/dL (1.6-2.6); Potassium 4.2 mmol/L (3.5-5.1); Protein, Total 7.8 g/dL (5.8-8.1); Sodium 133 mmol/L (136-145)
[2022-06-27] MEDS ORDERED: hydrALAZINE 25 MG TAB PO SCH (11:15)
[2022-06-27] MEDS: ALPRAZolam 0.5 MG TAB PO PRN (13:03)
[2022-06-27] MEDS: hydrALAZINE 25 MG TAB PO SCH ×2 (15:45→21:35)
[2022-06-27] MEDS: Heparin 5,000 UNITS/ML VIAL SC SCH (21:32)
[2022-06-27] MEDS: Hydrochlorothiazide 25 MG TAB PO SCH (21:34)
[2022-06-28] MEDS: ALPRAZolam 0.5 MG TAB PO PRN ×2 (00:02→08:15)
[2022-06-28] MEDS: tiZANidine HCl 4 MG TAB PO PRN ×2 (00:03→08:15)
[2022-06-28] MEDS: Ondansetron PF 4 MG/2 ML Vial IVP PRN (05:37)
[2022-06-28] MEDS: Amlodipine 10 MG TAB PO SCH (08:14)
[2022-06-28] MEDS: hydrALAZINE 25 MG TAB PO SCH (08:15)
[2022-06-28] MEDS: Acetaminophen/Codeine 30-300mg Tablet PO PRN ×2 (08:15)
[2022-06-28] MEDS: Lisinopril 20 MG TAB PO SCH (08:17)
[2022-06-28] MEDS: Heparin 5,000 UNITS/ML VIAL SC SCH ×3 (08:17→21:38)
[2022-06-28] MEDS: Hydrochlorothiazide 25 MG TAB PO SCH (08:17)
[2022-06-28 08:46] LABS: Anion Gap 19 mmol/L (10-20); BUN (Urea Nitrogen) 22 mg/dL (9.8-20.1); Calc. Creatinine Clearance 75 mL/min (70-130); Calcium 9.8 mg/dL (7.8-10.44); Carbon Dioxide 23 mmol/L (23-31); Chloride 97 mmol/L (98-107); Estimated GFR 39; Glucose 110 mg/dL (80-115); Potassium 4.1 mmol/L (3.5-5.1); Sodium 135 mmol/L (136-145)
[2022-06-28 09:11] LABS: #Eosinphils 0.2 thou/uL (0.0-0.7); #Lymphocytes 2.1 thou/uL (1.20-3.40); #Monocytes 0.5 thou/uL (0.11-0.59); #Neutrophils 4.2 thou/uL (1.40-6.50); %Basophils 0.3 % (0.0-1.0); %Eosinophils 3.3 % (0.0-10.0); %Monocytes 7.4 % (0.0-10.0); Hemoglobin 13.9 g/dL (12.0-16.0); Mean Corpuscular HGB CONC 31.8 g/dL (32.0-36.0); Mean Corpuscular Hemoglobin 28.7 pg (27.0-31.0); Mean Corpuscular Volume 90.3 fL (78.0-98.0); Mean Platelet Volume 9.5 fL (7.4-10.4); Platelet Count 355 thou/uL (130-400); RBC Distribution Width 15.4 % (11.5-14.5); Red Blood Cell (RBC) Count 4.85 mill/uL (4.20-5.40); White Blood Cell (WBC) Count 7.1 thou/uL (4.8-10.8)
[2022-06-28] MEDS ORDERED: Sodium Chloride 0.9% 1,000 ML IV SCH (10:45)
[2022-06-29] MEDS: Acetaminophen/Codeine 30-300mg Tablet PO PRN (02:05)
[2022-06-29] MEDS ORDERED: tiZANidine HCl 4 MG TAB PO PRN (07:21)
[2022-06-29] MEDS ORDERED: Metoprolol Tartrate 25 MG TAB PO PRN (07:22)
[2022-06-29] MEDS ORDERED: ALPRAZolam 0.5 MG TAB PO SCH (09:00)
[2022-06-29] MEDS: Acetaminophen 325 MG TAB PO PRN (09:34)
[2022-06-29 09:35] LABS: #Basophils 0.1 thou/uL (0.0-0.2); #Eosinphils 0.3 thou/uL (0.0-0.7); #Lymphocytes 1.7 thou/uL (1.20-3.40); #Monocytes 0.4 thou/uL (0.11-0.59); #Neutrophils 3.7 thou/uL (1.40-6.50); %Basophils 0.8 % (0.0-1.0); %Eosinophils 5.6 % (0.0-10.0); %Lymphocytes 27.5 % (21.0-51.0); %Monocytes 6.9 % (0.0-10.0); %Neutrophils 59.3 % (42.0-75.0); Hemoglobin 12.8 g/dL (12.0-16.0); Mean Corpuscular HGB CONC 30.9 g/dL (32.0-36.0); Mean Corpuscular Hemoglobin 28.1 pg (27.0-31.0); Mean Platelet Volume 8.4 fL (7.4-10.4); Platelet Count 313 thou/uL (130-400); RBC Distribution Width 15.2 % (11.5-14.5); Red Blood Cell (RBC) Count 4.56 mill/uL (4.20-5.40); White Blood Cell (WBC) Count 6.2 thou/uL (4.8-10.8)
[2022-06-29] MEDS: Heparin 5,000 UNITS/ML VIAL SC SCH (09:36)
[2022-06-29 09:55] LABS: Anion Gap 18 mmol/L (10-20); BUN (Urea Nitrogen) 33 mg/dL (9.8-20.1); Calc. Creatinine Clearance 58 mL/min (70-130); Carbon Dioxide 21 mmol/L (23-31); Chloride 101 mmol/L (98-107); Estimated GFR 29; Glucose 104 mg/dL (80-115); Magnesium 2.5 mg/dL (1.6-2.6); Potassium 3.9 mmol/L (3.5-5.1); Sodium 136 mmol/L (136-145)
[2022-06-29 12:18] VITALS: BP 127/63; TEMP 98.2
[2022-06-29] MEDS ORDERED: Temazepam 15 MG CAP PO SCH (21:00)
== END 2022-06-29 13:45 | disposition left against medical advice (07) | DRG 304 ==
LOC: ERS 18:20 → CCU 21:59 → 2NO 06-28 17:34
PROVIDERS: ADMIT Student in an Organized Health Care Education/Training Program; ATTEND Family Medicine
DX: I16.1 Hypertensive emergency (principal); N17.0 Acute kidney failure with tubular necrosis; N10 Acute pyelonephritis; E87.2 Acidosis; Z20.822 Contact with and (suspected) exposure to COVID-19; M79.7 Fibromyalgia; F31.9 Bipolar disorder, unspecified; I12.9 Hypertensive chronic kidney disease with stage 1 through stage 4 chronic kidney disease, or unspecified chronic kidney disease; N18.30 Chronic kidney disease, stage 3 unspecified; E83.42 Hypomagnesemia; E66.9 Obesity, unspecified; F41.9 Anxiety disorder, unspecified; G43.909 Migraine, unspecified, not intractable, without status migrainosus; G89.4 Chronic pain syndrome; K21.9 Gastro-esophageal reflux disease without esophagitis; E78.5 Hyperlipidemia, unspecified; Z88.6 Allergy status to analgesic agent; Z90.710 Acquired absence of both cervix and uterus; Z91.041 Radiographic dye allergy status; Z88.8 Allergy status to other drugs, medicaments and biological substances; Z88.5 Allergy status to narcotic agent; Z79.01 Long term (current) use of anticoagulants; Z79.899 Other long term (current) drug therapy; Z68.38 Body mass index [BMI] 38.0-38.9, adult; I95.9 Hypotension, unspecified; Z86.711 Personal history of pulmonary embolism; Z91.81 History of falling
CPT/HCPCS: 36415; 70450; 71045; 71275; 72125; 74174; 80048; 80053; 80306; 80307; 81003; 81015; 83036; 83605; 83690; 83735; 83880; 84443; 84484; 85025; 85610; 85730; 86850; 86900; 86901; 87040; 87086; 93005; 93306; 96374; 96375; 96376; C9113; J0360; J1200; J1630; J1644; J2250; J2270; J2405; J2920; J3475; J7050; J7070; Q9967; S0028; U0002

== ENCOUNTER 2022-10-12 10:47 | Inpatient (IN) | payer OTHER, MEDICAID ==
[2022-10-12 12:09] LABS: #Lymphocytes 1.3 thou/uL (1.20-3.40); #Monocytes 0.3 thou/uL (0.11-0.59); #Neutrophils 9.4 thou/uL (1.40-6.50); %Basophils 0.1 % (0.0-1.0); %Eosinophils 0.1 % (0.0-10.0); %Lymphocytes 11.5 % (21.0-51.0); %Monocytes 2.8 % (0.0-10.0); %Neutrophils 85.4 % (42.0-75.0); Hemoglobin 14.1 g/dL (12.0-16.0); Mean Corpuscular HGB CONC 32.6 g/dL (32.0-36.0); Mean Corpuscular Volume 91.9 fl (78.0-98.0); Mean Platelet Volume 8.1 fL (7.4-10.4); Platelet Count 402 10x3/uL (130-400); RBC Distribution Width 13.4 % (11.5-14.5); Red Blood Cell (RBC) Count 4.71 mill/uL (4.20-5.40)
[2022-10-12] MEDS ORDERED: diphenhydrAMINE 50 MG/ML VIAL ONE (12:13)
[2022-10-12] MEDS ORDERED: Famotidine/PF 20 mg/2ml Vial ONE (12:13)
[2022-10-12] MEDS ORDERED: methylPREDNISolone Sod Succ 40 MG VIAL ONE (12:13)
[2022-10-12] MEDS ORDERED: Cefepime 2 GM VIAL ONE (12:13)
[2022-10-12] MEDS ORDERED: Ondansetron PF 4 MG/2 ML Vial ONE ×2 (12:13→14:08)
[2022-10-12] MEDS ORDERED: FENTANYL 50 MCG/ML 1 ML VIAL ONE ×3 (12:13→14:13)
[2022-10-12 12:30] LABS: ALT (SGPT) 13 U/L (8-55); AST (SGOT) 18 U/L (5-34); Albumin 4.8 g/dL (3.4-4.8); Alkaline Phosphatase 85 U/L (40-110); Anion Gap 22 mmol/L (10-20); BUN (Urea Nitrogen) 27 mg/dL (9.8-20.1); Bilirubin, Total 0.5 mg/dL (0.2-1.2); Calc. Creatinine Clearance 0 mL/min (70-130); Calcium 10.2 mg/dL (7.8-10.44); Carbon Dioxide 17 mmol/L (23-31); Chloride 108 mmol/L (98-107); Estimated GFR 35; Glucose 136 mg/dL (80-115); Potassium 3.8 mmol/L (3.5-5.1); Protein, Total 8.8 g/dL (5.8-8.1); Sodium 143 mmol/L (136-145)
[2022-10-12] MEDS ORDERED: Vancomycin 1 GM/200 ML (FROZEN) BAG ONE (13:45)
[2022-10-12 13:55] LABS: Bacteria/HPF None Seen HPF (None Seen); Bilirubin Negative (Negative); Blood, Urine 2+ (Negative); Clarity Clear (Clear); Glucose, Urine (Dipstick) Normal (Negative); Ketone, Urine Negative (Negative); Leukocyte Negative Leu/uL (Negative); Nitrite Negative (Negative); Protein, Urine (Dipstick) 30 mg/dL (Neg-Trace); Specific Gravity, Urine 1.015 (1.002-1.036); Urobilinogen Normal mg/dL (Less than 2); WBC/HPF None Seen HPF (0-3); pH, Urine 5.5 (5.0-9.0)
[2022-10-12] MEDS ORDERED: cloNIDine 0.1 MG TAB ONE (14:52)
[2022-10-12] MEDS ORDERED: Morphine 4 MG/ML VIAL ONE (14:52)
[2022-10-12] MEDS ORDERED: Iopamidol-370 76% 500 ML 1 ML ONE (14:58)
[2022-10-12] MEDS ORDERED: Acetaminophen 325 MG TAB PO PRN (15:28)
[2022-10-12] MEDS ORDERED: LORazepam 2 MG/ML SYR.(CARPUJECT) ONE (15:28)
[2022-10-12] MEDS ORDERED: niCARdipine 25 MG in Sodium Chloride 0.9% 250 ML 250 ML IVPB SCH (15:30)
[2022-10-12 15:37] LABS: Lactic Acid 3.8 mmol/L (0.5-2.2)
[2022-10-12 15:44] LABS: Amphetamine Not Detected (NotDetected); Barbiturates Screen Not Detected (NotDetected); Benzodiazepine Screen Detected (NotDetected); Cocaine Metabolite Screen Not Detected (NotDetected); Methadone Not Detected (NotDetected); Methamphetamine Not Detected (NotDetected); Opiate Screen Not Detected (NotDetected); Oxycodone Screen Not Detected (NotDetected); Phencyclidine (PCP) Not Detected (NotDetected); THC/Cannabinoid Screen Not Detected (NotDetected); Tricyclic Screen Not Detected (NotDetected)
[2022-10-12] MEDS ORDERED: Sodium Chloride 0.9% 1,000 ML IV SCH (15:45)
[2022-10-12 15:52] LABS: Troponin I 0.042 ng/mL (< 0.028)
[2022-10-12] MEDS ORDERED: Lactated Ringer's 1,000 ML IV SCH (16:00)
[2022-10-12 17:13] VITALS: BMI 37.0
[2022-10-12] MEDS ORDERED: FLU VACC QS2022-23(65YR UP)/PF 240 MCG/0.7 ML SYRINGE IM ONE (17:30)
[2022-10-12] MEDS ORDERED: Vancomycin 1 GM in Premix Bag 1 BAG IVPB SCH (17:45)
[2022-10-12] MEDS: Morphine 4 MG/ML VIAL SLOW IVP PRN ×2 (17:46→21:02)
[2022-10-12] MEDS: Ondansetron PF 4 MG/2 ML Vial IVP PRN (17:47)
[2022-10-12] MEDS ORDERED: Lorazepam 2 MG/ML VIAL SLOW IVP PRN (18:25)
[2022-10-12] MEDS ORDERED: Metoclopramide HCl 10 MG/2 ML VIAL IVP PRN (18:26)
[2022-10-12] MEDS ORDERED: Lorazepam 2 MG/ML VIAL ONE (18:32)
[2022-10-12] MEDS: Pantoprazole 40 MG VIAL IVP SCH (19:58)
[2022-10-12] MEDS ORDERED: tiZANidine HCl 4 MG TAB PO SCH (20:00)
[2022-10-12] MEDS ORDERED: Apixaban 5 MG TAB PO SCH (21:00)
[2022-10-12] MEDS ORDERED: ALPRAZolam 0.5 MG TAB PO SCH (21:00)
[2022-10-12] MEDS: niCARdipine 25 MG in Sodium Chloride 0.9% 250 ML 250 ML IVPB SCH (21:34)
[2022-10-12] MEDS: Sodium Chloride 0.45% 1,000 ML IV SCH (21:42)
[2022-10-12] MEDS ORDERED: Morphine 4 MG/ML VIAL SLOW IVP SCH (23:45)
[2022-10-12] MEDS ORDERED: Labetalol HCl 100 MG/20 ML VIAL SLOW IVP SCH (23:45)
[2022-10-12 23:50] LABS: Lactic Acid 1.8 mmol/L (0.5-2.2)
[2022-10-12 23:58] LABS: Troponin I 0.102 ng/mL (< 0.028)
[2022-10-12] MEDS ORDERED: Cefepime 1 GM in Sodium Chloride 0.9% 100 ML IVPB SCH (23:59)
[2022-10-13] MEDS: Morphine 4 MG/ML VIAL SLOW IVP PRN ×3 (01:13→11:29)
[2022-10-13] MEDS: niCARdipine 25 MG in Sodium Chloride 0.9% 250 ML 250 ML IVPB SCH (02:03)
[2022-10-13] MEDS ORDERED: niCARdipine 50 MG in Sodium Chloride 0.9% 250 ML 230 ML IVPB SCH (02:15)
[2022-10-13] MEDS: tiZANidine HCl 4 MG TAB PO PRN ×2 (03:16→16:05)
[2022-10-13 04:54] LABS: SARS-CoV-2 NAA Rapid Test Not Detected (NotDetected)
[2022-10-13 05:14] LABS: #Lymphocytes 0.8 thou/uL (1.20-3.40); #Monocytes 0.4 thou/uL (0.11-0.59); #Neutrophils 7.5 thou/uL (1.40-6.50); %Basophils 0.6 % (0.0-1.0); %Eosinophils 0.1 % (0.0-10.0); %Lymphocytes 9.2 % (21.0-51.0); %Monocytes 4.1 % (0.0-10.0); %Neutrophils 86.2 % (42.0-75.0); Hemoglobin 12.6 g/dL (12.0-16.0); Mean Corpuscular HGB CONC 32.1 g/dL (32.0-36.0); Mean Corpuscular Volume 93.6 fl (78.0-98.0); Platelet Count 312 10x3/uL (130-400); RBC Distribution Width 13.5 % (11.5-14.5); White Blood Cell (WBC) Count 8.7 10x3/uL (4.8-10.8)
[2022-10-13 05:39] LABS: Anion Gap 18 mmol/L (10-20); BUN (Urea Nitrogen) 16 mg/dL (9.8-20.1); Calc. Creatinine Clearance 99 mL/min (70-130); Calcium 9.3 mg/dL (7.8-10.44); Carbon Dioxide 19 mmol/L (23-31); Chloride 107 mmol/L (98-107); Estimated GFR 57; Glucose 141 mg/dL (80-115); Potassium 4.8 mmol/L (3.5-5.1); Sodium 139 mmol/L (136-145)
[2022-10-13] MEDS ORDERED: ALPRAZolam 0.5 MG TAB PO PRN (09:14)
[2022-10-13] MEDS: Ondansetron PF 4 MG/2 ML Vial IVP PRN (11:24)
[2022-10-13] MEDS ORDERED: diphenhydrAMINE 50 MG/ML VIAL IVP SCH (12:30)
[2022-10-13] MEDS: Cefepime 2 GM in Sodium Chloride 0.9% 100 ML IVPB SCH (12:47)
[2022-10-13] MEDS: Sodium Chloride 0.45% 1,000 ML IV SCH ×2 (14:06→22:00)
[2022-10-13] MEDS ORDERED: VANCOMYCIN 2 GRAM/500 ML BAG 2 GM in Premix Bag 1 BAG IVPB SCH (18:00)
[2022-10-13] MEDS ORDERED: Enoxaparin Sodium 40 MG/0.4 ML SYRINGE SC SCH (21:00)
[2022-10-13] MEDS: Pantoprazole 40 MG VIAL IVP SCH (21:57)
[2022-10-14] MEDS: Cefepime 2 GM in Sodium Chloride 0.9% 100 ML IVPB SCH (00:11)
[2022-10-14 00:36] LABS: Actual Bicarbonate (HCO3a) 24.3 mEq/L (22-28); Base Excess (BEa) -0.9 mEq/L (-2.0 to +3.0); CO2 Tension 42.3 mmHg (35.0-45.0); Calcium, Ionized (arterial) 1.23 mmol/L (1.12-1.30); Carboxyhemoglobin (COHb) 0.8 gm% (0.0-3.0); Hemoglobin (Hb) 13.8 g/dL (12.0-16.0); O2 Tension (PaO2), arterial 114.1 mmHg (> 80.0); Potassium - ABG Lab 3.89 mmol/L (3.70-5.30); pH, Arterial 7.38 (7.35-7.45)
[2022-10-14 00:39] LABS: ALV-art Gradient 61.185 mmHg (0-20); Puncture Site LRA
[2022-10-14] MEDS: Ondansetron PF 4 MG/2 ML Vial IVP PRN (02:42)
[2022-10-14] MEDS: tiZANidine HCl 4 MG TAB PO PRN (08:23)
[2022-10-14 08:31] VITALS: TEMP 98.9
[2022-10-14] MEDS ORDERED: NIFEdipine XL 60 MG TAB PO SCH (09:00)
[2022-10-14 09:57] VITALS: BP 124/85
== END 2022-10-14 11:50 | disposition home or self-care (01) | DRG 872 ==
LOC: ERS 10:47 → IMCU/EMU 15:27 → INTOOBSV 15:27 → CCU 17:57 → T4-B 10-13 13:56 → OBSVTOIN 10-13 15:05
PROVIDERS: ADMIT Internal Medicine; ATTEND Internal Medicine
DX: A41.9 Sepsis, unspecified organism (principal); E87.20 Acidosis, unspecified; N17.9 Acute kidney failure, unspecified; G89.29 Other chronic pain; M54.9 Dorsalgia, unspecified; K21.9 Gastro-esophageal reflux disease without esophagitis; G43.909 Migraine, unspecified, not intractable, without status migrainosus; I12.9 Hypertensive chronic kidney disease with stage 1 through stage 4 chronic kidney disease, or unspecified chronic kidney disease; M79.7 Fibromyalgia; F41.9 Anxiety disorder, unspecified; F31.9 Bipolar disorder, unspecified; F20.9 Schizophrenia, unspecified; I16.0 Hypertensive urgency; N18.30 Chronic kidney disease, stage 3 unspecified; Z88.8 Allergy status to other drugs, medicaments and biological substances; Z88.6 Allergy status to analgesic agent; Z91.041 Radiographic dye allergy status; Z79.899 Other long term (current) drug therapy; Z79.01 Long term (current) use of anticoagulants; Z86.718 Personal history of other venous thrombosis and embolism; Z86.711 Personal history of pulmonary embolism; Z90.710 Acquired absence of both cervix and uterus; Z98.890 Other specified postprocedural states; Z80.9 Family history of malignant neoplasm, unspecified; Z82.0 Family history of epilepsy and other diseases of the nervous system; Z83.6 Family history of other diseases of the respiratory system
CPT/HCPCS: 36415; 36600; 74177; 80048; 80053; 80306; 81003; 81015; 82805; 83605; 83690; 84484; 85025; 86850; 86900; 86901; 87040; 87086; 93005; 96365; 96375; 96376; C9113; G0378; J0692; J1200; J1650; J2060; J2270; J2405; J2920; J3010; J3370; J3370-JW; J3490; J7050; Q9967; S0028; U0002

== ENCOUNTER 2023-01-20 07:57 | Emergency (ER) | payer OTHER, MEDICARE ==
[2023-01-20] MEDS ORDERED: Ondansetron PF 4 MG/2 ML Vial ONE (08:52)
[2023-01-20] MEDS ORDERED: Morphine 4 MG/ML VIAL ONE (08:52)
[2023-01-20] MEDS ORDERED: LORazepam 2 MG/ML SYR.(CARPUJECT) ONE (08:52)
[2023-01-20] MEDS ORDERED: Pantoprazole 40 MG VIAL ONE (08:52)
[2023-01-20 09:10] LABS: #Lymphocytes 1.6 thou/uL (1.20-3.40); #Monocytes 0.4 thou/uL (0.11-0.59); %Basophils 0.2 % (0.0-1.0); %Eosinophils 0.2 % (0.0-10.0); %Lymphocytes 17.3 % (21.0-51.0); %Monocytes 4.3 % (0.0-10.0); Hemoglobin 13.1 g/dL (12.0-16.0); Mean Corpuscular HGB CONC 31.2 g/dL (32.0-36.0); Mean Corpuscular Hemoglobin 28.8 pg (27.0-31.0); Mean Corpuscular Volume 92.2 fl (78.0-98.0); Mean Platelet Volume 8.3 fL (7.4-10.4); Platelet Count 332 10x3/uL (130-400); Red Blood Cell (RBC) Count 4.55 mill/uL (4.20-5.40)
[2023-01-20 09:29] LABS: ALT (SGPT) 12 U/L (8-55); AST (SGOT) 18 U/L (5-34); Albumin 4.7 g/dL (3.4-4.8); Alkaline Phosphatase 79 U/L (40-110); Anion Gap 19 mmol/L (10-20); BUN (Urea Nitrogen) 21 mg/dL (9.8-20.1); Bilirubin, Total 0.4 mg/dL (0.2-1.2); CK (CPK) 86 U/L (29-168); Calc. Creatinine Clearance 0 mL/min (70-130); Carbon Dioxide 17 mmol/L (23-31); Chloride 107 mmol/L (98-107); Estimated GFR 39; Globulin 3.7 g/dL (2.4-3.5); Glucose 127 mg/dL (80-115); Lipase 16 U/L (8-78); Potassium 3.8 mmol/L (3.5-5.1); Protein, Total 8.4 g/dL (5.8-8.1); Sodium 139 mmol/L (136-145)
[2023-01-20 10:31] LABS: Bacteria/HPF None Seen HPF (None Seen); Bilirubin Negative (Negative); Blood, Urine 2+ (Negative); Clarity Clear (Clear); Glucose, Urine (Dipstick) Normal (Negative); Ketone, Urine Trace mg/dL (Negative); Leukocyte Negative Leu/uL (Negative); Nitrite Negative (Negative); Protein, Urine (Dipstick) 10 mg/dL (Neg-Trace); Specific Gravity, Urine 1.012 (1.002-1.036); Squamous Epithelial 0-3 HPF (0-3); Urobilinogen Normal mg/dL (Less than 2); WBC/HPF 0-3 HPF (0-3); pH, Urine 6.5 (5.0-9.0)
[2023-01-20] MEDS ORDERED: Haloperidol Lactate 5 MG/ML VIAL ONE (10:36)
[2023-01-20 10:38] LABS: Acetaminophen Less than 10.0 mcg/mL (10.0-30.0); Alcohol Less than 10 mg/dL (Less than 10); Salicylate Less than 8.0 mg/dL (15.0-30.0)
[2023-01-20 10:38] LABS: Amphetamine Not Detected (NotDetected); Barbiturates Screen Not Detected (NotDetected); Benzodiazepine Screen Detected (NotDetected); Cocaine Metabolite Screen Not Detected (NotDetected); Methadone Not Detected (NotDetected); Methamphetamine Not Detected (NotDetected); Opiate Screen Detected (NotDetected); Oxycodone Screen Not Detected (NotDetected); Phencyclidine (PCP) Not Detected (NotDetected); THC/Cannabinoid Screen Not Detected (NotDetected); Tricyclic Screen Not Detected (NotDetected)
[2023-01-20] MEDS ORDERED: cloNIDine 0.1 MG TAB ONE (11:43)
[2023-01-20] MEDS ORDERED: Nitroglycerin 0.4 MG TAB 1 EACH ONE (11:43)
== END 2023-01-20 12:15 | disposition home or self-care (01) ==
LOC: ERS 07:57
DX: R10.9 Unspecified abdominal pain (principal); I10 Essential (primary) hypertension
CPT/HCPCS: 71045; 74176; 80053; 80306; 80307; 82550; 83605; 83690; 84484; 85025; 93005; J2060; 36415; 51701; 81003; 81015; 96361; 96374; 96375; C9113; J1630; J2270; J2405

== ENCOUNTER 2023-01-28 00:48 | Inpatient (IN) | payer OTHER, MEDICAID ==
[2023-01-28] MEDS ORDERED: Haloperidol Lactate 5 MG/ML VIAL ONE (02:16)
[2023-01-28] MEDS ORDERED: Ondansetron ODT 8 MG TAB ONE (02:16)
[2023-01-28] MEDS ORDERED: diphenhydrAMINE 50 MG/ML VIAL ONE (02:16)
[2023-01-28] MEDS ORDERED: Ondansetron PF 4 MG/2 ML Vial ONE (02:18)
[2023-01-28 03:09] LABS: ALT (SGPT) 14 U/L (8-55); AST (SGOT) 25 U/L (5-34); Albumin 4.8 g/dL (3.4-4.8); Alkaline Phosphatase 80 U/L (40-110); Anion Gap 16 mmol/L (10-20); BUN (Urea Nitrogen) 18 mg/dL (9.8-20.1); Bilirubin, Total 0.3 mg/dL (0.2-1.2); Calc. Creatinine Clearance 0 mL/min (70-130); Carbon Dioxide 20 mmol/L (23-31); Chloride 107 mmol/L (98-107); Estimated GFR 47; Globulin 4.1 g/dL (2.4-3.5); Glucose 142 mg/dL (80-115); Lipase 13 U/L (8-78); Potassium 4.2 mmol/L (3.5-5.1); Protein, Total 8.9 g/dL (5.8-8.1); Sodium 139 mmol/L (136-145)
[2023-01-28] MEDS ORDERED: Pantoprazole 40 MG VIAL ONE ×2 (03:11→11:15)
[2023-01-28] MEDS ORDERED: Famotidine/PF 20 mg/2ml Vial ONE (03:11)
[2023-01-28] MEDS ORDERED: methylPREDNISolone Sod Succ 40 MG VIAL ONE (03:11)
[2023-01-28] MEDS ORDERED: Morphine 4 MG/ML VIAL ONE (03:11)
[2023-01-28 04:03] LABS: Bilirubin Negative (Negative); Blood, Urine 2+ (Negative); Clarity Clear (Clear); Glucose, Urine (Dipstick) Normal (Negative); Ketone, Urine Trace mg/dL (Negative); Leukocyte Negative Leu/uL (Negative); Nitrite Negative (Negative); Protein, Urine (Dipstick) 30 mg/dL (Neg-Trace); Specific Gravity, Urine 1.015 (1.002-1.036); Squamous Epithelial 0-3 HPF (0-3); Urobilinogen Normal mg/dL (Less than 2); WBC/HPF None Seen HPF (0-3); pH, Urine 5.5 (5.0-9.0)
[2023-01-28 04:06] LABS: Bacteria/HPF 1+ HPF (None Seen)
[2023-01-28] MEDS ORDERED: HYDROmorphone 0.5 MG/0.5 ML SYRINGE ONE (04:32)
[2023-01-28 05:02] LABS: #Lymphocytes 0.6 thou/uL (1.20-3.40); #Monocytes 0.1 thou/uL (0.11-0.59); #Neutrophils 11.1 thou/uL (1.40-6.50); %Basophils 0.2 % (0.0-1.0); %Eosinophils 0.2 % (0.0-10.0); %Lymphocytes 5.2 % (21.0-51.0); %Monocytes 1.1 % (0.0-10.0); %Neutrophils 93.3 % (42.0-75.0); Hemoglobin 12.8 g/dL (12.0-16.0); Mean Corpuscular HGB CONC 30.7 g/dL (32.0-36.0); Mean Corpuscular Hemoglobin 28.6 pg (27.0-31.0); Mean Corpuscular Volume 93.1 fl (78.0-98.0); Mean Platelet Volume 8.1 fL (7.4-10.4); Platelet Count 350 10x3/uL (130-400); RBC Distribution Width 13.4 % (11.5-14.5); Red Blood Cell (RBC) Count 4.48 mill/uL (4.20-5.40); White Blood Cell (WBC) Count 11.9 10x3/uL (4.8-10.8)
[2023-01-28] MEDS ORDERED: Midazolam HCl 2 mg/2 ml Vial ONE ×2 (05:06→06:11)
[2023-01-28] MEDS ORDERED: cefTRIAXone (ROCEPHIN) 1 GM VIAL ONE (06:44)
[2023-01-28] MEDS ORDERED: Labetalol HCl 200 MG in Dextrose 5% in Water 160 ML IVPB SCH (07:15)
[2023-01-28 08:26] LABS: Lactic Acid 2.4 mmol/L (0.5-2.2)
[2023-01-28] MEDS ORDERED: Ondansetron PF 4 MG/2 ML Vial IVP PRN (08:55)
[2023-01-28] MEDS ORDERED: Morphine 4 MG/ML VIAL SLOW IVP PRN (08:55)
[2023-01-28] MEDS ORDERED: Sodium Chloride 0.9% 1,000 ML IV SCH (08:55)
[2023-01-28] MEDS ORDERED: Ondansetron ODT 4 MG TAB PO PRN (08:55)
[2023-01-28] MEDS ORDERED: NIFEdipine XL 60 MG TAB PO SCH (09:00)
[2023-01-28] MEDS ORDERED: Iopamidol-370 76% 500 ML MDV (1 ML CHARGE) ONE (09:33)
[2023-01-28] MEDS ORDERED: niCARdipine 25 MG in Sodium Chloride 0.9% 250 ML 250 ML IVPB SCH (10:00)
[2023-01-28] MEDS: Chlorhexidine Gluconate 15 ML UDCUP SSP SCH ×2 (10:50→21:55)
[2023-01-28] MEDS: Sodium Chloride 0.9% 1,000 ML IV SCH ×2 (10:57→22:17)
[2023-01-28] MEDS: ALPRAZolam 0.5 MG TAB PO SCH ×3 (10:59→21:53)
[2023-01-28] MEDS: Pantoprazole 40 MG VIAL IVP SCH ×2 (10:59→21:55)
[2023-01-28] MEDS ORDERED: ALPRAZolam 0.25 MG TAB ONE (11:14)
[2023-01-28] MEDS: tiZANidine HCl 4 MG TAB PO PRN ×2 (11:41→21:57)
[2023-01-28] MEDS ORDERED: hydrALAZINE 25 MG TAB PO SCH ×2 (12:00→15:00)
[2023-01-28] MEDS ORDERED: hydrALAZINE 25 MG TAB ONE (15:45)
[2023-01-28] MEDS ORDERED: Acetaminophen 500 MG TAB ONE (15:45)
[2023-01-28 19:38] VITALS: BMI 41.2
[2023-01-28] MEDS ORDERED: Temazepam 15 MG CAP PO SCH (21:00)
[2023-01-28] MEDS: hydrALAZINE 25 MG TAB PO SCH (21:53)
[2023-01-28] MEDS: Acetaminophen 500 MG TAB PO PRN (21:57)
[2023-01-29] MEDS: tiZANidine HCl 4 MG TAB PO PRN ×2 (02:14→09:20)
[2023-01-29] MEDS ORDERED: cefTRIAXone\\ROCEPHIN 1 GM in Sodium Chloride 0.9% 100 ML IVPB SCH (06:00)
[2023-01-29] MEDS ORDERED: NIFEdipine XL 60 MG TAB PO SCH (09:00)
[2023-01-29] MEDS: hydrALAZINE 25 MG TAB PO SCH ×2 (09:13→15:25)
[2023-01-29] MEDS: Chlorhexidine Gluconate 15 ML UDCUP SSP SCH (09:14)
[2023-01-29] MEDS: ALPRAZolam 0.5 MG TAB PO SCH ×2 (09:14→15:25)
[2023-01-29] MEDS: Pantoprazole 40 MG VIAL IVP SCH (09:15)
[2023-01-29] MEDS: Acetaminophen 500 MG TAB PO PRN ×2 (09:21→15:13)
[2023-01-29 09:24] LABS: Hemoglobin 13.2 g/dL (12.0-16.0); Mean Corpuscular HGB CONC 29.9 g/dL (32.0-36.0); Mean Corpuscular Hemoglobin 28.1 pg (27.0-31.0); Mean Corpuscular Volume 93.8 fl (78.0-98.0); Mean Platelet Volume 8.3 fL (7.4-10.4); Platelet Count 284 10x3/uL (130-400); RBC Distribution Width 13.4 % (11.5-14.5); Red Blood Cell (RBC) Count 4.69 mill/uL (4.20-5.40); White Blood Cell (WBC) Count 7.2 10x3/uL (4.8-10.8)
[2023-01-29 09:25] LABS: #Eosinphils 0.1 thou/uL (0.0-0.7); #Lymphocytes 1.7 thou/uL (1.20-3.40); #Monocytes 0.4 thou/uL (0.11-0.59); %Basophils 0.1 % (0.0-1.0); %Eosinophils 1.1 % (0.0-10.0); %Lymphocytes 23.7 % (21.0-51.0); %Monocytes 5.7 % (0.0-10.0); %Neutrophils 69.4 % (42.0-75.0)
[2023-01-29 09:36] LABS: Anion Gap 17 mmol/L (10-20); BUN (Urea Nitrogen) 19 mg/dL (9.8-20.1); Calc. Creatinine Clearance 87 mL/min (70-130); Calcium 9.9 mg/dL (7.8-10.44); Carbon Dioxide 22 mmol/L (23-31); Chloride 106 mmol/L (98-107); Estimated GFR 48; Glucose 103 mg/dL (80-115); Potassium 3.8 mmol/L (3.5-5.1); Sodium 141 mmol/L (136-145)
[2023-01-29] MEDS: Sodium Chloride 0.9% 1,000 ML IV SCH (12:20)
[2023-01-29 17:29] VITALS: BP 126/62; TEMP 98.1
== END 2023-01-29 18:34 | disposition home or self-care (01) | DRG 305 ==
LOC: ERS 00:48 → ERHOLD 07:53 → T4-A 19:26
PROVIDERS: ADMIT Family Medicine; ATTEND Hospitalist
DX: I16.0 Hypertensive urgency (principal); N39.0 Urinary tract infection, site not specified; K92.0 Hematemesis; Z68.41 Body mass index [BMI] 40.0-44.9, adult; R10.9 Unspecified abdominal pain; M79.7 Fibromyalgia; F31.9 Bipolar disorder, unspecified; F41.9 Anxiety disorder, unspecified; K21.9 Gastro-esophageal reflux disease without esophagitis; G43.909 Migraine, unspecified, not intractable, without status migrainosus; N18.30 Chronic kidney disease, stage 3 unspecified; I12.9 Hypertensive chronic kidney disease with stage 1 through stage 4 chronic kidney disease, or unspecified chronic kidney disease; Z90.710 Acquired absence of both cervix and uterus; Z98.890 Other specified postprocedural states; Z79.899 Other long term (current) drug therapy; Z86.718 Personal history of other venous thrombosis and embolism; Z79.01 Long term (current) use of anticoagulants; Z88.6 Allergy status to analgesic agent; Z88.8 Allergy status to other drugs, medicaments and biological substances; Z91.041 Radiographic dye allergy status; Z80.9 Family history of malignant neoplasm, unspecified; Z83.6 Family history of other diseases of the respiratory system; E66.01 Morbid (severe) obesity due to excess calories
CPT/HCPCS: 36415; 74177; 80048; 80053; 81003; 81015; 83605; 83690; 85025; 86850; 86900; 86901; 87086; 93005; C9113; J0696; J1170; J1200; J1630; J2250; J2270; J2405; J2920; J3490; J7050; J7070; Q0162; Q9967; S0028

== ENCOUNTER 2023-02-01 23:13 | Emergency (ER) | payer OTHER ==
[2023-02-02 00:09] LABS: #Eosinphils 0.1 thou/uL (0.0-0.7); #Lymphocytes 1.8 thou/uL (1.20-3.40); #Monocytes 0.7 thou/uL (0.11-0.59); #Neutrophils 7.9 thou/uL (1.40-6.50); %Eosinophils 0.6 % (0.0-10.0); %Lymphocytes 17.6 % (21.0-51.0); %Monocytes 6.3 % (0.0-10.0); %Neutrophils 75.5 % (42.0-75.0); Hemoglobin 13.9 g/dL (12.0-16.0); Mean Corpuscular HGB CONC 31.7 g/dL (32.0-36.0); Mean Corpuscular Hemoglobin 29.4 pg (27.0-31.0); Mean Corpuscular Volume 92.6 fl (78.0-98.0); Mean Platelet Volume 8.3 fL (7.4-10.4); Platelet Count 381 10x3/uL (130-400); RBC Distribution Width 13.4 % (11.5-14.5); Red Blood Cell (RBC) Count 4.73 mill/uL (4.20-5.40); White Blood Cell (WBC) Count 10.4 10x3/uL (4.8-10.8)
[2023-02-02 00:24] LABS: ALT (SGPT) 13 U/L (8-55); AST (SGOT) 20 U/L (5-34); Albumin 4.9 g/dL (3.4-4.8); Alkaline Phosphatase 72 U/L (40-110); Anion Gap 19 mmol/L (10-20); BUN (Urea Nitrogen) 15 mg/dL (9.8-20.1); Bilirubin, Total 0.4 mg/dL (0.2-1.2); Calc. Creatinine Clearance 0 mL/min (70-130); Calcium 10.5 mg/dL (7.8-10.44); Carbon Dioxide 20 mmol/L (23-31); Chloride 107 mmol/L (98-107); Estimated GFR 41; Globulin 4.1 g/dL (2.4-3.5); Glucose 128 mg/dL (80-115); Lipase 22 U/L (8-78); Potassium 3.9 mmol/L (3.5-5.1); Sodium 142 mmol/L (136-145)
[2023-02-02 00:31] LABS: Bacteria/HPF None Seen HPF (None Seen); Bilirubin Negative (Negative); Blood, Urine 2+ (Negative); Clarity Turbid (Clear); Glucose, Urine (Dipstick) Normal (Negative); Ketone, Urine 10 mg/dL (Negative); Leukocyte Negative Leu/uL (Negative); Nitrite Negative (Negative); Protein, Urine (Dipstick) 100 mg/dL (Neg-Trace); Specific Gravity, Urine 1.035 (1.002-1.036); Urobilinogen Normal mg/dL (Less than 2); WBC/HPF 0-3 HPF (0-3); pH, Urine 5.5 (5.0-9.0)
[2023-02-02 00:37] LABS: Amphetamine Not Detected (NotDetected); Barbiturates Screen Not Detected (NotDetected); Benzodiazepine Screen Detected (NotDetected); Cocaine Metabolite Screen Not Detected (NotDetected); Methadone Not Detected (NotDetected); Methamphetamine Not Detected (NotDetected); Opiate Screen Detected (NotDetected); Oxycodone Screen Not Detected (NotDetected); Phencyclidine (PCP) Not Detected (NotDetected); THC/Cannabinoid Screen Not Detected (NotDetected); Tricyclic Screen Not Detected (NotDetected)
== END 2023-02-02 00:48 | disposition home or self-care (01) ==
LOC: ERS 23:13
DX: R10.9 Unspecified abdominal pain (principal); F41.9 Anxiety disorder, unspecified; F31.9 Bipolar disorder, unspecified; I10 Essential (primary) hypertension
CPT/HCPCS: 36415; 74176; 80053; 80306; 81003; 81015; 83690; 85025

== ENCOUNTER 2023-04-11 18:57 | Inpatient (IN) | payer OTHER, MEDICAID ==
[2023-04-11 20:17] LABS: #Monocytes 0.1 thou/uL (0.11-0.59); #Neutrophils 6.1 thou/uL (1.40-6.50); %Basophils 0.3 % (0.0-1.0); %Eosinophils 0.1 % (0.0-10.0); %Lymphocytes 6.2 % (21.0-51.0); %Monocytes 1.6 % (0.0-10.0); %Neutrophils 91.2 % (42.0-75.0); Hemoglobin 12.1 g/dL (12.0-16.0); Mean Corpuscular HGB CONC 31.1 g/dL (32.0-36.0); Mean Corpuscular Hemoglobin 28.5 pg (27.0-31.0); Mean Corpuscular Volume 91.7 fl (78.0-98.0); Mean Platelet Volume 10.4 fL (7.4-10.4); Platelet Count 314 10x3/uL (130-400); RBC Distribution Width 13.8 % (11.5-14.5); Red Blood Cell (RBC) Count 4.24 mill/uL (4.20-5.40); White Blood Cell (WBC) Count 6.7 10x3/uL (4.8-10.8)
[2023-04-11 20:47] LABS: ALT (SGPT) 8 U/L (8-55); AST (SGOT) 13 U/L (5-34); Albumin 4.2 g/dL (3.4-4.8); Alkaline Phosphatase 70 U/L (40-110); Anion Gap 15 mmol/L (10-20); BUN (Urea Nitrogen) 17 mg/dL (9.8-20.1); Bilirubin, Total 0.2 mg/dL (0.2-1.2); Calc. Creatinine Clearance 0 mL/min (70-130); Calcium 9.9 mg/dL (7.8-10.44); Carbon Dioxide 20 mmol/L (23-31); Chloride 109 mmol/L (98-107); Estimated GFR 35; Globulin 3.3 g/dL (2.4-3.5); Glucose 189 mg/dL (80-115); Lipase 14 U/L (8-78); Magnesium 1.7 mg/dL (1.6-2.6); Potassium 3.5 mmol/L (3.5-5.1); Protein, Total 7.5 g/dL (5.8-8.1); Sodium 140 mmol/L (136-145)
[2023-04-11 21:10] LABS: CKMB 2.5 ng/mL (0-6.6)
[2023-04-11 23:15] LABS: Lactic Acid 3.4 mmol/L (0.5-2.2)
[2023-04-12] MEDS ORDERED: Acetaminophen 325 MG TAB PO PRN (00:15)
[2023-04-12] MEDS ORDERED: Ondansetron PF 4 MG/2 ML Vial IVP PRN (00:15)
[2023-04-12] MEDS ORDERED: Ondansetron ODT 4 MG TAB SL PRN (00:15)
[2023-04-12] MEDS: tiZANidine HCl 4 MG TAB PO PRN ×3 (00:28→18:43)
[2023-04-12] MEDS: HYDROcodone/Acetaminophen 5/325 mg Tablet PO PRN ×4 (00:29→18:43)
[2023-04-12] MEDS: Sodium Chloride 0.9% 1,000 ML IV SCH ×3 (00:42→15:26)
[2023-04-12 01:01] VITALS: BMI 36.5
[2023-04-12 08:00] LABS: #Eosinphils 0.1 thou/uL (0.0-0.7); #Monocytes 0.5 thou/uL (0.11-0.59); #Neutrophils 4.9 thou/uL (1.40-6.50); %Basophils 0.4 % (0.0-1.0); %Eosinophils 0.9 % (0.0-10.0); %Lymphocytes 21.9 % (21.0-51.0); %Neutrophils 69.5 % (42.0-75.0); Hemoglobin 11.7 g/dL (12.0-16.0); Mean Corpuscular HGB CONC 30.4 g/dL (32.0-36.0); Mean Corpuscular Hemoglobin 28.5 pg (27.0-31.0); Mean Corpuscular Volume 93.7 fl (78.0-98.0); Mean Platelet Volume 10.3 fL (7.4-10.4); Platelet Count 289 10x3/uL (130-400); RBC Distribution Width 14.2 % (11.5-14.5); Red Blood Cell (RBC) Count 4.11 mill/uL (4.20-5.40)
[2023-04-12 08:22] LABS: Albumin 3.9 g/dL (3.4-4.8); Anion Gap 11 mmol/L (10-20); BUN (Urea Nitrogen) 15 mg/dL (9.8-20.1); Bilirubin, Total 0.3 mg/dL (0.2-1.2); Calc. Creatinine Clearance 82 mL/min (70-130); Calcium 9.4 mg/dL (7.8-10.44); Carbon Dioxide 24 mmol/L (23-31); Chloride 109 mmol/L (98-107); Estimated GFR 47; Glucose 108 mg/dL (80-115); Potassium 3.3 mmol/L (3.5-5.1); Sodium 141 mmol/L (136-145)
[2023-04-12 08:23] LABS: ALT (SGPT) 7 U/L (8-55); AST (SGOT) 14 U/L (5-34); Alkaline Phosphatase 63 U/L (40-110); Globulin 3.1 g/dL (2.4-3.5)
[2023-04-12] MEDS ORDERED: NIFEdipine XL 60 MG TAB PO SCH (09:00)
[2023-04-12] MEDS: Apixaban 5 MG TAB PO SCH ×2 (09:46→20:26)
[2023-04-12] MEDS: NIFEdipine XL 60 MG TAB PO SCH (11:08)
[2023-04-12 11:45] LABS: Troponin I 0.046 ng/mL (< 0.028)
[2023-04-12] MEDS: Metoclopramide HCl 10 MG/2 ML VIAL IVP PRN (14:03)
[2023-04-12] MEDS: Temazepam 15 MG CAP PO SCH (20:26)
[2023-04-13] MEDS: HYDROcodone/Acetaminophen 5/325 mg Tablet PO PRN ×4 (01:00→18:24)
[2023-04-13] MEDS: tiZANidine HCl 4 MG TAB PO PRN ×4 (02:23→21:06)
[2023-04-13] MEDS: NIFEdipine XL 60 MG TAB PO SCH (08:02)
[2023-04-13] MEDS: Apixaban 5 MG TAB PO SCH ×2 (12:44→21:03)
[2023-04-13] MEDS: Metoclopramide HCl 10 MG/2 ML VIAL IVP PRN (17:23)
[2023-04-13] MEDS: ALPRAZolam 0.5 MG TAB PO PRN (18:25)
[2023-04-13] MEDS: Temazepam 15 MG CAP PO SCH (21:03)
[2023-04-13 22:03] LABS: Troponin I 0.011 ng/mL (< 0.028)
[2023-04-14] MEDS: HYDROcodone/Acetaminophen 5/325 mg Tablet PO PRN ×4 (04:12→19:00)
[2023-04-14] MEDS: tiZANidine HCl 4 MG TAB PO PRN ×3 (09:22→20:13)
[2023-04-14] MEDS: NIFEdipine XL 60 MG TAB PO SCH (09:24)
[2023-04-14] MEDS: Apixaban 5 MG TAB PO SCH ×2 (09:24→20:13)
[2023-04-14] MEDS ORDERED: Potassium Chloride 20 MEQ TAB PO SCH (10:00)
[2023-04-14] MEDS: Morphine 4 MG/ML VIAL SLOW IVP PRN (12:20)
[2023-04-14] MEDS: ALPRAZolam 0.5 MG TAB PO PRN (19:00)
[2023-04-14] MEDS: Temazepam 15 MG CAP PO SCH (20:13)
[2023-04-15] MEDS: HYDROcodone/Acetaminophen 5/325 mg Tablet PO PRN (05:50)
[2023-04-15] MEDS: tiZANidine HCl 4 MG TAB PO PRN (09:18)
[2023-04-15] MEDS: ALPRAZolam 0.5 MG TAB PO PRN (09:18)
[2023-04-15] MEDS: Apixaban 5 MG TAB PO SCH (09:18)
[2023-04-15] MEDS: NIFEdipine XL 60 MG TAB PO SCH (09:25)
[2023-04-15] MEDS: Morphine 4 MG/ML VIAL SLOW IVP PRN (09:55)
[2023-04-15 12:18] VITALS: BP 119/67; TEMP 97.6
== END 2023-04-15 15:09 | disposition left against medical advice (07) | DRG 392 ==
LOC: SUATTDRO 18:57 → ERS 18:57 → 2NO 21:52 → OBSVTOIN 04-14 09:50
PROVIDERS: ADMIT Family Medicine; ATTEND Internal Medicine
DX: R10.9 Unspecified abdominal pain (principal); N17.9 Acute kidney failure, unspecified; E87.20 Acidosis, unspecified; R07.9 Chest pain, unspecified; I10 Essential (primary) hypertension; M79.7 Fibromyalgia; F25.0 Schizoaffective disorder, bipolar type; R77.8 Other specified abnormalities of plasma proteins; E87.6 Hypokalemia; F41.9 Anxiety disorder, unspecified; M54.9 Dorsalgia, unspecified; G89.29 Other chronic pain; Z88.8 Allergy status to other drugs, medicaments and biological substances; Z88.6 Allergy status to analgesic agent; Z79.899 Other long term (current) drug therapy; Z90.710 Acquired absence of both cervix and uterus; Z86.718 Personal history of other venous thrombosis and embolism; Z91.041 Radiographic dye allergy status
CPT/HCPCS: 36415; 71045; 78451; 80053; 82553; 83605; 83690; 83735; 83880; 84484; 85025; 87040; 93005; 96374; 96376; A9500; G0378; J2270; J2765; J7050

== ENCOUNTER 2023-05-24 16:51 | Inpatient (IN) | payer OTHER, MEDICAID ==
[~2023-05-24 16:51] MED LIST changes: -Iopamidol-370 76% 500 ML 1 ML ONE; +Iopamidol-370 76% 500 ML MDV (1 ML CHARGE) ONE
[2023-05-24] MEDS ORDERED: LORazepam 2 MG/ML SYR.(CARPUJECT) ONE (17:02)
[2023-05-24] MEDS ORDERED: Ipratropium/Albuterol 3 ML NEB ONE (17:15)
[2023-05-24] MEDS ORDERED: Ondansetron PF 4 MG/2 ML Vial ONE (17:15)
[2023-05-24 17:21] LABS: Actual Bicarbonate (HCO3v) 18.6 mEq/L (22-28); Calcium, Ionized (venous) 1.07 mmol/L (1.16-1.32); Chloride (VBG) 108 mmol/L (98-106); Hematocrit-VBG 45 % (36.0-47.0); Hemoglobin (Hb) 15.2 g/dL (11.7-16.1); Potassium (VBG) 3.68 mmol/L (3.70-5.30); Sodium 146.2 mmol/L (133-146); pH (venous) 7.437 (7.32-7.43)
[2023-05-24] MEDS ORDERED: diphenhydrAMINE 50 MG CAP ONE (17:26)
[2023-05-24] MEDS ORDERED: Famotidine/PF 20 mg/2ml Vial ONE (17:26)
[2023-05-24] MEDS ORDERED: methylPREDNISolone Sod Succ 40 MG VIAL ONE (17:26)
[2023-05-24] MEDS ORDERED: diphenhydrAMINE 50 MG/ML VIAL ONE ×2 (17:27→21:31)
[2023-05-24 17:32] LABS: #Basophils 0.1 thou/uL (0.0-0.2); #Monocytes 0.3 thou/uL (0.11-0.59); #Neutrophils 6.5 thou/uL (1.40-6.50); %Basophils 0.6 % (0.0-1.0); %Eosinophils 0.1 % (0.0-10.0); %Lymphocytes 18.4 % (21.0-51.0); %Monocytes 3.9 % (0.0-10.0); %Neutrophils 76.6 % (42.0-75.0); Hemoglobin 13.8 g/dL (12.0-16.0); Mean Corpuscular HGB CONC 30.3 g/dL (32.0-36.0); Mean Corpuscular Hemoglobin 27.6 pg (27.0-31.0); Mean Corpuscular Volume 91.2 fl (78.0-98.0); Mean Platelet Volume 10.3 fL (7.4-10.4); Platelet Count 400 10x3/uL (130-400); White Blood Cell (WBC) Count 8.4 10x3/uL (4.8-10.8)
[2023-05-24 17:44] LABS: PTT 25.6 sec (22.9-36.1); Prothrombin Time 13.9 sec (12.0-14.7)
[2023-05-24] MEDS ORDERED: Promethazine HCl 25 MG/ML VIAL ONE (17:49)
[2023-05-24 18:15] LABS: Alcohol Less than 10.0 mg/dL (Less than 10)
[2023-05-24 18:17] LABS: Magnesium 1.8 mg/dL (1.6-2.6); Salicylate Less than 8.0 mg/dL (15.0-30.0)
[2023-05-24 18:18] LABS: Acetaminophen Less than 10 mcg/mL (10.0-30.0); Lipase 31 U/L (8-78)
[2023-05-24 18:19] LABS: ALT (SGPT) 11 U/L (8-55); AST (SGOT) 16 U/L (5-34); Albumin 4.8 g/dL (3.4-4.8); Alkaline Phosphatase 88 U/L (40-110); Anion Gap 22 mmol/L (10-20); BUN (Urea Nitrogen) 16 mg/dL (9.8-20.1); Bilirubin, Total 0.4 mg/dL (0.2-1.2); Calc. Creatinine Clearance 0 mL/min (70-130); Calcium 10.6 mg/dL (7.8-10.44); Carbon Dioxide 18 mmol/L (23-31); Chloride 108 mmol/L (98-107); Estimated GFR 36; Globulin 4.2 g/dL (2.4-3.5); Glucose 134 mg/dL (80-115); Potassium 3.9 mmol/L (3.5-5.1); Sodium 144 mmol/L (136-145)
[2023-05-24] MEDS ORDERED: Haloperidol Lactate 5 MG/ML VIAL ONE (19:32)
[2023-05-24] MEDS ORDERED: Vancomycin 1 GM/200 ML (FROZEN) BAG ONE (20:49)
[2023-05-24] MEDS ORDERED: Piperacillin/Tazobactam 4.5 GM VIAL ONE (20:49)
[2023-05-24] MEDS ORDERED: HYDROmorphone 0.5 MG/0.5 ML SYRINGE ONE ×2 (20:59→21:05)
[2023-05-24] MEDS ORDERED: Nitroglycerin 50 MG/250 ML BOT 0 ML ONE (21:31)
[2023-05-24 21:34] LABS: Lactic Acid 4.1 mmol/L (0.5-2.2)
[2023-05-24] MEDS ORDERED: Labetalol HCl 100 MG/20 ML VIAL ONE (22:40)
[2023-05-24 23:08] LABS: Bilirubin Negative (Negative); Blood, Urine 3+ (Negative); CAUTI Indications for Culture Pelvic or flank pain; Clarity Turbid (Clear); Glucose, Urine (Dipstick) 300 mg/dL (Negative); Ketone, Urine 20 mg/dL (Negative); Leukocyte 25 Leu/uL (Negative); Nitrite Negative (Negative); Protein, Urine (Dipstick) 70 mg/dL (Neg-Trace); Specific Gravity, Urine 1.019 (1.002-1.036); Urobilinogen Normal mg/dL (Less than 2); WBC/HPF 0-3 HPF (0-3); pH, Urine 5.5 (5.0-9.0)
[2023-05-24 23:09] LABS: Bacteria/HPF 1+ HPF (None Seen)
[2023-05-24 23:10] LABS: Urine Culture Reflex No No
[2023-05-25] MEDS ORDERED: niCARdipine 25 MG/10 ML SDV ONE (00:04)
[2023-05-25 01:36] VITALS: BMI 36.6
[2023-05-25] MEDS: Acetaminophen/Codeine 30-300mg Tablet PO PRN ×3 (01:43→19:22)
[2023-05-25] MEDS ORDERED: Ondansetron ODT 4 MG TAB PO PRN (01:44)
[2023-05-25] MEDS ORDERED: Calcium Carbonate 500 MG ChewTAB PO PRN (01:44)
[2023-05-25] MEDS ORDERED: Ondansetron PF 4 MG/2 ML Vial IVP PRN (01:44)
[2023-05-25] MEDS ORDERED: Acetaminophen 325 MG TAB PO PRN (01:44)
[2023-05-25] MEDS ORDERED: Senokot S 8.6-50 MG TAB PO PRN (01:44)
[2023-05-25] MEDS ORDERED: niCARdipine 25 MG in Sodium Chloride 0.9% 250 ML 250 ML IVPB SCH (01:45)
[2023-05-25] MEDS ORDERED: hydrALAZINE 20 MG/ML VIAL SLOW IVP PRN (01:58)
[2023-05-25] MEDS: D5 1/2 NS w/20 mEq KCL 1,000 ML IV SCH ×2 (02:18→11:52)
[2023-05-25 02:20] LABS: #Monocytes 0.1 thou/uL (0.11-0.59); #Neutrophils 12.1 thou/uL (1.40-6.50); %Basophils 0.2 % (0.0-1.0); %Lymphocytes 5.7 % (21.0-51.0); %Monocytes 0.8 % (0.0-10.0); %Neutrophils 92.8 % (42.0-75.0); Hemoglobin 13.4 g/dL (12.0-16.0); Mean Corpuscular HGB CONC 30.7 g/dL (32.0-36.0); Mean Corpuscular Hemoglobin 27.8 pg (27.0-31.0); Mean Corpuscular Volume 90.5 fl (78.0-98.0); Mean Platelet Volume 10.1 fL (7.4-10.4); Platelet Count 362 10x3/uL (130-400); RBC Distribution Width 14.1 % (11.5-14.5); Red Blood Cell (RBC) Count 4.82 mill/uL (4.20-5.40); White Blood Cell (WBC) Count 13.1 10x3/uL (4.8-10.8)
[2023-05-25] MEDS ORDERED: tiZANidine HCl 4 MG TAB PO SCH (02:30)
[2023-05-25] MEDS ORDERED: Piperacillin/Tazobactam 3.375 GM in Sodium Chloride 0.9% 100 ML IVPB SCH ×2 (02:30→10:00)
[2023-05-25 02:59] LABS: Lactic Acid 1.5 mmol/L (0.5-2.2)
[2023-05-25 03:13] LABS: Anion Gap 17 mmol/L (10-20); BUN (Urea Nitrogen) 14 mg/dL (9.8-20.1); Calc. Creatinine Clearance 93 mL/min (70-130); Calcium 9.6 mg/dL (7.8-10.44); Carbon Dioxide 22 mmol/L (23-31); Chloride 107 mmol/L (98-107); Estimated GFR 54; Glucose 174 mg/dL (80-115); Potassium 3.5 mmol/L (3.5-5.1); Sodium 142 mmol/L (136-145)
[2023-05-25] MEDS: Piperacillin/Tazobactam 3.375 GM in Sodium Chloride 0.9% 100 ML IVPB SCH ×3 (03:16→20:07)
[2023-05-25] MEDS ORDERED: Piperacillin/Tazobactam 2.25 GM in Sodium Chloride 0.9% 100 ML IVPB SCH (06:00)
[2023-05-25] MEDS: NIFEdipine XL 60 MG TAB PO SCH (08:01)
[2023-05-25] MEDS: tiZANidine HCl 4 MG TAB PO SCH ×3 (08:01→20:07)
[2023-05-25] MEDS: Famotidine 20 MG TAB PO SCH ×2 (08:01→20:07)
[2023-05-25] MEDS: Labetalol HCl 100 MG/20 ML VIAL SLOW IVP PRN (08:01)
[2023-05-25] MEDS: Apixaban 5 MG TAB PO SCH ×2 (08:02→20:07)
[2023-05-25] MEDS: Famotidine/PF 20 mg/2ml Vial SLOW IVP SCH ×2 (08:09→20:09)
[2023-05-25] MEDS ORDERED: Enalaprilat Dihydrate 1.25 MG/ML VIAL SLOW IVP PRN (09:41)
[2023-05-25] MEDS ORDERED: traMADol HCl 50 MG TAB PO PRN (10:38)
[2023-05-25] MEDS ORDERED: Metoprolol Tartrate 25 MG TAB PO SCH ×2 (11:00→21:00)
[2023-05-25] MEDS: ALPRAZolam 0.5 MG TAB PO SCH ×2 (12:58→20:07)
[2023-05-25] MEDS: HYDROcodone/Acetaminophen 5/325 mg Tablet PO PRN ×2 (16:11→21:08)
[2023-05-25] MEDS ORDERED: Temazepam 15 MG CAP PO SCH (21:00)
[2023-05-26] MEDS: Labetalol HCl 100 MG/20 ML VIAL SLOW IVP PRN ×2 (01:00→04:34)
[2023-05-26] MEDS: D5 1/2 NS w/20 mEq KCL 1,000 ML IV SCH (03:30)
[2023-05-26] MEDS: Piperacillin/Tazobactam 3.375 GM in Sodium Chloride 0.9% 100 ML IVPB SCH ×2 (03:56→12:55)
[2023-05-26] MEDS: HYDROcodone/Acetaminophen 5/325 mg Tablet PO PRN (05:27)
[2023-05-26] MEDS ORDERED: ALPRAZolam 0.25 MG TAB PO PRN (07:48)
[2023-05-26] MEDS: ALPRAZolam 0.5 MG TAB PO SCH ×2 (08:52→14:50)
[2023-05-26] MEDS: tiZANidine HCl 4 MG TAB PO SCH ×2 (08:52→14:50)
[2023-05-26] MEDS: NIFEdipine XL 60 MG TAB PO SCH (08:53)
[2023-05-26] MEDS: Apixaban 5 MG TAB PO SCH (08:53)
[2023-05-26] MEDS: Famotidine 20 MG TAB PO SCH (08:53)
[2023-05-26] MEDS ORDERED: Losartan 25 MG TAB PO SCH (09:00)
[2023-05-26 09:34] LABS: #Basophils 0.1 thou/uL (0.0-0.2); #Monocytes 0.7 thou/uL (0.11-0.59); #Neutrophils 8.4 thou/uL (1.40-6.50); %Basophils 0.5 % (0.0-1.0); %Eosinophils 0.3 % (0.0-10.0); %Lymphocytes 12.8 % (21.0-51.0); %Monocytes 6.3 % (0.0-10.0); %Neutrophils 79.9 % (42.0-75.0); Hemoglobin 13.2 g/dL (12.0-16.0); Mean Corpuscular HGB CONC 30.5 g/dL (32.0-36.0); Mean Corpuscular Hemoglobin 27.7 pg (27.0-31.0); Mean Corpuscular Volume 90.8 fl (78.0-98.0); Mean Platelet Volume 10.4 fL (7.4-10.4); Platelet Count 328 10x3/uL (130-400); RBC Distribution Width 14.3 % (11.5-14.5); Red Blood Cell (RBC) Count 4.77 mill/uL (4.20-5.40); White Blood Cell (WBC) Count 10.6 10x3/uL (4.8-10.8)
[2023-05-26 09:53] LABS: Anion Gap 15 mmol/L (10-20); BUN (Urea Nitrogen) 11 mg/dL (9.8-20.1); Calc. Creatinine Clearance 91 mL/min (70-130); Calcium 9.6 mg/dL (7.8-10.44); Carbon Dioxide 24 mmol/L (23-31); Chloride 102 mmol/L (98-107); Estimated GFR 53; Glucose 154 mg/dL (80-115); Potassium 3.7 mmol/L (3.5-5.1); Sodium 137 mmol/L (136-145)
[2023-05-26 11:58] VITALS: BP 122/81; TEMP 97.5
[2023-05-26] MEDS: Famotidine/PF 20 mg/2ml Vial SLOW IVP SCH (12:55)
== END 2023-05-26 15:45 | disposition home or self-care (01) | DRG 872 ==
LOC: ERS 16:51 → CCU 23:51 → OBSVTOIN 05-25 00:40 → SJJU 05-25 17:34
PROVIDERS: ADMIT Student in an Organized Health Care Education/Training Program; ATTEND Internal Medicine
PROC: 4A043R1 Measurement of Venous Saturation, Peripheral, Percutaneous Approach (ICD-10-PCS; 2023-05-24)
PROC: 02HV33Z Insertion of Infusion Device into Superior Vena Cava, Percutaneous Approach (ICD-10-PCS; principal; 2023-05-25)
PROC: 3E04329 Introduction of Other Anti-infective into Central Vein, Percutaneous Approach (ICD-10-PCS; 2023-05-25)
DX: A41.9 Sepsis, unspecified organism (principal); E87.20 Acidosis, unspecified; I16.1 Hypertensive emergency; N39.0 Urinary tract infection, site not specified; N17.9 Acute kidney failure, unspecified; I50.32 Chronic diastolic (congestive) heart failure; I11.0 Hypertensive heart disease with heart failure; F41.9 Anxiety disorder, unspecified; F31.9 Bipolar disorder, unspecified; K21.9 Gastro-esophageal reflux disease without esophagitis; G89.29 Other chronic pain; M54.9 Dorsalgia, unspecified; Z88.6 Allergy status to analgesic agent; Z86.711 Personal history of pulmonary embolism; Z90.710 Acquired absence of both cervix and uterus; Z98.890 Other specified postprocedural states; Z88.8 Allergy status to other drugs, medicaments and biological substances; Z91.041 Radiographic dye allergy status; Z79.899 Other long term (current) drug therapy; Z79.01 Long term (current) use of anticoagulants
CPT/HCPCS: 36415; 71045; 71275; 74177; 80048; 80053; 80307; 81001; 82010; 82805; 83605; 83690; 83735; 83880; 84443; 84484; 85025; 85610; 85730; 87040; 87077; 87086; 87186; 93005; J0360; J1170; J1200; J1630; J2060; J2405; J2543; J2550; J2920; J3370-JW; J3480; J3490; J7050; J7620; Q9967; S0028

== ENCOUNTER 2023-06-21 00:29 | Inpatient (IN) | payer MEDICARE, OTHER ==
[2023-06-21] MEDS ORDERED: Ondansetron ODT 8 MG TAB ONE (01:24)
[2023-06-21 01:26] LABS: #Basophils 0.1 thou/uL (0.0-0.2); #Monocytes 0.4 thou/uL (0.11-0.59); #Neutrophils 7.7 thou/uL (1.40-6.50); %Basophils 0.5 % (0.0-1.0); %Eosinophils 0.1 % (0.0-10.0); %Lymphocytes 14.8 % (21.0-51.0); %Monocytes 3.6 % (0.0-10.0); %Neutrophils 80.5 % (42.0-75.0); Hematocrit 47.1 % (36.0-47.0); Hemoglobin 14.2 g/dL (12.0-16.0); Mean Corpuscular HGB CONC 30.1 g/dL (32.0-36.0); Mean Corpuscular Hemoglobin 28.2 pg (27.0-31.0); Mean Corpuscular Volume 93.6 fl (78.0-98.0); Mean Platelet Volume 10.4 fL (7.4-10.4); Platelet Count 371 10x3/uL (130-400); RBC Distribution Width 14.3 % (11.5-14.5); Red Blood Cell (RBC) Count 5.03 mill/uL (4.20-5.40); White Blood Cell (WBC) Count 9.6 10x3/uL (4.8-10.8)
[2023-06-21] MEDS ORDERED: Promethazine HCl 25 MG/ML VIAL ONE (01:56)
[2023-06-21] MEDS ORDERED: Promethazine HCl 12.5 MG SUPP ONE (01:58)
[2023-06-21] MEDS ORDERED: fentaNYL 50 mcg/mL 1 mL Vial ONE ×2 (02:40→03:55)
[2023-06-21] MEDS ORDERED: LORazepam 2 MG/ML SYR.(CARPUJECT) ONE (04:26)
[2023-06-21 04:27] LABS: INR-International Normal Ratio 1.1; PTT 27.2 sec (22.9-36.1); Prothrombin Time 14.4 sec (12.0-14.7)
[2023-06-21 04:36] LABS: ALT (SGPT) 8 U/L (8-55); AST (SGOT) 17 U/L (5-34); Albumin 4.7 g/dL (3.4-4.8); Alkaline Phosphatase 90 U/L (40-110); Anion Gap 20 mmol/L (10-20); BUN (Urea Nitrogen) 25 mg/dL (9.8-20.1); Bilirubin, Total 0.3 mg/dL (0.2-1.2); Calc. Creatinine Clearance 0 mL/min (70-130); Calcium 10.5 mg/dL (7.8-10.44); Carbon Dioxide 17 mmol/L (23-31); Chloride 109 mmol/L (98-107); Estimated GFR 34; Glucose 161 mg/dL (80-115); Potassium 3.7 mmol/L (3.5-5.1); Protein, Total 8.7 g/dL (5.8-8.1); Sodium 142 mmol/L (136-145)
[2023-06-21 04:40] LABS: Troponin I 0.012 ng/mL (< 0.028)
[2023-06-21] MEDS ORDERED: Piperacillin/Tazobactam 4.5 GM VIAL ONE (04:48)
[2023-06-21] MEDS ORDERED: methylPREDNISolone Sod Succ 40 MG VIAL ONE (05:03)
[2023-06-21] MEDS ORDERED: Famotidine/PF 20 mg/2ml Vial ONE (05:03)
[2023-06-21] MEDS ORDERED: diphenhydrAMINE 50 MG/ML VIAL ONE (05:03)
[2023-06-21] MEDS ORDERED: Haloperidol Lactate 5 MG/ML VIAL ONE (05:03)
[2023-06-21] MEDS ORDERED: Labetalol HCl 100 MG/20 ML VIAL ONE ×2 (06:00→10:15)
[2023-06-21] MEDS ORDERED: niCARdipine 25 MG/10 ML SDV ONE (06:39)
[2023-06-21] MEDS ORDERED: HYDROmorphone 0.5 MG/0.5 ML SYRINGE ONE (06:51)
[2023-06-21 07:07] LABS: Bacteria/HPF None Seen HPF (None Seen); Bilirubin Negative (Negative); Blood, Urine 1+ (Negative); CAUTI Indications for Culture Alt mental st,lethar; Clarity Clear (Clear); Glucose, Urine (Dipstick) Normal (Negative); Ketone, Urine Trace mg/dL (Negative); Leukocyte Negative Leu/uL (Negative); Nitrite Negative (Negative); Protein, Urine (Dipstick) 10 mg/dL (Neg-Trace); Specific Gravity, Urine 1.013 (1.002-1.036); Squamous Epithelial 0-3 HPF (0-3); Urobilinogen Normal mg/dL (Less than 2); WBC/HPF None Seen HPF (0-3); pH, Urine 5.5 (5.0-9.0)
[2023-06-21 07:09] LABS: Urine Culture Reflex No No
[2023-06-21] MEDS ORDERED: HYDROmorphone 2 MG TAB PO PRN (07:52)
[2023-06-21] MEDS ORDERED: niCARdipine 25 MG in Sodium Chloride 0.9% 250 ML 250 ML IVPB SCH (08:00)
[2023-06-21 08:05] LABS: Lactic Acid 1.3 mmol/L (0.5-2.2)
[2023-06-21] MEDS ORDERED: Iopamidol 370 76% 100 ML VIAL ONE (09:21)
[2023-06-21 09:30] LABS: Troponin I 0.051 ng/mL (< 0.028)
[2023-06-21] MEDS: fentaNYL 50 mcg/mL 1 mL Vial SLOW IVP PRN ×2 (09:47→13:47)
[2023-06-21] MEDS: Ondansetron PF 4 MG/2 ML Vial IVP PRN (09:48)
[2023-06-21] MEDS ORDERED: Pantoprazole 40 MG VIAL IVP SCH (10:00)
[2023-06-21 10:08] VITALS: BMI 37.0
[2023-06-21] MEDS ORDERED: Labetalol HCl 100 MG/20 ML VIAL SLOW IVP PRN (10:11)
[2023-06-21] MEDS ORDERED: hydrALAZINE 20 MG/ML VIAL SLOW IVP PRN (10:12)
[2023-06-21 10:53] LABS: Amphetamine Not Detected (NotDetected); Barbiturates Screen Not Detected (NotDetected); Benzodiazepine Screen Detected (NotDetected); Cocaine Metabolite Screen Not Detected (NotDetected); Methadone Not Detected (NotDetected); Methamphetamine Not Detected (NotDetected); Opiate Screen Detected (NotDetected); Oxycodone Screen Not Detected (NotDetected); Phencyclidine (PCP) Not Detected (NotDetected); THC/Cannabinoid Screen Not Detected (NotDetected); Tricyclic Screen Not Detected (NotDetected)
[2023-06-21] MEDS ORDERED: NIFEdipine 10 MG CAP PO SCH (11:15)
[2023-06-21 11:40] LABS: Troponin I 0.064 ng/mL (< 0.028)
[2023-06-21] MEDS ORDERED: niCARdipine 50 MG, Admixture Fee 1 EACH in Sodium Chloride 0.9% 250 ML 230 ML IVPB SCH (11:45)
[2023-06-21] MEDS: tiZANidine HCl 4 MG TAB PO SCH ×2 (14:22→20:32)
[2023-06-21] MEDS: ALPRAZolam 0.5 MG TAB PO SCH ×2 (14:22→20:32)
[2023-06-21] MEDS: NIFEdipine 10 MG CAP PO SCH ×2 (14:27→19:55)
[2023-06-21] MEDS ORDERED: ALPRAZolam 0.5 MG TAB PO SCH (15:00)
[2023-06-21] MEDS: Phenazopyridine HCl 100 MG TAB PO SCH (19:12)
[2023-06-21] MEDS: Temazepam 15 MG CAP PO SCH (20:32)
[2023-06-21] MEDS ORDERED: Sodium Chloride 0.9% 250 ML IVPB SCH ×2 (23:00→23:15)
[2023-06-22 04:09] LABS: #Monocytes 0.7 thou/uL (0.11-0.59); #Neutrophils 8.1 thou/uL (1.40-6.50); %Basophils 0.1 % (0.0-1.0); %Lymphocytes 11.9 % (21.0-51.0); %Monocytes 6.8 % (0.0-10.0); %Neutrophils 80.7 % (42.0-75.0); Hematocrit 38.3 % (36.0-47.0); Hemoglobin 11.9 g/dL (12.0-16.0); Mean Corpuscular HGB CONC 31.1 g/dL (32.0-36.0); Mean Corpuscular Hemoglobin 28.2 pg (27.0-31.0); Mean Corpuscular Volume 90.8 fl (78.0-98.0); Mean Platelet Volume 10.2 fL (7.4-10.4); Platelet Count 311 10x3/uL (130-400); RBC Distribution Width 14.5 % (11.5-14.5); Red Blood Cell (RBC) Count 4.22 mill/uL (4.20-5.40)
[2023-06-22 04:19] LABS: Hemoglobin A1c 5.1 % (4.0-6.0)
[2023-06-22] MEDS: fentaNYL 50 mcg/mL 1 mL Vial SLOW IVP PRN (04:22)
[2023-06-22 04:39] LABS: ALT (SGPT) 8 U/L (8-55); AST (SGOT) 20 U/L (5-34); Albumin 4.1 g/dL (3.4-4.8); Alkaline Phosphatase 78 U/L (40-110); Anion Gap 13 mmol/L (10-20); BUN (Urea Nitrogen) 14 mg/dL (9.8-20.1); Bilirubin, Direct 0.2 mg/dL (0.1-0.3); Bilirubin, Total 0.3 mg/dL (0.2-1.2); Calc. Creatinine Clearance 95 mL/min (70-130); Calcium 9.8 mg/dL (7.8-10.44); Carbon Dioxide 23 mmol/L (23-31); Cardiac Risk 3.9 (Less than 4.5); Chloride 107 mmol/L (98-107); Cholesterol 244 mg/dl (< 200 Desired); Estimated GFR 55; Glucose 117 mg/dL (80-115); HDL Cholesterol 62 mg/dL (>60 Neg Risk); LDL Cholesterol, Calculated 168 mg/dL; Potassium 3.7 mmol/L (3.5-5.1); Protein, Total 7.5 g/dL (5.8-8.1); Sodium 139 mmol/L (136-145); Triglycerides 70 mg/dL (Less than 150)
[2023-06-22] MEDS: ALPRAZolam 0.5 MG TAB PO SCH ×3 (08:21→21:41)
[2023-06-22] MEDS: Apixaban 5 MG TAB PO SCH ×2 (08:21→20:14)
[2023-06-22] MEDS: Pantoprazole 40 MG VIAL IVP SCH (08:22)
[2023-06-22] MEDS: tiZANidine HCl 4 MG TAB PO SCH ×4 (08:22→22:23)
[2023-06-22] MEDS: Phenazopyridine HCl 100 MG TAB PO SCH ×3 (08:22→18:14)
[2023-06-22] MEDS: NIFEdipine 10 MG CAP PO SCH ×2 (10:29→15:34)
[2023-06-22] MEDS ORDERED: Metoprolol Tartrate 50 MG TAB PO SCH (10:45)
[2023-06-22] MEDS: Atorvastatin Calcium 40 MG TAB PO SCH (20:14)
[2023-06-22] MEDS: Temazepam 15 MG CAP PO SCH (21:41)
[2023-06-23] MEDS: NIFEdipine 10 MG CAP PO SCH ×2 (04:07)
[2023-06-23] MEDS: Metoprolol Tartrate 50 MG TAB PO SCH ×3 (04:46→20:40)
[2023-06-23 04:54] LABS: #Eosinphils 0.2 thou/uL (0.0-0.7); #Monocytes 0.6 thou/uL (0.11-0.59); #Neutrophils 5.3 thou/uL (1.40-6.50); %Basophils 0.5 % (0.0-1.0); %Eosinophils 2.2 % (0.0-10.0); %Lymphocytes 28.9 % (21.0-51.0); %Monocytes 6.5 % (0.0-10.0); %Neutrophils 61.6 % (42.0-75.0); Hematocrit 39.5 % (36.0-47.0); Mean Corpuscular HGB CONC 30.4 g/dL (32.0-36.0); Mean Corpuscular Hemoglobin 28.2 pg (27.0-31.0); Mean Corpuscular Volume 92.7 fl (78.0-98.0); Mean Platelet Volume 10.5 fL (7.4-10.4); Platelet Count 323 10x3/uL (130-400); RBC Distribution Width 14.4 % (11.5-14.5); Red Blood Cell (RBC) Count 4.26 mill/uL (4.20-5.40); White Blood Cell (WBC) Count 8.6 10x3/uL (4.8-10.8)
[2023-06-23] MEDS: hydrALAZINE 20 MG/ML VIAL SLOW IVP PRN ×2 (05:05→23:25)
[2023-06-23] MEDS: tiZANidine HCl 4 MG TAB PO SCH ×3 (05:17→20:40)
[2023-06-23 05:25] LABS: Anion Gap 13 mmol/L (10-20); BUN (Urea Nitrogen) 15 mg/dL (9.8-20.1); Calc. Creatinine Clearance 90 mL/min (70-130); Calcium 9.5 mg/dL (7.8-10.44); Carbon Dioxide 25 mmol/L (23-31); Chloride 105 mmol/L (98-107); Estimated GFR 51; Glucose 97 mg/dL (80-115); Magnesium 2.9 mg/dL (1.6-2.6); Potassium 3.7 mmol/L (3.5-5.1); Sodium 139 mmol/L (136-145)
[2023-06-23] MEDS: Phenazopyridine HCl 100 MG TAB PO SCH ×3 (08:14→18:07)
[2023-06-23] MEDS: Apixaban 5 MG TAB PO SCH ×2 (08:15→20:40)
[2023-06-23] MEDS: Pantoprazole 40 MG VIAL IVP SCH (08:15)
[2023-06-23] MEDS: ALPRAZolam 0.5 MG TAB PO SCH ×3 (08:15→20:40)
[2023-06-23] MEDS ORDERED: NIFEdipine XL 60 MG TAB PO ONE (09:45)
[2023-06-23] MEDS: fentaNYL 50 mcg/mL 1 mL Vial SLOW IVP PRN ×2 (11:25→23:26)
[2023-06-23] MEDS: Ondansetron PF 4 MG/2 ML Vial IVP PRN ×2 (13:19→20:58)
[2023-06-23] MEDS ORDERED: NIFEdipine 10 MG CAP PO SCH (15:00)
[2023-06-23] MEDS: Atorvastatin Calcium 40 MG TAB PO SCH (20:40)
[2023-06-23] MEDS: NIFEdipine XL 60 MG TAB PO SCH (20:40)
[2023-06-23] MEDS: Temazepam 15 MG CAP PO SCH (20:41)
[2023-06-24] MEDS ORDERED: Dicyclomine 20 MG TAB PO SCH (01:00)
[2023-06-24] MEDS: fentaNYL 50 mcg/mL 1 mL Vial SLOW IVP PRN (01:32)
[2023-06-24] MEDS ORDERED: NIFEdipine XL 60 MG TAB PO SCH (09:00)
[2023-06-24] MEDS: ALPRAZolam 0.5 MG TAB PO SCH ×2 (09:14→14:17)
[2023-06-24] MEDS: Phenazopyridine HCl 100 MG TAB PO SCH ×2 (09:14→14:17)
[2023-06-24] MEDS: Apixaban 5 MG TAB PO SCH (09:14)
[2023-06-24] MEDS: tiZANidine HCl 4 MG TAB PO SCH ×2 (09:14→14:17)
[2023-06-24] MEDS: NIFEdipine XL 60 MG TAB PO SCH (09:14)
[2023-06-24] MEDS: Metoprolol Tartrate 50 MG TAB PO SCH (09:14)
[2023-06-24] MEDS: Ondansetron PF 4 MG/2 ML Vial IVP PRN (09:24)
[2023-06-24 16:40] VITALS: BP 135/83; TEMP 98.1
== END 2023-06-24 16:53 | disposition home or self-care (01) | DRG 280 ==
LOC: SUATTDRO 00:29 → ERS 00:29 → CCU 07:44 → T4-B 06-23 20:17
PROVIDERS: ADMIT Family Medicine; ATTEND Internal Medicine
PROC: 02HV33Z Insertion of Infusion Device into Superior Vena Cava, Percutaneous Approach (ICD-10-PCS; principal; 2023-06-21)
DX: I16.1 Hypertensive emergency (principal); G93.41 Metabolic encephalopathy; I21.A1 Myocardial infarction type 2; E87.20 Acidosis, unspecified; N17.9 Acute kidney failure, unspecified; I50.32 Chronic diastolic (congestive) heart failure; I13.0 Hypertensive heart and chronic kidney disease with heart failure and stage 1 through stage 4 chronic kidney disease, or unspecified chronic kidney disease; M79.7 Fibromyalgia; R31.9 Hematuria, unspecified; F41.9 Anxiety disorder, unspecified; F20.9 Schizophrenia, unspecified; N18.30 Chronic kidney disease, stage 3 unspecified; G89.29 Other chronic pain; R31.29 Other microscopic hematuria; Z86.711 Personal history of pulmonary embolism; Z79.82 Long term (current) use of aspirin; Z88.8 Allergy status to other drugs, medicaments and biological substances; Z79.899 Other long term (current) drug therapy; Z90.710 Acquired absence of both cervix and uterus; Z98.890 Other specified postprocedural states
CPT/HCPCS: 36415; 36556; 71045; 74177; 80048; 80053; 80061; 80076; 80306; 81001; 83036; 83605; 83690; 83735; 84443; 84484; 85025; 85379; 85610; 85730; 87040; 87086; 93005; 93306; 96361; 96365; 96366; 96367; 96372; 96375; C9113; J0360; J1170; J1200; J1630; J2060; J2405; J2543; J2550; J2920; J3010; J7030; J7050; Q0162; Q9967; S0028

== ENCOUNTER 2023-07-08 16:34 | Inpatient (IN) | payer OTHER, MEDICAID ==
[2023-07-08] MEDS ORDERED: Ketorolac Tromethamine 30 MG/ML VIAL ONE (17:15)
[2023-07-08] MEDS ORDERED: Ketamine 50 MG/ML (10ML VIAL) ONE (17:50)
[2023-07-08 18:19] LABS: #Basophils 0.1 thou/uL (0.0-0.2); #Monocytes 0.2 thou/uL (0.11-0.59); #Neutrophils 7.7 thou/uL (1.40-6.50); %Basophils 0.6 % (0.0-1.0); %Lymphocytes 9.1 % (21.0-51.0); %Monocytes 2.7 % (0.0-10.0); %Neutrophils 87.3 % (42.0-75.0); Hematocrit 47.2 % (36.0-47.0); Hemoglobin 14.7 g/dL (12.0-16.0); Mean Corpuscular HGB CONC 31.1 g/dL (32.0-36.0); Mean Corpuscular Hemoglobin 27.9 pg (27.0-31.0); Mean Corpuscular Volume 89.7 fl (78.0-98.0); Mean Platelet Volume 10.5 fL (7.4-10.4); Platelet Count 371 10x3/uL (130-400); RBC Distribution Width 14.1 % (11.5-14.5); Red Blood Cell (RBC) Count 5.26 mill/uL (4.20-5.40); White Blood Cell (WBC) Count 8.8 10x3/uL (4.8-10.8)
[2023-07-08 18:43] LABS: ALT (SGPT) 9 U/L (8-55); AST (SGOT) 17 U/L (5-34); Albumin 4.8 g/dL (3.4-4.8); Alkaline Phosphatase 95 U/L (40-110); Anion Gap 21 mmol/L (10-20); BUN (Urea Nitrogen) 14 mg/dL (9.8-20.1); Bilirubin, Total 0.4 mg/dL (0.2-1.2); Calc. Creatinine Clearance 0 mL/min (70-130); Calcium 10.8 mg/dL (7.8-10.44); Carbon Dioxide 15 mmol/L (23-31); Chloride 108 mmol/L (98-107); Estimated GFR 38; Globulin 4.3 g/dL (2.4-3.5); Glucose 141 mg/dL (80-115); Protein, Total 9.1 g/dL (5.8-8.1); Sodium 140 mmol/L (136-145)
[2023-07-08] MEDS ORDERED: Morphine 4 MG/ML VIAL ONE ×2 (19:25→22:26)
[2023-07-08] MEDS ORDERED: Promethazine HCl 25 MG/ML VIAL ONE (19:40)
[2023-07-08] MEDS ORDERED: LORazepam 2 MG/ML SYR.(CARPUJECT) ONE (19:59)
[2023-07-08] MEDS ORDERED: cloNIDine 0.1 MG TAB ONE (20:56)
[2023-07-08 21:08] LABS: SARS-CoV-2 NAA Rapid Test Not Detected (NotDetected)
[2023-07-08] MEDS ORDERED: fentaNYL 50 mcg/mL 1 mL Vial ONE (21:46)
[2023-07-08] MEDS ORDERED: hydrALAZINE 20 MG/ML VIAL ONE (22:23)
[2023-07-08] MEDS ORDERED: Ondansetron ODT 4 MG TAB PO PRN (23:19)
[2023-07-08] MEDS ORDERED: Acetaminophen 650 MG Suppository PR PRN (23:19)
[2023-07-08] MEDS ORDERED: Acetaminophen 325 MG TAB PO PRN (23:19)
[2023-07-08] MEDS ORDERED: Ondansetron PF 4 MG/2 ML Vial IVP PRN (23:19)
[2023-07-08 23:47] LABS: Lactic Acid 2.2 mmol/L (0.5-2.2)
[2023-07-09 00:05] LABS: Troponin I 0.015 ng/mL (< 0.028)
[2023-07-09] MEDS ORDERED: Morphine 4 MG/ML VIAL ONE ×4 (00:51→10:24)
[2023-07-09] MEDS ORDERED: Acetaminophen 325 MG TAB ONE (00:52)
[2023-07-09] MEDS: Morphine 4 MG/ML VIAL SLOW IVP PRN ×4 (01:02→10:28)
[2023-07-09] MEDS ORDERED: hydrALAZINE 20 MG/ML VIAL ONE (01:19)
[2023-07-09 01:22] LABS: Bacteria/HPF None Seen HPF (None Seen); Bilirubin Negative (Negative); Blood, Urine 3+ (Negative); CAUTI Indications for Culture Pelvic or flank pain; Clarity Clear (Clear); Glucose, Urine (Dipstick) 50 mg/dL (Negative); Ketone, Urine 20 mg/dL (Negative); Leukocyte Negative Leu/uL (Negative); Nitrite Negative (Negative); Protein, Urine (Dipstick) 70 mg/dL (Neg-Trace); Specific Gravity, Urine 1.015 (1.002-1.036); Squamous Epithelial 0-3 HPF (0-3); Urobilinogen Normal mg/dL (Less than 2); WBC/HPF 0-3 HPF (0-3); Yeast-Budding 1+ HPF (None Seen); pH, Urine 5.5 (5.0-9.0)
[2023-07-09] MEDS: hydrALAZINE 20 MG/ML VIAL SLOW IVP PRN ×3 (01:22→21:05)
[2023-07-09 01:24] LABS: Urine Culture Reflex No No
[2023-07-09] MEDS ORDERED: Labetalol HCl 100 MG/20 ML VIAL ONE (02:57)
[2023-07-09] MEDS ORDERED: NIFEdipine XL 60 MG TAB PO SCH (03:15)
[2023-07-09] MEDS: Labetalol HCl 100 MG/20 ML VIAL SLOW IVP PRN ×2 (06:43→11:02)
[2023-07-09 08:02] LABS: #Monocytes 0.8 thou/uL (0.11-0.59); #Neutrophils 9.1 thou/uL (1.40-6.50); %Basophils 0.2 % (0.0-1.0); %Lymphocytes 10.4 % (21.0-51.0); %Monocytes 7.2 % (0.0-10.0); %Neutrophils 81.7 % (42.0-75.0); Hematocrit 40.1 % (36.0-47.0); Hemoglobin 12.2 g/dL (12.0-16.0); Mean Corpuscular HGB CONC 30.4 g/dL (32.0-36.0); Mean Corpuscular Hemoglobin 27.9 pg (27.0-31.0); Mean Corpuscular Volume 91.8 fl (78.0-98.0); Mean Platelet Volume 10.6 fL (7.4-10.4); Platelet Count 353 10x3/uL (130-400); RBC Distribution Width 14.3 % (11.5-14.5); Red Blood Cell (RBC) Count 4.37 mill/uL (4.20-5.40); White Blood Cell (WBC) Count 11.1 10x3/uL (4.8-10.8)
[2023-07-09 08:26] LABS: Anion Gap 15 mmol/L (10-20); BUN (Urea Nitrogen) 14 mg/dL (9.8-20.1); Calc. Creatinine Clearance 90 mL/min (70-130); Calcium 10.2 mg/dL (7.8-10.44); Carbon Dioxide 24 mmol/L (23-31); Chloride 107 mmol/L (98-107); Estimated GFR 51; Glucose 130 mg/dL (80-115); Potassium 3.9 mmol/L (3.5-5.1); Sodium 142 mmol/L (136-145)
[2023-07-09] MEDS ORDERED: Apixaban 5 MG TAB PO SCH (11:00)
[2023-07-09] MEDS ORDERED: Ondansetron PF 4 MG/2 ML Vial ONE (12:07)
[2023-07-09] MEDS ORDERED: ALPRAZolam 0.5 MG TAB ONE (15:08)
[2023-07-09] MEDS: ALPRAZolam 0.5 MG TAB PO SCH ×2 (15:11→21:05)
[2023-07-09 16:26] VITALS: BMI 36.9
[2023-07-09] MEDS ORDERED: tiZANidine HCl 4 MG TAB PO SCH (21:00)
[2023-07-09] MEDS ORDERED: Temazepam 15 MG CAP PO SCH (21:00)
[2023-07-09] MEDS ORDERED: Atorvastatin Calcium 40 MG TAB PO SCH (21:00)
[2023-07-09] MEDS: NIFEdipine XL 60 MG TAB PO SCH (21:04)
[2023-07-09] MEDS: Apixaban 5 MG TAB PO SCH (21:05)
[2023-07-09] MEDS: Metoprolol Tartrate 50 MG TAB PO SCH (21:05)
[2023-07-09] MEDS ORDERED: tiZANidine HCl 4 MG TAB PO PRN (22:58)
[2023-07-09] MEDS ORDERED: Sodium Chloride 0.9% 1,000 ML IV SCH ×2 (23:00→23:30)
[2023-07-10] MEDS ORDERED: ALPRAZolam 0.5 MG TAB PO PRN ×2 (04:25→09:34)
[2023-07-10 04:47] LABS: #Monocytes 0.7 thou/uL (0.11-0.59); #Neutrophils 7.4 thou/uL (1.40-6.50); %Basophils 0.4 % (0.0-1.0); %Eosinophils 0.4 % (0.0-10.0); %Lymphocytes 13.2 % (21.0-51.0); %Monocytes 7.1 % (0.0-10.0); %Neutrophils 78.6 % (42.0-75.0); Hematocrit 37.1 % (36.0-47.0); Hemoglobin 11.4 g/dL (12.0-16.0); Mean Corpuscular HGB CONC 30.7 g/dL (32.0-36.0); Mean Corpuscular Hemoglobin 28.1 pg (27.0-31.0); Mean Corpuscular Volume 91.6 fl (78.0-98.0); Mean Platelet Volume 10.9 fL (7.4-10.4); Platelet Count 307 10x3/uL (130-400); RBC Distribution Width 14.5 % (11.5-14.5); Red Blood Cell (RBC) Count 4.05 mill/uL (4.20-5.40); White Blood Cell (WBC) Count 9.4 10x3/uL (4.8-10.8)
[2023-07-10 05:05] LABS: Anion Gap 14 mmol/L (10-20); BUN (Urea Nitrogen) 13 mg/dL (9.8-20.1); Calc. Creatinine Clearance 84 mL/min (70-130); Calcium 9.7 mg/dL (7.8-10.44); Carbon Dioxide 26 mmol/L (23-31); Chloride 106 mmol/L (98-107); Estimated GFR 48; Glucose 113 mg/dL (80-115); Potassium 3.5 mmol/L (3.5-5.1); Sodium 142 mmol/L (136-145)
[2023-07-10] MEDS: Metoprolol Tartrate 50 MG TAB PO SCH (08:52)
[2023-07-10] MEDS: Apixaban 5 MG TAB PO SCH (08:52)
[2023-07-10] MEDS: NIFEdipine XL 60 MG TAB PO SCH (08:52)
[2023-07-10 16:01] VITALS: BP 106/61; TEMP 97.7
== END 2023-07-10 17:30 | disposition home health service (06) | DRG 305 ==
LOC: ERS 16:34 → ERHOLD 22:20 → 2NO 07-09 16:05
PROVIDERS: ADMIT Student in an Organized Health Care Education/Training Program; ATTEND Internal Medicine
PROC: 06HY33Z Insertion of Infusion Device into Lower Vein, Percutaneous Approach (ICD-10-PCS; principal; 2023-07-08)
DX: I16.0 Hypertensive urgency (principal); N17.9 Acute kidney failure, unspecified; M54.50 Low back pain, unspecified; I13.0 Hypertensive heart and chronic kidney disease with heart failure and stage 1 through stage 4 chronic kidney disease, or unspecified chronic kidney disease; I50.9 Heart failure, unspecified; M79.7 Fibromyalgia; N18.31 Chronic kidney disease, stage 3a; Z20.822 Contact with and (suspected) exposure to COVID-19; Z88.8 Allergy status to other drugs, medicaments and biological substances; Z91.041 Radiographic dye allergy status; Z88.6 Allergy status to analgesic agent; Z79.899 Other long term (current) drug therapy; Z98.890 Other specified postprocedural states; Z86.711 Personal history of pulmonary embolism; Z91.81 History of falling
CPT/HCPCS: 36415; 71045; 74176; 80048; 80053; 81001; 83605; 84484; 85025; J0360; J1885; J2060; J2270; J2405; J2550; J3010; J7050; Q0162

== ENCOUNTER 2023-10-06 07:44 | Inpatient (IN) | payer OTHER, MEDICAID ==
[2023-10-06 09:21] LABS: #Basophils 0.1 thou/uL (0.0-0.2); #Monocytes 0.5 thou/uL (0.11-0.59); #Neutrophils 9.3 thou/uL (1.40-6.50); %Basophils 0.5 % (0.0-1.0); %Eosinophils 0.2 % (0.0-10.0); %Lymphocytes 14.9 % (21.0-51.0); %Monocytes 4.6 % (0.0-10.0); %Neutrophils 79.5 % (42.0-75.0); Hematocrit 46.3 % (36.0-47.0); Hemoglobin 14.5 g/dL (12.0-16.0); Mean Corpuscular HGB CONC 31.3 g/dL (32.0-36.0); Mean Corpuscular Hemoglobin 27.6 pg (27.0-31.0); Mean Corpuscular Volume 88.2 fl (78.0-98.0); Mean Platelet Volume 10.2 fL (7.4-10.4); Platelet Count 408 10x3/uL (130-400); RBC Distribution Width 14.4 % (11.5-14.5); Red Blood Cell (RBC) Count 5.25 mill/uL (4.20-5.40); White Blood Cell (WBC) Count 11.6 10x3/uL (4.8-10.8)
[2023-10-06] MEDS ORDERED: diphenhydrAMINE 50 MG/ML VIAL ONE (09:32)
[2023-10-06] MEDS ORDERED: Haloperidol Lactate 5 MG/ML VIAL ONE (09:32)
[2023-10-06] MEDS ORDERED: methylPREDNISolone Sod Succ 40 MG VIAL ONE (09:33)
[2023-10-06] MEDS ORDERED: Famotidine/PF 20 mg/2ml Vial ONE (09:33)
[2023-10-06 09:45] LABS: ALT (SGPT) 11 U/L (8-55); AST (SGOT) 14 U/L (5-34); Albumin 4.7 g/dL (3.4-4.8); Alkaline Phosphatase 106 U/L (40-110); Anion Gap 21 mmol/L (10-20); BUN (Urea Nitrogen) 17 mg/dL (9.8-20.1); Bilirubin, Total 0.5 mg/dL (0.2-1.2); Calc. Creatinine Clearance 0 mL/min (70-130); Calcium 10.7 mg/dL (7.8-10.44); Carbon Dioxide 20 mmol/L (23-31); Chloride 104 mmol/L (98-107); Estimated GFR 43; Globulin 4.4 g/dL (2.4-3.5); Glucose 114 mg/dL (80-115); Lipase 17 U/L (8-78); Potassium 3.7 mmol/L (3.5-5.1); Protein, Total 9.1 g/dL (5.8-8.1); Sodium 141 mmol/L (136-145)
[2023-10-06 09:48] LABS: Troponin I 0.024 ng/mL (< 0.028)
[2023-10-06] MEDS ORDERED: Labetalol HCl 100 MG/20 ML VIAL ONE (10:52)
[2023-10-06 13:20] LABS: Lactic Acid 3.2 mmol/L (0.5-2.2)
[2023-10-06] MEDS ORDERED: CEFAZOLIN 1 GM VIAL ONE (14:41)
[2023-10-06] MEDS ORDERED: niCARdipine 25 MG/10 ML SDV ONE ×2 (14:41→21:04)
[2023-10-06] MEDS ORDERED: Sodium Chloride 0.9% 100 ML ONE (14:41)
[2023-10-06] MEDS ORDERED: Diazepam 5 MG TAB ONE (14:44)
[2023-10-06] MEDS ORDERED: Ondansetron PF 4 MG/2 ML Vial IVP PRN (16:01)
[2023-10-06] MEDS ORDERED: Acetaminophen 325 MG TAB PO PRN (16:01)
[2023-10-06] MEDS ORDERED: tiZANidine HCl 4 MG TAB ONE ×2 (16:07→20:59)
[2023-10-06] MEDS ORDERED: niCARdipine 25 MG in Sodium Chloride 0.9% 250 ML 250 ML IVPB SCH (16:15)
[2023-10-06 16:28] VITALS: BMI 37.9
[2023-10-06 19:01] LABS: Lactic Acid 2.1 mmol/L (0.5-2.2)
[2023-10-06 20:22] LABS: SARS-CoV-2 NAA Rapid Test Not Detected (NotDetected)
[2023-10-06] MEDS ORDERED: Atorvastatin Calcium 40 MG TAB ONE (20:59)
[2023-10-06] MEDS ORDERED: ALPRAZolam 0.25 MG TAB ONE (20:59)
[2023-10-06] MEDS: ALPRAZolam 0.5 MG TAB PO SCH (21:14)
[2023-10-06] MEDS: Atorvastatin Calcium 40 MG TAB PO SCH (21:14)
[2023-10-06] MEDS: tiZANidine HCl 4 MG TAB PO SCH (21:14)
[2023-10-06] MEDS ORDERED: Acetaminophen/Codeine 30-300mg Tablet ONE (21:16)
[2023-10-06] MEDS: Acetaminophen/Codeine 30-300mg Tablet PO PRN (21:17)
[2023-10-06] MEDS ORDERED: Morphine 4 MG/ML VIAL SLOW IVP PRN (21:25)
[2023-10-06] MEDS ORDERED: Pantoprazole 40 MG VIAL IVP SCH (21:30)
[2023-10-06] MEDS ORDERED: Metoprolol Tartrate 50 MG TAB PO SCH (21:30)
[2023-10-06] MEDS ORDERED: Metoprolol Tartrate 5 MG/5 ML VIAL ONE (21:33)
[2023-10-06] MEDS ORDERED: Pantoprazole 40 MG VIAL ONE (21:34)
[2023-10-06] MEDS: Metoprolol Tartrate 5 MG/5 ML VIAL IVP PRN (21:39)
[2023-10-06] MEDS: Apixaban 5 MG TAB PO SCH (21:49)
[2023-10-06] MEDS ORDERED: Metoprolol Tartrate 50 MG TAB ONE (22:05)
[2023-10-07] MEDS: Metoprolol Tartrate 5 MG/5 ML VIAL IVP PRN ×2 (02:08→05:03)
[2023-10-07] MEDS ORDERED: Metoprolol Tartrate 5 MG/5 ML VIAL ONE ×2 (02:10→04:59)
[2023-10-07 03:54] LABS: Bacteria/HPF None Seen HPF (None Seen); Bilirubin Negative (Negative); Blood, Urine 2+ (Negative); CAUTI Indications for Culture Pelvic or flank pain; Clarity Clear (Clear); Glucose, Urine (Dipstick) 70 mg/dL (Negative); Ketone, Urine 10 mg/dL (Negative); Leukocyte Negative Leu/uL (Negative); Nitrite Negative (Negative); Protein, Urine (Dipstick) 100 mg/dL (Neg-Trace); Specific Gravity, Urine 1.035 (1.002-1.036); Squamous Epithelial 0-3 HPF (0-3); Urobilinogen Normal mg/dL (Less than 2); WBC/HPF 0-3 HPF (0-3); pH, Urine 5.5 (5.0-9.0)
[2023-10-07 03:58] LABS: Urine Culture Reflex No No
[2023-10-07 04:11] LABS: #Monocytes 0.6 thou/uL (0.11-0.59); #Neutrophils 6.6 thou/uL (1.40-6.50); %Basophils 0.1 % (0.0-1.0); %Lymphocytes 13.7 % (21.0-51.0); %Monocytes 6.6 % (0.0-10.0); %Neutrophils 79.4 % (42.0-75.0); Hematocrit 43.9 % (36.0-47.0); Hemoglobin 13.8 g/dL (12.0-16.0); Mean Corpuscular HGB CONC 31.4 g/dL (32.0-36.0); Mean Corpuscular Hemoglobin 27.6 pg (27.0-31.0); Mean Corpuscular Volume 87.8 fl (78.0-98.0); Mean Platelet Volume 10.1 fL (7.4-10.4); Platelet Count 362 10x3/uL (130-400); RBC Distribution Width 14.6 % (11.5-14.5); White Blood Cell (WBC) Count 8.3 10x3/uL (4.8-10.8)
[2023-10-07 04:31] LABS: Anion Gap 16 mmol/L (10-20); BUN (Urea Nitrogen) 14 mg/dL (9.8-20.1); Calc. Creatinine Clearance 100 mL/min (70-130); Carbon Dioxide 22 mmol/L (23-31); Chloride 106 mmol/L (98-107); Estimated GFR 58; Glucose 134 mg/dL (80-115); Potassium 3.8 mmol/L (3.5-5.1); Sodium 140 mmol/L (136-145)
[2023-10-07] MEDS ORDERED: Morphine 4 MG/ML VIAL ONE (05:13)
[2023-10-07] MEDS ORDERED: hydrALAZINE 20 MG/ML VIAL SLOW IVP PRN (06:41)
[2023-10-07] MEDS ORDERED: hydrALAZINE 20 MG/ML VIAL ONE (06:50)
[2023-10-07] MEDS: hydrALAZINE 20 MG/ML VIAL SLOW IVP PRN (06:57)
[2023-10-07] MEDS ORDERED: Metoprolol Tartrate 50 MG TAB ONE (07:51)
[2023-10-07] MEDS ORDERED: ALPRAZolam 1 MG TAB ONE (07:51)
[2023-10-07] MEDS ORDERED: Pantoprazole 40 MG VIAL ONE (07:52)
[2023-10-07] MEDS: tiZANidine HCl 4 MG TAB PO SCH ×3 (08:00→20:21)
[2023-10-07] MEDS: ALPRAZolam 0.5 MG TAB PO SCH ×3 (08:00→20:21)
[2023-10-07] MEDS ORDERED: Metoprolol Tartrate 50 MG TAB PO SCH (09:00)
[2023-10-07] MEDS ORDERED: Pantoprazole 40 MG VIAL IVP SCH (09:00)
[2023-10-07] MEDS: Apixaban 5 MG TAB PO SCH ×2 (09:29→20:21)
[2023-10-07] MEDS ORDERED: Lactated Ringer's 1,000 ML IV SCH (11:00)
[2023-10-07] MEDS: NIFEdipine XL 60 MG ER.TAB PO SCH (13:28)
[2023-10-07] MEDS: Atorvastatin Calcium 40 MG TAB PO SCH (20:21)
[2023-10-08] MEDS: tiZANidine HCl 4 MG TAB PO SCH ×3 (08:34→20:51)
[2023-10-08] MEDS: Apixaban 5 MG TAB PO SCH ×2 (08:34→20:48)
[2023-10-08] MEDS: hydrALAZINE 20 MG/ML VIAL SLOW IVP PRN (08:34)
[2023-10-08] MEDS: ALPRAZolam 0.5 MG TAB PO SCH ×3 (08:34→20:49)
[2023-10-08] MEDS: Acetaminophen/Codeine 30-300mg Tablet PO PRN ×3 (08:37→20:49)
[2023-10-08] MEDS ORDERED: Metoprolol Tartrate 25 MG TAB PO SCH ×2 (10:15→11:00)
[2023-10-08] MEDS: NIFEdipine XL 60 MG ER.TAB PO SCH (14:20)
[2023-10-08] MEDS: Metoprolol Tartrate 25 MG TAB PO SCH (20:48)
[2023-10-08] MEDS: Atorvastatin Calcium 40 MG TAB PO SCH (20:48)
[2023-10-08] MEDS ORDERED: Metoprolol Tartrate 50 MG TAB PO SCH (21:00)
[2023-10-09] MEDS: Acetaminophen/Codeine 30-300mg Tablet PO PRN ×2 (03:26→08:39)
[2023-10-09] MEDS: Apixaban 5 MG TAB PO SCH (08:39)
[2023-10-09] MEDS: tiZANidine HCl 4 MG TAB PO SCH (08:39)
[2023-10-09] MEDS: ALPRAZolam 0.5 MG TAB PO SCH (08:39)
[2023-10-09] MEDS: hydrALAZINE 20 MG/ML VIAL SLOW IVP PRN (08:42)
[2023-10-09] MEDS: Metoprolol Tartrate 25 MG TAB PO SCH (09:47)
[2023-10-09 11:41] VITALS: TEMP 97.3
[2023-10-09 12:14] VITALS: BP 135/85
== END 2023-10-09 14:45 | disposition home or self-care (01) | DRG 305 ==
LOC: ERS 07:44 → SUATTDRO 07:44 → 2NO 15:52 → ERHOLD 16:04 → 2NO 10-07 12:40
PROVIDERS: ADMIT Internal Medicine; ATTEND Internal Medicine
DX: I16.1 Hypertensive emergency (principal); E87.20 Acidosis, unspecified; I50.32 Chronic diastolic (congestive) heart failure; F41.9 Anxiety disorder, unspecified; F31.9 Bipolar disorder, unspecified; F20.9 Schizophrenia, unspecified; E66.9 Obesity, unspecified; G89.29 Other chronic pain; I13.0 Hypertensive heart and chronic kidney disease with heart failure and stage 1 through stage 4 chronic kidney disease, or unspecified chronic kidney disease; N18.30 Chronic kidney disease, stage 3 unspecified; E83.52 Hypercalcemia; D72.829 Elevated white blood cell count, unspecified; Z88.8 Allergy status to other drugs, medicaments and biological substances; Z98.890 Other specified postprocedural states; Z86.711 Personal history of pulmonary embolism; Z90.710 Acquired absence of both cervix and uterus; Z98.51 Tubal ligation status; Z68.37 Body mass index [BMI] 37.0-37.9, adult; Z79.01 Long term (current) use of anticoagulants; Z79.899 Other long term (current) drug therapy; Z11.52 Encounter for screening for COVID-19
CPT/HCPCS: 36415; 71045; 74176; 80048; 80053; 81001; 83605; 83690; 83880; 84484; 85025; 87040; 87086; 93005; 96361; 96365; 96366; 96374; 96375; C9113; J0360; J0690; J1200; J1630; J2270; J2405; J2920; J3490; J7050; J7120; S0028

== ENCOUNTER 2023-12-11 06:49 | Emergency (ER) | payer OTHER ==
[2023-12-11] MEDS ORDERED: fentaNYL 50 mcg/mL 1 mL Vial ONE (07:21)
[2023-12-11] MEDS ORDERED: LORazepam 2 MG/ML SYR.(CARPUJECT) ONE (07:43)
[2023-12-11 07:52] LABS: #Basophils 0.1 thou/uL (0.0-0.2); #Eosinphils 0.1 thou/uL (0.0-0.7); #Monocytes 0.3 thou/uL (0.11-0.59); %Basophils 0.8 % (0.0-1.0); %Eosinophils 0.5 % (0.0-10.0); %Lymphocytes 22.6 % (21.0-51.0); %Monocytes 3.3 % (0.0-10.0); %Neutrophils 72.5 % (42.0-75.0); Hematocrit 45.1 % (36.0-47.0); Hemoglobin 14.3 g/dL (12.0-16.0); Mean Corpuscular HGB CONC 31.7 g/dL (32.0-36.0); Mean Corpuscular Hemoglobin 28.3 pg (27.0-31.0); Mean Corpuscular Volume 89.1 fl (78.0-98.0); Mean Platelet Volume 10.6 fL (7.4-10.4); Platelet Count 413 10x3/uL (130-400); RBC Distribution Width 14.8 % (11.5-14.5); Red Blood Cell (RBC) Count 5.06 mill/uL (4.20-5.40); White Blood Cell (WBC) Count 9.6 10x3/uL (4.8-10.8)
[2023-12-11 08:08] LABS: Bilirubin Small (Negative); Blood, Urine Large (Negative); Glucose, Urine (Dipstick) Negative (Negative); Ketone, Urine Trace mg/dL (Negative); Leukocyte Negative (Negative); Nitrite Positive (Negative); Protein, Urine (Dipstick) 100 mg/dL (Neg-Trace); Urobilinogen 0.2 mg/dL (Less than 2); pH, Urine 5.5 (5.0-9.0)
[2023-12-11 08:13] LABS: Clarity Hazy (Clear)
[2023-12-11 08:14] LABS: Specific Gravity, Urine 1.023 (1.002-1.036)
[2023-12-11 08:20] LABS: ALT (SGPT) 7 U/L (8-55); AST (SGOT) 20 U/L (5-34); Albumin 4.8 g/dL (3.4-4.8); Alkaline Phosphatase 107 U/L (40-110); Anion Gap 23 mmol/L (10-20); BUN (Urea Nitrogen) 15 mg/dL (9.8-20.1); Bilirubin, Total 0.4 mg/dL (0.2-1.2); Calc. Creatinine Clearance 0 mL/min (70-130); Carbon Dioxide 17 mmol/L (23-31); Chloride 106 mmol/L (98-107); Estimated GFR 39; Glucose 157 mg/dL (80-115); Lipase 16 U/L (8-78); Protein, Total 8.8 g/dL (5.8-8.1); Sodium 141 mmol/L (136-145)
[2023-12-11 08:54] LABS: Bacteria/HPF 3+ HPF (None Seen); CAUTI Indications for Culture Pelvic or flank pain; WBC/HPF 0-3 HPF (0-3)
[2023-12-11 08:55] LABS: Urine Culture Reflex No No
[2023-12-11] MEDS ORDERED: Haloperidol Lactate 5 MG/ML VIAL ONE (09:20)
[2023-12-11] MEDS ORDERED: Dicyclomine 20 MG/2 ML VIAL ONE (11:11)
== END 2023-12-11 12:25 | disposition home or self-care (01) ==
LOC: ERS 06:49
DX: N30.01 Acute cystitis with hematuria (principal); I11.0 Hypertensive heart disease with heart failure; I50.9 Heart failure, unspecified; Z86.711 Personal history of pulmonary embolism; Z79.01 Long term (current) use of anticoagulants; Z79.899 Other long term (current) drug therapy
CPT/HCPCS: 74176; 80053; 81001; 83690; 85025; 87086; J2060; J3010; 51701; 96372; 96374; 96375; J1630

== ENCOUNTER 2023-12-19 06:25 | Inpatient (IN) | payer OTHER, MEDICAID ==
[2023-12-19 07:35] LABS: ALT (SGPT) 8 U/L (8-55); AST (SGOT) 15 U/L (5-34); Alkaline Phosphatase 102 U/L (40-110); Anion Gap 20 mmol/L (10-20); BUN (Urea Nitrogen) 21 mg/dL (9.8-20.1); Bilirubin, Total 0.4 mg/dL (0.2-1.2); Calc. Creatinine Clearance 0 mL/min (70-130); Calcium 10.5 mg/dL (7.8-10.44); Carbon Dioxide 19 mmol/L (23-31); Chloride 106 mmol/L (98-107); Estimated GFR 36; Globulin 4.2 g/dL (2.4-3.5); Glucose 168 mg/dL (80-115); Lipase 13 U/L (8-78); Potassium 4.2 mmol/L (3.5-5.1); Protein, Total 9.2 g/dL (5.8-8.1); Sodium 141 mmol/L (136-145)
[2023-12-19] MEDS ORDERED: Morphine 4 MG/ML VIAL ONE ×2 (07:40→09:35)
[2023-12-19] MEDS ORDERED: Ondansetron PF 4 MG/2 ML Vial ONE (07:40)
[2023-12-19] MEDS ORDERED: methylPREDNISolone Sod Succ 40 MG VIAL ONE (07:40)
[2023-12-19] MEDS ORDERED: diphenhydrAMINE 50 MG/ML VIAL ONE (07:40)
[2023-12-19] MEDS ORDERED: Famotidine/PF 20 mg/2ml Vial ONE (07:41)
[2023-12-19 07:44] LABS: #Monocytes 0.2 thou/uL (0.11-0.59); #Neutrophils 8.7 thou/uL (1.40-6.50); %Basophils 0.4 % (0.0-1.0); %Lymphocytes 7.9 % (21.0-51.0); %Monocytes 2.2 % (0.0-10.0); %Neutrophils 88.9 % (42.0-75.0); Hematocrit 48.4 % (36.0-47.0); Hemoglobin 14.5 g/dL (12.0-16.0); Mean Corpuscular Volume 93.4 fl (78.0-98.0); Mean Platelet Volume 10.3 fL (7.4-10.4); Platelet Count 414 10x3/uL (130-400); RBC Distribution Width 15.1 % (11.5-14.5); Red Blood Cell (RBC) Count 5.18 mill/uL (4.20-5.40); White Blood Cell (WBC) Count 9.8 10x3/uL (4.8-10.8)
[2023-12-19 07:45] LABS: Troponin I 0.011 ng/mL (< 0.028)
[2023-12-19] MEDS ORDERED: Labetalol HCl 100 MG/20 ML VIAL ONE (09:36)
[2023-12-19] MEDS ORDERED: hydrALAZINE 20 MG/ML VIAL ONE (10:53)
[2023-12-19] MEDS ORDERED: hydrALAZINE 20 MG/ML VIAL SLOW IVP PRN (13:35)
[2023-12-19] MEDS ORDERED: tiZANidine HCl 4 MG TAB ONE (14:18)
[2023-12-19] MEDS ORDERED: ALPRAZolam 1 MG TAB ONE (14:18)
[2023-12-19] MEDS: tiZANidine HCl 4 MG TAB PO SCH ×2 (14:23→20:57)
[2023-12-19] MEDS: ALPRAZolam 0.5 MG TAB PO SCH ×2 (14:23→20:55)
[2023-12-19] MEDS: Labetalol HCl 100 MG/20 ML VIAL SLOW IVP PRN (14:31)
[2023-12-19] MEDS ORDERED: ALPRAZolam 0.25 MG TAB ONE (20:45)
[2023-12-19] MEDS ORDERED: Metoprolol Tartrate 50 MG TAB ONE (20:46)
[2023-12-19] MEDS ORDERED: Apixaban 5 MG TAB ONE (20:46)
[2023-12-19] MEDS ORDERED: Atorvastatin Calcium 40 MG TAB ONE (20:46)
[2023-12-19] MEDS: Apixaban 5 MG TAB PO SCH (20:55)
[2023-12-19] MEDS: Atorvastatin Calcium 40 MG TAB PO SCH (20:56)
[2023-12-19] MEDS: Metoprolol Tartrate 50 MG TAB PO SCH (20:56)
[2023-12-19] MEDS: Temazepam 15 MG CAP PO SCH (21:04)
[2023-12-20 04:39] LABS: #Monocytes 0.8 thou/uL (0.11-0.59); #Neutrophils 5.7 thou/uL (1.40-6.50); %Basophils 0.2 % (0.0-1.0); %Eosinophils 0.5 % (0.0-10.0); %Lymphocytes 19.1 % (21.0-51.0); %Monocytes 9.5 % (0.0-10.0); %Neutrophils 70.3 % (42.0-75.0); Hematocrit 42.1 % (36.0-47.0); Hemoglobin 12.6 g/dL (12.0-16.0); Mean Corpuscular HGB CONC 29.9 g/dL (32.0-36.0); Mean Corpuscular Hemoglobin 28.4 pg (27.0-31.0); Mean Corpuscular Volume 94.8 fl (78.0-98.0); Platelet Count 328 10x3/uL (130-400); RBC Distribution Width 15.5 % (11.5-14.5); Red Blood Cell (RBC) Count 4.44 mill/uL (4.20-5.40); White Blood Cell (WBC) Count 8.1 10x3/uL (4.8-10.8)
[2023-12-20 05:11] LABS: Anion Gap 13 mmol/L (10-20); BUN (Urea Nitrogen) 25 mg/dL (9.8-20.1); Calc. Creatinine Clearance 65 mL/min (70-130); Calcium 9.4 mg/dL (7.8-10.44); Carbon Dioxide 21 mmol/L (23-31); Chloride 108 mmol/L (98-107); Estimated GFR 35; Glucose 108 mg/dL (80-115); Potassium 4.3 mmol/L (3.5-5.1); Sodium 138 mmol/L (136-145)
[2023-12-20] MEDS ORDERED: Metoprolol Tartrate 50 MG TAB ONE (08:17)
[2023-12-20] MEDS ORDERED: ALPRAZolam 0.25 MG TAB ONE (08:17)
[2023-12-20] MEDS ORDERED: Apixaban 5 MG TAB ONE (08:18)
[2023-12-20] MEDS ORDERED: tiZANidine HCl 4 MG TAB ONE (08:19)
[2023-12-20] MEDS ORDERED: Acetaminophen/Codeine 30-300mg Tablet ONE (08:29)
[2023-12-20] MEDS: Acetaminophen/Codeine 30-300mg Tablet PO PRN (08:30)
[2023-12-20] MEDS: NIFEdipine XL 60 MG ER.TAB PO SCH (09:11)
[2023-12-20] MEDS: Sodium Chloride 0.9% 1,000 ML IV SCH (10:30)
[2023-12-20 13:49] VITALS: BMI 37.7
[2023-12-20] MEDS: Acetaminophen 325 MG TAB PO PRN (15:18)
[2023-12-20 18:02] LABS: Anion Gap 13 mmol/L (10-20); BUN (Urea Nitrogen) 29 mg/dL (9.8-20.1); Calc. Creatinine Clearance 55 mL/min (70-130); Calcium 8.8 mg/dL (7.8-10.44); Carbon Dioxide 21 mmol/L (23-31); Chloride 109 mmol/L (98-107); Estimated GFR 28; Glucose 108 mg/dL (80-115); Sodium 139 mmol/L (136-145)
[2023-12-20] MEDS ORDERED: Ondansetron ODT 4 MG TAB PO PRN (21:21)
[2023-12-20] MEDS: Ondansetron PF 4 MG/2 ML Vial IVP PRN (22:12)
[2023-12-20] MEDS: diphenhydrAMINE 25 MG CAP PO SCH (22:15)
[2023-12-21 06:59] LABS: #Eosinphils 0.2 thou/uL (0.0-0.7); #Monocytes 0.5 thou/uL (0.11-0.59); #Neutrophils 4.1 thou/uL (1.40-6.50); %Basophils 0.6 % (0.0-1.0); %Eosinophils 3.4 % (0.0-10.0); %Lymphocytes 27.9 % (21.0-51.0); %Monocytes 6.8 % (0.0-10.0); Hematocrit 39.8 % (36.0-47.0); Mean Corpuscular HGB CONC 30.2 g/dL (32.0-36.0); Mean Corpuscular Hemoglobin 28.2 pg (27.0-31.0); Mean Corpuscular Volume 93.4 fl (78.0-98.0); Mean Platelet Volume 10.4 fL (7.4-10.4); Platelet Count 365 10x3/uL (130-400); RBC Distribution Width 15.5 % (11.5-14.5); Red Blood Cell (RBC) Count 4.26 mill/uL (4.20-5.40); White Blood Cell (WBC) Count 6.7 10x3/uL (4.8-10.8)
[2023-12-21 07:26] LABS: Anion Gap 13 mmol/L (10-20); BUN (Urea Nitrogen) 27 mg/dL (9.8-20.1); Calc. Creatinine Clearance 69 mL/min (70-130); Calcium 9.3 mg/dL (7.8-10.44); Carbon Dioxide 20 mmol/L (23-31); Chloride 108 mmol/L (98-107); Estimated GFR 37; Glucose 108 mg/dL (80-115); Potassium 3.8 mmol/L (3.5-5.1); Sodium 137 mmol/L (136-145)
[2023-12-21 12:12] VITALS: BP 122/75
[2023-12-21 16:07] VITALS: TEMP 98.6
== END 2023-12-21 17:34 | disposition home or self-care (01) | DRG 305 ==
LOC: ERS 06:25 → ERHOLD 12:35 → 2SW 12-20 13:36 → OBSVTOIN 12-21 11:43
PROVIDERS: ADMIT Internal Medicine; ATTEND Family Medicine
DX: I16.0 Hypertensive urgency (principal); Z68.41 Body mass index [BMI] 40.0-44.9, adult; I13.0 Hypertensive heart and chronic kidney disease with heart failure and stage 1 through stage 4 chronic kidney disease, or unspecified chronic kidney disease; I50.9 Heart failure, unspecified; E86.0 Dehydration; Z91.041 Radiographic dye allergy status; Z88.5 Allergy status to narcotic agent; Z79.01 Long term (current) use of anticoagulants; Z79.899 Other long term (current) drug therapy; F41.9 Anxiety disorder, unspecified; F32.A Depression, unspecified; Z90.710 Acquired absence of both cervix and uterus; Z98.890 Other specified postprocedural states; N18.30 Chronic kidney disease, stage 3 unspecified; E78.5 Hyperlipidemia, unspecified; Z86.711 Personal history of pulmonary embolism; E66.01 Morbid (severe) obesity due to excess calories
CPT/HCPCS: 36415; 74177; 80048; 80053; 83690; 84484; 85025; 93005; 96376; G0378; J0360; J1200; J2270; J2405; J2920; J7050; S0028

== ENCOUNTER 2024-03-15 05:09 | Inpatient (IN) | payer OTHER ==
[2024-03-15 06:00] LABS: #Basophils 0.05 10x3/uL (0.0-0.2); %Basophils 0.7 % (0.0-1.0); %Eosinophils 0.8 % (0.0-10.0); %Lymphocytes 21.7 % (21.0-51.0); %Neutrophils 72.4 % (42.0-75.0); Hematocrit 47.9 % (36.0-47.0); Hemoglobin 14.6 g/dL (12.0-16.0); Mean Corpuscular HGB CONC 30.5 g/dL (32.0-36.0); Mean Corpuscular Hemoglobin 28.3 pg (27.0-31.0); Mean Platelet Volume 10.9 fL (7.4-10.4); Platelet Count 413 10x3/uL (130-400); RBC Distribution Width 14.1 % (11.5-14.5); Red Blood Cell (RBC) Count 5.15 mill/uL (4.20-5.40)
[2024-03-15 06:16] LABS: Troponin I 0.023 ng/mL (< 0.028)
[2024-03-15 06:18] LABS: ALT (SGPT) 10 U/L (8-55); AST (SGOT) 22 U/L (5-34); Albumin 4.8 g/dL (3.4-4.8); Alkaline Phosphatase 94 U/L (40-110); Anion Gap 23 mmol/L (10-20); BUN (Urea Nitrogen) 20 mg/dL (9.8-20.1); Bilirubin, Total 0.5 mg/dL (0.2-1.2); Calc. Creatinine Clearance 0 mL/min (70-130); Calcium 11.2 mg/dL (7.8-10.44); Carbon Dioxide 19 mmol/L (23-31); Chloride 107 mmol/L (98-107); Estimated GFR 41; Globulin 4.9 g/dL (2.4-3.5); Glucose 141 mg/dL (80-115); Protein, Total 9.7 g/dL (5.8-8.1); Sodium 145 mmol/L (136-145)
[2024-03-15 08:38] LABS: Lipase 25 U/L (8-78)
[2024-03-15] MEDS ORDERED: Cefepime 2 GM VIAL ONE (09:32)
[2024-03-15] MEDS ORDERED: methylPREDNISolone Sod Succ 40 MG VIAL ONE (09:32)
[2024-03-15] MEDS ORDERED: Sodium Chloride 0.9% 100 ML ONE (09:32)
[2024-03-15] MEDS ORDERED: Labetalol HCl 100 MG/20 ML VIAL ONE (09:32)
[2024-03-15] MEDS ORDERED: Morphine 4 MG/ML VIAL ONE (09:32)
[2024-03-15] MEDS ORDERED: diphenhydrAMINE 50 MG/ML VIAL ONE (09:32)
[2024-03-15] MEDS ORDERED: Famotidine/PF 20 mg/2ml Vial ONE (09:33)
[2024-03-15 09:53] LABS: Actual Bicarbonate (HCO3v) 21.5 mEq/L (22-28); Base Excess -1.3 mEq/L (-2.0 to +3.0); Calcium, Ionized (venous) 1.06 mmol/L (1.16-1.32); Chloride (VBG) 106 mmol/L (98-106); Hematocrit-VBG 41 % (36.0-47.0); Hemoglobin (Hb) 13.8 g/dL (11.7-16.1); Potassium (VBG) 4.94 mmol/L (3.70-5.30); Sodium 144 mmol/L (133-146)
[2024-03-15 10:15] LABS: Bilirubin Small (Negative); Blood, Urine Moderate (Negative); Glucose, Urine (Dipstick) Negative (Negative); Ketone, Urine Trace mg/dL (Negative); Leukocyte Negative (Negative); Nitrite Negative (Negative); Protein, Urine (Dipstick) Trace mg/dL (Neg-Trace); Urobilinogen 0.2 mg/dL (Less than 2)
[2024-03-15 10:25] LABS: Clarity Hazy (Clear)
[2024-03-15 10:26] LABS: Specific Gravity, Urine 1.023 (1.002-1.036)
[2024-03-15] MEDS ORDERED: Ondansetron PF 4 MG/2 ML Vial IVP PRN (10:27)
[2024-03-15] MEDS ORDERED: Bisacodyl 5 MG TAB PO PRN (10:27)
[2024-03-15] MEDS ORDERED: Acetaminophen 650 MG Suppository PR PRN (10:27)
[2024-03-15] MEDS ORDERED: Senokot S 8.6-50 MG TAB PO PRN (10:27)
[2024-03-15] MEDS ORDERED: Acetaminophen 325 MG TAB PO PRN (10:27)
[2024-03-15] MEDS ORDERED: Guaifenesin DM 100-10/5 ML UDCUP PO PRN (10:27)
[2024-03-15] MEDS ORDERED: Ondansetron ODT 4 MG TAB PO PRN (10:27)
[2024-03-15] MEDS ORDERED: Zolpidem Tartrate 5 MG TAB PO PRN (10:27)
[2024-03-15] MEDS ORDERED: Calcium Carbonate 500 MG ChewTAB PO PRN (10:27)
[2024-03-15] MEDS ORDERED: Non-Formulary Item 1 EACH (Acetaminophen With Codeine [Acetaminophen-Cod #4 Tablet] 1 EAC PO PRN (10:29)
[2024-03-15 10:31] LABS: Phosphorus 1.8 mg/dL (2.3-4.7)
[2024-03-15 10:32] LABS: CAUTI Indications for Culture Dysuria,urgency,freq; RBC/HPF 0-3 HPF (0-3); WBC/HPF 0-3 HPF (0-3)
[2024-03-15 10:54] LABS: Bacteria/HPF 1+ HPF (None Seen); Yeast-Budding 1+ HPF (None Seen)
[2024-03-15 10:58] LABS: Urine Culture Reflex No No
[2024-03-15] MEDS ORDERED: Iopamidol-370 76% 500 ML MDV (1 ML CHARGE) ONE (11:03)
[2024-03-15 11:15] LABS: Lactic Acid 2.2 mmol/L (0.5-2.2)
[2024-03-15] MEDS: Acetaminophen/Codeine 30-300mg Tablet PO PRN (11:52)
[2024-03-15] MEDS: Dicyclomine 20 MG TAB PO SCH ×2 (11:56→16:59)
[2024-03-15] MEDS: Pantoprazole DR 40 MG TAB PO SCH ×2 (11:57→19:51)
[2024-03-15 12:02] LABS: Troponin I 0.028 ng/mL (< 0.028)
[2024-03-15] MEDS: Sodium Chloride 0.9% 1,000 ML IV SCH (12:12)
[2024-03-15] MEDS: PHOS-NAK 1 PKT PACK PO SCH (13:23)
[2024-03-15] MEDS: tiZANidine HCl 4 MG TAB PO SCH ×2 (13:24→19:51)
[2024-03-15 18:09] VITALS: BMI 37.8
[2024-03-15] MEDS: Apixaban 5 MG TAB PO SCH (19:49)
[2024-03-15] MEDS: Metoprolol Tartrate 50 MG TAB PO SCH (19:50)
[2024-03-15] MEDS: Atorvastatin Calcium 40 MG TAB PO SCH (19:50)
[2024-03-15] MEDS: Cefepime 2 GM in Sodium Chloride 0.9% 100 ML IVPB SCH (19:52)
[2024-03-16] MEDS: hydrALAZINE 20 MG/ML VIAL IM SCH (05:35)
[2024-03-16] MEDS: hydrALAZINE 20 MG/ML VIAL SLOW IVP SCH (06:24)
[2024-03-16] MEDS: NIFEdipine XL 90 MG ER.TAB PO SCH (09:06)
[2024-03-16] MEDS: DULoxetine 30 MG CAP PO SCH (13:55)
[2024-03-16] MEDS: Morphine 2 MG/ML VIAL SLOW IVP SCH ×2 (13:58→16:21)
[2024-03-16] MEDS: Cefepime 1 GM in Sodium Chloride 0.9% 100 ML IVPB SCH (20:56)
[2024-03-17 04:38] LABS: Hematocrit 36.4 % (36.0-47.0); Hemoglobin 11.2 g/dL (12.0-16.0); Mean Corpuscular HGB CONC 30.8 g/dL (32.0-36.0); Mean Corpuscular Hemoglobin 28.7 pg (27.0-31.0); Mean Corpuscular Volume 93.3 fL (78.0-98.0); Mean Platelet Volume 10.7 fL (7.4-10.4); Platelet Count 256 10x3/uL (130-400); RBC Distribution Width 14.5 % (11.5-14.5)
[2024-03-17 05:05] LABS: Anion Gap 12 mmol/L (10-20); BUN (Urea Nitrogen) 14 mg/dL (9.8-20.1); Calc. Creatinine Clearance 105 mL/min (70-130); Calcium 8.7 mg/dL (7.8-10.44); Carbon Dioxide 24 mmol/L (23-31); Chloride 109 mmol/L (98-107); Estimated GFR 61; Glucose 122 mg/dL (80-115); Phosphorus 2.8 mg/dL (2.3-4.7); Potassium 3.6 mmol/L (3.5-5.1); Sodium 141 mmol/L (136-145)
[2024-03-17] MEDS: Lactated Ringer's 1,000 ML IV SCH (07:49)
[2024-03-17] MEDS: DULoxetine 30 MG CAP PO SCH (09:10)
[2024-03-17 11:19] VITALS: TEMP 98
[2024-03-17 13:01] VITALS: BP 127/69
== END 2024-03-17 16:02 | disposition home or self-care (01) | DRG 304 ==
LOC: ERS 05:09 → ERHOLD 10:10 → 2NO 11:30 → OBSVTOIN 03-16 12:46
PROVIDERS: ADMIT Internal Medicine; ATTEND Hospitalist
DX: I16.0 Hypertensive urgency (principal); J18.9 Pneumonia, unspecified organism; I50.32 Chronic diastolic (congestive) heart failure; I13.0 Hypertensive heart and chronic kidney disease with heart failure and stage 1 through stage 4 chronic kidney disease, or unspecified chronic kidney disease; G43.909 Migraine, unspecified, not intractable, without status migrainosus; M54.50 Low back pain, unspecified; G89.29 Other chronic pain; F31.9 Bipolar disorder, unspecified; N18.30 Chronic kidney disease, stage 3 unspecified; K44.9 Diaphragmatic hernia without obstruction or gangrene; Z88.8 Allergy status to other drugs, medicaments and biological substances; Z79.899 Other long term (current) drug therapy; Z98.890 Other specified postprocedural states
CPT/HCPCS: 36415; 51701; 71045; 74177; 80048; 80053; 81001; 82010; 82805; 83605; 83690; 83735; 84100; 84484; 85025; 85027; 87040; 93005; 96361; 96365; 96372; 96375; 96376; G0378; J0360; J0692; J1200; J1790; J2270; J2920; J3490; J7050; Q9967; S0028

== ENCOUNTER 2024-12-21 14:05 | Emergency (ER) | payer OTHER, MEDICARE ==
[2024-12-21] MEDS ORDERED: Mag-Al 1200 mg/1200 mg/30 ML UDCUP ONE (14:48)
[2024-12-21] MEDS ORDERED: Lidocaine Viscous Sol 2% 15 ml UD Cup ONE (14:48)
== END 2024-12-21 15:09 | disposition home or self-care (01) ==
LOC: ERS 14:05
DX: R10.13 Epigastric pain (principal); I11.0 Hypertensive heart disease with heart failure; I50.9 Heart failure, unspecified; M79.7 Fibromyalgia; Z86.711 Personal history of pulmonary embolism; Z79.01 Long term (current) use of anticoagulants; Z79.899 Other long term (current) drug therapy
CPT/HCPCS: 93005; 99283

== ENCOUNTER 2025-05-31 16:00 | Inpatient (IN) | payer OTHER, MEDICAID ==
[2025-05-31] MEDS ORDERED: diphenhydrAMINE 50 MG/ML VIAL ONE (16:40)
[2025-05-31] MEDS ORDERED: Nitroglycerin 2% Ointment 1 INCH/1 GM Packet ONE (16:41)
[2025-05-31 16:44] LABS: #Basophils 0.05 10x3/uL (0.0-0.2); #Eosinophils 0.03 10x3/uL (0.0-0.7); #Monocytes 0.38 10x3/uL (0.11-0.59); #Neutrophils 9.65 10x3/uL (1.40-6.50); %Basophils 0.4 % (0.0-1.0); %Eosinophils 0.2 % (0.0-10.0); %Lymphocytes 15.6 % (21.0-51.0); %Monocytes 3.2 % (0.0-10.0); %Neutrophils 80.2 % (42.0-75.0); Hematocrit 41.2 % (36.0-47.0); Hemoglobin 12.8 g/dL (12.0-16.0); Mean Corpuscular Hemoglobin 27.9 pg (27.0-31.0); Mean Corpuscular Volume 90.0 fL (78.0-98.0); Platelet Count 386 10x3/uL (130-400); Red Blood Cell (RBC) Count 4.58 mill/uL (4.20-5.40); White Blood Cell (WBC) Count 12.04 10x3/uL (4.8-10.8)
[2025-05-31] MEDS ORDERED: Nitroglycerin 0.4 MG TAB 1 EACH ONE (17:02)
[2025-05-31 17:09] LABS: ALT (SGPT) 10 U/L (Less than 34); AST (SGOT) 25 U/L (11-34); Albumin 4.3 g/dL (3.1-4.5); Alkaline Phosphatase 93 U/L (40-110); Anion Gap 20 mmol/L (10-20); BUN (Urea Nitrogen) 13 mg/dL (9.8-20.1); Bilirubin, Total 0.2 mg/dL (0.3-1.2); Calc. Creatinine Clearance 0 mL/min (70-130); Calcium 9.6 mg/dL (7.8-10.44); Carbon Dioxide 22 mmol/L (23-31); Chloride 104 mmol/L (98-107); Globulin 4.4 g/dL (2.4-3.5); Glucose 153 mg/dL (80-115); Lipase 14 U/L (8-78); Magnesium 1.9 mg/dL (1.6-2.6); Potassium 3.2 mmol/L (3.5-5.1); Sodium 143 mmol/L (136-145)
[2025-05-31 17:12] LABS: Troponin I Less than 0.010 ng/mL (< 0.028)
[2025-05-31 20:27] LABS: Troponin I 0.014 ng/mL (< 0.028)
[2025-05-31] MEDS ORDERED: Ondansetron PF 4 MG/2 ML Vial IVP PRN (21:25)
[2025-05-31] MEDS ORDERED: Acetaminophen 325 MG TAB PO PRN (21:25)
[2025-05-31] MEDS ORDERED: Calcium Carbonate 500 MG ChewTAB PO PRN (21:25)
[2025-05-31] MEDS ORDERED: Electrolyte Replacement Protocol 1 EACH FS SCH (21:30)
[2025-05-31 22:18] VITALS: BMI 36.8
[2025-05-31] MEDS: NIFEdipine XL 90 MG ER.TAB PO SCH (22:45)
[2025-05-31 23:53] LABS: Troponin I 0.028 ng/mL (< 0.028)
[2025-06-01 01:52] LABS: #Basophils Less than 0.03 10x3/uL (0.0-0.2); #Eosinophils Less than 0.03 10x3/uL (0.0-0.7); #Monocytes 0.17 10x3/uL (0.11-0.59); #Neutrophils 7.40 10x3/uL (1.40-6.50); %Basophils 0.1 % (0.0-1.0); %Eosinophils 0.0 % (0.0-10.0); %Lymphocytes 10.5 % (21.0-51.0); %Monocytes 2.0 % (0.0-10.0); %Neutrophils 87.2 % (42.0-75.0); Hematocrit 38.6 % (36.0-47.0); Hemoglobin 11.6 g/dL (12.0-16.0); Mean Corpuscular Hemoglobin 28.2 pg (27.0-31.0); Mean Corpuscular Volume 93.9 fL (78.0-98.0); Platelet Count 273 10x3/uL (130-400); Red Blood Cell (RBC) Count 4.11 mill/uL (4.20-5.40); White Blood Cell (WBC) Count 8.49 10x3/uL (4.8-10.8)
[2025-06-01] MEDS: hydrALAZINE 20 MG/ML VIAL SLOW IVP PRN (01:53)
[2025-06-01] MEDS: niCARdipine 25 MG in Sodium Chloride 0.9% 250 ML 250 ML IVPB SCH (01:57)
[2025-06-01 02:11] LABS: Troponin I 0.026 ng/mL (< 0.028)
[2025-06-01] MEDS ORDERED: Nitroglycerin 0.4 MG TAB (25 Tab Bottle) SL PRN (02:36)
[2025-06-01] MEDS: ALPRAZolam 0.5 MG TAB PO PRN (03:00)
[2025-06-01 04:20] LABS: ALT (SGPT) 9 U/L (Less than 34); AST (SGOT) 30 U/L (11-34); Albumin 3.8 g/dL (3.1-4.5); Alkaline Phosphatase 78 U/L (40-110); Anion Gap 22 mmol/L (10-20); BUN (Urea Nitrogen) 16 mg/dL (9.8-20.1); Bilirubin, Total 0.3 mg/dL (0.3-1.2); Calc. Creatinine Clearance 106 mL/min (70-130); Calcium 9.1 mg/dL (7.8-10.44); Carbon Dioxide 14 mmol/L (23-31); Chloride 105 mmol/L (98-107); Globulin 4.1 g/dL (2.4-3.5); Glucose 126 mg/dL (80-115); Potassium 4.6 mmol/L (3.5-5.1); Sodium 136 mmol/L (136-145)
[2025-06-01] MEDS: diphenhydrAMINE 50 MG/ML VIAL IVP SCH (05:53)
[2025-06-01] MEDS: Magnesium 2 GM/50 ML(in water) 2 GM in Premix 1 BAG IVPB SCH (08:10)
[2025-06-01] MEDS: NIFEdipine XL 60 MG ER.TAB PO SCH (08:24)
[2025-06-01] MEDS: Mupirocin 1 GM TUBE TP SCH (08:24)
[2025-06-01] MEDS: Senokot S 8.6-50 MG TAB PO SCH (08:25)
[2025-06-01] MEDS: Pantoprazole 40 MG DR.TAB PO SCH (08:25)
[2025-06-01] MEDS: Apixaban 5 MG TAB PO SCH ×3 (12:53→20:21)
[2025-06-02 06:06] LABS: Hematocrit 35.4 % (36.0-47.0); Hemoglobin 10.5 g/dL (12.0-16.0); Mean Corpuscular Hemoglobin 27.9 pg (27.0-31.0); Mean Corpuscular Volume 94.1 fL (78.0-98.0); Platelet Count 287 10x3/uL (130-400); Red Blood Cell (RBC) Count 3.76 mill/uL (4.20-5.40); White Blood Cell (WBC) Count 5.94 10x3/uL (4.8-10.8)
[2025-06-02 06:23] LABS: Anion Gap 13 mmol/L (10-20); BUN (Urea Nitrogen) 18 mg/dL (9.8-20.1); Calc. Creatinine Clearance 96 mL/min (70-130); Calcium 8.8 mg/dL (7.8-10.44); Carbon Dioxide 25 mmol/L (23-31); Chloride 105 mmol/L (98-107); Glucose 112 mg/dL (80-115); Potassium 4.0 mmol/L (3.5-5.1); Sodium 139 mmol/L (136-145)
[2025-06-02 15:45] VITALS: BP 121/77; TEMP 98.1
== END 2025-06-02 17:47 | disposition home or self-care (01) | DRG 305 ==
LOC: ERS 16:00 → CCU 20:41 → T4-A 06-01 20:46
PROVIDERS: ADMIT Student in an Organized Health Care Education/Training Program; ATTEND Student in an Organized Health Care Education/Training Program
DX: I16.1 Hypertensive emergency (principal); I50.32 Chronic diastolic (congestive) heart failure; M79.7 Fibromyalgia; G43.909 Migraine, unspecified, not intractable, without status migrainosus; G89.29 Other chronic pain; Z96.611 Presence of right artificial shoulder joint; I95.9 Hypotension, unspecified; K82.8 Other specified diseases of gallbladder; Z96.612 Presence of left artificial shoulder joint; Z96.661 Presence of right artificial ankle joint; Z96.662 Presence of left artificial ankle joint; F41.9 Anxiety disorder, unspecified; F31.9 Bipolar disorder, unspecified; F20.9 Schizophrenia, unspecified; Z86.711 Personal history of pulmonary embolism; Z98.890 Other specified postprocedural states; Z90.710 Acquired absence of both cervix and uterus; Z88.8 Allergy status to other drugs, medicaments and biological substances; Z91.041 Radiographic dye allergy status; Z88.6 Allergy status to analgesic agent; Z79.899 Other long term (current) drug therapy; Z79.01 Long term (current) use of anticoagulants
CPT/HCPCS: 36415; 36416; 71045; 71275; 74174; 76705; 80048; 80053; 83690; 83735; 83880; 84484; 85025; 85027; 93005; 94760; 96374; 96375; 96376; J0360; J1200; J2270; J2919; J3475; J7050; Q9967

== ENCOUNTER 2025-07-04 15:58 | Emergency (ER) | payer OTHER, MEDICAID ==
[2025-07-04] MEDS ORDERED: Pantoprazole 40 MG VIAL ONE (18:25)
[2025-07-04] MEDS ORDERED: Ondansetron PF 4 MG/2 ML Vial ONE (18:25)
[2025-07-04 18:42] LABS: #Basophils 0.06 10x3/uL (0.0-0.2); #Eosinophils Less than 0.03 10x3/uL (0.0-0.7); #Monocytes 0.47 10x3/uL (0.11-0.59); #Neutrophils 7.84 10x3/uL (1.40-6.50); %Basophils 0.6 % (0.0-1.0); %Eosinophils 0.0 % (0.0-10.0); %Lymphocytes 13.6 % (21.0-51.0); %Monocytes 4.8 % (0.0-10.0); %Neutrophils 80.6 % (42.0-75.0); Hematocrit 44.7 % (36.0-47.0); Hemoglobin 13.5 g/dL (12.0-16.0); Mean Corpuscular Hemoglobin 27.3 pg (27.0-31.0); Mean Corpuscular Volume 90.5 fL (78.0-98.0); Platelet Count 372 10x3/uL (130-400); Red Blood Cell (RBC) Count 4.94 mill/uL (4.20-5.40); White Blood Cell (WBC) Count 9.73 10x3/uL (4.8-10.8)
[2025-07-04 19:06] LABS: ALT (SGPT) Less than 7 U/L (Less than 34); AST (SGOT) 21 U/L (11-34); Albumin 4.4 g/dL (3.1-4.5); Alkaline Phosphatase 104 U/L (40-110); Anion Gap 18 mmol/L (10-20); BUN (Urea Nitrogen) 12 mg/dL (9.8-20.1); Bilirubin, Total 0.4 mg/dL (0.3-1.2); Calc. Creatinine Clearance 0 mL/min (70-130); Calcium 10.7 mg/dL (7.8-10.44); Carbon Dioxide 21 mmol/L (23-31); Chloride 104 mmol/L (98-107); Globulin 4.3 g/dL (2.4-3.5); Glucose 134 mg/dL (80-115); Lipase 18 U/L (8-78); Potassium 3.3 mmol/L (3.5-5.1); Sodium 140 mmol/L (136-145)
== END 2025-07-04 21:00 | disposition home or self-care (01) ==
LOC: ERS 15:58
DX: R10.9 Unspecified abdominal pain (principal); G89.29 Other chronic pain; I10 Essential (primary) hypertension; I11.0 Hypertensive heart disease with heart failure; I50.9 Heart failure, unspecified; Z86.711 Personal history of pulmonary embolism; Z79.01 Long term (current) use of anticoagulants; Z79.899 Other long term (current) drug therapy
CPT/HCPCS: 80053; 83690; 85025; 96372; 96374; 96375; 99284; J1630; J2060; J2270; J2405; J2470

== ENCOUNTER 2025-09-28 05:05 | Inpatient (IN) | payer OTHER, MEDICAID ==
[2025-09-28] MEDS ORDERED: diphenhydrAMINE 50 MG/ML VIAL ONE (05:25)
[2025-09-28] MEDS ORDERED: Famotidine/PF 20 mg/2ml Vial ONE (05:26)
[2025-09-28] MEDS ORDERED: Ondansetron PF 4 MG/2 ML Vial ONE (05:34)
[2025-09-28 06:15] LABS: #Basophils 0.07 10x3/uL (0.0-0.2); #Eosinophils 0.03 10x3/uL (0.0-0.7); #Monocytes 0.37 10x3/uL (0.11-0.59); #Neutrophils 8.89 10x3/uL (1.40-6.50); %Basophils 0.6 % (0.0-1.0); %Eosinophils 0.3 % (0.0-10.0); %Lymphocytes 12.7 % (21.0-51.0); %Monocytes 3.4 % (0.0-10.0); %Neutrophils 82.4 % (42.0-75.0); Hematocrit 44.6 % (36.0-47.0); Hemoglobin 13.8 g/dL (12.0-16.0); Mean Corpuscular Hemoglobin 27.1 pg (27.0-31.0); Mean Corpuscular Volume 87.5 fL (78.0-98.0); Platelet Count 413 10x3/uL (130-400); Red Blood Cell (RBC) Count 5.10 mill/uL (4.20-5.40); White Blood Cell (WBC) Count 10.79 10x3/uL (4.8-10.8)
[2025-09-28 06:29] LABS: CRP, High Sensitivity at Bryan 0.28 mg/dL (< or = 0.5); Magnesium 1.9 mg/dL (1.6-2.6)
[2025-09-28 06:31] LABS: ALT (SGPT) 10 U/L (Less than 34); AST (SGOT) 33 U/L (11-34); Albumin 4.4 g/dL (3.1-4.5); Alkaline Phosphatase 114 U/L (40-110); Anion Gap 17 mmol/L (10-20); BUN (Urea Nitrogen) 17 mg/dL (9.8-20.1); Bilirubin, Total 0.4 mg/dL (0.3-1.2); Calc. Creatinine Clearance 0 mL/min (70-130); Calcium 10.4 mg/dL (7.8-10.44); Carbon Dioxide 24 mmol/L (23-31); Chloride 103 mmol/L (98-107); Globulin 4.7 g/dL (2.4-3.5); Glucose 142 mg/dL (80-115); Potassium 3.5 mmol/L (3.5-5.1); Sodium 140 mmol/L (136-145)
[2025-09-28 08:01] LABS: Glucose, Urine (Dipstick) Negative (Negative); Leukocyte Negative (Negative); Protein, Urine (Dipstick) 100 mg/dL (Neg-Trace); Specific Gravity, Urine 1.015 (1.005-1.030)
[2025-09-28 08:16] LABS: RBC/HPF 0-3 HPF (0-3)
[2025-09-28 08:27] LABS: CAUTI Indications for Culture Dysuria,urgency,freq
[2025-09-28] MEDS ORDERED: Senokot S 8.6-50 MG TAB PO PRN (08:46)
[2025-09-28] MEDS ORDERED: Ondansetron PF 4 MG/2 ML Vial IVP PRN (08:46)
[2025-09-28] MEDS ORDERED: niCARdipine 25 MG in Sodium Chloride 0.9% 250 ML 250 ML IVPB SCH (09:00)
[2025-09-28] MEDS ORDERED: Nitroglycerin 2% Ointment 1 INCH/1 GM Packet ONE (09:07)
[2025-09-28] MEDS ORDERED: HYDROcodone/Acetaminophen 5/325 mg Tablet ONE (09:15)
[2025-09-28 10:15] VITALS: BMI 34.7
[2025-09-28] MEDS ORDERED: hydrALAZINE 20 MG/ML VIAL ONE (12:19)
[2025-09-28] MEDS ORDERED: ALPRAZolam 0.25 MG TAB ONE (12:36)
[2025-09-28] MEDS: ALPRAZolam 0.5 MG TAB PO PRN (12:41)
[2025-09-28] MEDS: hydrALAZINE 20 MG/ML VIAL SLOW IVP PRN (16:41)
[2025-09-28] MEDS: Acetaminophen 325 MG TAB PO PRN (20:19)
[2025-09-28] MEDS: Mupirocin 1 GM TUBE TP SCH (20:20)
[2025-09-28] MEDS: Apixaban 5 MG TAB PO SCH (20:20)
[2025-09-29] MEDS: Melatonin 3 MG TAB PO PRN (02:02)
[2025-09-29 04:33] LABS: #Basophils Less than 0.03 10x3/uL (0.0-0.2); #Eosinophils 0.14 10x3/uL (0.0-0.7); #Monocytes 0.47 10x3/uL (0.11-0.59); #Neutrophils 4.47 10x3/uL (1.40-6.50); %Basophils 0.3 % (0.0-1.0); %Eosinophils 2.1 % (0.0-10.0); %Lymphocytes 22.9 % (21.0-51.0); %Monocytes 7.1 % (0.0-10.0); %Neutrophils 67.3 % (42.0-75.0); Hematocrit 35.7 % (36.0-47.0); Hemoglobin 11.0 g/dL (12.0-16.0); Mean Corpuscular Hemoglobin 27.5 pg (27.0-31.0); Mean Corpuscular Volume 89.3 fL (78.0-98.0); Platelet Count 295 10x3/uL (130-400); Red Blood Cell (RBC) Count 4.00 mill/uL (4.20-5.40); White Blood Cell (WBC) Count 6.64 10x3/uL (4.8-10.8)
[2025-09-29] MEDS: Norepinephrine 8 MG/0.9% NS 250 ML IVPB SCH (04:40)
[2025-09-29 04:52] LABS: Anion Gap 13 mmol/L (10-20); BUN (Urea Nitrogen) 26 mg/dL (9.8-20.1); Calc. Creatinine Clearance 47 mL/min (70-130); Calcium 8.8 mg/dL (7.8-10.44); Carbon Dioxide 24 mmol/L (23-31); Chloride 105 mmol/L (98-107); Glucose 139 mg/dL (80-115); Potassium 3.4 mmol/L (3.5-5.1); Sodium 139 mmol/L (136-145)
[2025-09-29 11:24] LABS: Hematocrit 37.4 % (36.0-47.0); Hemoglobin 11.1 g/dL (12.0-16.0)
[2025-09-29] MEDS: Acetaminophen/Codeine 30-300mg Tablet PO PRN (20:04)
[2025-09-30 05:07] LABS: #Basophils 0.05 10x3/uL (0.0-0.2); #Eosinophils 0.27 10x3/uL (0.0-0.7); #Monocytes 0.46 10x3/uL (0.11-0.59); #Neutrophils 3.48 10x3/uL (1.40-6.50); %Basophils 0.7 % (0.0-1.0); %Eosinophils 3.9 % (0.0-10.0); %Lymphocytes 37.6 % (21.0-51.0); %Monocytes 6.7 % (0.0-10.0); %Neutrophils 50.7 % (42.0-75.0); Hematocrit 35.0 % (36.0-47.0); Hemoglobin 10.6 g/dL (12.0-16.0); Mean Corpuscular Hemoglobin 27.2 pg (27.0-31.0); Mean Corpuscular Volume 90.0 fL (78.0-98.0); Platelet Count 290 10x3/uL (130-400); Red Blood Cell (RBC) Count 3.89 mill/uL (4.20-5.40); White Blood Cell (WBC) Count 6.87 10x3/uL (4.8-10.8)
[2025-09-30 05:20] LABS: Anion Gap 11 mmol/L (10-20); BUN (Urea Nitrogen) 37 mg/dL (9.8-20.1); Calc. Creatinine Clearance 36 mL/min (70-130); Calcium 8.8 mg/dL (7.8-10.44); Carbon Dioxide 24 mmol/L (23-31); Chloride 104 mmol/L (98-107); Glucose 125 mg/dL (80-115); Potassium 4.2 mmol/L (3.5-5.1); Sodium 135 mmol/L (136-145)
[2025-09-30] MEDS ORDERED: cloNIDine 0.1 MG TAB PO PRN (13:13)
[2025-09-30 15:44] VITALS: BP 155/82; TEMP 98.3
== END 2025-09-30 16:30 | disposition home or self-care (01) | DRG 304 ==
LOC: ERS 05:05 → ERHOLD 08:53 → IMCU/EMU 14:27 → T4-B 09-29 12:32
PROVIDERS: ADMIT Internal Medicine; ATTEND Internal Medicine
DX: I16.1 Hypertensive emergency (principal); I50.33 Acute on chronic diastolic (congestive) heart failure; N17.9 Acute kidney failure, unspecified; F31.9 Bipolar disorder, unspecified; K21.9 Gastro-esophageal reflux disease without esophagitis; I13.0 Hypertensive heart and chronic kidney disease with heart failure and stage 1 through stage 4 chronic kidney disease, or unspecified chronic kidney disease; N18.30 Chronic kidney disease, stage 3 unspecified; F41.9 Anxiety disorder, unspecified; M79.7 Fibromyalgia; G89.4 Chronic pain syndrome; F20.9 Schizophrenia, unspecified; Z86.711 Personal history of pulmonary embolism; Z79.01 Long term (current) use of anticoagulants; Z91.041 Radiographic dye allergy status; Z88.8 Allergy status to other drugs, medicaments and biological substances; Z88.6 Allergy status to analgesic agent
CPT/HCPCS: 71045; 74176; 74177; 80048; 80053; 81001; 83735; 83880; 84484; 85025; 86141; 87040; 87086; 93005; J0360; J1200; J1308; J2270; J2405; J2919; J7030; J7050